=== PATIENT | male | born 1945 | race Caucasian/White ===

== ENCOUNTER 2019-02-08 12:30 | Emergency (ER) | payer MEDICARE, OTHER ==
--- NOTE | 2019-02-08 13:20 | XRAY Report ---
Reason: fall Procedure Date: 02/08/2019 Accession Number: [id number] / [id number] Procedure: XR - Hand 3 View LT CPT Code: FULL RESULT: EXAM: LEFT HAND RADIOGRAPHY EXAM DATE: 02/08/2019 01:03 PM. CLINICAL HISTORY: Fall. Left hand pain and swelling. COMPARISON: None available. TECHNIQUE: 3 views. FINDINGS: Bones: The bones are osteopenic. On the lateral view, there is a 11 x 8 mm ossicle projecting dorsal to the carpal bones, which appears fractured. This could represent a fractured and displaced pisiform. Otherwise the carpal bones appear intact and normally aligned. No additional fractures or dislocations. The fourth and fifth metacarpals are relatively short, which is likely congenital/developmental. Joints: Moderate degenerative changes of the distal radioulnar joint. Mild multifocal degenerative changes of the interphalangeal joints. Soft Tissues: Dorsal soft tissue swelling overlying the wrist and metacarpals. No radiopaque foreign body. IMPRESSION: Apparent fractured and displaced carpal bone, which may represent the pisiform, as described above. Dorsal soft tissue swelling. Osteopenia. RADIA
[2019-02-08] MEDS ORDERED: oxyCODONE 5 MG TABLET PO STA (14:00)
--- NOTE | 2019-02-08 14:09 | ED Physician Documentation ---
PD HPI UPPER EXT INJURY - Stated complaint Stated Complaint: LT HAND/WRIST INJURY - Chief complaint Chief Complaint: Ext Problem - History obtained from History obtained from: Patient - History of Present Illness Location: Left, Wrist, Hand Where injury occurred: Home Timing - onset: Today Timing - duration: Days (1) Timing - details: Abrupt onset Pain level max: 8 Pain level now: 7 Improved by: Rest Worsened by: Moving, Palpating Associated symptoms: No: Weakness, Numbness, Tingling, Swelling Similar symptoms before: Has not had sx before Recently seen: Not recently seen - Additonal information Additional information: fall, L wrist pain. pt is right handed Review of Systems Constitutional: denies: Fever, Chills Nose: denies: Rhinorrhea / runny nose Throat: denies: Sore throat Cardiac: denies: Chest pain / pressure GI: denies: Vomiting, Diarrhea Skin: denies: Rash Musculoskeletal: denies: Neck pain, Back pain Neurologic: denies: Headache PD PAST MEDICAL HISTORY - Past Medical History Past Medical History: No Cardiovascular: None Respiratory: None Neuro: None Endocrine/Autoimmune: None GI: None : None HEENT: None Psych: None Musculoskeletal: None Derm: None - Past Surgical History Past Surgical History: No - Present Medications Home Medications: Ambulatory Orders Medication Instructions Recorded Confirmed Aspirin Chewable [St Sixto 81 mg PO DAILY 02/08/19 02/08/19 Aspirin] Lactobacillus Acidophilus 1 each PO 02/08/19 02/08/19 [Probiotic Acidophilus] Oxycodone HCl/Acetaminophen 1 - 2 each PO Q6H PRN #14 tablet 02/08/19 [Percocet 5-325 mg Tablet] - Allergies Allergies/Adverse Reactions: Allergies Allergy/AdvReac Type Severity Reaction Status Date / Time No Known Drug Allergies Allergy Verified 02/08/19 12:40 - Social History Does the pt smoke?: Yes Smoking Status: Current every day smoker Does the pt drink ETOH?: Yes ETOH Use: Liquor Does the pt have substance abuse?: No - Immunizations Immunizations are current?: No Immunizations: TDAP >10years/unknown - POLST Patient has POLST: No PD ED PE NORMAL - Vitals Vital signs reviewed: Yes - General General: Alert and oriented X 3, No acute distress - HEENT HEENT: Moist mucous membranes - Neck Neck: Supple, no meningeal sign - Cardiac Cardiac: RRR - Respiratory Respiratory: No respiratory distress, Clear bilaterally - Derm Derm: Warm and dry - Extremities Extremities: Other (Tender to palpation over the left wrist, swelling and ec chymosis present. Neurovascular intact. Multiple small skin tears to the left elbow) - Neuro Neuro: Alert and oriented X 3 Results - Vitals Vitals: Vital Signs - 24 hr 02/08/19 02/08/19 12:37 16:32 Temperature 36.8 C 37.1 C Heart Rate 102 H 87 Respiratory 20 18 Rate Blood Pressure 184/92 H 171/93 H O2 Saturation 97 97 Oxygen O2 Source Room air - Rads (name of study) Left wrist x-ray Radiology: Prelim report reviewed, EMP read contemporaneously, See rad report (Apparent fractured and displaced carpal bone, which may represent the pisiform, as described above. Dorsal soft tissue swelling. Osteopenia. ) CT L wrist Radiology: Prelim report reviewed, EMP read contemporaneously, See rad report (Comminuted intra-articular fracture of the distal radius without significant displacement or step-off. 2. Comminuted fracture of the pisiform with maximum distraction of fragment 3 mm. 3. Triquetral avulsion fracture. 4. Additional fractured ossified fragment dorsal to the triquetrum measuring 1.0 x 0.7 x 0.8 cm. Exact site of origin is uncertain. This could represent a more extensive avulsion fragment arising from the dorsal margin of the triquetrum or lunate. Alternatively this could represent an old avulsion fragment or accessory ossification with a superimposed acute fracture. 5. Tiny avulsion fracture at the dorsal margin of the mid scaphoid. ) PD MEDICAL DECISION MAKING - ED course Complexity details: reviewed results, re-evaluated patient, considered differential, d/w patient, d/w performance test consultant ED course: 73-year-old male with a fractured and displaced carpal bone, possible pisiform. Discussed the case with Dr. Calixto, orthopedics who recommends a CT scan. This was ordered. Reviewed the CT scan with Dr. Calixto and recommends placement into a splint. Sugar tong splint was going to be applied but because of the skin tears farther up the arm, just to place him in a volar splint instead. Neurovascularly intact. Patient and family counseled regarding signs and symptoms for which I believe and urgent re-evaluation would be necessary. Patient with good understanding of and agreement to plan and is comfortable going home at this time This document was made in part using voice recognition software. While efforts are made to proofread this document, sound alike and grammatical errors may occur. Departure - Departure Disposition: 01 Home, Self Care Clinical Impression: Wrist fracture, left Qualifiers: Encounter type: initial encounter Fracture type: closed Qualified Code(s): S62.102A - Fracture of unspecified carpal bone, left wrist, initial encounter for closed fracture Condition: Good Instructions: ED Fx Wrist General Follow-Up: David Calixto MD [Provider Admit Priv/Credential] - Within 1 week Prescriptions: Oxycodone HCl/Acetaminophen [Percocet 5-325 mg Tablet] 1 - 2 each PO Q6H PRN #14 tablet PRN Reason: pain Comments: Follow-up with Dr. Calixto or his partner Dr. Crespo next week. Leave the splint in place. Return if you worsen. Do not drink alcohol or drive while on narcotic pain medicine. Note that many narcotic pain relievers also contain tylenol/acetaminophen. Please ensure that your total dose of acetaminophen from all sources does not exceed 3 grams (3000mg) per day. You may constipated on this medication, take a stool softener such as "Colace" twice a day while you are on it. Also recommend a epmg-[id number]-[id number] laxative such as senna or MiraLAX any day that you do not have a bowel movement. If you received narcotic pain medication in the emergency department, do not drive or operate machinery for the next 24 hours. Discharge Date/Time: 02/08/19 16:36
--- NOTE | 2019-02-08 15:07 | CT Report ---
Reason: L wrist - fx/dislocation of pisiform, pain Procedure Date: 02/08/2019 Accession Number: [id number] / [id number] Procedure: CT - UPPER EXTREMITY WO - LT CPT Code: FULL RESULT: EXAM: LEFT ELBOW CT WITHOUT CONTRAST EXAM DATE: 02/08/2019 02:30 PM. CLINICAL HISTORY: L wrist - fx/dislocation of pisiform, pain. COMPARISON: HAND 3 VIEW LT 02/08/2019 12:48 PM. TECHNIQUE: Thin-section axial images were acquired of the elbow without contrast. Post-processing: Coronal and sagittal reformats. Other: None. In accordance with CT protocol optimization, one or more of the following dose reduction techniques were utilized for this exam: automated exposure control, adjustment of mA and/or KV based on patient size, or use of iterative reconstructive technique. FINDINGS: Bones and articular surfaces: There is a comminuted intra-articular fracture of the distal radius with distraction and step-off both measuring less than 1 mm. Small avulsion fracture at the dorsal margin of the mid scaphoid. Small comminuted avulsion fracture at the dorsal margin of the lunate. Maximum distraction approximately 2 mm. Triquetral avulsion fracture. Adjacent to the small triquetral avulsion fracture there is a larger fractured focus of ossification measuring approximately 1.0 x 0.7 x 0.8 cm. Precise origin of this ossification is uncertain. Potentially this could represent a dorsal fragment of the lunate or triquetrum. This ossification is fractured, but age of the avulsion is uncertain. In addition there is a comminuted fracture of the [place] form with maximum subluxation at the radial margin of the fracture measuring 3 mm. Soft tissues: Wrist joint effusion. Subcutaneous soft tissue edema. Visualized flexor and extensor tendons appear grossly intact. Ligaments: There is no scapholunate or lunatotriquetral diastases. IMPRESSION: 1. Comminuted intra-articular fracture of the distal radius without significant displacement or step-off. 2. Comminuted fracture of the pisiform with maximum distraction of fragment 3 mm. 3. Triquetral avulsion fracture. 4. Additional fractured ossified fragment dorsal to the triquetrum measuring 1.0 x 0.7 x 0.8 cm. Exact site of origin is uncertain. This could represent a more extensive avulsion fragment arising from the dorsal margin of the triquetrum or lunate. Alternatively this could represent an old avulsion fragment or accessory ossification with a superimposed acute fracture. 5. Tiny avulsion fracture at the dorsal margin of the mid scaphoid. RADIA
[2019-02-08 16:34] VITALS: BP 171/93
== END 2019-02-08 16:36 | disposition home or self-care (01) ==
LOC: ED 12:30
DX: S52.572A Other intraarticular fracture of lower end of left radius, initial encounter for closed fracture (principal); S62.162A Displaced fracture of pisiform, left wrist, initial encounter for closed fracture; S62.112A Displaced fracture of triquetrum [cuneiform] bone, left wrist, initial encounter for closed fracture; S62.022A Displaced fracture of middle third of navicular [scaphoid] bone of left wrist, initial encounter for closed fracture; W19.XXXA Unspecified fall, initial encounter; Y92.009 Unspecified place in unspecified non-institutional (private) residence as the place of occurrence of the external cause; F17.200 Nicotine dependence, unspecified, uncomplicated
CPT/HCPCS: 73130; 73200; 99283; A9270

== ENCOUNTER 2020-01-20 16:08 | Outpatient (CLI) | payer MEDICARE, OTHER ==
--- NOTE | 2020-01-20 16:31 | XRAY Report ---
PROCEDURE: Chest 2 View X-Ray INDICATIONS: DYSPNEA TECHNIQUE: 2 view(s) of the chest. COMPARISON: None. FINDINGS: Surgical changes and devices: None. Lungs and pleura: No pleural effusions or pneumothorax. Moderate interstitial pulmonary opacity is p resent, of uncertain acuity. Mediastinum: Mediastinal contours are normal. Heart size is normal. Bones and chest wall: No suspicious bony abnormalities. Soft tissues appear unremarkable. IMPRESSION: Moderate edema versus pneumonia versus fibrosis. Comparison with prior chest x-rays woul d be helpful for further assessment. Reviewed by: Tika Delarosa MD on 01/20/2020 4:30 PM PDT Approved by: Tika Delarosa MD on 01/20/2020 4:30 PM PDT Station ID: [id number]
== END 2020-01-20 16:09 | disposition home or self-care (01) ==
LOC: DI 16:08
PROVIDERS: ATTEND Internal Medicine
DX: R91.8 Other nonspecific abnormal finding of lung field (principal)
CPT/HCPCS: 71046

== ENCOUNTER 2020-01-24 13:59 | Outpatient (CLI) | payer MEDICARE, OTHER | END 2020-01-24 14:00 | disposition critical access hospital (66) | LOC: EMS 13:59 | PROVIDERS: ATTEND Surgery | DX: R06.00 Dyspnea, unspecified (principal); R05 Cough | CPT/HCPCS: A0425; A0427 ==

== ENCOUNTER 2020-01-24 14:24 | Inpatient (IN) | payer MEDICARE, OTHER ==
[2020-01-24] MEDS ORDERED: IPRATROPIUM/ALBUTEROL 3 ML NEB INH STA (14:33)
--- NOTE | 2020-01-24 14:33 | ED Physician Documentation ---
PD HPI DYSPNEA - Stated complaint Stated Complaint: SOA - History obtained from History obtained from: Patient, EMS - History of Present Illness Timing - onset: Other (74-year-old gentleman without history of major medical problems but a longstanding smoker presents with shortness of breath with mild cough that is been going on for a week or so. He saw his physician who felt it was probably COPD and a chest x-ray was ordered with a read suggestive of fibrosis versus edema versus pneumonia. Got more short of breath and called EMS today. The shortness of breath is not positional, he denies orthopnea. No pedal edema or calf pain. No fevers. For paramedics they noted that if he ambulated he became borderline hypoxic to 90% or so, but not lower. In route he received 2 puffs of Combivent and 125 mg of IV Solu-Medrol.) Review of Systems Ten Systems: 10 systems reviewed and negative Constitutional: denies: Fever, Chills, Fatigue Cardiac: denies: Chest pain / pressure, Palpitations, Pedal edema, Calf pain Respiratory: reports: Dyspnea, Cough, Wheezing. denies: Hemoptysis GI: denies: Abdominal Pain PD PAST MEDICAL HISTORY - Past Medical History Cardiovascular: None Respiratory: None Neuro: None Endocrine/Autoimmune: None GI: None : None HEENT: None Psych: None Musculoskeletal: None Derm: None - Past Surgical History Past Surgical History: No - Present Medications Home Medications: Ambulatory Orders Medication Instructions Recorded Confirmed Aspirin Chewable [St Sixto 81 mg PO DAILY 02/08/19 01/24/20 Aspirin] - Allergies Allergies/Adverse Reactions: Allergies Allergy/AdvReac Type Severity Reaction Status Date / Time No Known Drug Allergies Allergy Verified 01/24/20 14:35 - Social History Does the pt smoke?: Yes Smoking Status: Current every day smoker Does the pt drink ETOH?: Yes Does the pt have substance abuse?: No - Immunizations Immunizations are current?: No Immunizations: TDAP >10years/unknown - POLST Patient has POLST: No PD ED PE NORMAL - Vitals Vital signs reviewed: Yes - General General: Alert and oriented X 3, No acute distress - HEENT HEENT: PERRL, EOMI - Neck Neck: Supple, no meningeal sign, No bony TTP - Cardiac Cardiac: Other (Mildly tachycardic) - Respiratory Respiratory: Other (Tight and wheezy throughout, nonlabored) - Abdomen Abdomen: Non tender - Back Back: No CVA TTP, No spinal TTP - Derm Derm: Normal color, Warm and dry - Extremities Extremities: No edema, No calf tenderness / cord - Neuro Neuro: Alert and oriented X 3, Normal speech Results - Vitals Vitals: Vital Signs - 24 hr 01/24/20 01/24/20 01/24/20 14:30 14:44 15:04 Temperature 36.7 C Heart Rate 114 H 104 H 105 H Respiratory 20 28 H 25 H Rate Blood Pressure 140/107 H O2 Saturation 94 01/24/20 16:00 Temperature Heart Rate 114 H Respiratory 25 H Rate Blood Pressure 163/103 H O2 Saturation 92 Oxygen O2 Source Room air - EKG (time done) 1442 Rate: Rate (enter#) (103) Rhythm: Sinus tachycardia (with PVCs), LAE Intervals: LBBB Ischemia: Non specific changes Compare to prior EKG: Old EKG unavailable Computer interpretation: Agree with computer - Labs Labs: Laboratory Tests 01/24/20 01/24/20 01/24/20 14:39 14:39 14:39 WBC 9.8 RBC 4.13 L Hgb 13.7 L Hct 40.1 L MCV 97.1 H MCH 33.2 H MCHC 34.2 RDW 20.0 H Plt Count 256 MPV 10.6 Neut # (Auto) 8.0 H Lymph # (Auto) 1.1 L [place] # (Auto) 0.6 Eos # (Auto) 0.1 Baso # (Auto) 0.1 Absolute Nucleated RBC 0.03 Nucleated RBC % 0.3 Sodium 142 Potassium 3.7 Chloride 106 Carbon Dioxide 23 Anion Gap 13.0 BUN 14 Creatinine 0.8 Estimated GFR (MDRD) 95 Glucose 122 H Calcium 9.2 Total Bilirubin 1.0 AST 22 ALT 16 Alkaline Phosphatase 66 Troponin I High Sens 33.8 H* B-Natriuretic Peptide Total Protein 6.9 Albumin 4.2 Globulin 2.7 Albumin/Globulin Ratio 1.6 Lipase 29 01/24/20 14:39 WBC RBC Hgb Hct MCV MCH MCHC RDW Plt Count MPV Neut # (Auto) Lymph # (Auto) [place] # (Auto) Eos # (Auto) Baso # (Auto) Absolute Nucleated RBC Nucleated RBC % Sodium Potassium Chloride Carbon Dioxide Anion Gap BUN Creatinine Estimated GFR (MDRD) Glucose Calcium Total Bilirubin AST ALT Alkaline Phosphatase Troponin I High Sens B-Natriuretic Peptide 1023 H Total Protein Albumin Globulin Albumin/Globulin Ratio Lipase - Rads (name of study) 1v chest Radiology: EMP read contemporaneously (Cardiomegaly and worsening pulmonary vascular congestion with a suggestion of pulmonary edema superimposed on chronic emphysematous changes and interstitial lung disease.) PD MEDICAL DECISION MAKING - ED course ED course: 74-year-old gentleman with really no past medical history but longstanding tobacco abuse presents with shortness of breath, the clinical pattern was most consistent with COPD with wheezy lungs and not really much evidence of peripheral fluid overload. That said his work-up here shows a somewhat ischemic EKG with pulmonary edema on chest x-ray and elevated BNP, his troponin is only modestly elevated. Spoke with Dr. Angel for admission at 4:12 PM. In the department he received 3 nebs and he had already gotten Solu-Medrol prior to arrival. This improved him somewhat but not much. He also received Nitropaste and Lasix after the diagnosis of CHF became also more apparent. Departure - Departure Disposition: 66 [facility] DC/Xfer Clinical Impression: Congestive heart failure, Dyspnea, Moderate COPD (chronic obstructive pulmonary disease) Condition: Serious
[2020-01-24 14:46] LABS: BASOPHILS # (AUTO) 0.1 10^3/uL (0.0-0.1); BASOPHILS % (AUTO) 0.8 %; EOSINOPHILS # (AUTO) 0.1 10^3/uL (0.0-0.7); EOSINOPHILS % (AUTO) 0.6 %; HGB - HEMOGLOBIN 13.7 g/dL (14.0-18.0); LYMPHOCYTES # (AUTO) 1.1 10^3/uL (1.5-3.5); LYMPHOCYTES % (AUTO) 10.7 %; MEAN CORPUSCULAR HEMOGLOBIN 33.2 pg (27.0-31.0); MEAN CORPUSCULAR HGB CONC 34.2 g/dL (32.0-36.0); MEAN CORPUSCULAR VOLUME 97.1 fL (80.0-94.0); MEAN PLATELET VOLUME 10.6 fL (7.4-11.4); MONOCYTES # (AUTO) 0.6 10^3/uL (0.0-1.0); MONOCYTES % (AUTO) 6.2 %; NEUTROPHILS % (AUTO) 81.1 %; PLT - PLATELET COUNT 256 10^3/uL (130-450); RED BLOOD COUNT 4.13 10^6/uL (4.70-6.10); WHITE BLOOD COUNT 9.8 x10^3/uL (4.8-10.8)
[2020-01-24 14:57] LABS: ALBUMIN 4.2 g/dL (3.2-5.5); ALBUMIN/GLOBULIN RATIO 1.6 (1.0-2.2); CALCIUM 9.2 mg/dL (8.5-10.3); CREATININE 0.8 mg/dL (0.6-1.2); TOTAL PROTEIN 6.9 g/dL (6.7-8.2)
--- NOTE | 2020-01-24 14:57 | XRAY Report ---
PROCEDURE: Chest 1 View X-Ray INDICATIONS: dyspnea TECHNIQUE: One view of the chest was acquired. COMPARISON: 01/20/2020 FINDINGS: Surgical changes and devices: None. Lungs and pleura: No pleural effusions or pneumothorax. Chronic emphysematous changes are again seen . Pulmonary vascular congestion is noted with increased interstitial lung reticular markings suggesti ve of pulmonary edema superimposed on chronic interstitial lung disease. No pneumothorax. No definite focal infiltrate. Mediastinum: Mediastinal contours appear normal. Heart size is enlarged. Bones and chest wall: No suspicious bony lesions. Overlying soft tissues appear unremarkable. IMPRESSION: Cardiomegaly and worsening pulmonary vascular congestion with suggestion of pulmonary edema superimpo sed on chronic emphysematous changes and interstitial lung disease. No pleural effusion or pneumothor ax. No definite focal infiltrate. Reviewed by: Isaiah Maloney MD on 01/24/2020 2:56 PM PDT Approved by: Isaiah Maloney MD on 01/24/2020 2:56 PM PDT Station ID: [id number]
[2020-01-24] MEDS ORDERED: LEVALBUTEROL 1.25 MG/3 ML NEB INH STA (14:59)
[2020-01-24] MEDS ORDERED: NITROGLYCERIN 2% PASTE TOP STA (15:35)
[2020-01-24] MEDS ORDERED: FUROSEMIDE 40 MG/4 ML VIAL IVP STA (15:35)
[2020-01-24] MEDS ORDERED: ASPIRIN CHEW 81 MG TABLET PO STA (16:11)
[2020-01-24] MEDS ORDERED: ONDANSETRON 4 MG/2 ML VIAL IVP PRN (17:23)
[2020-01-24] MEDS ORDERED: MORPHINE 2 MG/ML CARPUJECT IVP PRN (17:23)
[2020-01-24] MEDS ORDERED: ACETAMINOPHEN 325 MG TABLET PO PRN (17:23)
[2020-01-24] MEDS ORDERED: LEVALBUTEROL 1.25 MG/3 ML NEB INH PRN (17:26)
[2020-01-24] MEDS ORDERED: AZITHROMYCIN 250 MG TABLET PO STA (17:32)
[2020-01-24] MEDS: diltiaZEM 30 MG TABLET PO SCH ×2 (18:39→23:50)
[2020-01-24 18:46] LABS: INR 1.1 (0.8-1.2); PT - PROTHROMBIN TIME 12.3 secs (9.9-12.6)
--- NOTE | 2020-01-24 19:25 | HISTORY & PHYSICAL EXAMINATION ---
DATE OF SERVICE: 01/24/2020 Physician: Chela Angel MD HISTORY OF PRESENT ILLNESS: This is a 74-year-old white male who has no significant past medical history, but he also does not go to routine doctor visits. He only takes an aspirin a day. He is a smoker of a pack a day for many years. Patient went to see his doctor after complaints of worsening shortness of breath developing over about 2 weeks. There was no fever, sputum production, he has a chronic dry cough. He had outpatient chest x-ray, which was read as either having interstitial fibrosis or pneumonia, but cannot rule out CHF either. He continued to get worsening shortness of breath over the past 3 days and presented to the emergency room by ambulance with tachypnea with respiratory rate of 30, room air saturation of 90%, which dropped with ambulation to below 88%. CXR was read as CHF and underlying COPD. In the ER, he was given 3 nebulizer treatments because of being very tight and wheezy and also given Lasix x1 and nitro paste for management of CHF by chest x-ray and hypertension and has felt better. His labs show a very high BNP of 1023. He is being admitted for management of new onset of CHF and a COPD exacerbation and respiratory failure with hypoxia. PAST MEDICAL HISTORY: None except cigarette smoker of many years. ALLERGIES: NONE. MEDICATIONS: Baby aspirin daily. FAMILY HISTORY: No inherited diseases. SOCIAL HISTORY: There is no alcohol or drug abuse history. He is a smoker of cigarettes, 1 pack a day for many years, he has started to quit by "not inhaling at all". REVIEW OF SYSTEMS: He denies a fever, GI symptoms, palpitations, or chest pain. A comprehensive review of systems was performed and the pertinent positives are listed, the rest are negative. PHYSICAL EXAMINATION GENERAL: Thin, white male with a long avalos. He is in just mild respiratory distress now, wearing O2 via nasal cannula. VITAL SIGNS: Blood pressure 163/103, heart rate 114 in sinus tachycardia, afebrile, room air saturation was initially 90%, now 94% and there were desaturations below 88% with walking. HEENT: Reveals cachexia and dry oral mucosa. NECK: No JVD, but it is difficult to evaluate with his long avalos. CHEST: Diffusely tight with poor air movement and scattered wheezes. ABDOMEN: Soft, nontender. No organomegaly. EXTREMITIES: No clubbing, cyanosis or edema. NEUROLOGIC: Grossly intact. LABORATORY DATA: Normal electrolytes. Normal BUN and creatinine. Normal liver tests and lipase. BNP 1023. Troponin 33.8. White blood count 9.8, platelet count normal at 256. Hemoglobin is 13.7 with an MCV of 97. No INR was done. EKG: Sinus tachycardia, right bundle-branch block, frequent PVCs early 4/S transition. CHEST X-RAY: Cardiomegaly and pulmonary vascular congestion consistent with pulmonary edema on top of chronic COPD changes with interstitial lung disease. IMPRESSION/DIAGNOSES 1. New onset of congestive heart failure with very high BNP and findings of heart failure on chest x-ray. 2. Hypertension, untreated. 3. Chronic obstructive pulmonary disease with exacerbation. 4. Right bundle branch block. 5. Tachycardia. 6. Elevated troponin. 7. Tobacco abuse. PLAN: Place patient on Med/Surg as inpatient on telemetry. Continue management for his CHF with IV b.i.d. diuretics, follow his I's and O's, daily weights, electrolytes and magnesium. Cycle troponins. Follow his BNP daily, and continue with IV b.i.d. Lasix. Obtain an Echo to evaluate LV and RV contractility. Adjust meds based on the LVEF, which is likely to be depressed with such a high BNP. Continue with his daily aspirin. Depending on blood pressure after the Lasix treatment, possible nitro paste will continue. Start Cardizem for both rate control and vasodilation and blood pressure control. Begin nebulizers scheduled and p.r.n. Begin IV steroids for his COPD exacerbation. Nicotine patch will be offered. Smoking cessation will be discussed. CODE STATUS: FULL CODE, confirmed with discussion with the patient. DEEP VENOUS THROMBOSIS PROPHYLAXIS: Pharmacotherapy. ATTESTATION: Patient is expected to be discharged or transferred to another facility within 96 hours: Yes. cc: Jane Mac MD TD: 01/24/2020 18:20 KYRA
[2020-01-24] MEDS ORDERED: MONTELUKAST 10 MG TABLET PO SCH (21:00)
[2020-01-24] MEDS: methylPREDNISolone SUCCINATE 40 MG/ML VIAL IVP SCH (21:12)
[2020-01-24] MEDS: guaiFENesin 600 MG TABLET PO SCH (21:12)
[2020-01-24] MEDS: SODIUM CHLORIDE FLUSH 0.9% 10 ML SYRINGE IVP SCH (23:59)
[2020-01-25] MEDS: methylPREDNISolone SUCCINATE 40 MG/ML VIAL IVP SCH ×2 (05:30→14:13)
[2020-01-25] MEDS: FUROSEMIDE 20 MG/2 ML VIAL IVP SCH ×2 (05:31→14:14)
[2020-01-25] MEDS: SODIUM CHLORIDE FLUSH 0.9% 10 ML SYRINGE IVP PRN ×2 (05:33→07:22)
[2020-01-25] MEDS: SODIUM CHLORIDE FLUSH 0.9% 10 ML SYRINGE IVP SCH (05:33)
[2020-01-25] MEDS: diltiaZEM 30 MG TABLET PO SCH ×2 (05:34→14:12)
[2020-01-25 05:37] LABS: BASOPHILS % (AUTO) 0.2 %; HGB - HEMOGLOBIN 12.5 g/dL (14.0-18.0); LYMPHOCYTES # (AUTO) 0.4 10^3/uL (1.5-3.5); LYMPHOCYTES % (AUTO) 7.8 %; MEAN CORPUSCULAR HEMOGLOBIN 33.4 pg (27.0-31.0); MEAN CORPUSCULAR HGB CONC 34.3 g/dL (32.0-36.0); MEAN CORPUSCULAR VOLUME 97.3 fL (80.0-94.0); MEAN PLATELET VOLUME 10.2 fL (7.4-11.4); MONOCYTES # (AUTO) 0.1 10^3/uL (0.0-1.0); MONOCYTES % (AUTO) 2.5 %; NEUTROPHILS # (AUTO) 4.6 10^3/uL (1.5-6.6); NEUTROPHILS % (AUTO) 88.7 %; PLT - PLATELET COUNT 242 10^3/uL (130-450); RED BLOOD COUNT 3.74 10^6/uL (4.70-6.10); RED CELL DISTRIBUTION WIDTH 19.8 % (12.0-15.0); WHITE BLOOD COUNT 5.1 x10^3/uL (4.8-10.8)
[2020-01-25 05:47] LABS: CALCIUM 8.8 mg/dL (8.5-10.3); CREATININE 0.7 mg/dL (0.6-1.2); MAGNESIUM 1.7 mg/dL (1.7-2.8)
[2020-01-25] MEDS ORDERED: PANTOPRAZOLE 40 MG TABLET PO SCH (07:00)
[2020-01-25] MEDS ORDERED: NICOTINE 14 MG PATCH TOP SCH (09:00)
[2020-01-25] MEDS ORDERED: AZITHROMYCIN 250 MG TABLET PO SCH (09:00)
[2020-01-25] MEDS ORDERED: ENOXAPARIN 40 MG/0.4 ML SYRINGE SUBQ SCH (09:00)
[2020-01-25] MEDS ORDERED: ASPIRIN CHEW 81 MG TABLET PO SCH (09:00)
--- NOTE | 2020-01-25 09:21 | PHARMACY PROGRESS NOTE ---
- Best Possible Medication History Admit Date and Time: 01/24/20 6633 Processed by: Pharmacy Medication History completed: Yes Patient Interview: Completed Secondary Source(s): Physician records As the person ultimately responsible for medication therapy, providers are able to order a medication from an existing home medication list in [facility] via the "Reconcile Routine" prior to Confirmation of that medication by user support specialist. Such practice is discouraged except when the physician, in their clinical judgment, deems that a medical need exists for a medication without regard to previous use.
[2020-01-25] MEDS: guaiFENesin 600 MG TABLET PO SCH (09:30)
--- NOTE | 2020-01-25 12:39 | Discharge Plan ---
Discharge Plan Problem Reviewed?: Yes Disposition: Home, Self Care Condition: Stable Prescriptions: Budesonide/Formoterol Fumarate [Symbicort 80-4.5 Mcg Inhaler] 10.2 gm IH BID #1 hfa.aer.ad carvediloL [Coreg] 3.125 mg PO BID #60 tablet Enalapril [Vasotec] 2.5 mg PO BID #30 tablet Spironolactone 25 mg PO DAILY #30 tablet Diet: Low Sodium Activity Restrictions: Activity as Tolerated Shower Restrictions: No Driving Restrictions: No Instruction Topics: Heart Failure Diet Changes Health Concerns: You were admitted with shortness of breath from congestive heart failure (fluid buildup in the lungs). 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 The emphysema is from his prison smoking. The Echocardiogram of your heart found a stretched and weak heart muscle. You are being put on heart medicines that normally slowly strengthen the heart. You need further evaluation soon, as an outpatient, as to what made the heart so weak. You are being discharged home on new heart medicines, an inhaler and recommendations for smoking cessation. Please see your PCP in hospital follow-up in the next 1 to 2 weeks. You qualify for attending Pulmonary Rehab and Heart Failure classes at the [facility] here as an outpatient. A referral was sent, and their staff will call you to see if you would like to start attending. Plan of Treatment: New heart and an inhaler medicines were ordered. The prescriptions were electronically sent to the [facility] pharmacy in [place]. Keep taking the daily aspirin. Appointment needed with Dr Mac soon, for medication adjustments, and work- up of what caused the weak heart. Care Goals: Improvement in symptoms and stabilization are the goals. Assessment: The patient and daughter understand the plan. Additional Instructions or Follow Up instructions: If you have new or worsening symptoms, call us or come to the ER. [facility]-Up Care: [facility], [facility] No Smoking: If you smoke, Please STOP! Call for help. Follow-up with: Jane Mac MD [Primary Care Provider] -
--- NOTE | 2020-01-25 13:11 | DISCHARGE SUMMARY ---
Discharge Summary Admit Date: 01/24/20 Discharge Date: 01/25/20 Discharging Provider: Dr Chela Angel Primary Care Provider: Dr Jane Mac Code Status: Attempt Resuscitation Condition at Discharge: Stable Discharge Disposition: 01 Home, Self Care - HPI History of Present Illness: This is a 74 year old white male, smoker who does not see a doctor, developed 2 weeks of worsening shortness of breath and did see a new PCP, had a CXR which found interstitial pneumonia or pneumonia or CHF. He was severely SOB for 2 days and came to the ER where he was found to be in marked respiratory distress, wheezing, tachypneic with resp rate of 30, O2 sat of 90% on room air which dropped below 88% with walking. He was given nebs, iv steroid, iv Lasix and dee pplemental oxygen. Work-up showed CHF on CXR, BNP 1023, troponin 33, Hgb 13.7. His BP was 163/103 and heart rate 114 in sinus tachycardia. He was admitted for new onset of CHF and a COPD exacerbation, and management of untreated HTN. I discussed his care wishes and he wanted to be a Full Code. - HOSPITAL COURSE Hospital Course: 1) New onset CHF The troponins were "flat" at 33, 38, 25, ruling him out for an acute GA. An Echo was done that showed depressed LVEF of 20-25%. He had improved saturations, was able to walk without dyspnea or desaturations by the very next day. He was discharged on new meds for CHF (Coreg, Enalapril, and Spironolactone) and told to continue daily aspirin and that he needs further work-up as an outpatient. 2) Acute systolic heart failure, NYHA Class II The LVEF was 20-25%, with mild LVH and mildly elevated PA pressure of 41 mmHg. He and the daughter at bedside were given the results and he knows he needs more evaluation and follow-up. 3) HTN, uncontrolled He was put on new meds for CHF and HTN and discharged on these. 4) COPD without exacerbation His wheezing in the ER may have been cardiac asthma, since he did not wheeze the very next day, after diuresis. He was discharged with a prescription for a Sym bicort inhaler. 5) Pulmonary HTN Likely caused by smoking and michelle cardiomyopathy. 6) Tobacco abuse a nicotine patch was used here. He said he was motivated to stop smoking and had already been decreasing on his own. 7) RBBB This is likely to be associated with his COPD. - ALLERGIES Allergies/Adverse Reactions: Allergies Allergy/AdvReac Type Severity Reaction Status Date / Time No Known Drug Allergies Allergy Verified 01/24/20 14:35 - MEDICATIONS Home Medications: Ambulatory Orders Medication Instructions Recorded Confirmed Aspirin Chewable [St Sixto 81 mg PO DAILY 02/08/19 01/24/20 Aspirin] Acetaminophen [Mapap] 325 mg PO PRN PRN 01/25/20 01/25/20 Budesonide/Formoterol Fumarate 10.2 gm IH BID #1 hfa.aer.ad 01/25/20 [Symbicort 80-4.5 Mcg Inhaler] Enalapril [Vasotec] 2.5 mg PO BID #30 tablet 01/25/20 Spironolactone 25 mg PO DAILY #30 tablet 01/25/20 carvediloL [Coreg] 3.125 mg PO BID #60 tablet 01/25/20 - PHYSICAL EXAM AT DISCHARGE General Appearance: positive: No acute distress, Alert Eyes Bilateral: positive: Normal inspection, EOMI ENT: positive: ENT inspection nml, No signs of dehydration Neck: positive: Nml inspection Respiratory: positive: No respiratory distress, Breath sounds nml Cardiovascular: positive: Regular rate & rhythm, No murmur Abdomen: positive: Non-tender, No distention Skin: positive: Color nml Extremities: positive: Non-tender, No pedal edema Neurologic/Psychiatric: positive: Oriented x3, Other (Non-focal) - LABS Result Diagrams: 01/25/20 05:29 01/25/20 05:29 - DIAGNOSTIC IMAGING Diagnostic Imaging Results: Final report reviewed - FOLLOW UP Follow Up: See PCP in several days, for hospital follow-up. - TIME SPENT Time Spent in Discharge (Minutes): 45
[2020-01-25 14:19] VITALS: BP 148/79
== END 2020-01-25 14:36 | disposition home or self-care (01) | DRG 291 ==
LOC: EDUNIT# → ED 14:24 → MS2 16:54
PROVIDERS: ADMIT Internal Medicine; ATTEND Internal Medicine
DX: I50.9 Heart failure, unspecified (principal); I11.0 Hypertensive heart disease with heart failure; J43.9 Emphysema, unspecified; J84.9 Interstitial pulmonary disease, unspecified; I50.21 Acute systolic (congestive) heart failure; I44.7 Left bundle-branch block, unspecified; F17.200 Nicotine dependence, unspecified, uncomplicated; R00.0 Tachycardia, unspecified; I27.20 Pulmonary hypertension, unspecified; I45.10 Unspecified right bundle-branch block; Z79.82 Long term (current) use of aspirin; F17.210 Nicotine dependence, cigarettes, uncomplicated
CPT/HCPCS: 36415; 71045; 80048; 80053; 83690; 83735; 83880; 84484; 85025; 85610; 93005; 93306; 94640; 94761; 96374; 99285; A9270; J1650

== ENCOUNTER 2020-10-18 17:51 | Outpatient (CLI) | payer MEDICARE, OTHER | END 2020-10-18 17:52 | disposition critical access hospital (66) | LOC: EMS 17:51 | PROVIDERS: ATTEND Registered Nurse | DX: S51.812A Laceration without foreign body of left forearm, initial encounter (principal); W01.110A Fall on same level from slipping, tripping and stumbling with subsequent striking against sharp glass, initial encounter; Y93.01 Activity, walking, marching and hiking; Y92.008 Other place in unspecified non-institutional (private) residence as the place of occurrence of the external cause | CPT/HCPCS: A0425; A0429 ==

== ENCOUNTER 2020-10-18 18:16 | Emergency (ER) | payer MEDICARE, OTHER ==
[2020-10-18] MEDS ORDERED: TETANUS/DIPHTHERIA/PERTUSSIS 0.5 ML SYRINGE IM ONE (18:32)
--- NOTE | 2020-10-18 18:34 | ED Physician Documentation ---
History of Present Illness - Stated complaint Stated Complaint: GLF. LEFT FOREARM PAIN - Chief complaint Chief Complaint: Trauma Ext - Additonal information Additional information: 75-year-old male presents to the emergency department for evaluation of a large left forearm bruise and hematoma. He reports stepping outside to feed the cats and tripping while walking up his 's old wheelchair ramp. He fell forward and onto his left arm into a trough of water. He has a very large hematoma on most of the ulnar side of the left forearm as well as associated skin tears. He does take daily Plavix and aspirin. He did not hit his head. There was no loss of consciousness. Review of Systems Constitutional: denies: Fever, Chills Eyes: reports: Reviewed and negative Ears: reports: Reviewed and negative Nose: reports: Reviewed and negative Throat: reports: Reviewed and negative Cardiac: reports: Reviewed and negative Respiratory: reports: Reviewed and negative GI: reports: Reviewed and negative : reports: Reviewed and negative Skin: reports: Abrasion (s) (left forearms), Reviewed and negative Musculoskeletal: reports: Extremity pain (left forearm) Neurologic: reports: Reviewed and negative Psychiatric: reports: Reviewed and negative PD PAST MEDICAL HISTORY - Past Medical History Cardiovascular: None Respiratory: None Neuro: None Endocrine/Autoimmune: None GI: None : None HEENT: None Psych: None Musculoskeletal: None Derm: None - Past Surgical History Past Surgical History: No - Present Medications Home Medications: Ambulatory Orders Medication Instructions Recorded Confirmed Aspirin Chewable [St Sixto 81 mg PO DAILY 02/08/19 10/18/20 Aspirin] Acetaminophen [Mapap] 325 mg PO PRN PRN 01/25/20 10/18/20 Budesonide/Formoterol Fumarate 10.2 gm IH BID #1 hfa.aer.ad 01/25/20 10/18/20 [Symbicort 80-4.5 Mcg Inhaler] Enalapril [Vasotec] 2.5 mg PO BID #30 tablet 01/25/20 10/18/20 Spironolactone 25 mg PO DAILY #30 tablet 01/25/20 10/18/20 carvediloL [Coreg] 3.125 mg PO BID #60 tablet 01/25/20 10/18/20 Bacitracin Zinc Oint 1 applic TOP BID #1 gm 10/18/20 Clopidogrel [Plavix] 1 tab DAILY 10/18/20 10/18/20 - Allergies Allergies/Adverse Reactions: Allergies Allergy/AdvReac Type Severity Reaction Status Date / Time No Known Drug Allergies Allergy Verified 10/18/20 18:27 - Social History Does the pt smoke?: Yes Smoking Status: Current every day smoker Does the pt drink ETOH?: Yes Does the pt have substance abuse?: No - Immunizations Immunizations are current?: No Immunizations: TDAP >10years/unknown - POLST Patient has POLST: No PD ED PE NORMAL - General General: Alert and oriented X 3, No acute distress - HEENT HEENT: Ears normal, Moist mucous membranes - Cardiac Cardiac: RRR, No murmur - Respiratory Respiratory: No respiratory distress, Clear bilaterally - Extremities Extremities: No deformity, Normal ROM s pain, No edema. No: No tenderness to palpate (large hematoma with superficial skin tears ulnar side left forearm. no deformity) - Neuro Neuro: Alert and oriented X 3, reuse technician 2-12 intact Eye Opening: Spontaneous Motor: Obeys Commands Verbal: Oriented GCS Score: 15 Results - Vitals Vitals: Vital Signs - 24 hr 10/18/20 18:24 Temperature 36.8 C Heart Rate 69 Respiratory 14 Rate Blood Pressure 181/90 H O2 Saturation 99 Oxygen O2 Source Room air - Rads (name of study) left forearm Radiology: EMP read indepedently (No acute fracture dislocation) PD MEDICAL DECISION MAKING - ED course Complexity details: reviewed results, re-evaluated patient, d/w patient ED course: 75-year-old male presents the emergency department with a large hematoma and abrasion with associated skin tear on the left forearm after fall this afternoon. There is no deformity. X-ray does not show any acute fracture. However he does have a large abrasion and hematoma likely secondary to his Plavix and aspirin use. Unfortunately the skin tears are not amenable to primary closure. His tetanus was updated today and we discussed routine wound care including the use of bacitracin and nonstick pads. Emergent return precautions were discussed for concerns of infection. Departure - Departure Disposition: 01 Home, Self Care Clinical Impression: Skin tear of left upper extremity Fall Qualifiers: Encounter type: initial encounter Qualified Code(s): W19.XXXA - Unspecified fall, initial encounter Condition: Stable Record reviewed to determine appropriate education?: Yes Instructions: ED Avulsion Dermal Prescriptions: Bacitracin Zinc Oint 1 applic TOP BID #1 gm Comments: Sudhir the x-ray does not show any broken bones in your forearm but you do have a large avulsion and skin tear. This will likely take a month or more to heal. You can gently wash your arm with warm soap and water pat dry. Apply antibiotic ointment to the skin tears. I do suspect that it will have to heal from the inside out and the outer skin will eventually peel away. Return to the emergency department if you have fevers milky drainage increased pain or any concerns of infection.
[2020-10-18] MEDS ORDERED: BACITRACIN ZINC OINT 1 PACKET TOP STA (19:25)
--- NOTE | 2020-10-18 19:43 | XRAY Report ---
PROCEDURE: Forearm LT INDICATIONS: fall, hematoma. r/o fx TECHNIQUE: 2 views of the forearm were acquired. COMPARISON: None FINDINGS: Bones: No fractures or dislocations. No suspicious bony lesions. Soft tissues: No suspicious soft tissue calcifications or masses. IMPRESSION: No acute fracture. No osseous lesion. If symptoms and/or clinical suspicion for pathology continue, f urther assessment with repeat plain films, or advanced imaging (e.g., CT, MRI, or bone scan) is recom mended for further assessment. Reviewed by: Tika Delarosa MD on 10/18/2020 7:42 PM PST Approved by: Tika Delarosa MD on 10/18/2020 7:42 PM PST Station ID: [id number]
[2020-10-18 19:57] VITALS: BP 172/82
== END 2020-10-18 20:09 | disposition home or self-care (01) ==
LOC: EDUNIT# → SUPCPDRO 18:16 → ED 18:16
DX: S56.922A Laceration of unspecified muscles, fascia and tendons at forearm level, left arm, initial encounter (principal); W01.198A Fall on same level from slipping, tripping and stumbling with subsequent striking against other object, initial encounter; Y93.F9 Activity, other caregiving; Y92.009 Unspecified place in unspecified non-institutional (private) residence as the place of occurrence of the external cause; F17.200 Nicotine dependence, unspecified, uncomplicated; Z79.82 Long term (current) use of aspirin
CPT/HCPCS: 73090; 90471; 90715; 99283; 99284; A9270

== ENCOUNTER 2021-03-20 14:44 | Outpatient (CLI) | payer MEDICARE, OTHER ==
--- NOTE | 2021-03-20 16:17 | Ultrasound Report ---
PROCEDURE: Abdomen Limited INDICATIONS: ELEVATED LFTS TECHNIQUE: Real-time scanning was performed of the abdominal and retroperitoneal organs, with image documentatio n. COMPARISON: None. FINDINGS: Liver: Liver is normal in size with diffusely coarsened echotexture. No focal intrahepatic mass les ions. Gallbladder: Gallbladder is normal in sonographic appearance without gallstones, wall thickening or p ericholecystic fluid. Negative sonographic Cameron's. Biliary ducts: Intrahepatic bile ducts are non-dilated. Extrahepatic bile duct caliber measures 5 m m. Normal is 6-7 mm or less in diameter, or 10 mm or less post-cholecystectomy. Pancreas: Visualized portions of the pancreas are sonographically normal. Kidneys: Right kidney is normal in size and echotexture. Right kidney measures 11.1 cm long; no hydr onephrosis or nephrolithiasis. No solid masses. Miscellaneous: No free abdominal fluid. IMPRESSION: Abdominal ultrasound without acute sonographic abnormalities. Diffusely coarsened hepatic echotexture which may be related to hepatic steatosis or sequela of chronic hepatocellular disease. Findings may explain patient's elevated liver function tests. Reviewed by: Joaquim Trotter MD on 03/20/2021 4:16 PM PDT Approved by: Joaquim Trotter MD on 03/20/2021 4:16 PM PDT Station ID: [id number]
== END 2021-03-20 14:45 | disposition home or self-care (01) ==
LOC: DI 14:44
PROVIDERS: ATTEND Internal Medicine
DX: R74.8 Abnormal levels of other serum enzymes (principal)

== ENCOUNTER 2021-08-10 10:16 | Outpatient (CLI) | payer MEDICARE, OTHER | END 2021-08-10 10:17 | disposition short-term general hospital (02) | LOC: EMS 10:16 | DX: S79.912A Unspecified injury of left hip, initial encounter (principal); W19.XXXA Unspecified fall, initial encounter; Y92.009 Unspecified place in unspecified non-institutional (private) residence as the place of occurrence of the external cause | CPT/HCPCS: A0425; A0429 ==

== ENCOUNTER 2021-10-04 16:44 | Outpatient (CLI) | payer MEDICARE, OTHER ==
--- NOTE | 2021-10-04 17:57 | XRAY Report ---
PROCEDURE: Hip w/Pelvis 1V LT INDICATIONS: LEFT HIP PX TECHNIQUE: AP pelvis with lateral view(s) of the left hip(s). COMPARISON: None. FINDINGS: Bones: There is a mildly displaced intertrochanteric fixed intertrochanteric fracture of the left fe moral neck. There is callus formation consistent with healing. Surgical hardware appears intact. No d islocations. Pelvic ring appears intact. No suspicious bony lesions. Mild hip and secretory ductal degeneration is bilaterally. Soft tissues: The visualized bowel gas pattern is normal. No suspicious soft tissue calcifications. IMPRESSION: Left intertrochanteric fracture with internal fixation. Comparison to prior examinations , if available, would be helpful. Reviewed by: Oseas Washington MD on 10/04/2021 5:56 PM PST Approved by: Oseas Washington MD on 10/04/2021 5:56 PM PST Station ID: [id number]
== END 2021-10-04 16:45 | disposition home or self-care (01) ==
LOC: DI 16:44
PROVIDERS: ATTEND Internal Medicine
DX: S72.142D Displaced intertrochanteric fracture of left femur, subsequent encounter for closed fracture with routine healing (principal); L76.34 Postprocedural seroma of skin and subcutaneous tissue following other procedure

== ENCOUNTER 2021-10-15 13:16 | Outpatient (CLI) | payer MEDICARE, OTHER | END 2021-10-15 13:17 | disposition critical access hospital (66) | LOC: EMS 13:16 | DX: R07.81 Pleurodynia (principal); M54.50 Low back pain, unspecified; R63.0 Anorexia | CPT/HCPCS: A0425; A0429 ==

== ENCOUNTER 2021-10-15 13:44 | Emergency (ER) | payer MEDICARE, OTHER ==
--- NOTE | 2021-10-15 15:33 | XRAY Report ---
PROCEDURE: Lumbar Spine 2 View INDICATIONS: hip/rib/back pain p injury TECHNIQUE: 3 views of the lumbar spine were acquired. COMPARISON: None. FINDINGS: Bones: 5 [id number] vertebrae are present. There is normal bony alignment. No vertebral body compression fractures. No suspicious bony lesions. Generalized decreased osseous mineralization pre sent. Degenerative facet arthropathy noted lower lumbar spine Soft tissues: Overlying bowel gas pattern is normal. No suspicious soft tissue calcifications. Ath erosclerotic calcification of the abdominal aorta without evidence of aneurysm. IMPRESSION: Osteopenia without fracture or traumatic malalignment Reviewed by: George Renee MD on 10/15/2021 2:31 PM AKST Approved by: George Renee MD on 10/15/2021 2:31 PM AKST Station ID: [id number]
--- NOTE | 2021-10-15 15:35 | XRAY Report ---
PROCEDURE: Ribs w/PA Chest RT INDICATIONS: hip/rib/back pain p injury TECHNIQUE: 3 views of the right ribs were acquired, along with a single view chest. COMPARISON: None FINDINGS: Surgical changes and devices: None. Bones and chest wall: Nondisplaced right lateral eighth and ninth rib fractures noted without pneumot horax. Osteopenia . Lungs and pleura: No pleural effusions or pneumothorax. Lungs appear clear. Mediastinum: Mediastinal contours appear normal. Heart size is normal. IMPRESSION: Nondisplaced right lateral eighth and ninth rib fractures without pneumothorax Reviewed by: George Renee MD on 10/15/2021 2:34 PM AKST Approved by: George Renee MD on 10/15/2021 2:34 PM AKST Station ID: [id number]
--- NOTE | 2021-10-15 15:42 | XRAY Report ---
PROCEDURE: Hip w/Pelvis 2-3V LT INDICATIONS: hip inj TECHNIQUE: AP pelvis with lateral view(s) of the left hip(s). COMPARISON: None. FINDINGS: Bones: Old healed left intratrochanteric fracture with associated compression screw and side plate in good position. Bilateral hip acetabular joint space narrowing present. Pelvic ring is intact. Right proximal femur unremarkable. Soft tissues: The visualized bowel gas pattern is normal. No suspicious soft tissue calcifications. IMPRESSION: No acute fracture or dislocation. Bilateral hip joint spaces narrowing and small marginal osteophytes and Old healed instrumented left intertrochanteric fracture Reviewed by: George Renee MD on 10/15/2021 2:41 PM AKST Approved by: George Renee MD on 10/15/2021 2:41 PM AKST Station ID: [id number]
--- OUTSIDE RECORDS SUMMARY | 2021-10-15 15:47 | EXTERNAL MEDICAL SUMMARY RPT | Continuity of Care Document ---
:1945 Author Organization [facility] Address [address] [place] [address] Phone Care Team Providers Name Role Phone Dannhaur Unavailable Unavailable Dannhaur Unavailable Unavailable Allergies No information. Encounters No information. Medications date description facility 20210814 POLYETHYLENE GLYCOL 3350 142 MG/ML Oral Solution [facility] 20210814 Sucralfate 1000 MG Oral Tablet [facility] 20210814 Folic Acid 1 MG Oral Tablet [facility] pital 20210814 Famotidine 20 MG Oral Tablet [facility]ital 20210814 clopidogrel [address] [facility] 20210814 Cholecalciferol 400 UNT Oral Tablet [facility] 20210814 Ascorbic Acid 500 MG Oral Tablet [facility] 20210814 Docusate Sodium 100 MG Oral Capsule [facility] 20210814 Oxycodone Hydrochloride 5 MG Oral Table t [facility] 20210810 clopidogrel [address] [facility] Problems date description facility 20210810 Fracture of unspecified part of neck of left femur, [facility] initial Procedures date description facility 20210810 General Physician [facility] 20210810 Finding [facility] 20210810 Diagnosis [facility] Results No information. Vital Signs date measurement value source 20210810 weight_standard 148 lb 20210810 weight_metric 67.13 kg 20210810 temperature_standard 98.7 F 20210810 temperature_metric 37.06 C 20210810 respiration_rate 16 /min 20210810 height_standard 71 in 20210810 height_metric 180.34 cm 20210810 heart_rate 100 /min 20210810 BP_systolic 134 mm[Hg] 20210810 BP_diastolic 67 mm[Hg] 20210810 BMI 20.6 kg/m2 20210814 temperature_standard 98.7 F 20210814 temperature_metric 37.06 C 20210814 respiration_rate 18 /min 20210814 heart_rate 105 /min 20210814 BP_systolic 106 mm[Hg] 20210814 BP_diastolic 62 mm[Hg]
[2021-10-15] MEDS ORDERED: HYDROcod/ACETAM 5/325 MG TABLET PO STA (17:23)
--- NOTE | 2021-10-15 17:25 | ED Physician Documentation ---
PD HPI BACK PAIN - Stated complaint Stated Complaint: R RIB PX/L HIP PX - Chief complaint Chief Complaint: Back Pain - History obtained from History obtained from: Patient - Additional information Additional information: States he fell back in August and has had rib pain since. Does not think there is been a more recent fall. He had his hip fixed then 2 and has had persistent pain in his left hip ever since fixation, worse since restarting rehab therapy more recently. Also states for the last 2 years he just has had poor appetite. Does not feel like eating. This is not acute. Review of Systems Constitutional: reports: Reviewed and negative Eyes: reports: Reviewed and negative Cardiac: denies: Palpitations Respiratory: denies: Dyspnea, Cough PD PAST MEDICAL HISTORY - Past Medical History Cardiovascular: None Respiratory: None Neuro: None Endocrine/Autoimmune: None GI: None : None HEENT: None Psych: None Musculoskeletal: None Derm: None - Past Surgical History Past Surgical History: No Cardiovascular: Coronary stent, Fempop bypass - Present Medications Home Medications: Ambulatory Orders Medication Instructions Recorded Confirmed Aspirin Chewable [St Sixto 81 mg PO DAILY 02/08/19 10/18/20 Aspirin] Acetaminophen [Mapap] 325 mg PO PRN PRN 01/25/20 10/18/20 Budesonide/Formoterol Fumarate 10.2 gm IH BID #1 hfa.aer.ad 01/25/20 10/18/20 [Symbicort 80-4.5 Mcg Inhaler] Enalapril [Vasotec] 2.5 mg PO BID #30 tablet 01/25/20 10/18/20 Spironolactone 25 mg PO DAILY #30 tablet 01/25/20 10/18/20 carvediloL [Coreg] 3.125 mg PO BID #60 tablet 01/25/20 10/18/20 Bacitracin Zinc Oint 1 applic TOP BID #1 gm 10/18/20 Clopidogrel [Plavix] 1 tab DAILY 10/18/20 10/18/20 HYDROcod/ACETAM 5/325 [[place] 5/325] 1 - 2 tab PO Q6H PRN #15 tablet 10/15/21 Megestrol Acetate 3 tab PO BID #180 tablet 10/15/21 - Allergies Allergies/Adverse Reactions: Allergies Allergy/AdvReac Type Severity Reaction Status Date / Time No Known Drug Allergies Allergy Verified 10/15/21 13:58 - Social History Does the pt smoke?: Yes Smoking Status: Current every day smoker Does the pt drink ETOH?: Yes Does the pt have substance abuse?: No - Immunizations Immunizations are current?: No Immunizations: TDAP >10years/unknown - POLST Patient has POLST: No PD ED PE NORMAL - Vitals Vital signs reviewed: Yes - General General: Alert and oriented X 3, No acute distress - HEENT HEENT: PERRL, EOMI - Neck Neck: Supple, no meningeal sign, No bony TTP - Cardiac Cardiac: RRR, No murmur - Respiratory Respiratory: No respiratory distress, Clear bilaterally, Other (There is a decent sized bruise on the posterior axillary line on the right with underlying tenderness but no deformity.) - Abdomen Abdomen: Non tender - Back Back: No spinal TTP - Extremities Extremities: No edema, No calf tenderness / cord, Other (Left hip is nontender) - Neuro Neuro: Alert and oriented X 3, Normal speech Results - Vitals Vitals: Vital Signs - 24 hr 10/15/21 10/15/21 13:51 15:50 Temperature 36.1 C L 36.2 C L Heart Rate 91 85 Respiratory 16 18 Rate Blood Pressure 128/86 H 131/82 H O2 Saturation 99 100 Oxygen O2 Source Room air PD MEDICAL DECISION MAKING - ED course ED course: 76-year-old gentleman presents with mostly rib and hip pain. The hip pain seems worse after restarting rehab so that may be causative. States he fell back in August but not more recently, but the bruise on the right posterior thorax appears more recent than 2 months old. He does have 2 rib fractures on x-ray, the remainder of the x-rays are negative except for chronic findings. He was administered hydrocodone and he notes some weight loss and we will trial megestrol pending follow-up with his primary care physician. Departure - Departure Disposition: 01 Home, Self Care Clinical Impression: Hip pain Fracture, rib Qualifiers: Encounter type: initial encounter Rib fracture type: multiple ribs Fracture type: closed Laterality: right Qualified Code(s): S22.41XA - Multiple fractures of ribs, right side, initial encounter for closed fracture Lumbago Qualifiers: Chronicity: acute Back pain laterality: midline Sciatica presence: without sciatica Qualified Code(s): M54.50 - Low back pain, unspecified Condition: Good Record reviewed to determine appropriate education?: Yes Instructions: ED Low Back Pain Injury, ED Fx Rib Prescriptions: Megestrol Acetate 3 tab PO BID #180 tablet HYDROcod/ACETAM 5/325 [[place] 5/325] 1 - 2 tab PO Q6H PRN #15 tablet PRN Reason: Pain Comments: You do have 2 rib fractures on the right, the remainder of the x-rays were negative. For the weight loss I am prescribing something that may help, and you should definitely follow-up with your primary care physician, next available appointment. I also sent a prescription for pain medication to [facility] for the rib fractures. Return for new or worsening symptoms. Use incentive spirometry as shown by the respiratory therapist as often as you can. I am prescribing a short course of narcotic pain medication for you. These are potentially dangerous and addictive medications that should be used carefully. These medications may constipate you. Take an [id number] stool softener (docusate) twice daily with plenty of water while taking these medications. If you go 24 hours without a bowel movement, take [id number] miralax, per package instructions. Do not drink or drive while taking these medications. If you received narcotic or sedating medications while in the emergency department, do not drive for 24 hours. Store this medication in a safe, secure place and out of reach of children. It is a violation of federal law to give or sell this medication to another person or to use in a manner other than prescribed. The ED will not refill narcotic prescriptions, including prescriptions lost or stolen. To dispose of unwanted medications: 1. [facility] at [address] in [place] has a medication drop box. They accept prescription medications (in pill form) Friday through Friday 9:00 a.m. to 5:00 p.m. 2. The [facility] [employer] accepts prescription medications (in pill form only) for disposal year round. Call for more information. 3. Contact the [facility] for the next [facility] sponsored prescription drug collection event. , [phone], or [phone]; Note that many narcotic pain relievers also contain Tylenol/acetaminophen. Ple ase ensure that your total dose of acetaminophen from all sources does not exceed 3 g (3000 mg) per day.
[2021-10-15 17:47] VITALS: BP 148/87
== END 2021-10-15 17:51 | disposition home or self-care (01) ==
LOC: EDUNIT# → ED 13:44
DX: S22.41XA Multiple fractures of ribs, right side, initial encounter for closed fracture (principal); W19.XXXA Unspecified fall, initial encounter; M54.50 Low back pain, unspecified; Z95.5 Presence of coronary angioplasty implant and graft; F17.200 Nicotine dependence, unspecified, uncomplicated; Z79.82 Long term (current) use of aspirin
CPT/HCPCS: 99284

== ENCOUNTER 2021-10-24 06:15 | Outpatient (CLI) | payer MEDICARE, OTHER | END 2021-10-24 06:16 | disposition EMS.NT | LOC: EMS 06:15 | DX: R04.0 Epistaxis (principal); Z79.01 Long term (current) use of anticoagulants ==

== ENCOUNTER 2021-10-24 07:49 | Outpatient (CLI) | payer MEDICARE, OTHER | END 2021-10-24 07:50 | disposition critical access hospital (66) | LOC: EMS 07:49 | DX: R04.0 Epistaxis (principal); Z79.01 Long term (current) use of anticoagulants | CPT/HCPCS: A0425; A0429 ==

== ENCOUNTER 2021-10-24 08:14 | Emergency (ER) | payer MEDICARE, OTHER ==
[2021-10-24] MEDS ORDERED: OXYMETAZOLINE HCL 100 SPRAYS BOTTLE NAS STA (08:18)
[2021-10-24] MEDS ORDERED: TRANEXAMIC ACID 1,000 MG/10 ML VIAL NAS STA (08:18)
--- NOTE | 2021-10-24 08:22 | ED Physician Documentation ---
PD HPI HEENT - Stated complaint Stated Complaint: NOSE BLEED - History obtained from History obtained from: Patient, EMS - History of Present Illness Timing - onset: Enter time (729), Today Timing - duration: Hours Timing - details: Abrupt onset, Still present Location: Nose Improves: Other (clamp) Associated symptoms: No: Fever, Congestion, Rhinorrhea, Trismus, Unable to swallow, Swollen nodes, Facial swelling, Headache, Cough Similar symptoms before: Has not had sx before Recently seen: Not recently seen - Additional information Additional information: 76-year-old Sudhir Clayton is developed a nosebleed early this morning and he was unable to control it with direct pressure he eventually called the ambulance and that they have brought the patient in here with a clamp on his nose and his bleeding seems to be controlled now.The patient believes he is on a blood thinner although he is not able to tell us which one. Review of Systems Constitutional: denies: Fever Ears: denies: Ear pain Nose: reports: Congestion Throat: denies: Sore throat Respiratory: denies: Cough GI: denies: Vomiting PD PAST MEDICAL HISTORY - Past Medical History Cardiovascular: None, Coronary artery disease, Other Respiratory: None Neuro: None Endocrine/Autoimmune: None GI: None : None HEENT: None Psych: None Musculoskeletal: None Derm: None - Past Surgical History Past Surgical History: Yes Ortho: Hip replacement Cardiovascular: Coronary stent, Fempop bypass - Present Medications Home Medications: Ambulatory Orders Medication Instructions Recorded Confirmed Aspirin Chewable [St Sixto 81 mg PO DAILY 02/08/19 10/24/21 Aspirin] Acetaminophen [Mapap] 325 mg PO PRN PRN 01/25/20 10/24/21 Budesonide/Formoterol Fumarate 10.2 gm IH BID #1 hfa.aer.ad 01/25/20 10/24/21 [Symbicort 80-4.5 Mcg Inhaler] Enalapril [Vasotec] 2.5 mg PO BID #30 tablet 01/25/20 10/24/21 Spironolactone 25 mg PO DAILY #30 tablet 01/25/20 10/24/21 carvediloL [Coreg] 3.125 mg PO BID #60 tablet 01/25/20 10/24/21 Clopidogrel [Plavix] 75 mg ORAL DAILY 10/18/20 10/24/21 Atorvastatin Calcium [Lipitor] 80 mg PO HS 10/24/21 10/24/21 Sucralfate [Carafate] 1 tablet PO ACHS 10/24/21 10/24/21 - Allergies Allergies/Adverse Reactions: Allergies Allergy/AdvReac Type Severity Reaction Status Date / Time No Known Drug Allergies Allergy Verified 10/15/21 13:58 - Social History Does the pt smoke?: No Smoking Status: Never smoker Does the pt drink ETOH?: Yes Does the pt have substance abuse?: No - Immunizations Immunizations are current?: Yes Immunizations: TDAP >10years/unknown - POLST Patient has POLST: No PD ED PE NORMAL - Vitals Vital signs reviewed: Yes (Hypertensive) - General General: Alert and oriented X 3, No acute distress, Well developed/nourished - HEENT HEENT: Atraumatic, PERRL, EOMI - Neck Neck: Supple, no meningeal sign, No bony TTP, Other (And nasalThe patient is wearing a nasal clamp and there is no current bleeding when the clamp was removed passes were inspected there is a large clot this is grasped and mechanically removed part way the rest of it is blown out of the patient's nose.) - Respiratory Respiratory: No respiratory distress - Derm Derm: Normal color, Warm and dry, No rash - Extremities Extremities: No deformity, No edema - Neuro Neuro: Alert and oriented X 3, surgical manager 2-12 intact, No motor deficit, No sensory deficit, Normal speech Eye Opening: Spontaneous Motor: Obeys Commands Verbal: Oriented GCS Score: 15 - Psych Psych: Normal mood, Normal affect Results - Vitals Vitals: Vital Signs - 24 hr 10/24/21 10/24/21 10/24/21 08:23 08:43 09:32 Temperature 36.3 C L Heart Rate 52 L 71 57 L Respiratory 18 18 16 Rate Blood Pressure 140/64 H 139/62 H 113/78 O2 Saturation 93 97 100 Oxygen O2 Source Room air - Labs Labs: Laboratory Tests 10/24/21 10/24/21 10/24/21 08:27 08:27 08:27 WBC 5.9 RBC 3.65 L Hgb 11.5 L Hct 35.0 L MCV 95.9 H MCH 31.5 H MCHC 32.9 RDW 19.9 H Plt Count 382 MPV 9.8 Neut # (Auto) 4.0 Lymph # (Auto) 1.3 L [place] # (Auto) 0.5 Eos # (Auto) 0.1 Baso # (Auto) 0.1 Absolute Nucleated RBC 0.00 Nucleated RBC % 0.0 PT 11.4 INR 1.0 Sodium 137 Potassium 5.1 H Chloride 110 Carbon Dioxide 15 L Anion Gap 12.0 BUN 42 H Creatinine 1.4 H Estimated GFR (MDRD) 49 L Glucose 116 H Calcium 9.5 Total Bilirubin 0.3 AST 19 ALT 15 Alkaline Phosphatase 107 Total Protein 7.1 Albumin 4.0 Globulin 3.1 Albumin/Globulin Ratio 1.3 Lipase 187 H Procedures - Epistaxis Site: Left, Anterior Preparation: Clots removed, Afrin, Other (TXA is administered intranasally as well.) Treatment: Silver Nitrate Other: Observed - no bleeding, Pt tolerated well PD MEDICAL DECISION MAKING - ED course Complexity details: reviewed results, re-evaluated patient, considered differential, d/w patient ED course: 76-year-old male with acute epistaxis thinks that he may be on Coumadin and blood was drawn he does have some mild elevation in his INR but not in the therapeutic range. We did not find evidence that the patient is on any anticoagulation.We related to get the patient to blow the clot out of his nose and with the use of Afrin and tranexamic acid there was minimal bleeding from a tiny spot in the septum and this was cauterized with silver nitrate without further bleeding. A rare leave from the emergency department without a nasal packing in place. Departure - Departure Disposition: 01 Home, Self Care Clinical Impression: Epistaxis Condition: Stable Instructions: ED Nosebleed Follow-Up: Jane Mac MD [Primary Care Provider] - Comments: Sudhir, today it looks like we have been able to control the bleeding in your nose with simple procedures. We did do some silver nitrate cautery. If your nose begins to rebleed use the clamp provided and clamp it close to your cheeks. As described. Leave the clamp in place for extended period of time. If you are unable to control your nosebleed despite this we are here 24 hours a day. Discharge Date/Time: 10/24/21 09:39
[2021-10-24 08:32] LABS: BASOPHILS # (AUTO) 0.1 10^3/uL (0.0-0.1); BASOPHILS % (AUTO) 0.8 %; EOSINOPHILS # (AUTO) 0.1 10^3/uL (0.0-0.7); EOSINOPHILS % (AUTO) 0.8 %; HGB - HEMOGLOBIN 11.5 g/dL (14.0-18.0); LYMPHOCYTES # (AUTO) 1.3 10^3/uL (1.5-3.5); LYMPHOCYTES % (AUTO) 21.7 %; MEAN CORPUSCULAR HEMOGLOBIN 31.5 pg (27.0-31.0); MEAN CORPUSCULAR HGB CONC 32.9 g/dL (32.0-36.0); MEAN CORPUSCULAR VOLUME 95.9 fL (80.0-94.0); MEAN PLATELET VOLUME 9.8 fL (7.4-11.4); MONOCYTES # (AUTO) 0.5 10^3/uL (0.0-1.0); MONOCYTES % (AUTO) 8.4 %; NEUTROPHILS % (AUTO) 67.6 %; PLT - PLATELET COUNT 382 10^3/uL (130-450); RED BLOOD COUNT 3.65 10^6/uL (4.70-6.10); RED CELL DISTRIBUTION WIDTH 19.9 % (12.0-15.0); WHITE BLOOD COUNT 5.9 x10^3/uL (4.8-10.8)
[2021-10-24 08:41] LABS: PT - PROTHROMBIN TIME 11.4 secs (9.9-12.6)
[2021-10-24 08:50] LABS: ALBUMIN/GLOBULIN RATIO 1.3 (1.0-2.2); BILIRUBIN,TOTAL 0.3 mg/dL (0.2-1.0); CALCIUM 9.5 mg/dL (8.5-10.3); CREATININE 1.4 mg/dL (0.6-1.2); POTASSIUM 5.1 mmol/L (3.5-5.0); TOTAL PROTEIN 7.1 g/dL (6.7-8.2)
--- OUTSIDE RECORDS SUMMARY | 2021-10-24 09:01 | EXTERNAL MEDICAL SUMMARY RPT | Continuity of Care Document ---
:1945 Author Organization [facility] Address [address] [place] [address] Phone Care Team Providers Name Role Phone Jane العراقي Unavailable Unavailable Jane العراقي Unavailable Unavailable Allergies No information. Encounters No information. Medications date description facility [id number] POLYETHYLENE GLYCOL 3350 142 MG/ML Oral Solution [facility] [id number] Sucralfate 1000 MG Oral Tablet [facility] [id number] Folic Acid 1 MG Oral Tablet [facility] 20210814 Famotidine 20 MG Oral Tablet [facility] [id number] clopidogrel 75 MG Oral Tablet [facility] [id number] Cholecalciferol 400 UNT Oral Tablet [facility] [id number] Ascorbic Acid 500 MG Oral Tablet [facility] 20210814 Docusate Sodium 100 MG Oral Capsule [facility] [id number] Oxycodone Hydrochloride 5 MG Oral Table t [facility] [id number] clopidogrel 75 MG Oral Tablet [facility] Problems date description facility [id number] Fracture of unspecified part of neck of left femur, [facility] initial Procedures date description facility [id number] General Physician [facility] [id number] Finding [facility] [id number] Diagnosis [facility] Results No information. Vital Signs [...]
[2021-10-24] MEDS ORDERED: SILVER NITRATE APPLICATOR TOP STA (09:04)
[2021-10-24 09:32] VITALS: BP 113/78
== END 2021-10-24 09:39 | disposition home or self-care (01) ==
LOC: EDUNIT# → ED 08:14
DX: R04.0 Epistaxis (principal)
CPT/HCPCS: 30901; 36415; 80053; 83690; 85025; 85610; 99282; 99283; A9270

== ENCOUNTER 2022-04-08 08:00 | Outpatient (CLI) | payer MEDICARE, OTHER ==
[2022-04-08 19:20] LABS: CALCIUM 8.7 mg/dL (8.5-10.3); CREATININE 0.8 mg/dL (0.6-1.2); POTASSIUM 4.2 mmol/L (3.5-5.0)
== END 2022-04-08 23:59 | disposition home or self-care (01) ==
LOC: LAB.R 08:00
PROVIDERS: ATTEND Internal Medicine
DX: N17.9 Acute kidney failure, unspecified (principal); M48.50XS Collapsed vertebra, not elsewhere classified, site unspecified, sequela of fracture
CPT/HCPCS: 80048

== ENCOUNTER 2022-05-04 17:38 | Outpatient (CLI) | payer MEDICARE, OTHER | END 2022-05-04 17:39 | disposition critical access hospital (66) | LOC: EMS 17:38 | DX: R07.81 Pleurodynia (principal); R53.1 Weakness; R63.0 Anorexia; W01.190A Fall on same level from slipping, tripping and stumbling with subsequent striking against furniture, initial encounter; Y92.009 Unspecified place in unspecified non-institutional (private) residence as the place of occurrence of the external cause | CPT/HCPCS: A0425; A0429 ==

== ENCOUNTER 2022-05-04 18:03 | Emergency (ER) | payer MEDICARE, OTHER ==
[2022-05-04 18:42] LABS: BASOPHILS % (AUTO) 0.3 %; EOSINOPHILS % (AUTO) 0.2 %; HCT - HEMATOCRIT 24.6 % (42.0-52.0); HGB - HEMOGLOBIN 8.2 g/dL (14.0-18.0); LYMPHOCYTES # (AUTO) 0.8 10^3/uL (1.5-3.5); LYMPHOCYTES % (AUTO) 12.6 %; MEAN CORPUSCULAR HEMOGLOBIN 33.2 pg (27.0-31.0); MEAN CORPUSCULAR HGB CONC 33.3 g/dL (32.0-36.0); MEAN CORPUSCULAR VOLUME 99.6 fL (80.0-94.0); MEAN PLATELET VOLUME 9.8 fL (7.4-11.4); MONOCYTES # (AUTO) 0.7 10^3/uL (0.0-1.0); MONOCYTES % (AUTO) 10.3 %; NEUTROPHILS % (AUTO) 76.3 %; NRBC ABSOLUTE COUNT (AUTO) 0.03 x10^3/uL; NUCLEATED RED BLOOD CELLS AUTO 0.5 /100WBC; PLT - PLATELET COUNT 239 10^3/uL (130-450); RED BLOOD COUNT 2.47 10^6/uL (4.70-6.10); RED CELL DISTRIBUTION WIDTH 21.4 % (12.0-15.0); WHITE BLOOD COUNT 6.5 x10^3/uL (4.8-10.8)
[2022-05-04 18:45] LABS: SLIDE REVIEW? Indicated
[2022-05-04] MEDS ORDERED: HYDROcod/ACETAM 5/325 MG TABLET PO STA (18:51)
[2022-05-04] MEDS ORDERED: SODIUM CHLORIDE 0.9% 1,000 ML IV STA ×2 (18:51→21:54)
[2022-05-04 18:55] LABS: ALBUMIN/GLOBULIN RATIO 1.7 (1.0-2.2); ALKALINE PHOSPHATASE 79 IU/L (42-121); ALT ALANINE AMINOTRANSFERASE 43 IU/L (10-60); AST ASPARTATE AMINOTRANSFERASE 52 IU/L (10-42); BILIRUBIN,TOTAL 2.4 mg/dL (0.2-1.0); BUN - BLOOD UREA NITROGEN 55 mg/dL (6-20); CALCIUM 8.8 mg/dL (8.5-10.3); CARBON DIOXIDE - CO2 21 mmol/L (21-32); CHLORIDE 92 mmol/L (101-111); CREATININE 2.9 mg/dL (0.6-1.2); ETOH - ETHANOL < 5.0 mg/dL; GFR - MDRD 21 (>89); GLUCOSE 129 mg/dL (70-100); LIPASE 178 U/L (22-51); MAGNESIUM 1.4 mg/dL (1.7-2.8); PHOSPHORUS 5.2 mg/dL (2.5-4.6); POTASSIUM 4.3 mmol/L (3.5-5.0); SODIUM 133 mmol/L (135-145); TOTAL PROTEIN 6.4 g/dL (6.7-8.2)
--- NOTE | 2022-05-04 18:55 | ED Physician Documentation ---
History of Present Illness - Stated complaint Stated Complaint: GEN WEAKNESS - Chief complaint Chief Complaint: General - History obtained from History obtained from: Patient - Additonal information Additional information: This is a 76-year-old gentleman with history of HFrEF, CAD, COPD with recent T12 and L3 compression fractures. He has not been doing well lately and was admitted on April 01 for hypotension and ALFREDO with improvement after IV fluids. He had a CT of the abdomen pelvis on recent admission with no abnormalities except for the known compression fractures. States that over the last week he has not been able to eat due to a combination of poor appetite and frequent vomiting. Last good meal was a week ago. This is led to presumed dehydration and he had a fall last night injuring his left ribs and several skin tears on the left arm. Review of Systems Ten Systems: 10 systems reviewed and negative Constitutional: reports: Fatigue Cardiac: reports: Chest pain / pressure (From the rib injury). denies: Palpitations Respiratory: denies: Dyspnea, Cough GI: reports: Nausea, Vomiting. denies: Abdominal Pain PD PAST MEDICAL HISTORY - Past Medical History Past Medical History: Yes Cardiovascular: Congestive heart failure, Hypertension, High cholesterol, Coronary artery disease, Valve disorder Respiratory: COPD Neuro: None Endocrine/Autoimmune: None GI: GERD : None HEENT: None Psych: None Musculoskeletal: Chronic back pain, Other Derm: None - Past Surgical History Past Surgical History: Yes Ortho: Hip replacement Cardiovascular: Coronary stent, Fempop bypass - Present Medications Home Medications: Ambulatory Orders Medication Instructions Recorded Confirmed Aspirin Chewable [St Sixto 81 mg PO DAILY 02/08/19 10/24/21 Aspirin] Acetaminophen [Mapap] 325 mg PO PRN PRN 01/25/20 10/24/21 Budesonide/Formoterol Fumarate 10.2 gm IH BID #1 hfa.aer.ad 01/25/20 04/01/22 [Symbicort 80-4.5 Mcg Inhaler] Enalapril [Vasotec] 2.5 mg PO BID #30 tablet 01/25/20 04/01/22 Clopidogrel [Plavix] 75 mg ORAL DAILY 10/18/20 04/01/22 Sucralfate [Carafate] 1 tablet PO ACHS 10/24/21 04/01/22 Calcitonin [Fortical] 1 sprays DESTINEY DAILY #1 each 03/22/22 04/01/22 HYDROcod/ACETAM 5/325 [[place] 5/325] 1 - 2 tab PO Q6H PRN #30 tablet 03/22/22 04/01/22 Ondansetron Odt [Zofran Odt] 4 mg TL Q6H PRN #10 tablet 03/22/22 04/01/22 Albuterol Sulf [Ventolin Hfa 1 - 2 puffs INH Q4HR PRN 04/01/22 04/01/22 Inhaler] Atorvastatin Calcium [Lipitor] 80 mg PO DAILY 04/01/22 04/01/22 Carvedilol [Coreg] 12.5 mg PO BIDWM 04/01/22 04/01/22 Ezetimibe [Zetia] 10 mg PO QD 04/01/22 04/01/22 Magnesium Oxide [Mag Ox] 400 mg PO 0800 04/01/22 04/01/22 Meloxicam [Mobic] 7.5 mg PO DAILY 04/01/22 04/01/22 Omeprazole 40 mg PO DAILY 04/01/22 04/01/22 Spironolactone 50 mg PO DAILY 04/01/22 04/01/22 - Allergies Allergies/Adverse Reactions: Allergies Allergy/AdvReac Type Severity Reaction Status Date / Time lactose AdvReac Intermediate Cramps Verified 05/04/22 18:13 - Social History Does the pt smoke?: No Smoking Status: Former smoker Does the pt drink ETOH?: Yes ETOH Use: Beer Does the pt have substance abuse?: No - Immunizations Immunizations are current?: Yes Immunizations: TDAP >10years/unknown - POLST Patient has POLST: No PD ED PE NORMAL - Vitals Vital signs reviewed: Yes - General General: Alert and oriented X 3, Other (Underweight gentleman with a [place]an drawl in no distress) - HEENT HEENT: PERRL, EOMI, Other (He has some infraorbital ecchymosis on the left without facial bony tenderness. This is from a recent fall but not last night. No headaches.) - Neck Neck: Supple, no meningeal sign, No bony TTP - Cardiac Cardiac: RRR, No murmur - Respiratory Respiratory: No respiratory distress, Clear bilaterally, Other (Tender diffusely to the left ribs) - Abdomen Abdomen: Non tender - Back Back: No CVA TTP, No spinal TTP - Derm Derm: Normal color, Warm and dry - Extremities Extremities: Other (Multiple skin tears on the left arm, the only large one is lateral to the left elbow. No bony tenderness there.) - Neuro Neuro: Alert and oriented X 3, Normal speech Results - Vitals Vitals: Vital Signs - 24 hr 05/04/22 05/04/22 05/04/22 18:13 19:01 21:00 Temperature 37 C Heart Rate 88 79 82 Respiratory 20 22 14 Rate Blood Pressure 143/77 H 120/68 128/77 O2 Saturation 92 100 100 Oxygen O2 Source Room air - EKG (time done) 1810 Rate: Rate (enter#) (81) Rhythm: NSR [place]: Normal Intervals: RBBB Ischemia: Non specific changes. No: ST elevation c/w ischemia, ST depression Compare to prior EKG: Changed from prior EKG (Compared with recent EKG done April 01, previously inverted T waves in V2 and V3 are now upright.) - Labs Labs: Laboratory Tests 05/04/22 05/04/22 05/04/22 18:36 18:36 20:58 WBC 6.5 RBC 2.47 L Hgb 8.2 L Hct 24.6 L MCV 99.6 H MCH 33.2 H MCHC 33.3 RDW 21.4 H Plt Count 239 MPV 9.8 Neut # (Auto) 5.0 Lymph # (Auto) 0.8 L [place] # (Auto) 0.7 Eos # (Auto) 0.0 Baso # (Auto) 0.0 Absolute Nucleated RBC 0.03 Nucleated RBC % 0.5 Manual Slide Review Indicated Platelet Estimate NORMAL (130-450,000) Platelet Morphology NORMAL APPEARANCE RBC Morph Micro Appear 3+ POIKILOCYTOSIS Sodium 133 L Potassium 4.3 Chloride 92 L Carbon Dioxide 21 Anion Gap 20.0 H BUN 55 H Creatinine 2.9 H Estimated GFR (MDRD) 21 L Glucose 129 H Calcium 8.8 Phosphorus 5.2 H Magnesium 1.4 L Total Bilirubin 2.4 H AST 52 H ALT 43 Alkaline Phosphatase 79 Total Protein 6.4 L Albumin 4.0 Globulin 2.4 Albumin/Globulin Ratio 1.7 Lipase 178 H Nasal Adenovirus (PCR) NOT DETECTED Nasal B. parapertussis DNA (PCR) NOT DETECTED Nasal Coronavir 229E PCR NOT DETECTED Nasal Coronavir HKU1 PCR NOT DETECTED Nasal Coronavir NL63 PCR NOT DETECTED Nasal Coronavir OC43 PCR NOT DETECTED Nasal Enterovir/Rhinovir PCR NOT DETECTED Nasal Influenza B PCR NOT DETECTED Nasal Influenza A PCR NOT DETECTED Nasal Parainfluen 1 PCR NOT DETECTED Nasal Parainfluen 2 PCR NOT DETECTED Nasal Parainfluen 3 PCR NOT DETECTED Nasal Parainfluen 4 PCR NOT DETECTED Nasal RSV (PCR) NOT DETECTED Nasal B.pertussis DNA PCR NOT DETECTED Nasal C.pneumoniae (PCR) NOT DETECTED [place] Human Metapneumo PCR NOT DETECTED Nasal M.pneumoniae (PCR) NOT DETECTED Nasal SARS-CoV-2 (PCR) NOT DETECTED Ethyl Alcohol < 5.0 PD MEDICAL DECISION MAKING - ED course ED course: 76-year-old gentleman has had poor appetite and weight loss of unclear etiology, this is caused him to have a prerenal azotemia/ALFREDO which presumably cause some orthostasis causing him to have a fall last night. He has some skin tears in the left upper extremity but the main issue is potential for rib fractures and a CT of the chest was done showing acute appearing rib fractures of 5 left-sided ribs. Given this finding he probably merits transfer to a trauma center for further evaluation and treatment and [facility] was called at approximately 8:14 PM for transfer. He was excepted to [facility] ED by Dr. Cris Barrett at approximately 8:34 PM. Cobras are completed and he is stable for transport. Departure - Departure Disposition: 02 Transfer Acute Care Hosp Clinical Impression: Moderate COPD (chronic obstructive pulmonary disease), Chronic HFrEF (heart failure with reduced ejection fraction), History of coronary artery disease, Poor appetite, Severe protein-calorie malnutrition Multiple fractures of ribs Qualifiers: Encounter type: initial encounter Fracture type: closed Laterality: left Qualified Code(s): S22.42XA - Multiple fractures of ribs, left side, initial encounter for closed fracture Condition: Serious
[2022-05-04 19:03] LABS: PLATELET MORPHOLOGY NORMAL APPEARANCE (NORMAL)
[2022-05-04 19:04] LABS: PLATELET ESTIMATE, MANUAL NORMAL (130-450,000) (NORMAL)
--- NOTE | 2022-05-04 19:59 | CT Report ---
PROCEDURE: CHEST WO INDICATIONS: chest wall inj TECHNIQUE: Noncontrast 1mm axial images were acquired from the pulmonary apices to the posterior costophrenic an gles. Axial 5 mm soft tissue kernel reconstructions were performed as well as 8 mm axial MIP and cor onal and sagittal 5 mm reformations. For radiation dose reduction, the following was used: automate d exposure control, adjustment of mA and/or kV according to patient size. COMPARISON: None FINDINGS: Image quality: Excellent. Lungs and pleura: The lungs have centrilobular emphysematous changes. 6 mm nodule adjacent to the fi ssure series 4 image 133. 3 mm nodule in the right lower lobe posteromedially series 4 image 170 No a cute air space opacities. No pleural effusions or pneumothorax. Central and peripheral airways are patent and normal in caliber. Mediastinum: Heart size is normal. No pericardial effusion. No mediastinal adenopathy by size crit eria. Thoracic aorta and central pulmonary arteries are normal in size. Esophagus is normal in shu anna. No hiatal hernia. The coronary arteries have atherosclerotic calcifications.. Bones and chest wall: Rib fractures of the left second through seventh ribs which except for the seco nd rib fracture appear acute. Multiple remote right-sided rib fractures. Remote appearing L1 compress ion fracture with 50% height loss anteriorly. Remote appearing T9 compression fracture with 40% anter ior height loss. No axillary or supraclavicular adenopathy by size criteria. The thyroid is normal in size. Abdomen: Visualized upper abdominal solid organs and bowel loops appear normal in the absence of con trast. Partially visualized infrarenal abdominal aortic aneurysm which at the lowest slice measures at least 4.1 cm, unchanged compared to lumbar spine CT on 03/22/2022. IMPRESSION: 1. Multiple acute left-sided rib fractures. 2. No pneumothorax or hemothorax. 3. Centrilobular emphysema. 4. Pulmonary nodules as above. Recommend CT in 6 months to ensure stability. 5. Multiple remote right and left-sided rib fractures and multiple acute left-sided rib fractures. Reviewed by: Horacio Pena on 05/04/2022 7:57 PM PDT Approved by: Horacio Pena on 05/04/2022 7:57 PM PDT Station ID: [id number]
[2022-05-04] MEDS ORDERED: MORPHINE 2 MG/ML CARPUJECT IVP STA (20:14)
[2022-05-04] MEDS ORDERED: MAGNESIUM SULFATE 2 GRAM 2 GM/50 ML BAG IV ONE (21:54)
[2022-05-04 22:01] LABS: CORONAVIRUS 229E-RESP PCR NOT DETECTED
[2022-05-04 22:02] LABS: B. PARAPERTUSSIS- RESP PCR PAN NOT DETECTED; B. PERTUSSIS- RESP PCR PANEL NOT DETECTED; C. PNEUMONIAE- RESP PCR PANEL NOT DETECTED; CORONAVIRUS HKU1-RESP PCR NOT DETECTED; CORONAVIRUS NL63-RESP PCR NOT DETECTED; CORONAVIRUS OC43-RESP PCR NOT DETECTED; HUMAN METAPNEUMOVIRUS NOT DETECTED; INFLUENZA A- RESP PCR PANEL NOT DETECTED; INFLUENZA B - RESP PCR PANEL NOT DETECTED; M. PNEUMONIAE- RESP PCR PANEL NOT DETECTED; PARAINFLUENZA VIRUS 1 NOT DETECTED; PARAINFLUENZA VIRUS 2 NOT DETECTED; PARAINFLUENZA VIRUS 3 NOT DETECTED; PARAINFLUENZA VIRUS 4 NOT DETECTED; RHINOVIRUS/ENTEROVIRUS NOT DETECTED; RSV- RESP PCR PANEL NOT DETECTED; SARS-CoV-2 -RESP PCR PANEL NOT DETECTED
[2022-05-05] MEDS ORDERED: HYDROmorphone 1 MG/ML CARPUJECT IVP STA (00:41)
[2022-05-05 01:12] VITALS: BP 129/71
== END 2022-05-05 01:12 | disposition short-term general hospital (02) ==
LOC: EDUNIT# → ED 18:03
DX: J44.9 Chronic obstructive pulmonary disease, unspecified (principal); I50.20 Unspecified systolic (congestive) heart failure; I25.10 Atherosclerotic heart disease of native coronary artery without angina pectoris; E43 Unspecified severe protein-calorie malnutrition; S22.42XA Multiple fractures of ribs, left side, initial encounter for closed fracture; W19.XXXA Unspecified fall, initial encounter; W22.03XA Walked into furniture, initial encounter; Y92.009 Unspecified place in unspecified non-institutional (private) residence as the place of occurrence of the external cause; Z87.891 Personal history of nicotine dependence; Z20.822 Contact with and (suspected) exposure to COVID-19
CPT/HCPCS: 36415; 71250; 80053; 83690; 83735; 84100; 85025; 87633; 93005; 96361; 96365; 96375; 99284; 99285; A9270; G0480; J1170; 80320

== ENCOUNTER 2022-06-05 08:00 | Outpatient (CLI) | payer MEDICARE, OTHER ==
[2022-06-05 16:36] LABS: CALCIUM 9.4 mg/dL (8.5-10.3); POTASSIUM 3.5 mmol/L (3.5-5.0)
== END 2022-06-05 23:59 | disposition home or self-care (01) ==
LOC: LAB.R 08:00
PROVIDERS: ATTEND Internal Medicine
DX: N17.9 Acute kidney failure, unspecified (principal)
CPT/HCPCS: 80048

== ENCOUNTER 2022-06-17 13:27 | Outpatient (CLI) | payer MEDICARE, OTHER | END 2022-06-17 13:28 | disposition critical access hospital (66) | LOC: EMS 13:27 | DX: R53.1 Weakness (principal); E86.0 Dehydration; R63.0 Anorexia; R63.8 Other symptoms and signs concerning food and fluid intake | CPT/HCPCS: A0425; A0429 ==

== ENCOUNTER 2022-06-17 14:16 | Inpatient (IN) | payer MEDICARE, OTHER ==
--- OUTSIDE RECORDS SUMMARY | 2022-06-17 14:42 | EXTERNAL MEDICAL SUMMARY RPT | Continuity of Care Document ---
:1945 Author Organization [facility] Address [address] [place] [address] Phone Allergies No information. Encounters No information. Functional Status No information. Immunizations No information. Medications No information. Problems No information. Procedures No information. Results/Labs test date author facility value unit interpret ation Result panel 1 (unknown) (no (unknown) (unknown) (no value) (units (unk nown) date) unknown) (unknown) (no (unknown) (unknown) 1. Loss of (units (unk nown) date) height associated unknown) with the L1 compression fracture has increased (unknown) (no (unknown) (unknown) 06/11/22 (units (unkno wn) date) unknown) (unknown) (no (unknown) (unknown) [address] [place] [address] (units (unknown) date) unknown) (unknown) (no (unknown) (unknown) 13:03. (units (unkno wn) date) unknown) (unknown) (no (unknown) (unknown) 2. Moderate to (units (unknown) date) severe central unknown) canal narrowing related to retropulsed bone (unknown) (no (unknown) (unknown) 3. Multilevel (units ( unknown) date) degenerative disc unknown) disease. (unknown) (no (unknown) (unknown) [id number] (units (unkno wn) date) unknown) (unknown) (no (unknown) (unknown) 4. No severe (units (u nknown) date) neural foraminal unknown) narrowing. (unknown) (no (unknown) (unknown) 5. Right sacral (units (unknown) date) insufficiency unknown) fracture. (unknown) (no (unknown) (unknown) Accession (units (unkn own) date) Number: unknown) [id number] (unknown) (no (unknown) (unknown) Age/Sex: 77 / M (units (unknown) date) Date of Service: unknown) (unknown) (no (unknown) (unknown) Alignment and (units ( unknown) date) Curvature: There unknown) is normal bony alignment. (unknown) (no (unknown) (unknown) Jayesh, SHARA (units ( unknown) date) [id number] unknown) (unknown) (no (unknown) (unknown) Approved by: (units (u nknown) date) Domitila Dee unknown) MD Dickson, PhD on 06/11/2022 at 13:38 (unknown) (no (unknown) (unknown) March 22, 2022 (units (unknown) date) compatible with unknown) acute/subacute progression of the compression (unknown) (no (unknown) (unknown) Bones and (units (unkn own) date) Discs.: Loss of unknown) height noted in the L1 vertebral body compatible (unknown) (no (unknown) (unknown) COMPARISON: [facility] (units (unknown) date) Outside Film, CT, unknown) CT LUMBAR SPINE WITHOUT CONTRAST, 03/22/2022, (unknown) (no (unknown) (unknown) : 1945 (units (unknown) date) Acct:[id number] unknown) (unknown) (no (unknown) (unknown) Dictated by: (units (u nknown) date) Domitila Dee unknown) MD Dickson, PhD on 06/11/2022 at 13:28 (unknown) (no (unknown) (unknown) FINDINGS: (units (unkn own) date) unknown) (unknown) (no (unknown) (unknown) IMPRESSION: (units (un known) date) unknown) (unknown) (no (unknown) (unknown) INDICATIONS: (units (u nknown) date) Spinal stenosis, unknown) lumbar region with neurogenic claudication (unknown) (no (unknown) (unknown) Image quality: (units (unknown) date) Excellent. unknown) (unknown) (no (unknown) (unknown) [facility] (units (unknown) date) unknown) (unknown) (no (unknown) (unknown) L1 compression (units (unknown) date) fracture. Chronic unknown) appearing L3 compression fracture is stable (unknown) (no (unknown) (unknown) L1 (units (unkno wn) date) unknown) (unknown) (no (unknown) (unknown) Loc: MRI (units (unkno wn) date) unknown) (unknown) (no (unknown) (unknown) Magnetic (units (unkno wn) date) Resonance Report unknown) (unknown) (no (unknown) (unknown) Noncontrast (units (un known) date) sagittal T1 spin unknown) echo and T2 fast echo, sagittal STIR, and T2 fast (unknown) (no (unknown) (unknown) Ordering (units (unkno wn) date) Provider: unknown) Mir Rodgers MD (unknown) (no (unknown) (unknown) PROCEDURE: MR (units ( unknown) date) LUMBAR SPINE WO unknown) CON (unknown) (no (unknown) (unknown) Paraspinous Soft (units (unknown) date) Tissues: No unknown) paravertebral masses. (unknown) (no (unknown) (unknown) Patient: (units (unkno wn) date) Sudhir Clayton W unknown) MR#: [id number] (unknown) (no (unknown) (unknown) Procedure: MR (units ( unknown) date) lumbar spine wo unknown) con (unknown) (no (unknown) (unknown) Signed (units (unkno wn) date) unknown) (unknown) (no (unknown) (unknown) Spinal Cord: (units (u nknown) date) Conus medullaris unknown) terminates at the L2 level. Visualized cord (unknown) (no (unknown) (unknown) TECHNIQUE: (units (unk nown) date) unknown) (unknown) (no (unknown) (unknown) and 90% loss of (units (unknown) date) central vertebral unknown) body height. Retropulsed bone fragment (unknown) (no (unknown) (unknown) associated with (units (unknown) date) the L1 unknown) compression fracture with slight compression of the (unknown) (no (unknown) (unknown) associated with (units (unknown) date) unknown) (unknown) (no (unknown) (unknown) body height (units (un known) date) unknown) (unknown) (no (unknown) (unknown) canal with (units (unk nown) date) unknown) (unknown) (no (unknown) (unknown) compared to CT (units (unknown) date) scan obtained unknown) March 22, 2022. Increased T2 signal noted in the (unknown) (no (unknown) (unknown) compared to (units (un known) date) unknown) (unknown) (no (unknown) (unknown) compression (units (un known) date) fracture results unknown) in approximately 70% loss of anterior vertebral (unknown) (no (unknown) (unknown) compression (units (un known) date) fracture. Loss of unknown) height involving the L1 vertebral body is (unknown) (no (unknown) (unknown) cord. (units (unkno wn) date) unknown) (unknown) (no (unknown) (unknown) degenerative (units (u nknown) date) unknown) (unknown) (no (unknown) (unknown) demonstrates (units (u nknown) date) unknown) (unknown) (no (unknown) (unknown) disc changes (units (u nknown) date) noted throughout unknown) the lumbar spine. Mild L3-L4, L4-L5 and L5-S1 (unknown) (no (unknown) (unknown) distal spinal (units ( unknown) date) unknown) (unknown) (no (unknown) (unknown) facet (units (unkno wn) date) unknown) (unknown) (no (unknown) (unknown) fracture. (units (unkn own) date) unknown) (unknown) (no (unknown) (unknown) fragment (units (unkno wn) date) unknown) (unknown) (no (unknown) (unknown) hypertrophy. No (units (unknown) date) severe neural unknown) foraminal narrowing. Increased T2 signal noted (unknown) (no (unknown) (unknown) in the (units (unkno wn) date) unknown) (unknown) (no (unknown) (unknown) increased (units (unkn own) date) unknown) (unknown) (no (unknown) (unknown) marrow (units (unkno wn) date) unknown) (unknown) (no (unknown) (unknown) may be (units (unkno wn) date) performed. unknown) (unknown) (no (unknown) (unknown) normal signal (units ( unknown) date) and size. unknown) (unknown) (no (unknown) (unknown) right ala of the (units (unknown) date) sacrum concerning unknown) for insufficiency fracture. (unknown) (no (unknown) (unknown) slight (units (unkno wn) date) compression of unknown) the distal thoracic spinal cord. No kyphosis associated (unknown) (no (unknown) (unknown) space of the L1 (units (unknown) date) vertebral body unknown) indicating compression fractures acute/subacute. (unknown) (no (unknown) (unknown) spin echo (units (unkn own) date) unknown) (unknown) (no (unknown) (unknown) the L1 (units (unkno wn) date) compression unknown) fracture causes moderate to severe narrowing of the central (unknown) (no (unknown) (unknown) the prior (units (unkn own) date) examination. No unknown) acute vertebral body compression fractures. Mild (unknown) (no (unknown) (unknown) through the (units (un known) date) lumbar spine. In unknown) cases with scoliosis, additional coronal T2 fast (unknown) (no (unknown) (unknown) with the (units (unkno wn) date) unknown) (unknown) (no (unknown) (unknown) with (units (unkno wn) date) unknown) Social History No information. Vital Signs No information.
[2022-06-17] MEDS ORDERED: SODIUM CHLORIDE 0.9% 1,000 ML IV STA ×4 (14:52→18:41)
[2022-06-17 15:21] LABS: BASOPHILS % (AUTO) 0.5 %; EOSINOPHILS % (AUTO) 0.4 %; HCT - HEMATOCRIT 30.2 % (42.0-52.0); HGB - HEMOGLOBIN 9.6 g/dL (14.0-18.0); LYMPHOCYTES % (AUTO) 5.2 %; MEAN CORPUSCULAR HEMOGLOBIN 33.3 pg (27.0-31.0); MEAN CORPUSCULAR HGB CONC 31.8 g/dL (32.0-36.0); MEAN CORPUSCULAR VOLUME 104.9 fL (80.0-94.0); MEAN PLATELET VOLUME 10.1 fL (7.4-11.4); MONOCYTES % (AUTO) 1.5 %; NEUTROPHILS % (AUTO) 91.8 %; PLT - PLATELET COUNT 204 10^3/uL (130-450); RED BLOOD COUNT 2.88 10^6/uL (4.70-6.10); RED CELL DISTRIBUTION WIDTH 19.9 % (12.0-15.0); WHITE BLOOD COUNT 11.3 x10^3/uL (4.8-10.8)
[2022-06-17 15:23] LABS: ABNORMAL LYMPHS % (MANUAL) 0 %
[2022-06-17 15:30] LABS: INR 1.7 (0.8-1.2); PT - PROTHROMBIN TIME 18.3 secs (9.9-12.6)
[2022-06-17 15:39] LABS: ALBUMIN/GLOBULIN RATIO 1.5 (1.0-2.2); ALKALINE PHOSPHATASE 106 IU/L (42-121); ALT ALANINE AMINOTRANSFERASE 484 IU/L (10-60); AST ASPARTATE AMINOTRANSFERASE 1458 IU/L (10-42); BILIRUBIN,TOTAL 2.7 mg/dL (0.2-1.0); BUN - BLOOD UREA NITROGEN 33 mg/dL (6-20); CALCIUM 7.5 mg/dL (8.5-10.3); CARBON DIOXIDE - CO2 22 mmol/L (21-32); CHLORIDE 107 mmol/L (101-111); CK- CREATINE KINASE 53 IU/L (22-269); CREATININE 1.7 mg/dL (0.6-1.2); ETOH - ETHANOL < 5.0 mg/dL; GFR - MDRD 39 (>89); GLUCOSE 128 mg/dL (70-100); LIPASE 65 U/L (22-51); POTASSIUM 4.3 mmol/L (3.5-5.0); SODIUM 137 mmol/L (135-145)
[2022-06-17 15:43] LABS: BAND NEUTROPHILS % (MANUAL) 2 %; BASOPHILS # (MANUAL) 0.1 10^3/uL (0-0.1); BASOPHILS % (MANUAL) 1 %; DIFFERENTIAL COMMENT MANUAL DIFFERENTIAL; LYMPHOCYTES # (MANUAL) 0.6 10^3/uL (1.5-3.5); LYMPHOCYTES % (MANUAL) 5 %; MONOCYTES # (MANUAL) 0.3 10^3/uL (0.0-1.0); NEUTROPHILS # (MANUAL) 10.3 10^3/uL (1.5-6.6); NUCLEATED RBC (MANUAL) 1 %; PLATELET ESTIMATE, MANUAL NORMAL (130-450,000) (NORMAL); PLATELET MORPHOLOGY 1+ GIANT PLATELETS (NORMAL); RBC MORPHOLOGY (MULTIPLE) 2+ ANISOCYTOSIS (NORMAL); WBC MORPHOLOGY (MULTIPLE) NORMAL APPEARANCE (NORMAL)
[2022-06-17] MEDS ORDERED: MAGNESIUM SULFATE 2 GRAM 2 GM/50 ML BAG IV ONE (15:53)
--- NOTE | 2022-06-17 15:59 | ED Physician Documentation ---
History of Present Illness - Stated complaint Stated Complaint: GEN WEAKNESS - Chief complaint Chief Complaint: General - Additonal information Additional information: Pt 77 yo M with PMH significant for CHF (er 25% on echo 01/24/20), HTN, CAD, COPD as well as recent hospitalization at [facility] for multiple left sided rib fractures presenting with generalized weakness and lft rib pain. He reports symptoms ongoing for several days. Denies new falls. reports compliance with his medications. States drinks ample water at home. Reports decreased PO intake due to poor appetite. Reports alcohol use at home, specifically whiskey, to help with pain control. Reports compliance with his diuretic but is unable to tell me if he is continuing to take antihypertensives. Denies chest pain, SOB, Abd pain, N/v/d. Review of Systems Ten Systems: 10 systems reviewed and negative Constitutional: reports: Fatigue. denies: Fever Eyes: denies: Loss of vision Ears: denies: Loss of hearing Nose: denies: Rhinorrhea / runny nose Throat: denies: Dental pain / toothache Cardiac: denies: Chest pain / pressure Respiratory: denies: Dyspnea GI: denies: Abdominal Pain : denies: Dysuria Skin: denies: Rash Musculoskeletal: denies: Neck pain Neurologic: reports: Generalized weakness. denies: Focal weakness PD PAST MEDICAL HISTORY - Past Medical History Cardiovascular: Congestive heart failure, Hypertension, High cholesterol, Coron michael artery disease, Valve disorder Respiratory: COPD Neuro: None Endocrine/Autoimmune: None GI: GERD : None HEENT: None Psych: None Musculoskeletal: Chronic back pain, Other Derm: None - Past Surgical History Past Surgical History: Yes Ortho: Hip replacement Cardiovascular: Coronary stent, Fempop bypass - Present Medications Home Medications: Ambulatory Orders Medication Instructions Recorded Confirmed Aspirin Chewable [[facility] [place] 81 mg PO DAILY 02/08/19 10/24/21 Aspirin] Acetaminophen [Mapap] 325 mg PO PRN PRN 01/25/20 10/24/21 Budesonide/Formoterol Fumarate 10.2 gm IH BID #1 hfa.aer.ad 01/25/20 04/01/22 [Symbicort 80-4.5 Mcg Inhaler] Enalapril [Vasotec] 2.5 mg PO BID #30 tablet 01/25/20 04/01/22 Clopidogrel [Plavix] 75 mg ORAL DAILY 10/18/20 04/01/22 Sucralfate [Carafate] 1 tablet PO ACHS 10/24/21 04/01/22 Calcitonin [Fortical] 1 sprays DESTINEY DAILY #1 each 03/22/22 04/01/22 HYDROcod/ACETAM 5/325 [[place] 5/325] 1 - 2 tab PO Q6H PRN #30 tablet 03/22/22 04/01/22 Ondansetron Odt [Zofran Odt] 4 mg TL Q6H PRN #10 tablet 03/22/22 04/01/22 Albuterol Sulf [Ventolin Hfa 1 - 2 puffs INH Q4HR PRN 04/01/22 04/01/22 Inhaler] Atorvastatin Calcium [Lipitor] 80 mg PO DAILY 04/01/22 04/01/22 Carvedilol [Coreg] 12.5 mg PO BIDWM 04/01/22 04/01/22 Ezetimibe [Zetia] 10 mg PO QD 04/01/22 04/01/22 Magnesium Oxide [Mag Ox] 400 mg PO 0800 04/01/22 04/01/22 Meloxicam [Mobic] 7.5 mg PO DAILY 04/01/22 04/01/22 Omeprazole 40 mg PO DAILY 04/01/22 04/01/22 Spironolactone 50 mg PO DAILY 04/01/22 04/01/22 - Allergies Allergies/Adverse Reactions: Allergies Allergy/AdvReac Type Severity Reaction Status Date / Time lactose AdvReac Intermediate Cramps Verified 05/04/22 18:13 - Social History Does the pt smoke?: No Smoking Status: Never smoker Does the pt drink ETOH?: Yes Does the pt have substance abuse?: No - Immunizations Immunizations are current?: Yes Immunizations: TDAP >10years/unknown - POLST Patient has POLST: No PD ED PE NORMAL - Vitals Vital signs reviewed: Yes (Pt hypotensive) - General General: Alert and oriented X 3, No acute distress - HEENT HEENT: Atraumatic - Neck Neck: Supple, no meningeal sign, No bony TTP - Cardiac Cardiac: RRR, No gallop - Respiratory Respiratory: No respiratory distress, Clear bilaterally - Abdomen Abdomen: Normal bowel sounds, Non tender - Male Male : Deferred - Rectal Rectal: Deferred - Back Back: No CVA TTP - Derm Derm: Normal color - Extremities Extremities: No deformity - Neuro Neuro: Alert and oriented X 3, 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, No motor deficit, Normal speech Results - Vitals Vitals: Vital Signs - 24 hr 06/17/22 06/17/22 06/17/22 14:35 18:02 20:30 Temperature 97.8 C H 36.6 C Heart Rate 71 91 91 Respiratory 21 23 22 Rate Blood Pressure 77/57 L 89/53 L 70/52 L O2 Saturation 100 97 97 06/17/22 06/17/22 06/17/22 21:00 21:30 22:00 Temperature 36.5 C Heart Rate 90 89 89 Respiratory 19 19 49 H Rate Blood Pressure 77/58 L 78/55 L 71/49 L O2 Saturation 96 96 96 06/17/22 06/17/22 06/17/22 22:30 23:00 23:30 Temperature Heart Rate 89 89 80 Respiratory 26 H 28 H 17 Rate Blood Pressure 72/47 L 89/65 L 90/58 L O2 Saturation 95 98 95 06/18/22 06/18/22 06/18/22 00:00 00:30 01:00 Temperature Heart Rate 88 74 71 Respiratory 30 H 23 15 Rate Blood Pressure 86/54 L 75/49 L 72/40 L O2 Saturation 97 95 95 06/18/22 06/18/22 06/18/22 01:13 01:30 02:00 Temperature 36.7 C Heart Rate 75 72 Respiratory 20 24 Rate Blood Pressure 60/41 L 66/47 L 81/52 L O2 Saturation 95 97 06/18/22 06/18/22 06/18/22 02:30 03:00 03:30 Temperature Heart Rate 70 67 78 Respiratory 19 20 28 H Rate Blood Pressure 65/50 L 61/48 L 77/45 L O2 Saturation 98 96 95 06/18/22 06/18/22 04:00 05:00 Temperature 36.7 C 36.7 C Heart Rate 75 72 Respiratory 20 19 Rate Blood Pressure 73/45 L 81/54 L O2 Saturation 96 97 Oxygen O2 Source Room air - EKG (time done) 1519 Rate: Rate (enter#) (74) Rhythm: NSR [place]: Normal Intervals: Normal IA, Prolonged QT Ischemia: Normal ST segments, Non specific changes - Labs Labs: Laboratory Tests 06/17/22 06/17/22 06/17/22 15:10 15:10 15:10 WBC 11.3 H RBC 2.88 L Hgb 9.6 L Hct 30.2 L MCV 104.9 H MCH 33.3 H MCHC 31.8 L RDW 19.9 H Plt Count 204 MPV 10.1 Neut # (Auto) Not Reportable Lymph # (Auto) Not Reportable Love # (Auto) Not Reportable Eos # (Auto) Not Reportable Baso # (Auto) Not Reportable Absolute Nucleated RBC Not Reportable Total Counted 100 Band Neuts % (Manual) 2 Abnorm Lymph % (Manual) 0 Nucleated RBC % Not Reportable Neutrophils # (Manual) 10.3 H Lymphocytes # (Manual) 0.6 L Monocytes # (Manual) 0.3 Eosinophils # (Manual) 0.0 Basophils # (Manual) 0.1 Nucleated RBCs 1 Differential Comment MANUAL DIFFERENTIAL WBC Morphology NORMAL APPEARANCE Platelet Estimate NORMAL (130-450,000) Platelet Morphology 1+ GIANT PLATELETS RBC Morph Micro Appear 2+ ANISOCYTOSIS PT 18.3 H INR 1.7 H Sodium 137 Potassium 4.3 Chloride 107 Carbon Dioxide 22 Anion Gap 8.0 BUN 33 H Creatinine 1.7 H Estimated GFR (MDRD) 39 L Glucose 128 H Lactic Acid Calcium 7.5 L Magnesium 1.0 L* Total Bilirubin 2.7 H AST 1458 H ALT 484 H Alkaline Phosphatase 106 Total Creatine Kinase 53 Troponin I High Sens Total Protein 5.0 L Albumin 3.0 L Globulin 2.0 L Albumin/Globulin Ratio 1.5 Lipase 65 H Ethyl Alcohol < 5.0 SARS-CoV-2 (PCR) 06/17/22 06/17/22 06/17/22 15:10 15:10 15:10 WBC RBC Hgb Hct MCV MCH MCHC RDW Plt Count MPV Neut # (Auto) Lymph # (Auto) Love # (Auto) Eos # (Auto) Baso # (Auto) Absolute Nucleated RBC Total Counted Band Neuts % (Manual) Abnorm Lymph % (Manual) Nucleated RBC % Neutrophils # (Manual) Lymphocytes # (Manual) Monocytes # (Manual) Eosinophils # (Manual) Basophils # (Manual) Nucleated RBCs Differential Comment WBC Morphology Platelet Estimate Platelet Morphology RBC Morph Micro Appear PT INR Sodium Potassium Chloride Carbon Dioxide Anion Gap BUN Creatinine Estimated GFR (MDRD) Glucose Lactic Acid 2.6 H Calcium Magnesium Total Bilirubin AST ALT Alkaline Phosphatase Total Creatine Kinase Troponin I High Sens 9.0 Total Protein Albumin Globulin Albumin/Globulin Ratio Lipase Ethyl Alcohol SARS-CoV-2 (PCR) NOT DETECTED PD MEDICAL DECISION MAKING - ED course Complexity details: reviewed old records, reviewed results, re-evaluated patient, d/w patient ED course: Pt 77 yo M presenting with generalized weakness and hypotension. Otherwise afebrile, without tachypnea or tachycardia. IV access obtained and fluid recitation initiated. Patient endorsed for left sided chest wall pain 2/2 rib fractures that occured after a fall earlier this month. Reported alcohol use at home for pain control. Labs demonstrat an ALFREDO, with hypomagnasemia and elevated LFTS. CT head, chest, abdomen and pelvis non acute but do remonstrate his rib fractures and sub acute compression fractures to back. Persistent hypertension despite 3L NC. Chart review demonstrates a hopitalization 04/02/22 for a similar presentation of Hypotension due to dehydration and poor po intake that did resolve with IV hydration. Patient remains unable to provide urine sample. Will be signing out to oncoming physicain, please see their documentation for details. Departure - Departure Disposition: 66 [facility] DC/Xfer Clinical Impression: Multiple rib fractures, Weakness, Pain Hypotension Qualifiers: Hypotension type: unspecified hypotension type Qualified Code(s): I95.9 - Hypotension, unspecified Condition: Fair
[2022-06-17] MEDS ORDERED: iohexoL-300 100 ML VIAL ONE (16:17)
--- NOTE | 2022-06-17 17:54 | CT Report ---
PROCEDURE: HEAD WO INDICATIONS: Hypotension TECHNIQUE: Noncontrast 4.5 mm thick angled axial sections acquired from the foramen magnum to the vertex. For r adiation dose reduction, the following was used: automated exposure control, adjustment of mA and/or kV according to patient size. COMPARISON: None. FINDINGS: Image quality: Excellent. CSF spaces: Basal cisterns are patent. No extra-axial fluid collections. Ventricles are normal in size and shape. Brain: No midline shift. Subcortical and periventricular hypodensities are consistent with microvasc ular ischemic disease and age-related cerebral volume loss. No intracranial masses or hemorrhage. G ray-white matter interface is normal. Skull and face: Calvarium and visualized facial bones are intact, without suspicious lesions. Sinuses: Visualized sinuses and mastoids are clear. IMPRESSION: 1. No acute intracranial abnormality. 2. Microvascular ischemic disease and age-related cerebral volume loss. Reviewed by: Horacio Pena on 06/17/2022 5:52 PM [facility] Approved by: Horacio Pena on 06/17/2022 5:52 PM [facility] Station ID: [id number]
--- NOTE | 2022-06-17 18:02 | CT Report ---
PROCEDURE: CHEST W INDICATIONS: Hypotension CONTRAST:100ml Omnipaque 300 TECHNIQUE: After the administration of intravenous contrast, 1 mm axial images were acquired from the pulmonary apices through the posterior costophrenic angles. Axial 5 mm soft tissue kernel reconstructions were performed as well as 8 mm axial MIP and coronal and sagittal 5 mm reformations. For radiation dose reduction, the following was used: automated exposure control, adjustment of mA and/or kV according to patient size. COMPARISON: None. FINDINGS: Image quality: Excellent. Lungs and pleura: The lungs have centrilobular emphysematous changes. A previously described 3 mm nod ule in the left lung adjacent to the fissure is no longer seen. A right lower lobe 3 mm nodule series 3 image 178 is unchanged. No acute airspace opacity. Mediastinum: Heart size is normal. No pericardial effusion. No mediastinal or hilar adenopathy by size criteria. Thoracic aorta and central pulmonary arteries are normal in size. Esophagus is jose l in caliber. No hiatal hernia. Bones and chest wall: Multiple rib fractures unchanged compared to prior CT. Remote appearing L1 comp ression fracture, unchanged compared to the prior CT. Remote appearing T9 compression fracture with a nterior height loss, unchanged compared to prior CT. No suspicious bony lesions. No vertebral body c ompression fractures. No axillary or supraclavicular adenopathy by size criteria. The thyroid is no rmal in size and there are no incidental findings.. Abdomen: Visualized upper abdominal solid organs appear normal. Upper abdominal bowel loops are nor mal in caliber. IMPRESSION: 1. No acute abnormality of the chest. 2. Multiple subacute left-sided rib fractures. 3. Centrilobular emphysema. 4. Unchanged right lower lobe pulmonary nodule. Left fissural nodule no longer seen. Reviewed by: Horacio Pena on 06/17/2022 6:00 PM PST Approved by: Horacio Pena on 06/17/2022 6:00 PM PST Station ID: [id number]
--- NOTE | 2022-06-17 18:06 | CT Report ---
PROCEDURE: ABDOMEN/PELVIS W INDICATIONS: Hypotension CONTRAST: 100ml Omnipaque 300 TECHNIQUE: After the administration of contrast, 5 mm thick sections acquired from the diaphragms to the sym physis. 5 mm thick coronal and sagittal reformats were acquired. For radiation dose reduction, the following was used: automated exposure control, adjustment of mA and/or kV according to patient size . COMPARISON: None. FINDINGS: Image quality: Excellent. ABDOMEN: Lung bases: Lung bases are clear. Heart size is normal. Solid organs: Liver and spleen are normal in size and enhancement. Gallbladder is normal Biliary s ystem is non dilated. Pancreas enhances normally. No adrenal nodules. Kidneys demonstrate normal s ize and enhancement, without hydronephrosis. Peritoneum and bowel: Bowel loops demonstrate normal wall thickness and caliber. No free fluid or a ir. Nodes and vessels: No retroperitoneal or mesenteric adenopathy by size criteria. 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 There is no ev idence of acute rupture. Severe atherosclerotic calcifications in the iliac vessels are seen causing high-grade stenosis. Miscellaneous: No ventral hernias. PELVIS: Genitourinary: Bladder wall thickness is normal. Miscellaneous: No inguinal hernias or adenopathy. Bones: No suspicious bony lesions. No vertebral body compression fractures. IMPRESSION: 1. No acute abdominal or pelvic abnormality. 2. Compression fracture of T12 and L3, unchanged compared to prior CT. 3. Diverticulosis without evidence of diverticulitis. Reviewed by: Horacio Pena on 06/17/2022 6:[address] [facility] Approved by: Horacio Pena on 06/17/2022 6:[address] [facility] Station ID: [id number]
[2022-06-17] MEDS ORDERED: SODIUM CHLORIDE 0.9% 250 ML IV STA (18:20)
--- NOTE | 2022-06-17 23:35 | Ultrasound Report ---
PROCEDURE: Abdomen Limited INDICATIONS: hypotension, elevated LFTs TECHNIQUE: Real-time focused scanning was performed of the abdomen, with image documentation. COMPARISON: CT abdomen pelvis 06/17/2022, ultrasound abdomen limited 03/20/2021 FINDINGS: The liver demonstrates increased echogenicity with coarse sonographic echotexture suggestive of fatty infiltration. Patent hepatopedal flow demonstrated within the main portal vein. Gallbladder demonstrates no stones, definite wall thickening, or pericholecystic fluid. No intra or extra hepatic biliary ductal dilatation. Right kidney measures 10.1 cm. No hydronephrosis. Pancreas was not well seen. IMPRESSION: 1. No cholelithiasis or definite evidence of cholecystitis. 2. Increased hepatic echogenicity suggestive of steatosis. Reviewed by: Marcus Castillo MD on 06/17/2022 11:34 PM PST Approved by: Marcus Castillo MD on 06/17/2022 11:34 PM PST Station ID: [id number]
--- NOTE | 2022-06-18 00:06 | ED Physician Documentation ---
ED Addendum - Addendum Addendum: 06/18/22 00:03 Patient endorsed to me by Dr. Nevarez s/p 3 L IVF, with ongoing hypotension. He reports his PCP Dr. Fuentes has been dealing with ongoing low blood pressure for the past 6 months. patient tells me he came in tonight specifically due to L rib pain, and has been drinking whiskey and beer to help ease the pain alongside tylenol. This likely explains elevated AST>ALT. No RUQ tenderness at all. 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 Recently had multiple L sided rib fractures on Jun 11, 2022 (last week). 06/18/22 01:11 d/w Dr. Whitmore, telehealth hospitalist for admission for multiple rib fractures in setting of hemodynamic compromise (persistent hypotension despite 3L IVF and maintenance fluids). Plan to admit for management of hypotension and pain control in setting of multiple rib fractures. Disposition: admit [facility] Impression: 1. multiple rib fractures 2. pain 3. hypotension 06/18/22 01:13 Condition guarded
[2022-06-18] MEDS ORDERED: KETOROLAC 15 MG/ML VIAL IVP STA (00:24)
[2022-06-18] MEDS ORDERED: SODIUM CHLORIDE 0.9% 500 ML IV STA (01:15)
[2022-06-18] MEDS ORDERED: SODIUM CHLORIDE FLUSH 0.9% 10 ML SYRINGE IVP PRN (02:05)
[2022-06-18] MEDS ORDERED: ACETAMINOPHEN 325 MG TABLET PO PRN (02:05)
[2022-06-18] MEDS ORDERED: ONDANSETRON 4 MG/2 ML VIAL IVP PRN (02:05)
[2022-06-18] MEDS ORDERED: cefTRIAXone 2 GM in SODIUM CHLORIDE 0.9% MINIBAG 100 ML IV STA (02:15)
[2022-06-18] MEDS ORDERED: MIDODRINE 10 MG TABLET PO PRN (02:16)
--- NOTE | 2022-06-18 02:32 | HISTORY & PHYSICAL EXAMINATION ---
Chief Complaint - Chief Complaint Chief Complaint: left rib pain History of Present Illness - Admitted From Admitted From:: Home - History Obtained From Records Reviewed: EMR History obtained from: Patient Exam Limitations: Telemedicine - History of Present Illness HPI Comment/Other: 77YOM c davian historian with noted cardiovascular diseases including hypertension, hyperlipidemia, and coronary artery disease on ASA who presents to the ED reporting left ribs pain 2/2 falling at home. Patient recently has been having low blood pressure such that his cardiology stopped all his blood pressure medications. He reports a week ago standing on the couch and losing strength in his legs and falling. He injured his left chest wall from the fall. Patient denies specific head trauma and not loss of consciousness. He states n o chest pain or palpitation or shortness of breath prior to the fall. Patient has gait instability and does use a cane to ambulate at times. He did not have his cane when he fell. The pain on his left side has not gotten better despite home remedies. He decided to come into the ED for further evaluation. Patient denies fever. He has a cough that exacerbates the left chest wall pain. No runny nose or sore throat. Mild shortness of breath. No palpitation. No abdominal pain. No n/v/d. No dysuria. No rash. He has a chronic swelling in LLE from hx of left hip replacement. No bleed. Review of EMR noted prior hospitalization 03/2022 for pain control, poor po intake c ARF, and persistent hypotension that resolved during admission. Here in the ED, patient is afebrile. nontachycardic. stable on room air. hypotensive SBP 60-80 and DBP 40-50. mild leukocytosis 11.3. hgb 9.6 and hct 20.4. MCV 104. INR1.7. PT 18.3. Lactic acid 2.6. Magnesium 1.0. AST 1458. ALT 484. Alk phsop 106. Trop HS 9. Albumin 3.0. Lipase 65 History - Past Medical History Cardiovascular: reports: Congestive heart failure, Hypertension, High chol esterol, Coronary artery disease, Valve disorder Respiratory: reports: COPD Neuro: reports: None Endocrine/Autoimmune: reports: None GI: reports: GERD : reports: None HEENT: reports: None Psych: reports: None Musculoskeletal: reports: Chronic back pain, Other Derm: reports: None MRSA Hx?: No - Past Surgical History Ortho: reports: Hip replacement Cardiovascular: reports: Coronary stent, Fempop bypass - Family & Social History Family History Comment/Other: He reports his mother had a history of pancreatic cancer. Living Situation: Alone Social History Notes: He lives at home alone but his daughter is visiting from [place]. He smoked 1 to 2 packs a day for 57 years but quit 3 years ago. He will occasionally have an alcoholic beverage. He retired from the [employer] in the . - POLST Patient has POLST: No Meds/Allgy - Home Medications Home Medications: Ambulatory Orders Medication Instructions Recorded Confirmed Aspirin Chewable [St Sixto 81 mg PO DAILY 02/08/19 10/24/21 Aspirin] Acetaminophen [Mapap] 325 mg PO PRN PRN 01/25/20 10/24/21 Budesonide/Formoterol Fumarate 10.2 gm IH BID #1 hfa.aer.ad 01/25/20 04/01/22 [Symbicort 80-4.5 Mcg Inhaler] Enalapril [Vasotec] 2.5 mg PO BID #30 tablet 01/25/20 04/01/22 Clopidogrel [Plavix] 75 mg ORAL DAILY 10/18/20 04/01/22 Sucralfate [Carafate] 1 tablet PO ACHS 10/24/21 04/01/22 Calcitonin [Fortical] 1 sprays DESTINEY DAILY #1 each 03/22/22 04/01/22 HYDROcod/ACETAM 5/325 [[place] 5/325] 1 - 2 tab PO Q6H PRN #30 tablet 03/22/22 04/01/22 Ondansetron Odt [Zofran Odt] 4 mg TL Q6H PRN #10 tablet 03/22/22 04/01/22 Albuterol Sulf [Ventolin Hfa 1 - 2 puffs INH Q4HR PRN 04/01/22 04/01/22 Inhaler] Atorvastatin Calcium [Lipitor] 80 mg PO DAILY 04/01/22 04/01/22 Carvedilol [Coreg] 12.5 mg PO BIDWM 04/01/22 04/01/22 Ezetimibe [Zetia] 10 mg PO QD 04/01/22 04/01/22 Magnesium Oxide [Mag Ox] 400 mg PO 0800 04/01/22 04/01/22 Meloxicam [Mobic] 7.5 mg PO DAILY 04/01/22 04/01/22 Omeprazole 40 mg PO DAILY 04/01/22 04/01/22 Spironolactone 50 mg PO DAILY 04/01/22 04/01/22 - Allergies Allergies/Adverse Reactions: Allergies Allergy/AdvReac Type Severity Reaction Status Date / Time lactose AdvReac Intermediate Cramps Verified 05/04/22 18:13 Review of Systems - Constitutional Constitutional: reports: Weakness. denies: Fever - Eyes Eyes: denies: Pain, Vision loss - Cardiovascular Cariovascular: reports: Chest pain (left chest wall after falling). denies: Palpitations - Respiratory Respiratory: reports: Cough - Gastrointestinal Gastrointestinal: reports: Diarrhea (small amount). denies: Abdominal pain, [place], Vomiting - Genitourinary Genitourinary: denies: Dysuria - Musculoskeletal Musculoskeletal: reports: Other (weakness in legs. left chest wall pain from fall) - Integumentary Integumentary: denies: Rash - Neurological Neurological: reports: General weakness, Abnormal gait (uses a cane). denies: Headache Exam - Vital Signs Reviewed Vital Signs: Yes Vital Signs: Vital Signs x48h Temp Pulse Resp BP Pulse Ox 06/18/22 02:00 36.7 C 72 24 81/52 L 97 06/18/22 01:30 75 20 66/47 L 95 06/18/22 01:13 60/41 L 06/18/22 01:00 71 15 72/40 L 95 06/18/22 00:30 74 23 75/49 L 95 06/18/22 00:00 88 30 H 86/54 L 97 06/17/22 23:30 80 17 90/58 L 95 06/17/22 23:00 89 28 H 89/65 L 98 06/17/22 22:30 89 26 H 72/47 L 95 06/17/22 22:00 89 49 H 71/49 L 96 06/17/22 21:30 36.5 C 89 19 78/55 L 96 06/17/22 21:00 90 19 77/58 L 96 06/17/22 20:30 36.6 C 91 22 70/52 L 97 - Physical Exam General Appearance: positive: No acute distress, Alert Eyes Bilateral: positive: Other (conjugated gaze) ENT: positive: Other (anthony drainage or injury) Neck: positive: Other (trachea midline) Respiratory: positive: Chest non-tender (left side), Breath sounds nml (anteriorly. pain c deep inspiration) Cardiovascular: positive: Regular rate & rhythm Abdomen: positive: Non-tender, Nml bowel sounds. negative: Tenderness, Guarding Skin: positive: No rash (per RN) Extremities: positive: Nml appearance Neurologic/Psychiatric: positive: Oriented x3, Motor nml, Sensation nml Conclusion/Plan - Problem List (1) Multiple fractures of ribs Conclusion/Plan: rib fractures from fall at home likely 2/2 hypotension. pain control c lidocaine patch and ultram. breathing treatment. Incentive spirometry to encourage deep inspiration and avoid PNA. fall precaution. PT eval and case management consult for dispo. (2) Hypotension Conclusion/Plan: noted low blood pressure again this admission. similar to last. r/o infection. r/o home medication antihypertensive overuse. should probable stop all BP meds and monitor if patient even need antihypertensives anymore. check cortisol level and TSH. support blood pressure c iv fluid judicious and pressors for sbp>90 Qualifiers: Hypotension type: unspecified hypotension type Qualified Code(s): I95.9 - Hypotension, unspecified (3) Pain Conclusion/Plan: left chest wall pain 2/2 rib fractures from fall at home. lidocaine patch plus norco. followup PT eval and case management consult for dispo planning (4) CAD (coronary artery disease) Conclusion/Plan: stable. no chest pain. not acute bleed reported. continue asa and Plavix and address comorobidities hypertension and hyperlipidemia Qualifiers: Coronary Disease-Associated Artery/Lesion type: [place] artery [place] vs. transplanted heart: ak chin heart Associated angina: without angina Qualified Code(s): I25.10 - Atherosclerotic heart disease of [place] coronary artery without angina pectoris (5) Hypertension Conclusion/Plan: blood pressure low. hold all antihypertensives. monitor blood pressure c repeat vital checks Qualifiers: Hypertension type: primary hypertension Qualified Code(s): I10 - Essential (primary) hypertension (6) Hyperlipidemia Conclusion/Plan: managed on Zetia and atorvastatin. holding both until transaminitis resolves Qualifiers: Hyperlipidemia type: unspecified Qualified Code(s): E78.5 - Hyperlipidemia, unspecified (7) Transaminitis Conclusion/Plan: noted elevated ALT and AST without abdominal pain. possible 2/2 hypotension. r/o toxicity such as acetaminophen. r/o infection c acute hepatitis panel. address hypotension c iv fluid support and pressor support (8) Anemia Conclusion/Plan: chronic and macrocytosis. will check anemia stds including iron, b12, folate, haptoglobin. check tsh. monitor hgb/hct c CBC. Qualifiers: Anemia type: unspecified type Qualified Code(s): D64.9 - Anemia, unspecified (9) Macrocytosis Conclusion/Plan: noted MCV 104 in setting of chronic anemia and suspicion of poor po intake. check B12 and folate level. if not nutrient deficiency then possible 2/2 underlying liver disease give hepatic steatosis on CT imaging. (10) Coagulopathy Conclusion/Plan: noted INR 1.7 and PTT 18.3. not seeing anticoagulation. possible related to underlying liver disease/ transaminitis. no acute bleed noted. monitor. (11) Hepatic steatosis Conclusion/Plan: finding noted on CT imaging. consider healthy diet, no alcohol, and statin therapy when transaminitis improves. (12) Hypomagnesemia Conclusion/Plan: noted Mag level 1.0. replete c 4 gram and recheck. possible stems from poor po intake. (13) Congestive heart failure Conclusion/Plan: stable. compensated given no resp symptoms and no edema in BLE and no pleural effusion on imaging. hold off antihyperensive at this time and diuretics at this time 2/2 hypotension. monitor. restart home meds when BP allows Qualifiers: Heart failure type: unspecified Heart failure chronicity: chronic Qualified Code(s): I50.9 - Heart failure, unspecified (14) Moderate COPD (chronic obstructive pulmonary disease) Conclusion/Plan: stable. on room air. restart home breathing treatment Symbicort and add prn albuterol nebs. (15) Weakness Conclusion/Plan: unclear etiology however highly suspicious of poor po intake. regular diet and RN monitor. if poor po intake, consider rebar worker consult - Lab Results Fish Bones: 06/17/22 15:10 06/17/22 15:10 - Diagnostic Imaging Results Diagnostic Imaging Results: positive: Final report reviewed - EKG Results EKG Interpreted Independently: Yes EKG Findings: NSR. EKG noted atrial fibrillation reading however noted P wave and regular rate and rhythm - albeit there is noise - Other Other Results/Comments: DNR/DNI per patient daughter is POA SCDs. Heparin Inpatient [facility] Whit[facility]
[2022-06-18] MEDS: SODIUM CHLORIDE 0.9% 1,000 ML IV SCH ×2 (02:42→18:47)
[2022-06-18] MEDS ORDERED: MAGNESIUM SULFATE 2 GM in SODIUM CHLORIDE 0.9% 50 ML IV ONE (02:46)
[2022-06-18] MEDS ORDERED: NOREPINEPHRINE/D5W 8 MG/250 ML BAG IV SCH (03:00)
[2022-06-18] MEDS ORDERED: ASPIRIN 325 MG TABLET PO STA (03:43)
[2022-06-18] MEDS ORDERED: cefTRIAXone 2 GM VIAL ONE (04:39)
[2022-06-18] MEDS ORDERED: MAGNESIUM SULFATE 1 GM/2 ML VIAL ONE (05:08)
[2022-06-18] MEDS: traMADol 50 MG TABLET PO SCH ×4 (05:43→21:07)
[2022-06-18 05:51] LABS: BASOPHILS % (AUTO) 0.8 %; HCT - HEMATOCRIT 28.6 % (42.0-52.0); LYMPHOCYTES % (AUTO) 6.3 %; MEAN CORPUSCULAR HEMOGLOBIN 32.8 pg (27.0-31.0); MEAN CORPUSCULAR HGB CONC 31.5 g/dL (32.0-36.0); MEAN CORPUSCULAR VOLUME 104.4 fL (80.0-94.0); MEAN PLATELET VOLUME 10.1 fL (7.4-11.4); MONOCYTES % (AUTO) 1.1 %; NEUTROPHILS % (AUTO) 90.5 %; PLT - PLATELET COUNT 196 10^3/uL (130-450); RED BLOOD COUNT 2.74 10^6/uL (4.70-6.10); RED CELL DISTRIBUTION WIDTH 20.4 % (12.0-15.0)
[2022-06-18 05:57] LABS: ABNORMAL LYMPHS % (MANUAL) 0 %
[2022-06-18 06:10] LABS: BAND NEUTROPHILS % (MANUAL) 2 %; LYMPHOCYTES # (MANUAL) 1.1 10^3/uL (1.5-3.5); LYMPHOCYTES % (MANUAL) 11 %; METAMYELOCYTES % (MANUAL) 1 %; NEUTROPHILS # (MANUAL) 8.8 10^3/uL (1.5-6.6)
[2022-06-18 06:11] LABS: DIFFERENTIAL COMMENT MANUAL DIFFERENTIAL; PLATELET ESTIMATE, MANUAL NORMAL (130-450,000) (NORMAL); PLATELET MORPHOLOGY NORMAL APPEARANCE (NORMAL); WBC MORPHOLOGY (MULTIPLE) NORMAL APPEARANCE (NORMAL)
[2022-06-18 06:12] LABS: % IRON SATURATION 78 % (20-50); ACETAMINOPHEN 20 ug/mL (10-30); ALBUMIN 2.5 g/dL (3.2-5.5); BILIRUBIN,DIRECT 0.6 mg/dL (0.1-0.5); BILIRUBIN,TOTAL 1.5 mg/dL (0.2-1.0); CALCIUM 6.8 mg/dL (8.5-10.3); CREATININE 1.4 mg/dL (0.6-1.2); IRON 95 ug/dL (45-182); MAGNESIUM 1.8 mg/dL (1.7-2.8); PHOSPHORUS 3.8 mg/dL (2.5-4.6); TOTAL IRON BINDING CAPACITY 122 ug/dL (250-450); TOTAL PROTEIN 4.8 g/dL (6.7-8.2); TRANSFERRIN 87 mg/dL (180-329)
[2022-06-18 06:20] LABS: THYROID STIMULATING HORMONE 1.46 uIU/mL (0.34-5.60)
[2022-06-18] MEDS ORDERED: SODIUM CHLORIDE 0.9% 1,000 ML IV STA (07:56)
[2022-06-18] MEDS ORDERED: DEXAMETHASONE 10 MG/ML VIAL IVP STA (07:57)
[2022-06-18] MEDS ORDERED: MIDODRINE 10 MG TABLET PO SCH (08:30)
[2022-06-18] MEDS ORDERED: MIDODRINE 2.5 MG TABLET PO SCH (08:30)
[2022-06-18] MEDS: BUDESONIDE 0.5 MG/2 ML NEB INH SCH ×2 (08:55→22:25)
[2022-06-18] MEDS: FORMOTEROL FUMARATE NEB 20 MCG/2 ML INH SCH ×2 (08:55→22:25)
[2022-06-18] MEDS: ALBUTEROL NEB 2.5 MG/3 ML INH SCH ×3 (08:55→22:25)
[2022-06-18] MEDS: MIDODRINE 10 MG TABLET PO SCH ×3 (08:57→18:47)
[2022-06-18 09:21] LABS: GLUCOSE, URINE (UA) NEGATIVE (NEGATIVE); KETONES,URINE (UA) NEGATIVE (NEGATIVE); LEUKOCYTE ESTERASE, URINE NEGATIVE (NEGATIVE); NITRITE,URINE NEGATIVE (NEGATIVE); OCCULT BLOOD,URINE NEGATIVE (NEGATIVE); PH,URINE 5.5 PH (5.0-7.5); PROTEIN,URINE TRACE mg/dL (NEGATIVE); UROBILINOGEN,URINE 0.2 (NORMAL) E.U./dL (NORMAL)
[2022-06-18 09:25] LABS: BILIRUBIN,URINE NEGATIVE (NEGATIVE); CLARITY,URINE CLEAR (CLEAR); ICTOTEST,URINE NEGATIVE
--- NOTE | 2022-06-18 13:49 | ED Physician Documentation ---
ED Addendum - Addendum Addendum: 06/18/22 13:47 The patient was comfortable this morning up and eating breakfast. Admission orders have been written overnight and the onc hospitalist was to review and we would be getting the patient to the unit for ongoing care. ER nurse noted his blood pressure had been low overnight. The patient was given a extra fluid bolus this morning and I also noted midodrine had been ordered for him by the hospitalist. It was as needed and so a had the nurse give a dose this morning and also changed to 2 regular rather than as needed. The persistence and the hypotension with out really much symptoms also was suggestive perhaps of adrenal insufficiency. He does not take any oral steroids normally but is on inhaled steroids. On consideration of that, I did give a single dose of Decadron. In combination his blood pressure did improve and is now 125 systolic. Unclear which of the mix was primarily effective. Defer to the hospitalist for ongoing care. He should be going to the floor soon.
[2022-06-18] MEDS: LIDOCAINE PATCH 5% TOP SCH ×2 (18:32→18:34)
[2022-06-18] MEDS: SUCRALFATE 1 GM/10 ML UDC PO SCH ×3 (18:33→18:43)
[2022-06-18] MEDS: SODIUM CHLORIDE FLUSH 0.9% 10 ML SYRINGE IVP SCH ×2 (18:33→18:44)
[2022-06-18] MEDS: CLOPIDOGREL 75 MG TABLET PO SCH (18:33)
[2022-06-18] MEDS: CALCITONIN NASAL SPRAY NAS SCH (18:33)
[2022-06-18] MEDS: PANTOPRAZOLE 40 MG TABLET PO SCH (18:33)
[2022-06-18] MEDS: HEPARIN 5,000 UNIT/ML VIAL SUBQ SCH ×2 (18:33→21:08)
[2022-06-18] MEDS: HYDROcod/ACETAM 5/325 MG TABLET PO PRN (18:38)
[2022-06-19 03:08] LABS: HBsAG SCREEN Negative (Negative); HCV AB <0.1 s/co ratio (0.0-0.9); HEPATITIS B CORE IGM AB Negative (Negative)
[2022-06-19] MEDS: traMADol 50 MG TABLET PO SCH ×2 (03:49→10:22)
[2022-06-19] MEDS: SODIUM CHLORIDE FLUSH 0.9% 10 ML SYRINGE IVP SCH ×2 (03:50→10:17)
[2022-06-19] MEDS: SUCRALFATE 1 GM/10 ML UDC PO SCH (06:15)
[2022-06-19] MEDS: ALBUTEROL NEB 2.5 MG/3 ML INH SCH (07:54)
[2022-06-19] MEDS: BUDESONIDE 0.5 MG/2 ML NEB INH SCH (07:55)
[2022-06-19] MEDS: FORMOTEROL FUMARATE NEB 20 MCG/2 ML INH SCH (08:31)
[2022-06-19] MEDS: CLOPIDOGREL 75 MG TABLET PO SCH (08:35)
[2022-06-19] MEDS: HYDROcod/ACETAM 5/325 MG TABLET PO PRN (08:35)
[2022-06-19] MEDS: PANTOPRAZOLE 40 MG TABLET PO SCH (08:35)
[2022-06-19] MEDS: LIDOCAINE PATCH 5% TOP SCH (08:35)
[2022-06-19] MEDS: HEPARIN 5,000 UNIT/ML VIAL SUBQ SCH (08:40)
[2022-06-19] MEDS: MIDODRINE 10 MG TABLET PO SCH (08:46)
[2022-06-19] MEDS: SODIUM CHLORIDE 0.9% 1,000 ML IV SCH (08:46)
[2022-06-19 09:20] VITALS: BP 161/95
[2022-06-19] MEDS: CALCITONIN NASAL SPRAY NAS SCH (10:17)
--- NOTE | 2022-06-19 10:22 | Discharge Plan ---
Discharge Plan Problem Reviewed?: Yes Disposition: Home, Self Care Condition: Fair Prescriptions: Spironolactone [Aldactone] 25 mg PO DAILY #30 tablet Diet: Low Sodium Activity Restrictions: Activity as Tolerated Shower Restrictions: No Driving Restrictions: Yes (no driving) Assistance Devices: [facility] Concerns: You have been having problems with low blood pressure and dehydration that we think is due to your heart failure medications. You were initially diagnosed as a severe but new congestive heart failure in January 2020 and were started on all of the usual medications that you take for congestive heart failure which include Coreg, enalapril, and spironolactone. You were then hospitalized March 30, 2022 because of dehydration, low blood pressure. You may been on too much medication and we changed your blood pressure pills to enalapril 2.5 mg twice a day, Coreg 12.5 mg pill twice a day, and spironolactone 50 mg once a day. In April of this year you had a week of poor appetite, frequent vomiting, and once again your blood pressure was low, and you fell in your house and injured your ribs. Blood pressure with that was 143/77. However you had fractured multiple ribs and you were sent to [facility] because of the number of bones you broke. That was on May 04. After being at [facility] for treatment of this and rehab, you were discharged to home. Once again you started falling because you were getting lightheaded and weak. A week before you came to the emergency room, you were standing on the couch and you fell. Once again you hurt your rib cage where you already had rib fractures. So you came back to the emergency room, and your blood pressure was low at 70/52. You received a slow amount of IV fluids because we are afraid of putting you in congestive heart failure. Your blood pressure gradually rebounded. Your kidney function improved. And your blood pressure got as high as 171/93. Plan of Treatment: 1. Please see your primary care provider In follow-up. You see Dr. Jane Mac. We have reduced the amount of medication you take. Enalapril has been reduced from 2.5 mg twice a day to 2.5 mg once a day Coreg will remain the same at 12.5 mg twice a day Spironolactone has been reduced from 50 mg a day to 25 mg every other day. Weigh yourself every day. If you have gained more than 5 pounds, take the spironolactone every day until you lose the weight you gained. And then go back to spironolactone every other day. 2. Make sure you are eating a low-fat diet 3. Make sure you weigh yourself daily 4. Please have a blood pressure machine at home and take your blood pressure every day and take that diary into Dr. Mac Care Goals: To remain at home for as long as possible. At this point, if you keep on following, 1 of these times, unfortunately, you will end up in a half-way facility in a permanent basis Assessment: Patient states that he is compliant with his medications. Following the treatment regimen. We will see his corporation officer and Dr. Mac in follow-up No Smoking: If you smoke, Please STOP! Call for help. Follow-up with: Jane Mac MD [Provider Admit Priv/Credential] -
[2022-06-19] MEDS ORDERED: ALBUTEROL NEB 2.5 MG/3 ML INH SCH (11:18)
--- NOTE | 2022-06-19 11:57 | PHARMACY PROGRESS NOTE ---
- Best Possible Medication History Admit Date and Time: 06/18/22 0205 Processed by: Pharmacy Medication History completed: Yes Patient Interview: Completed Secondary Source(s): Physician records, Pharmacy records (Pt doesn't know his meds. Told to call Dr. Mac at [phone]) As the person ultimately responsible for medication therapy, providers are able to order a medication from an existing home medication list in [facility] via the "Reconcile Routine" prior to Confirmation of that medication by aircraft life support fitter. Such practice is discouraged except when the physician, in their clinical judgment, deems that a medical need exists for a medication without regard to previous use.
--- NOTE | 2022-06-19 17:43 | DISCHARGE SUMMARY ---
"Discharge Summary Admit Date: 06/18/22 Discharge Date: 06/19/22 Discharging Provider: Isamar Patton MD Primary Care Provider: Jane Mac MD Code Status: Do Not Attempt Resuscitation Condition at Discharge: Fair Discharge Disposition: 01 Home, Self Care - DIAGNOSES Discharge Diagnoses with Status of Each Condition: 1. Multiple fractures of ribs 2. Hypotension, recurrent 3. Coronary artery disease history 4. Hypertension history 5. Hyperlipidemia 6. Transaminitis 7. Anemia 8. Macrocytosis 9. Coagulopathy 10. Hepatic steatosis 11. Hypomagnesemia 12. Chronic systolic congestive heart failure 13. Moderate COPD without exacerbation 14. Generalized weakness Late entry diagnosis after the patient was discharged is Enterobacter bacteremia - HPI History of Present Illness: 77YOM c poor historian with noted cardiovascular diseases including hypertension, hyperlipidemia, and coronary artery disease on ASA who presents to the ED reporting left ribs pain 2/2 falling at home. Patient recently has been having low blood pressure such that his cardiology stopped all his blood pressure medications. He reports a week ago standing on the couch and losing strength in his legs and falling. He injured his left chest wall from the fall. Patient denies specific head trauma and not loss of consciousness. He states no chest pain or palpitation or shortness of breath prior to the fall. Patient has gait instability and does use a cane to ambulate at times. He did not have his cane when he fell. The pain on his left side has not gotten better despite home remedies. He decided to come into the ED for further evaluation. Patient denies fever. He has a cough that exacerbates the left chest wall pain. No runny nose or sore throat. Mild shortness of breath. No palpitation. No abdominal pain. No n/v/d. No dysuria. No rash. He has a chronic swelling in LLE from hx of left hip replacement. No bleed. Review of EMR noted prior hospitalization 03/2022 for pain control, poor po intake c ARF, and persistent hypotension that resolved during admission. Here in the ED, patient is afebrile. nontachycardic. stable on room air. hypotensive SBP 60-80 and DBP 40-50. mild leukocytosis 11.3. hgb 9.6 and hct 20.4. MCV 104. INR1.7. PT 18.3. Lactic acid 2.6. Magnesium 1.0. AST 1458. ALT 484. Alk phsop 106. Trop HS 9. Albumin 3.0. Lipase 65 - Past Medical History Cardiovascular: reports: Congestive heart failure, Hypertension, High choleste rol, Coronary artery disease, Valve disorder Respiratory: reports: COPD Neuro: reports: None Endocrine/Autoimmune: reports: None GI: reports: GERD : reports: None HEENT: reports: None Psych: reports: None Musculoskeletal: reports: Chronic back pain, Other Derm: reports: None MRSA Hx?: No - Past Surgical History Ortho: reports: Hip replacement Cardiovascular: reports: Coronary stent, Fempop bypass - CONSULTS | PROCEDURES Procedures: Head CT is without acute intracranial abnormality. Microvascular ischemic changes that are age-related are seen. Chest CT is without acute abnormality. Multiple subacute left-sided rib fractures unchanged from May 04. Centrilobular emphysema. Unchanged right lower lobe pulmonary nodule. Abdomen pelvis CT without acute abdominal or pelvic abnormality. Compression fracture T12 and L3. Unchanged from prior CT. Diverticulosis without diverticulitis. Abdominal ultrasound done for hypotension and elevated LFTs do not show cholelithiasis. There is no evidence of cholecystitis. Increased hepatic echogenicity suggestive of steatosis. Resulted after patient's discharge with a blood PCR positive for Enterobacter and blood cultures are pending. - HOSPITAL COURSE Hospital Course: It was not clear with the ER notes or the hospitalist notes that this patient was presenting as a urinary tract infection. His main problem was weakness, hypotension. Hypotension was recurrent for him and he been hospitalized before for this. He also had rib fractures that it happened May 04 with a transfer to [facility] and then discharged from [facility].On the morning of this discharge, his blood pressure had rebounded and he was feeling back to baseline. Because he was feeling so good he asked to go home. He at discharge temperature was 36.2, blood pressure 161/95, respirations 20 and 93% on room air. He was alert, oriented, slightly deaf. Clear lungs, no tachypnea, regular rate and rhythm with a benign abdomen. Later in the afternoon, blood cultures became positive for Enterobacter. I have attempted to call the patient twice to let them know that the blood cultures are positive. That he needs to be on antibiotics. I have called in antibiotics to [facility] if he does not want to come back to the hospital. But I have also called the emergency room and warned him that if this patient bounces back, to treat him for Enterobacter UTI and he must get a urine sample. I have also spoken to his daughter Agueda. Unfortunately Agueda is on vacation in [place] on a camping trip. She also will try and call her dad or her dad's friends to see if they can help steel pickler the medicine. I also told her that if her dad feels poorly he should come back to the emergency room. - ALLERGIES Allergies/Adverse Reactions: Allergies Allergy/AdvReac Type Severity Reaction Status Date / Time lactose AdvReac Intermediate Cramps Verified 05/04/22 18:13 - MEDICATIONS Home Medications: Ambulatory Orders Medication Instructions Recorded Confirmed Aspirin Chewable [St Sixto 81 mg PO DAILY 02/08/19 06/19/22 Aspirin] Calcitonin [Fortical] 1 sprays DESTINEY DAILY #1 each 03/22/22 06/19/22 Albuterol Sulf [Ventolin Hfa 2 puffs INH Q4HR PRN 04/01/22 06/19/22 Inhaler] Atorvastatin Calcium [Lipitor] 80 mg PO DAILY 04/01/22 06/19/22 Carvedilol [Coreg] 12.5 mg PO BIDWM 04/01/22 06/19/22 Ezetimibe [Zetia] 10 mg PO QD 04/01/22 06/19/22 Omeprazole 40 mg PO DAILY 04/01/22 06/19/22 Acetaminophen [Non-Aspirin Pain 1,000 mg PO Q8H 06/19/22 06/19/22 Relief] Enalapril [Vasotec] 2.5 mg PO DAILY #30 tablet 06/19/22 04/01/22 Spironolactone [Aldactone] 25 mg PO DAILY #30 tablet 06/19/22 levoFLOXacin [Levaquin] 750 mg PO QD #21 tablet 06/19/22 - LABS Result Diagrams: 06/18/22 05:29 06/18/22 05:29"
[2022-06-21 14:08] LABS: A/G RATIO 1.4 (0.7-1.7); ALBUMIN 2.7 g/dL (2.9-4.4); ALPHA-1-GLOBULIN 0.4 g/dL (0.0-0.4); ALPHA-2-GLOBULIN 0.5 g/dL (0.4-1.0); BETA GLOBULIN 0.6 g/dL (0.7-1.3); GAMMA GLOBULIN 0.5 g/dL (0.4-1.8); PROTEIN TOTAL 4.7 g/dL (6.0-8.5)
== END 2022-06-19 12:00 | disposition home or self-care (01) | DRG 312 ==
LOC: EDUNIT# → ED 14:16 → MS2 06-18 02:05
PROVIDERS: ADMIT Internal Medicine; ATTEND Specialist
DX: I95.2 Hypotension due to drugs (principal); N39.0 Urinary tract infection, site not specified; D68.9 Coagulation defect, unspecified; I95.9 Hypotension, unspecified; N17.9 Acute kidney failure, unspecified; I50.22 Chronic systolic (congestive) heart failure; G89.11 Acute pain due to trauma; I50.9 Heart failure, unspecified; R91.1 Solitary pulmonary nodule; S22.42XD Multiple fractures of ribs, left side, subsequent encounter for fracture with routine healing; W18.30XD Fall on same level, unspecified, subsequent encounter; Z91.81 History of falling; Z20.822 Contact with and (suspected) exposure to COVID-19; R79.89 Other specified abnormal findings of blood chemistry; T44.7X5A Adverse effect of beta-adrenoreceptor antagonists, initial encounter; T46.4X5A Adverse effect of angiotensin-converting-enzyme inhibitors, initial encounter; T50.0X5A Adverse effect of mineralocorticoids and their antagonists, initial encounter; I11.0 Hypertensive heart disease with heart failure; E86.0 Dehydration; I25.10 Atherosclerotic heart disease of native coronary artery without angina pectoris; E78.5 Hyperlipidemia, unspecified; R74.01 Elevation of levels of liver transaminase levels; B96.89 Other specified bacterial agents as the cause of diseases classified elsewhere; K21.9 Gastro-esophageal reflux disease without esophagitis; Z95.5 Presence of coronary angioplasty implant and graft; J43.2 Centrilobular emphysema; R53.1 Weakness; Z79.82 Long term (current) use of aspirin; G89.29 Other chronic pain; M54.9 Dorsalgia, unspecified; D75.89 Other specified diseases of blood and blood-forming organs; E83.42 Hypomagnesemia; I48.91 Unspecified atrial fibrillation; Z66 Do not resuscitate; K76.0 Fatty (change of) liver, not elsewhere classified; Z96.642 Presence of left artificial hip joint; R22.42 Localized swelling, mass and lump, left lower limb; R26.89 Other abnormalities of gait and mobility; Z87.891 Personal history of nicotine dependence; R19.7 Diarrhea, unspecified; R63.0 Anorexia; Z68.21 Body mass index [BMI] 21.0-21.9, adult; R63.4 Abnormal weight loss
CPT/HCPCS: 36415; 70450; 71260; 74177; 76705; 80048; 80053; 80076; 80307; 81003; 82533; 82550; 82607; 82746; 82784; 83010; 83540; 83605; 83690; 83735; 84100; 84145; 84155; 84165; 84443; 84466; 84484; 85025; 85610; 86334; 86705; 86709; 86803; 87040; 87077; 87150; 87181; 87340; 87635; 93005; 94640; 94664; 96361; 96365; 96367; 96368; 96375; 99284; 99285; A9270; G0480; J7040; J7626; Q9967; 80320; 81001; 87086; 87507

== ENCOUNTER 2022-07-22 05:51 | Emergency (ER) | payer MEDICARE, OTHER ==
[2022-07-22] MEDS ORDERED: ACETAMINOPHEN 325 MG TABLET PO STA (05:56)
--- NOTE | 2022-07-22 05:58 | ED Physician Documentation ---
PD HPI UPPER EXT INJURY - Stated complaint Stated Complaint: GLF, FINGER INJ - Chief complaint Chief Complaint: Trauma Ext - History obtained from History obtained from: Patient, EMS - History of Present Illness Location: Left, Hand, Finger (ring finger base) Type of injury: Fall (he does not know reason for fall, but does remember it and was awake, without preceding symtpoms. He believes he tripped. Complains of injury only to the finger/hand. Did not strike head.) Where injury occurred: Home Timing - onset: How many hours ago (1), Today Timing - details: Abrupt onset, Still present Improved by: Rest Worsened by: Moving, Palpating Associated symptoms: Swelling. No: Weakness, Numbness Similar symptoms before: Has not had sx before (has had some stumbling falls with prior rib fractures due to fall (see recent hospitalization discharge summary0.) Review of Systems Constitutional: denies: Fever Nose: denies: Rhinorrhea / runny nose, Congestion Throat: denies: Sore throat Respiratory: denies: Cough Neurologic: reports: Generalized weakness. denies: Focal weakness, Numbness, Syncope, Headache Endocrine: reports: Weight loss PD PAST MEDICAL HISTORY - Past Medical History Cardiovascular: None Respiratory: None - Present Medications Home Medications: Ambulatory Orders Medication Instructions Recorded Confirmed Aspirin Chewable [[place] 81 mg PO DAILY 02/08/19 07/22/22 Aspirin] Calcitonin [Fortical] 1 sprays DESTINEY DAILY #1 each 03/22/22 07/22/22 Albuterol Sulf [Ventolin Hfa 2 puffs INH Q4HR PRN 04/01/22 07/22/22 Inhaler] Atorvastatin Calcium [Lipitor] 80 mg PO DAILY 04/01/22 07/22/22 Carvedilol [Coreg] 12.5 mg PO BIDWM 04/01/22 07/22/22 Ezetimibe [Zetia] 10 mg PO QD 04/01/22 07/22/22 Omeprazole 40 mg PO DAILY 04/01/22 07/22/22 Acetaminophen [Non-Aspirin Pain 1,000 mg PO Q8H 06/19/22 07/22/22 Relief] Enalapril [Vasotec] 2.5 mg PO DAILY #30 tablet 06/19/22 07/22/22 Spironolactone [Aldactone] 25 mg PO DAILY #30 tablet 06/19/22 07/22/22 - Allergies Allergies/Adverse Reactions: Allergies Allergy/AdvReac Type Severity Reaction Status Date / Time lactose AdvReac Intermediate Cramps Verified 07/22/22 06:01 PD ED PE NORMAL - Vitals Vital signs reviewed: Yes - General General: Alert and oriented X 3, Well developed/nourished - HEENT HEENT: Atraumatic - Neck Neck: Supple, no meningeal sign, No bony TTP, No adenopathy - Cardiac Cardiac: RRR, No murmur - Respiratory Respiratory: No respiratory distress, Clear bilaterally - Abdomen Abdomen: Soft, Non tender - Derm Derm: Normal color, Warm and dry - Extremities Extremities: Other (left hand with tenderness and angulation at base of ring finger. abrasion on palm but not overlying the injury site. Normal color and cap refill in distal finger. He is not tender at distal finger.) - Neuro Neuro: Alert and oriented X 3, digital forensic analyst 2-12 intact, No motor deficit, No sensory deficit, Normal speech Eye Opening: Spontaneous Motor: Obeys Commands Verbal: Oriented GCS Score: 15 Results - Vitals Vitals: Vital Signs - 24 hr 07/22/22 05:51 Temperature 35.7 C L Heart Rate 86 Respiratory 18 Rate Blood Pressure 115/68 O2 Saturation 97 Oxygen O2 Source [With Activity] Room air O2 Source Room air - Rads (name of study) left hand Radiology: Prelim report reviewed (fracture with angulation at proximal portion of proximal phalanx left index finger. Distal phalanx fracture nonarticular also seen. ), See rad report head CT Radiology: Prelim report reviewed (no acute process; no ICH. ), See rad report Procedures - Splint (location) - Minor left ring finger Splint applied by: Tech Type of splint: Metal foam finger splint (with rashawn taping.) Other: Patient tolerated well (I did local (ring/hematoma block area) injection with lido 1% which did help the patient pain well.), No complications PD MEDICAL DECISION MAKING - ED course Complexity details: reviewed results, considered differential (mechanical fall per patient. No LOC. had hand injury of ring finger with apparent fracture. This aligns straight easily with just gentle pull into straight, but then goes to side again. can be easily splinted/rashawn taped. Prior records has Dx of coagulopathy, so higher risk of ICH. CT gotten. ), d/w patient Departure - Departure Disposition: 01 Home, Self Care Clinical Impression: Fall from slip, trip, or stumble Qualifiers: Encounter type: initial encounter Qualified Code(s): W01.0XXA - Fall on same level from slipping, tripping and stumbling without subsequent striking against object, initial encounter Finger fracture Qualifiers: Encounter type: initial encounter Finger: ring finger Fracture type: closed Phalanx: proximal Fracture alignment: displaced Laterality: left Qualified Code(s): S62.615A - Displaced fracture of proximal phalanx of left ring finger, initial encounter for closed fracture Condition: Stable Record reviewed to determine appropriate education?: Yes Instructions: ED Fx Finger Closed Follow-Up: Orthopedic Care [Provider Group] Comments: You have a fractured finger on the left hand. You will need to keep in the splint and rashawn tape a 3 to 4 weeks for it to be healing. I would suggest following up with orthopedics in about a week to ensure its healing adequately and in the right position. They will likely want to mamie-ray it. Call later today for an appointment. [place] every 4-6 hours if needed for pains. Cleanse the abrasion with soap and water and apply some ointment. Discharge Date/Time: 07/22/22 07:45
[2022-07-22 06:01] VITALS: BP 115/68
--- NOTE | 2022-07-22 07:56 | CT Report ---
PROCEDURE: HEAD WO INDICATIONS: fall; h/o coagulopathy TECHNIQUE: Noncontrast 4.5 mm thick angled axial sections acquired from the foramen magnum to the vertex. For r adiation dose reduction, the following was used: automated exposure control, adjustment of mA and/or kV according to patient size. COMPARISON: 06/17/2022. FINDINGS: Image quality: Excellent. CSF spaces: Basal cisterns are patent. No extra-axial fluid collections. Ventricles are normal in size and shape. Brain: No midline shift. No intracranial masses or hemorrhage. No mass effect. Overton-white matter i nterface is normal. There cerebral volume loss for age with resultant ventricular and sulcal prominen ce. There are periventricular and deep white matter chronic small vessel ischemic changes. Atheroscle rotic calcifications are noted in the intracranial segments of the bilateral internal carotid arterie s. Skull and face: Calvarium and visualized facial bones are intact, without suspicious lesions. Redem onstration of 3 mm metallic foreign body within the right parietal scalp. Sinuses: Visualized sinuses and mastoids are clear. IMPRESSION: CT head without acute intracranial abnormalities. Stable age-related senescent changes and sequela of chronic small vessel ischemic disease. No significant discrepancy with initial interpretation by overnight radiologist. Reviewed by: Joaquim Trotter MD on 07/22/2022 7:55 AM PST Approved by: Joaquim Trotter MD on 07/22/2022 7:55 AM PST Station ID: [id number]
--- NOTE | 2022-07-22 08:14 | XRAY Report ---
PROCEDURE: Hand 3 View LT INDICATIONS: fall with hand/ring finger injury TECHNIQUE: 3 views of the hand(s) acquired. COMPARISON: None FINDINGS: Bones: There is acute fracture involving fourth proximal phalangeal base with ulnar and dorsal displa cement and angulation of fracture site. There is also a nondisplaced fracture seen in fourth distal p halangeal base. No other fracture or dislocation is seen. 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 Diffuse osteopenia. No suspicious bony lesions. Soft tissues: No suspicious soft tissue calcifications. IMPRESSION: Acute displaced fracture of fourth proximal phalangeal base and nondisplaced fracture of fourth dista l phalangeal base as above. No discrepancies from preliminary reading. Reviewed by: Isaiah Maloney MD on 07/22/2022 8:12 AM PST Approved by: Isaiah Maloney MD on 07/22/2022 8:12 AM PST Station ID: [id number]
== END 2022-07-22 07:45 | disposition home or self-care (01) ==
LOC: MERGE 05:51 → ED 05:51
DX: S62.615A Displaced fracture of proximal phalanx of left ring finger, initial encounter for closed fracture (principal); W01.0XXA Fall on same level from slipping, tripping and stumbling without subsequent striking against object, initial encounter
CPT/HCPCS: 70450; 73130; 99282; 99284; A9270

== ENCOUNTER → 2022-07-22 | Outpatient (CLI) | payer MEDICARE, OTHER | END | disposition critical access hospital (66) | LOC: EMS 05:26 | DX: S69.92XA Unspecified injury of left wrist, hand and finger(s), initial encounter (principal); W01.0XXA Fall on same level from slipping, tripping and stumbling without subsequent striking against object, initial encounter; Y92.009 Unspecified place in unspecified non-institutional (private) residence as the place of occurrence of the external cause | CPT/HCPCS: A0425; A0429 ==

== ENCOUNTER 2022-08-18 13:27 | Outpatient (CLI) | payer MEDICARE, OTHER | END 2022-08-18 13:28 | disposition critical access hospital (66) | LOC: EMS 13:27 | DX: S40.011A Contusion of right shoulder, initial encounter (principal); S51.011A Laceration without foreign body of right elbow, initial encounter; S40.812A Abrasion of left upper arm, initial encounter; R29.6 Repeated falls; R53.1 Weakness; W18.39XA Other fall on same level, initial encounter; Y92.009 Unspecified place in unspecified non-institutional (private) residence as the place of occurrence of the external cause; I95.9 Hypotension, unspecified | CPT/HCPCS: A0425; A0429 ==

== ENCOUNTER 2022-08-18 13:51 | Inpatient (IN) | payer MEDICARE, OTHER ==
--- OUTSIDE RECORDS SUMMARY | 2022-08-18 14:01 | EXTERNAL MEDICAL SUMMARY RPT | Continuity of Care Document ---
:1945 Author Organization [facility] Address [address] [place] [address] Phone Allergies No information. Encounters No information. Functional Status No information. Immunizations No information. Medications No information. Problems date description facility 2022-06-11 10:15 Spinal stenosis, lumbar region with [facility] claudication Procedures No information. Results/Labs test date author facility value unit interpret ation Result panel 1 (unknown) (no (unknown) (unknown) (no value) (units (unk nown) date) unknown) (unknown) (no (unknown) (unknown) 1. Loss of (units (unk nown) date) height associated unknown) with the L1 compression fracture has increased (unknown) (no (unknown) (unknown) 06/11/22 (units (unkno wn) date) unknown) (unknown) (no (unknown) (unknown) [address] [place] [address] (units (unknown) date) unknown) (unknown) (no (unknown) (unknown) 13:03. (units (unkno wn) date) unknown) (unknown) (no (unknown) (unknown) 2. Moderate to (units (unknown) date) severe central unknown) canal narrowing related to retropulsed bone (unknown) (no (unknown) (unknown) 3. Multilevel (units ( unknown) date) degenerative disc unknown) disease. (unknown) (no (unknown) (unknown) [id number] (units (unkno wn) date) unknown) (unknown) (no (unknown) (unknown) 4. No severe (units (u nknown) date) neural foraminal unknown) narrowing. (unknown) (no (unknown) (unknown) 5. Right sacral (units (unknown) date) insufficiency unknown) fracture. (unknown) (no (unknown) (unknown) Accession (units (unkn own) date) Number: unknown) [id number] (unknown) (no (unknown) (unknown) Age/Sex: 77 / M (units (unknown) date) Date of Service: unknown) (unknown) (no (unknown) (unknown) Alignment and (units ( unknown) date) Curvature: There unknown) is normal bony alignment. (unknown) (no (unknown) (unknown) [place] (units ( unknown) date) [id number] unknown) (unknown) (no (unknown) (unknown) Approved by: [...] (unknown) (unknown) : 1945 (units (unknown) date) Acct:[id number] unknown) (unknown) (no (unknown) (unknown) Dictated by: [...] date) Excellent. unknown) (unknown) (no (unknown) (unknown) [facility] (units (unknown) date) unknown) (unknown) (no (unknown) [...] (unknown) (unknown) Patient: (units (unkno wn) date) Robert Clayton W unknown) MR#: [id number] (unknown) (no [...]
--- NOTE | 2022-08-18 14:32 | ED Physician Documentation ---
History of Present Illness - Stated complaint Stated Complaint: GLF - History obtained from History obtained from: Patient, EMS - Additonal information Additional information: The patient is brought to the emergency department by EMS for chief complaint of generalized weakness, right shoulder pain, and ground-level fall. He lives at home by himself and normally gets along fairly well, though he has been having more frequent falls lately. The patient states that he was in his kitchen the day before yesterday when he took a step forward and suddenly, his legs collapsed under him. He fell to the floor and hit his right shoulder but states he did not hit his head, lose consciousness, or injure his neck. He denies any hip pain or rib pain. He did sustain a skin tear to his right elbow. He states that he was able to call his neighbor after several hours, and the neighbor came and helped him to the couch. The patient states that he had both water and some alcohol by the couch and was able to drink both, though he thinks he probably has not had enough water. However, he states because of his shoulder pain, it was hard for him to get up off the couch, and so he did not get food over the last couple of days. The patient called his neighbor this morning to help him and the neighbor told him he needed to come to the emergency department. The patient denies any feeling of illness. He denies shortness of breath or chest p ain. No cough. No fevers. He does feel a little chilled and shaky, but does not feel like he is withdrawing from alcohol. Review of Systems Constitutional: reports: Reviewed and negative Eyes: reports: Reviewed and negative Ears: reports: Reviewed and negative Nose: reports: Reviewed and negative Throat: reports: Reviewed and negative Cardiac: reports: Chest pain / pressure Respiratory: reports: Reviewed and negative GI: reports: Reviewed and negative : reports: Reviewed and negative Skin: reports: Reviewed and negative Musculoskeletal: reports: Joint pain (Right shoulder) Neurologic: reports: Reviewed and negative Psychiatric: reports: Reviewed and negative Endocrine: reports: Reviewed and negative Immunocompromised: reports: Reviewed and negative PD PAST MEDICAL HISTORY - Past Medical History Cardiovascular: None Respiratory: None Neuro: None Endocrine/Autoimmune: Type 1 diabetes GI: GERD : None HEENT: None Psych: None Musculoskeletal: Chronic back pain, Other Derm: None - Past Surgical History Past Surgical History: Yes Ortho: Hip replacement Cardiovascular: Coronary stent - Present Medications Home Medications: Ambulatory Orders Medication Instructions Recorded Confirmed Atorvastatin Calcium [Lipitor] 80 mg PO DAILY 04/01/22 07/22/22 Carvedilol [Coreg] 12.5 mg PO BIDWM 04/01/22 07/22/22 Omeprazole 40 mg PO DAILY 04/01/22 07/22/22 Enalapril [Vasotec] 2.5 mg PO DAILY #30 tablet 06/19/22 07/22/22 Spironolactone [Aldactone] 25 mg PO DAILY #30 tablet 06/19/22 07/22/22 Fluticasone Propion/Salmeterol 1 inh PO DAILY 08/18/22 08/18/22 [Fluticasone-Salmeterol 250-50] Mirtazapine 7.5 mg PO HS 08/18/22 08/18/22 Tiotropium Miles [Spiriva 4 gm IH DAILY 08/18/22 08/18/22 Respimat] - Allergies Allergies/Adverse Reactions: Allergies Allergy/AdvReac Type Severity Reaction Status Date / Time lactose AdvReac Intermediate Cramps Verified 08/18/22 14:12 - Social History Does the pt smoke?: No Smoking Status: Never smoker Does the pt drink ETOH?: No Does the pt have substance abuse?: No - Immunizations Immunizations are current?: Yes Immunizations: TDAP >10years/unknown - POLST Patient has POLST: No PD ED PE NORMAL - Vitals Vital signs reviewed: Yes - General General: Alert and oriented X 3, No acute distress, Other (Thin, mildly disheveled, but alert and appropriate.) - HEENT HEENT: Atraumatic, PERRL, EOMI, Moist mucous membranes - Neck Neck: Supple, no meningeal sign, No bony TTP, C-Spine cleared by NEXUS criteria - Cardiac Cardiac: RRR, No murmur, Strong equal pulses - Respiratory Respiratory: No respiratory distress, Clear bilaterally - Abdomen Abdomen: Soft, Non tender, Non distended - Rectal Rectal: Other (Good tone, no gross blood, light brown stool. No mass.) - Back Back: No CVA TTP, No spinal TTP - Derm Derm: Warm and dry, Other (Large contusion over anterior right shoulder and clavicle. Second large contusion over right lateral chest wall. Skin tears on both elbows.) - Extremities Extremities: No deformity, No edema, Other (Severely limited range of motion of right shoulder secondary to pain.) - Neuro Neuro: Alert and oriented X 3, carcass trimmer 2-12 intact, No motor deficit, No sensory deficit, Normal speech, Other (Coarse tremors.) - Psych Psych: Normal mood, Normal affect Results - Vitals Vitals: Vital Signs - 24 hr 08/18/22 08/18/22 08/18/22 14:00 14:55 16:11 Temperature 37.3 C Heart Rate 91 90 87 Heart Rate [ Monitoring electrodes] Respiratory 17 19 21 Rate Blood Pressure 112/68 250/187 H 94/56 L Blood Pressure [Left Radial artery] O2 Saturation 96 100 100 If not protocol 2 : Oxygen Flow, liters/minute 08/18/22 08/18/22 08/18/22 17:43 18:00 18:04 Temperature 37.5 C 37.7 C Heart Rate 86 Heart Rate [ 90 89 Monitoring electrodes] Respiratory 19 16 21 Rate Blood Pressure 89/50 L Blood Pressure 88/76 L 82/64 L [Left Radial artery] O2 Saturation 90 L 96 97 If not protocol 2 2 : Oxygen Flow, liters/minute 08/18/22 18:34 Temperature 36.2 C L Heart Rate 85 Heart Rate [ Monitoring electrodes] Respiratory 15 Rate Blood Pressure 106/55 L Blood Pressure [Left Radial artery] O2 Saturation 97 If not protocol 2 : Oxygen Flow, liters/minute Oxygen O2 Source [With Activity] Room air O2 Source Nasal cannula - Labs Labs: Laboratory Tests 08/18/22 08/18/22 08/18/22 14:51 14:51 14:51 WBC 6.5 RBC 1.70 L Hgb 5.6 L* Hct 17.1 L* MCV 100.6 H MCH 32.9 H MCHC 32.7 RDW 20.6 H Plt Count 201 MPV 9.1 Neut # (Auto) 5.2 Lymph # (Auto) 0.3 L Rich # (Auto) 1.0 Eos # (Auto) 0.0 Baso # (Auto) 0.0 Absolute Nucleated RBC 0.11 Nucleated RBC % 1.7 Manual Slide Review Indicated WBC Morphology NORMAL APPEARANCE Platelet Estimate NORMAL (130-450,000) Platelet Morphology NORMAL APPEARANCE RBC Morph Micro Appear 1+ MACROCYTOSIS Sodium 135 Potassium 4.2 Chloride 95 L Carbon Dioxide 25 Anion Gap 15.0 H BUN 27 H Creatinine 0.9 Estimated GFR (MDRD) 82 L Glucose 130 H Calcium 7.6 L Total Bilirubin 3.5 H AST 28 ALT 20 Alkaline Phosphatase 101 Total Protein 5.5 L Albumin 3.4 Globulin 2.1 Albumin/Globulin Ratio 1.6 Lipase 34 Nasal Adenovirus (PCR) Nasal B. parapertussis DNA (PCR) Nasal Coronavir 229E PCR Nasal Coronavir HKU1 PCR Nasal Coronavir NL63 PCR Nasal Coronavir OC43 PCR Nasal Enterovir/Rhinovir PCR Nasal Influenza B PCR Nasal Influenza A PCR Nasal Parainfluen 1 PCR Nasal Parainfluen 2 PCR Nasal Parainfluen 3 PCR Nasal Parainfluen 4 PCR Nasal RSV (PCR) Nasal B.pertussis DNA PCR Nasal C.pneumoniae (PCR) John Human Metapneumo PCR Nasal M.pneumoniae (PCR) Nasal SARS-CoV-2 (PCR) Ethyl Alcohol < 5.0 Blood Type Blood Type Recheck Antibody Screen Crossmatch IS Only 08/18/22 08/18/22 08/18/22 14:51 15:30 16:14 WBC RBC Hgb Hct MCV MCH MCHC RDW Plt Count MPV Neut # (Auto) Lymph # (Auto) Rich # (Auto) Eos # (Auto) Baso # (Auto) Absolute Nucleated RBC Nucleated RBC % Manual Slide Review WBC Morphology Platelet Estimate Platelet Morphology RBC Morph Micro Appear Sodium Potassium Chloride Carbon Dioxide Anion Gap BUN Creatinine Estimated GFR (MDRD) Glucose Calcium Total Bilirubin AST ALT Alkaline Phosphatase Total Protein Albumin Globulin Albumin/Globulin Ratio Lipase Nasal Adenovirus (PCR) NOT DETECTED Nasal B. parapertussis DNA (PCR) NOT DETECTED Nasal Coronavir 229E PCR NOT DETECTED Nasal Coronavir HKU1 PCR NOT DETECTED Nasal Coronavir NL63 PCR NOT DETECTED Nasal Coronavir OC43 PCR NOT DETECTED Nasal Enterovir/Rhinovir PCR NOT DETECTED Nasal Influenza B PCR NOT DETECTED Nasal Influenza A PCR NOT DETECTED Nasal Parainfluen 1 PCR NOT DETECTED Nasal Parainfluen 2 PCR NOT DETECTED Nasal Parainfluen 3 PCR NOT DETECTED Nasal Parainfluen 4 PCR NOT DETECTED Nasal RSV (PCR) NOT DETECTED Nasal B.pertussis DNA PCR NOT DETECTED Nasal C.pneumoniae (PCR) NOT DETECTED John Human Metapneumo PCR NOT DETECTED Nasal M.pneumoniae (PCR) NOT DETECTED Nasal SARS-CoV-2 (PCR) NOT DETECTED Ethyl Alcohol Blood Type O POSITIVE Blood Type Recheck O POSITIVE Antibody Screen NEGATIVE Crossmatch IS Only See Detail PD Medical Decision Making - ED course Complexity details: reviewed results, re-evaluated patient, considered differential, d/w patient, d/w interior design consultant ED course: The patient was very much alert and oriented upon arrival and was very clear about the events surrounding the fall and the nature of the fall. He had no evidence of head trauma and stated very clearly that he had not hit his head, but his shoulder, during the fall. The patient was in a lot of pain and he was also quite tremulous. Although the patient did not necessarily feel that he was specifically in alcohol withdrawal, the patient had reported drinking alcohol regularly, and so he was given a milligram of Ativan. His alcohol level was negative here. The patient had x-rays done of his right shoulder which showed some enlargement of the clavicular head, But no clear fracture. 1/ rib fracture was noted. Patient's laboratory studies showed a hemoglobin of 5.6. The patient has typed and screened and 2 units of packed red cells were crossed and initiated transfusion. Protonix was also given. I spoke with Dr. Rae who stated that she would be very willing to consult on this patient that would like to first have CTs of the chest abdomen and pelvis done to make sure there is no other trauma on this patient. She also recommended a Lidoderm patch over the fractured ribs since the patient became very somnolent and somewhat hypotensive during the initial hour after the Ativan and Dilaudid. These things were ordered and are pending at this time. The patient will be signed out to Dr. Broussard at change of shift, pending CT results, check in with Dr. Rae, and ultimately, conversation with hospitalist service and planned admission. The p atesha is currently hemodynamically stable and is no longer hypotensive. He is mildly drowsy but easily arousable. A rectal exam has demonstrated light brown stool and official guaiac testing is pending be a laboratory at this time.
[2022-08-18] MEDS ORDERED: LORazepam 2 MG/ML VIAL IVP STA (14:38)
[2022-08-18] MEDS ORDERED: SODIUM CHLORIDE 0.9% 1,000 ML IV STA ×2 (14:38→18:19)
--- NOTE | 2022-08-18 14:43 | XRAY Report ---
PROCEDURE: Elbow 2 View RT INDICATIONS: fall/pain/limited ROM TECHNIQUE: 2 views of the elbow were acquired. COMPARISON: None FINDINGS: Bones: No fractures or dislocations. No suspicious bony lesions. Soft tissues: Small elbow joint effusion. No suspicious soft tissue calcifications. IMPRESSION: Small joint effusion. Consider follow-up in 10-15 days to assess for occult fracture Reviewed by: George Renee MD on 08/18/2022 1:42 PM AKST Approved by: George Renee MD on 08/18/2022 1:42 PM AKST Station ID: [id number]
--- NOTE | 2022-08-18 14:53 | XRAY Report ---
PROCEDURE: Shoulder 3 View RT INDICATIONS: Fall/pain/swelling/contusion TECHNIQUE: 3 views of the shoulder were acquired. COMPARISON: None. FINDINGS: Bones: There is a expanded appearance of the clavicular head with possible underlying fracture. No s uspicious bony lesions. Right seventh rib fracture. Soft tissues: No suspicious soft tissue calcifications. IMPRESSION: Possible expansile lesion of the clavicular head. Consider follow-up CT chest to include shoulders Right seventh rib fracture, uncertain age Reviewed by: George Renee MD on 08/18/2022 1:52 PM AKST Approved by: George Renee MD on 08/18/2022 1:52 PM AKST Station ID: [id number]
[2022-08-18 15:01] LABS: BASOPHILS % (AUTO) 0.3 %; LYMPHOCYTES # (AUTO) 0.3 10^3/uL (1.5-3.5); MEAN CORPUSCULAR HEMOGLOBIN 32.9 pg (27.0-31.0); MEAN CORPUSCULAR HGB CONC 32.7 g/dL (32.0-36.0); MEAN CORPUSCULAR VOLUME 100.6 fL (80.0-94.0); MEAN PLATELET VOLUME 9.1 fL (7.4-11.4); NEUTROPHILS # (AUTO) 5.2 10^3/uL (1.5-6.6); NEUTROPHILS % (AUTO) 79.9 %; NRBC ABSOLUTE COUNT (AUTO) 0.11 x10^3/uL; NUCLEATED RED BLOOD CELLS AUTO 1.7 /100WBC; PLT - PLATELET COUNT 201 10^3/uL (130-450); RED CELL DISTRIBUTION WIDTH 20.6 % (12.0-15.0); WHITE BLOOD COUNT 6.5 x10^3/uL (4.8-10.8)
[2022-08-18 15:04] LABS: HGB - HEMOGLOBIN 5.6 g/dL (14.0-18.0)
[2022-08-18] MEDS ORDERED: HYDROmorphone 1 MG/ML CARPUJECT IVP STA (15:04)
[2022-08-18 15:05] LABS: HCT - HEMATOCRIT 17.1 % (42.0-52.0)
[2022-08-18 15:11] LABS: ALBUMIN 3.4 g/dL (3.2-5.5); ALBUMIN/GLOBULIN RATIO 1.6 (1.0-2.2); BILIRUBIN,TOTAL 3.5 mg/dL (0.2-1.0); CALCIUM 7.6 mg/dL (8.5-10.3); CREATININE 0.9 mg/dL (0.6-1.2); POTASSIUM 4.2 mmol/L (3.5-5.0); TOTAL PROTEIN 5.5 g/dL (6.7-8.2)
[2022-08-18 15:23] LABS: PLATELET ESTIMATE, MANUAL NORMAL (130-450,000) (NORMAL); PLATELET MORPHOLOGY NORMAL APPEARANCE (NORMAL); SLIDE REVIEW? Indicated; WBC MORPHOLOGY (MULTIPLE) NORMAL APPEARANCE (NORMAL)
[2022-08-18 17:08] LABS: B. PARAPERTUSSIS- RESP PCR PAN NOT DETECTED; B. PERTUSSIS- RESP PCR PANEL NOT DETECTED; C. PNEUMONIAE- RESP PCR PANEL NOT DETECTED; CORONAVIRUS 229E-RESP PCR NOT DETECTED; CORONAVIRUS HKU1-RESP PCR NOT DETECTED; CORONAVIRUS NL63-RESP PCR NOT DETECTED; CORONAVIRUS OC43-RESP PCR NOT DETECTED; HUMAN METAPNEUMOVIRUS NOT DETECTED; INFLUENZA A- RESP PCR PANEL NOT DETECTED; INFLUENZA B - RESP PCR PANEL NOT DETECTED; M. PNEUMONIAE- RESP PCR PANEL NOT DETECTED; PARAINFLUENZA VIRUS 1 NOT DETECTED; PARAINFLUENZA VIRUS 2 NOT DETECTED; PARAINFLUENZA VIRUS 3 NOT DETECTED; PARAINFLUENZA VIRUS 4 NOT DETECTED; RHINOVIRUS/ENTEROVIRUS NOT DETECTED; RSV- RESP PCR PANEL NOT DETECTED; SARS-CoV-2 -RESP PCR PANEL NOT DETECTED
[2022-08-18] MEDS ORDERED: PANTOPRAZOLE 40 MG VIAL IV STA (18:18)
[2022-08-18] MEDS ORDERED: LIDOCAINE PATCH 5% TOP STA (18:43)
[2022-08-18] MEDS ORDERED: iohexoL-300 100 ML VIAL ONE (19:03)
[2022-08-18] MEDS ORDERED: iohexoL-300 100 ML VIAL IVP ONE (20:36)
[2022-08-18] MEDS ORDERED: ACETAMINOPHEN 325 MG TABLET PO STA (20:55)
--- NOTE | 2022-08-18 21:26 | CT Report ---
PROCEDURE: CHEST W INDICATIONS: R chest trauma CONTRAST:100 ML OMNI 300 TECHNIQUE: After the administration of intravenous contrast, 1 mm axial images were acquired from the pulmonary apices through the posterior costophrenic angles. Axial 5 mm soft tissue kernel reconstructions were performed as well as 8 mm axial MIP and coronal and sagittal 5 mm reformations. For radiation dose reduction, the following was used: automated exposure control, adjustment of mA and/or kV according to patient size. COMPARISON: CT chest 06/17/2022, 05/04/2022. CT abdomen pelvis 08/18/2022, 06/17/2022.. FINDINGS: Image quality: Excellent. Lower Neck: No lymphadenopathy by size criteria. Thyroid: Visualized thyroid demonstrates no discrete nodules. Axillae: No lymphadenopathy by size criteria. Chest Wall: Unremarkable. Bones: There are healing fractures of the right third through seventh ribs laterally redemonstrated. There are healing fractures of the right posterolateral eighth through 10th ribs are also redemonstra iraida. Multiple nonacute fractures also redemonstrated throughout the left ribs. There are compression deformities redemonstrated within the thoracic spine including moderate to severe compression fractur es of the T8 and T12 vertebral bodies which appears similar to the prior study. There is associated m oderate spinal canal narrowing at T12 again noted. There is a healed sternal fracture redemonstrated. No definite acute fractures. Visualized osseous structures demonstrate no suspicious lesions. Lungs and Airways: The dependent atelectasis is demonstrated bilaterally as well as subpleural consol idation in the left lower lobe posterior inferiorly. There are 2 subsolid nodules within the right lo wer lobe measuring up to 0.4 cm on series 3 image 176 which appear increased in density compared to p rior studies. A right lower lobe 0.3 cm nodule on series 3 image 202 is unchanged compared to the quan or studies. A pleural-based right lower lobe 0.4 cm nodule on series 3 image 213 is also unchanged co mpared to the prior studies. There are mild centrilobular and paraseptal edematous changes. There is increased interlobular septal thickening laterally with a few scattered areas of indistinct groundgla ss opacities consistent with pulmonary edema. The trachea and central airways are patent. Pleura: No pneumothorax or pleural effusions. Heart: Heart size is normal. No pericardial effusion. Thoracic Vessels: The aorta and pulmonary arteries are normal in size. Mediastinum and Florina: No lymphadenopathy by size criteria. Esophagus: No wall thickening. There is a small hiatal hernia. Abdomen: Visualized upper abdominal solid organs appear normal. Upper abdominal bowel loops are nor mal in caliber. IMPRESSION: 1. No definite acute traumatic abnormality in the thorax. 2. Multiple nonacute bilateral rib fractures as well as compression deformities in the thoracic spine and old healed sternal fracture are redemonstrated. 3. Interlobular septal thickening and indistinct ground glass opacities consistent with pulmonary cherie ma. 4. Subpleural consolidation within the left lower lobe is nonspecific and may represent pneumonia, se quela of aspiration, or atelectasis. 5. Right lower lobe subsolid nodules appear slightly increased in density compared to the prior studi es. Recommend continued follow-up in 12 months to demonstrate stability if clinically indicated. Reviewed by: Marcus Meza MD on 08/18/2022 9:24 PM PST Approved by: Marcus Meza MD on 08/18/2022 9:24 PM PST Station ID: [id number]
--- NOTE | 2022-08-18 21:35 | CT Report ---
PROCEDURE: ABDOMEN/PELVIS W INDICATIONS: R side trauma, GI bleed CONTRAST: 100 ML OMNI 300 TECHNIQUE: After the administration of intravenous contrast, 5 mm thick sections acquired from the diaphragms to the symphysis. 5 mm thick coronal and sagittal reformats were acquired. For radiation dose reducti on, the following was used: automated exposure control, adjustment of mA and/or kV according to lucina ent size. COMPARISON: Concurrent CT chest. CT abdomen pelvis 06/17/2022, 03/22/2022. FINDINGS: Image quality: There is metallic streak artifact from patient's surgical hardware in the proximal lef t femur as well as external devices lateral to the right pelvis.. Lung bases:Subpleural consolidation demonstrated within the left lower lobe and left lingular. There is dependent atelectasis also demonstrated bilaterally. There is increased septal thickening with in distinct groundglass opacities consistent with pulmonary edema. Heart: Heart is normal in size. There is a small hiatal hernia. ABDOMEN: Liver:The liver demonstrates no lacerations or perihepatic fluid collections. Gallbladder: Within normal limits without calcified gallstones. Biliary ducts: No biliary ductal dilatation. Pancreas: Unremarkable. Spleen: Normal in size. Adrenal Glands: No adrenal nodules. Kidneys and Ureters: No hydronephrosis. There is a 0.3 cm nonobstructing stone within the left kidne y. Stomach and Bowel: Stomach, small bowel loops, and colon are normal in caliber and wall thickness. T he appendix is normal in appearance. There is colonic diverticulosis without acute diverticulitis. Sc attered air-fluid levels are demonstrated throughout the small and large bowel which are nonspecific and may reflect a gastroenteritis. Peritoneum: No abnormal intraperitoneal fluid. No free air. Ventral Wall: No hernia. Abdominal Nodes: No retroperitoneal or mesenteric adenopathy by size criteria. 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 There is eccentric thrombus redemonstrated within the aneurysm. PELVIS: Pelvic Organs: Unremarkable. Bladder: Unremarkable. Pelvic Nodes: No enlarged lymph nodes. Miscellaneous: No inguinal hernias. Bones: Multiple nonacute bilateral rib fractures are redemonstrated. There are postsurgical changes c onsistent with prior ORIF of a left intertrochanteric fracture. There are prior compression fractures of the T12 and L3 vertebral bodies which appear unchanged. There is associated moderate spinal canal narrowing at T12 which appears similar to the prior study. Visualized osseous structures demonstrate no suspicious lesions. IMPRESSION: 1. No definite acute traumatic abnormality within the abdomen or pelvis. 2. Colonic diverticulosis without acute diverticulitis. 3. Air-fluid levels in the small large bowel are nonspecific but suggestive of a gastroenteritis. No evidence of bowel obstruction. 4. Prior compression fractures of T12 and L3 appear unchanged. 5. Secondary aneurysm of the infrarenal abdominal aorta appears stable in size compared to the prior study. Reviewed by: Marcus Castillo MD on 08/18/2022 9:33 PM PST Approved by: Marcus Castillo MD on 08/18/2022 9:33 PM PST Station ID: [id number]
[2022-08-18] MEDS ORDERED: metroNIDAZOLE 500 MG/100 ML 500 MG/100 ML BAG IV ONE (22:14)
[2022-08-18] MEDS ORDERED: CIPROFLOXACIN 400 MG/200 ML 400 MG/200 ML BAG IV STA (22:14)
--- NOTE | 2022-08-18 22:23 | ED Physician Documentation ---
ED Addendum - Addendum Addendum: 08/18/22 22:16 Patient Endorsed to me by Dr. Kat awaiting results of CT chest abdomen pelvis. Additionally, I had a RUQ ultrasound performed due to elevated tbilirubin, that was markedly limited but uncovered no findings concerning for cbd pathology. Gallbladder was surgically absent. CT chest AP external radiologist report stated there were pulmonary groundglass opacities and septal thickening consistent with pulmonary edema, left lower lobe consolidation concerning for pneumonia versus aspiration pneumonitis versus atelectasis, and abdominal findings concerning for gastroenteritis. Also with stable chronic findings including previous rib fractures and vertebral fractures. Note that patient had an oral temp 100.2 reported by staff climate scientist about an hour ago. In light of this, I will order blood cultures, lactic acid, and provide antibiotics to cover for potential pulmonary/enteric bacteria. d/w Dr. Rae, surgeon legal contracts specialist regarding these findings. Plan to admit overnight telehealth medical service Dr. Artis. He should be on clear liquid diet, and possible NPO tomorrow morning. Anticipate possible scope versus outpatient follow up with Dr. Rae, general surgeon tomorrow. Impression 1. anemia 2. pneumonia 3. gastroenteritis 4. alcohol abuse 08/18/22 22:23 Disposition: admit medical service [facility] Impression stable 08/18/22 22:24 CRITICAL CARE BILLING I have personally performed a history, physical exam, and my own medical decision making. I have reviewed the prior EM physician's note. Upon my evaluation, this patient had a high probability of imminent or life- threatening deterioration due to severe anemia, which required my direct attention, intervention, and personal management. I have personally provided 45 minutes of critical care time exclusive of time spent on separately billable procedures. Time includes review of laboratory data, radiology results, discussion with consultants, and monitoring for potential decompensation. Interventions were performed as documented above. EDW 08/18/22 23:34
[2022-08-18] MEDS ORDERED: SODIUM CHLORIDE FLUSH 0.9% 10 ML SYRINGE IVP PRN (23:29)
[2022-08-18] MEDS ORDERED: ONDANSETRON 4 MG/2 ML VIAL IVP PRN (23:29)
--- NOTE | 2022-08-18 23:41 | HISTORY & PHYSICAL EXAMINATION ---
Chief Complaint - Chief Complaint Chief Complaint: Generalized weakness History of Present Illness - Admitted From Admitted From:: ER MD and Chart review - History Obtained From Records Reviewed: Yes History obtained from: as above Exam Limitations: Patient is sedated at this time - History of Present Illness HPI Comment/Other: 77 yr male who lives alone present to ER with complaints of generalized weakness, had few falls, hx of ETOH use although etoh level less than 5, was tremolous requiring ativan and dilaudid, when I was requested to admit patient was somnolent and not able to give any meaningful history . History obtained by chart review and discussion with ER MD, patient found to have Hb of 5,6 no michelle bleeding appreciated, also found to abnormal CT abd pelvis and chest with concerns for possible bronhitis vs infection vs atelactasis no leukocytosis no fever, had T max of 100.2 when getting blood transfusion initiated in ER. solar sales associate surgeon contact and may consider EGD and colonoscopy. Patient being admitted for blood transfusion and further work up History - Past Medical History Cardiovascular: reports: None Respiratory: reports: None Neuro: reports: None Endocrine/Autoimmune: reports: Type 1 diabetes GI: reports: GERD : reports: None HEENT: reports: None Psych: reports: None Musculoskeletal: reports: Chronic back pain, Other Derm: reports: None MRSA Hx?: No - Past Surgical History Ortho: reports: Hip replacement Cardiovascular: reports: Coronary stent - Family & Social History Family History Comment/Other: He reports his mother had a history of pancreatic cancer. Living Situation: Alone Social History Notes: He lives at home alone but his daughter is visiting from [place]. He smoked 1 to 2 packs a day for 57 years but quit 3 years ago. He will occasionally have an alcoholic beverage. He retired from the [employer] in the . - POLST Patient has POLST: No Meds/Allgy - Home Medications Home Medications: Ambulatory Orders Medication Instructions Recorded Confirmed Atorvastatin Calcium [Lipitor] 80 mg PO DAILY 04/01/22 07/22/22 Carvedilol [Coreg] 12.5 mg PO BIDWM 04/01/22 07/22/22 Omeprazole 40 mg PO DAILY 04/01/22 07/22/22 Enalapril [Vasotec] 2.5 mg PO DAILY #30 tablet 06/19/22 07/22/22 Spironolactone [Aldactone] 25 mg PO DAILY #30 tablet 06/19/22 07/22/22 Fluticasone Propion/Salmeterol 1 inh PO DAILY 08/18/22 08/18/22 [Fluticasone-Salmeterol 250-50] Mirtazapine 7.5 mg PO HS 08/18/22 08/18/22 Tiotropium Hercules [Spiriva 4 gm IH DAILY 08/18/22 08/18/22 Respimat] - Allergies Allergies/Adverse Reactions: Allergies Allergy/AdvReac Type Severity Reaction Status Date / Time lactose AdvReac Intermediate Cramps Verified 08/18/22 14:12 Review of Systems - Other Findings Other Findings: Un able toobtain as patiet is somnolent Prior Level of Functionality: Lives alone at home Exam - Vital Signs Vital Signs: Vital Signs x48h Temp Pulse Pulse Resp BP BP Pulse Ox 08/18/22 22:45 99 19 99 08/18/22 22:40 99.1 C H 84 19 115/62 99 08/18/22 22:20 35.6 C L 85 18 115/53 L 99 08/18/22 21:51 37.3 C 95 24 108/55 L 92 08/18/22 21:22 36.1 C L 26 H 98/53 L 98 08/18/22 20:52 36.1 C L 95 24 96/51 L 100 08/18/22 20:42 86 14 106/82 H 98 08/18/22 20:36 37.2 C 91 16 113/55 L 98 08/18/22 20:06 37.6 C 88 18 82/51 L 97 08/18/22 19:37 86 17 92/48 L 97 08/18/22 19:00 36.5 C 86 17 95/53 L 99 08/18/22 18:34 36.2 C L 85 15 106/55 L 97 08/18/22 18:04 37.7 C 89 21 82/64 L 97 08/18/22 18:00 86 16 89/50 L 96 08/18/22 17:43 37.5 C 90 19 88/76 L 90 L 08/18/22 16:11 87 21 94/56 L 100 O2 Flow Rate 08/18/22 22:45 2 08/18/22 22:40 1 08/18/22 22:20 2 08/18/22 21:51 08/18/22 21:22 2 08/18/22 20:52 2 08/18/22 20:42 08/18/22 20:36 0 08/18/22 20:06 1 08/18/22 19:37 2 08/18/22 19:00 2 08/18/22 18:34 2 08/18/22 18:04 2 08/18/22 18:00 2 08/18/22 17:43 08/18/22 16:11 2 - Physical Exam General Appearance: positive: Lethargic, Other (Sleepy thin) Neck: positive: Nml inspection Cardiovascular: positive: Regular rate & rhythm Abdomen: positive: Non-tender, No organomegaly Neurologic/Psychiatric: positive: Other (Sleepy) Sepsis Event Note (H) - Evaluation Current Stage of Sepsis: Ruled out Conclusion/Plan - Problem List (1) Paroxysmal A-fib Conclusion/Plan: Currently in SR with no acute concerns (2) Alcohol abuse Conclusion/Plan: ETOH level less than 5 monitor for any signs of withdrawl did get Aticvan in ER multivitamin (3) Anemia Conclusion/Plan: Stool gauaic pending, no blood seen in eR on rectal exam, will be getting 2 units of prbc repeat hb with goal to keep Hb > 7 Surgery has been consulted for possible egd in am, npo except meds for now Qualifiers: - Lab Results Fish Bones: 08/18/22 14:51 08/18/22 14:51 - Diagnostic Imaging Results Diagnostic Imaging Results: positive: Prelim report reviewed, Final report reviewed - EKG Results EKG Interpreted Independently: No
[2022-08-19] MEDS: SODIUM CHLORIDE 0.9% 1,000 ML IV SCH ×4 (01:20→23:53)
[2022-08-19] MEDS: SODIUM CHLORIDE FLUSH 0.9% 10 ML SYRINGE IVP SCH ×3 (01:21→17:34)
[2022-08-19 06:14] LABS: BASOPHILS % (AUTO) 0.2 %; HCT - HEMATOCRIT 23.9 % (42.0-52.0); HGB - HEMOGLOBIN 7.9 g/dL (14.0-18.0); LYMPHOCYTES # (AUTO) 0.4 10^3/uL (1.5-3.5); LYMPHOCYTES % (AUTO) 7.5 %; MEAN CORPUSCULAR HEMOGLOBIN 32.1 pg (27.0-31.0); MEAN CORPUSCULAR HGB CONC 33.1 g/dL (32.0-36.0); MEAN CORPUSCULAR VOLUME 97.2 fL (80.0-94.0); MEAN PLATELET VOLUME 9.5 fL (7.4-11.4); MONOCYTES # (AUTO) 0.6 10^3/uL (0.0-1.0); MONOCYTES % (AUTO) 11.4 %; NEUTROPHILS # (AUTO) 4.3 10^3/uL (1.5-6.6); NEUTROPHILS % (AUTO) 80.2 %; NRBC ABSOLUTE COUNT (AUTO) 0.04 x10^3/uL; NUCLEATED RED BLOOD CELLS AUTO 0.7 /100WBC; PLT - PLATELET COUNT 158 10^3/uL (130-450); RED BLOOD COUNT 2.46 10^6/uL (4.70-6.10); RED CELL DISTRIBUTION WIDTH 18.2 % (12.0-15.0); WHITE BLOOD COUNT 5.4 x10^3/uL (4.8-10.8)
[2022-08-19 06:22] LABS: CALCIUM 7.3 mg/dL (8.5-10.3); CREATININE 0.6 mg/dL (0.6-1.2); POTASSIUM 3.4 mmol/L (3.5-5.0)
[2022-08-19 08:25] LABS: PT - PROTHROMBIN TIME 11.3 secs (9.9-12.6)
[2022-08-19] MEDS ORDERED: MORPHINE 2 MG/ML CARPUJECT IVP PRN (08:42)
[2022-08-19] MEDS: oxyCODONE 5 MG TABLET PO PRN ×4 (10:41→23:57)
[2022-08-19] MEDS: ACETAMINOPHEN 325 MG TABLET PO PRN ×3 (10:41→20:10)
[2022-08-19] MEDS: IPRATROPIUM 0.2 MG/ML NEB INH SCH ×4 (11:13→19:30)
[2022-08-19] MEDS: BUDESONIDE 0.5 MG/2 ML NEB INH SCH ×2 (11:14→19:30)
--- NOTE | 2022-08-19 12:46 | PROVIDER PROGRESS NOTE ---
Progress Note This interesting gentleman was brought to the ER by ambulance because he been falling for the last few days. Several times neighbors had to help him get off the ground because he was so weak. When he was brought to the emergency room he had a temperature 37.3, 96% saturated on room air, blood pressure 112/68. He was seen by 2 ER providers over the course of the day. He had been drinking water and alcohol as they sat next to him on the couch. Probably more alcohol than water, he stated. On examination he was alert and oriented, was dis heveled, but no acute respiratory or cardiac distress. Benign abdomen. Contusions over the shoulder and clavicle. Contusion over the right lateral chest wall. His main complaint was right shoulder and chest wall pain. His x- rays show multiple old rib fractures and vertebral compression fractures that are old. He has a new right seventh rib fracture. His chemistries were relatively benign with a BUN of 27, creatinine 0.9. Liver enzymes are normal. However his hemoglobin was 5.6. In looking in the EMR he has been anemic for a few years. Anemia gradually getting worse. In 2019 was 13.7. By March 2022 he was 10.5. By June 2022 he was 9.0. In the ER he was 5.6 g of hemoglobin. He is received 2 units of blood and his hemoglobin is now 7.9. He had an elevated bilirubin and right upper quadrant ultrasound was done and not much was found. Chest x-ray had groundglass opacities and septal thickening consistent with pulmonary edema, left lower lobe consolidation concerning for pneumonia versus aspiration versus atelectasis. As he progressed in the ER he developed a temperature to 100.2 so blood cultures were done. Antibiotics were given. After intervention in the ED, a second ER provider that saw him and called telemedicine to admit this patient overnight. They had already discussed the case with general surgery on-call regarding the hemoglobin. Dr. Rae has dis cussed the case with me this morning. The patient does not give a history of GI bleed. He vaguely remembers that he may have had dark stools but it is inconclusive. Dr. Bartholomew was hoping to just see the patient in the outpatient clinic in 2 weeks. And she will have him prepped for an upper and lower GI at that time. The ostensible diagnoses for which we are admitting this patient is symptomatic anemia, pneumonia, gastroenteritis, and alcohol abuse. This morning the patient is sitting up in bed, alert. Cranky. Wants to eat food. He has been n.p.o. for the possible EGD and now wants regular food. He is afebrile. The last blood pressure was done at midnight and he was 114/68. He is 98% on room air. His main complaint is the right rib cage pain, and the right shoulder pain. Shoulder x-ray in the ER had an expansile lesion of the clavicular head and radiology recommends a chest CT. He has a right seventh rib fracture. The chest CT showed: + healing fractures of the right third through seventh ribs laterally. +Healing fractures of the right posterolateral eighth through 10th. +Multiple nonacute fractures redemonstrated throughout the left ribs. +Compression deformities of the T-spine that are moderate to severe of T8 and T12. +Spinal cord narrowing at T12. +Healed sternal fractures. +He has subpleural consolidation in the left lower lobe post posteriorly and inferiorly. +2 subsolid nodules within the right lower lobe which appear increased in density compared to prior CTs. +A right lower lobe nodule is unchanged from prior CTs. +A pleural-based right lower lobe nodule is also unchanged. +He has centrilobular and paraseptal edematous changes. +There is no mention of the expansile mass seen on plain film. As such I spoke to radiology. Radiology took a second look at that CT of the chest. What he has is a distal clavicular fracture, minimally displaced. No mass. I have met this patient once before, we admitted him in June for falls as well. He had been having low blood pressure that was bad enough that his director of psychology stopped all his blood pressure medications. He had fallen after he had acute rib fractures at that point in time. He has chronic gait instability and uses a cane to ambulate at times. He was not using his cane when he fell. He was diagnosed as having Enterobacter bacteremia. We found this out after he was already discharged. He was on a quinolone and completed that therapy he tells me. With this visit he has not had a urinalysis. He denies fever, chills. Denies diarrhea, hematemesis, hematochezia.He lives alone. Last time he was here daughter was in [place]. This time daughter, I believe, is in [place]. He tells me that he continues to lose weight. He has been losing weight since the summer. He eats and he is full very quickly. No abdominal pain, no sweats, no cough. He just does not have an appetite to eat. He recognizes he is getting skinnier and skinnier. He says that sometimes in the morning when he gets up he is so weak he cannot even lift up a couple coffee because his hand is shaking so badly. Again he tells me that is not because of his drinking. He says that he is so weak sometimes that he will get off of 1 piece of furniture, slide to the floor, crawl on his hands and knees to get to the other side of where he needs to be. And then climb up that furniture. Exam: Temperature is 36.9. Pulse is 76. Blood pressure 85/53 sitting. Laying down he is 112/49. Respirations are 16. He is 98% on room air. He is an alert, oriented, talkative elderly gentleman, disheveled, bearded, in no acute respiratory distress. His main grimacing and complaints of pain centered around the right shoulder. It is hard to move it around to even just reach across the table to get a cup of coffee. Pain is in the posterior right shoulder region. And he winces because of pain in the right mid rib cage region. Coarse upper airway sounds, no crackles, rhonchi, wheezing Regular rate and rhythm with a systolic ejection murmur, PMI laterally displaced Abdomen is soft, nontender, no hepatosplenomegaly, no ascites Extremities have edema of his feet, diffuse osteoarthritic deformities, no clubbing or cyanosis Alert, oriented to person place and time. No tremulousness. No anxiety. No agitation. Can move all extremities. There is no focal deficits. Sodium 138, potassium 3.4, BUN 22, creatinine 0.6. Glucose 110. White cell count 5.4. Hemoglobin 7.9. Hematocrit 23.9. Platelets 158. INR is 1.0 Assessment/plan 1. Orthostatic hypotension with syncope I think most of this gentleman's recent episodes of syncope have to do with orthostatic hypotension. Orthostatic hypotension is being caused by his congestive heart failure drugs, the weight loss, and now most recently his anemia. Plan: I am not resuming any of his medications right now Transfuse to above 8 g of hemoglobin considering his congestive heart failure 2. Anemia In June 2022 his vitamin B12 was very high. Folate was normal. TSH 1.46. Cortisol 5.4. CEA was 1.8. Iron 95. TIBC 122. Transferrin 87. So there is no medical indication of iron deficiency or B12 anemia. While I think an upper and lower endoscopy in the outpatient setting is appropriate, if those are negative, he needs a bone marrow biopsy. 3. Severe protein calorie malnutrition with unexpected weight loss Differential on this could be depression, alcohol abuse, End-stage congestive heart failure resulting in cardiac cachexia, or neoplasm that we have not found. . While he does appear lonely and depressed (see advance care planning conversation) he describes more early satiety and fullness with no appetite. I explained to him that his alcohol abuse could be taking away his appetite. He is willing to stop drinking to see if he can get better. Plan: Already had CT of chest and CT of abdomen with CEA. I do not know if appetite stimulants would be helpful in this man. Nutrition services should sit down with him and discuss with her protein boost, or things like Ensure may help. 4. Alcohol abuse lifelong duration. But no evidence of cirrhosis on labs or exam. No ascites Multivitamin, no B12. I don't feel he needs CIWA 5. Scapular fracture lifelong duration. But no evidence of cirrhosis on labs or exam. No ascites 6. Seventh right rib fracture Encourage deep breathing, Tylenol for mild pain, oxycodone for moderate, morphine for severe pain 7. Chronic systolic heart failure with ejection fraction 25% He is on an MASON inhibitor, diuretic, beta-monae. All very low-dose. Plan he is. He stoutly maintains that he is very compliant. I am skeptical and I told him that. Nevertheless, I am holding these medications. We will resume at least a diuretic depending on how he tolerates his blood transfusion fluid load 8. Enterobacter bacteremia June 2022 No signs and symptoms of sepsis at this time. At this time I do not think he has any symptoms of pneumonia, gastroenteritis. I am not treating those problems with today's visit. Of course we will continue to monitor for signs and symptoms and treat appropriately
--- NOTE | 2022-08-19 12:47 | PHARMACY PROGRESS NOTE ---
- Best Possible Medication History Admit Date and Time: 08/18/22 5523 Processed by: Pharmacy Medication History completed: Yes Patient Interview: Completed Secondary Source(s): Prescription bottles, Previous admit records As the person ultimately responsible for medication therapy, providers are able to order a medication from an existing home medication list in [facility] via the "Reconcile Routine" prior to Confirmation of that medication by applications support analyst. Such practice is discouraged except when the physician, in their clinical judgment, deems that a medical need exists for a medication without regard to previous use.
[2022-08-19] MEDS: MULTIVITAMIN W/MINERALS TABLET PO SCH (13:56)
--- NOTE | 2022-08-19 15:29 | ADVANCE CARE PLANNING NOTE ---
Advance Care Planning - Planning Encounter Date: 08/19/22 Time: 15:24 Purpose: establish care goals Parties in Attendance: patient and hospitalist Decisional Capacity of the Patient: alert, oriented, knows why he's here and where he is - Encounter Subjective/Patient's Story: Born and raised in [place]. Served in the [place] with the [employer], and then transition to [employer]. Overall was in the for 23 years. 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 To his knowledge he is not service-connected. He has 2 purple hearts. , had 1 daughter. He felt he had a good life and a good marriage. in 2018. Daughter lives near [facility] while he lives here on the [place]. Ever since his his main problem life is loneliness. He cannot believe how much time he is by himself. He does have good friends on the [place] and sees them during the week. Fairly regularly. But not nearly enough to stave off the loneliness and the depression. He has become very fatalistic and is hoping that he dies soon. He contemplates suicide. Not in any active way is and he has a plan, but he thinks that that might be the most practical solution to the boredom and the loneliness as you get older. He acknowledges that he is drank too much all of his life. But he protest and says that he does not drink nearly as much now as he used to. He can do 2 or 3 shots in 1 day. And that is it. Or he can go without drinking for days at a time. Since summertime he has been getting gradually gradually weaker. He does not have an appetite. He is losing weight. Again he tells me that he really does not think it is alcohol intake. No abdominal pain. No chest pain or cough or hemoptysis. He used to have tremendous amount of sweats years ago but has not in a long time. The weight loss has resulted in gradually progressive weakness. He says there is sometimes when he gets up in the morning and he cannot believe how shaky his hands are just trying to drink a cup of coffee. He gets to the point where he does not have enough energy to walk across the room so he will slide to the floor, crawl on his hands and knees to where he needs to get to, and then use the furniture to crawl back upright again. One of the interventions was to see his doctors and they stopped his blood pressure medicines because his blood pressure was so low. Nevertheless he still fell in June and was admitted then overnight. His CAT scan showed multiple, multiple fractures and sequela of his falls. He now returns with basically the same story. He does not know why he is losing weight. He does not know why he has no appetite. He knows that if he could just get stronger, he could live assisted decent life. But then he backtracked and said he does know if that would cure the loneliness. He already has a power of workers compensation attorney with his daughter. But he is exasperated. Thinks his daughter does not have much commonsense. She is in [place] right now. He tells me that she is willing to take him in. Or have him live in an apartment nearby her. He has been hesitant to take her up on it because he knows that, while he will be safe, he will still be lonely. She will not visit him nearly enough to assuage that part of his heart. So he stays here on [facility]. To be closer to his friends that he knows and loves. They mainly come around on the weekends but Friday through he is pretty much by himself. He already has a POLST form. He is a DO NOT RESUSCITATE. Objective/Medical Story: 77 yr male who lives alone present to ER with complaints of generalized weakness, had few falls, hx of ETOH use although etoh level less than 5, was tremolous requiring ativan and dilaudid, when I was requested to admit patient was somnolent and not able to give any meaningful history . History obtained by chart review and discussion with ER MD, patient found to have Hb of 5,6 no michelle bleeding appreciated, also found to abnormal CT abd pelvis and chest with concerns for possible bronhitis vs infection vs atelactasis no leukocytosis no fever, had T max of 100.2 when getting blood transfusion initiated in ER. order desk caller surgeon contact and may consider EGD and colonoscopy. Patient being admitted for blood transfusion and further work up History - Past Medical History Cardiovascular: reports: None Respiratory: reports: None Neuro: reports: None Endocrine/Autoimmune: reports: Type 1 diabetes GI: reports: GERD : reports: None HEENT: reports: None Psych: reports: None Musculoskeletal: reports: Chronic back pain, Other Derm: reports: None MRSA Hx?: No - Past Surgical History Ortho: reports: Hip replacement Cardiovascular: reports: Coronary stent So far we have happened to be orthostatic hypotension. Hemoglobin to 5.6. A broken scapula. A broken seventh rib. He has been transfused 2 units of blood. Hydrated. Now we will try to figure out from a rehab perspective how he is can to be able to use his right arm with a broken scapula.Because of the weight loss, and anemia, we have suspected neoplasm. CT of the chest this admission does not show any neoplasm. CT of the abdomen and pelvis in June 2022 has compression fractures, diverticulosis without diverticulitis but no intra- abdominal neoplasm. Goals of Care: 1. He wants to live in his home for as long as possible. He would like to stay there, with in-home support and care, but then acknowledges the cost might be beyond his means. He then says that maybe you to stay in his own home and have his friends take care of them on Friday and Friday. 2. He then acknowledges that the #1 may not be feasible so he then he states that maybe he is willing to go live with his daughter temporarily and then go to his own apartment. 3. 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 He can take that money and go live in a [place] and be around a lot of guys just like him. This might help him with the loneliness. Plan: Confirmed DO NOT RESUSCITATE status. When his daughter returns from [facility], seriously consider moving into her home, or an apartment in [place] I did advise him that if he keeps on falling and coming in because of inability to take care of himself, that does result in Adult Protective Services referrals. He also states that he just cannot stop drinking. It is not worth it to get everybody all upset. But he reminds me that stopping drinking is a lot easier than stopping smoking. What I would love for him to stop smoking, I told him I can hold onto that right now Code Status: Do Not Attempt Resuscitation Time spent on advance care plannin minutes
[2022-08-19] MEDS ORDERED: POTASSIUM CHLORIDE 20 MEQ TABLET PO ONE (17:54)
[2022-08-19] MEDS: MIRTAZAPINE 15 MG TABLET PO SCH (20:10)
[2022-08-20] MEDS: SODIUM CHLORIDE FLUSH 0.9% 10 ML SYRINGE IVP SCH ×3 (00:01→16:53)
[2022-08-20 04:58] LABS: BASOPHILS % (AUTO) 0.6 %; EOSINOPHILS # (AUTO) 0.1 10^3/uL (0.0-0.7); EOSINOPHILS % (AUTO) 1.4 %; HCT - HEMATOCRIT 27.7 % (42.0-52.0); LYMPHOCYTES # (AUTO) 0.7 10^3/uL (1.5-3.5); LYMPHOCYTES % (AUTO) 20.6 %; MEAN CORPUSCULAR HEMOGLOBIN 31.6 pg (27.0-31.0); MEAN CORPUSCULAR HGB CONC 32.5 g/dL (32.0-36.0); MEAN CORPUSCULAR VOLUME 97.2 fL (80.0-94.0); MONOCYTES # (AUTO) 0.3 10^3/uL (0.0-1.0); MONOCYTES % (AUTO) 9.9 %; NEUTROPHILS # (AUTO) 2.3 10^3/uL (1.5-6.6); NEUTROPHILS % (AUTO) 67.2 %; NRBC ABSOLUTE COUNT (AUTO) 0.03 x10^3/uL; NUCLEATED RED BLOOD CELLS AUTO 0.9 /100WBC; PLT - PLATELET COUNT 120 10^3/uL (130-450); RED BLOOD COUNT 2.85 10^6/uL (4.70-6.10); RED CELL DISTRIBUTION WIDTH 18.3 % (12.0-15.0); WHITE BLOOD COUNT 3.5 x10^3/uL (4.8-10.8)
[2022-08-20] MEDS: oxyCODONE 5 MG TABLET PO PRN ×4 (06:28→20:56)
[2022-08-20] MEDS: BUDESONIDE 0.5 MG/2 ML NEB INH SCH ×2 (06:56→19:03)
[2022-08-20] MEDS: IPRATROPIUM 0.2 MG/ML NEB INH SCH ×4 (06:57→19:03)
[2022-08-20] MEDS: SODIUM CHLORIDE 0.9% 1,000 ML IV SCH ×2 (08:59→19:00)
[2022-08-20] MEDS: MULTIVITAMIN W/MINERALS TABLET PO SCH (08:59)
[2022-08-20] MEDS: POTASSIUM CHLORIDE 20 MEQ TABLET PO SCH (08:59)
[2022-08-20] MEDS: SPIRONOLACTONE 25 MG TABLET PO SCH (11:19)
[2022-08-20] MEDS: carvediloL 3.125 MG TABLET PO SCH ×2 (11:20→20:56)
[2022-08-20 11:29] LABS: CALCIUM 7.5 mg/dL (8.5-10.3); CREATININE 0.5 mg/dL (0.6-1.2); POTASSIUM 3.8 mmol/L (3.5-5.0)
[2022-08-20] MEDS: POTASSIUM CHLORIDE 10 MEQ CAPSULE PO SCH (16:31)
[2022-08-20] MEDS: ACETAMINOPHEN 325 MG TABLET PO PRN ×2 (16:53→20:56)
--- NOTE | 2022-08-20 16:58 | PROVIDER PROGRESS NOTE ---
Assessment/Plan - Problem List (1) Symptomatic anemia Assessment/Plan: In June 2022 his vitamin B12 was very high. Folate was normal. TSH 1.46. Cortisol 5.4. CEA was 1.8. Iron 95. TIBC 122. Transferrin 87. So there was no medical evidence of iron deficiency or B12 anemia. Blood transfused to achieve Hgb 8 was the goal. He was transfused. Hgb is 9 today Plan: Follow H/H daily An upper and lower endoscopy in the outpatient setting is appropriate, and if those are negative, he needs a bone marrow biopsy. 2. Severe protein calorie malnutrition His weight loss is unexplained. Differential on this could be depression, alcohol abuse, End-stage congestive heart failure resulting in cardiac cachexia, or neoplasm that we have not found. While he does appear lonely and depressed (see advance care planning conversation) he describes more early satiety and fullness with no appetite. I explained to him that his alcohol abuse could be taking away his appetite. He is willing to stop drinking to see if he can get better. Plan: Already had CT of chest and CT of abdomen with CEA. I do not know if appetite stimulants would be helpful in this man. Nutrition services should sit down with him and discuss with her protein boost, or things like Ensure may help. PT and OT ordered 3. Alcohol abuse lifelong duration. But no evidence of cirrhosis on labs or exam. No ascites Multivitamin, no B12. Plan: Will order CIWA protocol since his last alcohol intake was about 3 days ago 4. Clavicular fracture This was seen/suspected on imaging Plan: Pain meds prn 5. Seventh right rib fracture Plan: Encourage deep breathing, will order IS Tylenol for mild pain, oxycodone for moderate, morphine for severe pain 6. Chronic systolic heart failure He has [place] known V ejection fraction of 25% He is on an MASON inhibitor, diuretic, beta-monae. All are at very low-doses. We have restarted the diuretic since he needed blood transfusions Plan: We will resume his other cardiac meds, slowly increase their doses and stagger them if needed. Will monitor orthostatic VS - Current Meds Current Meds: Current Medications Generic Name Dose Route Start Last Admin Trade Name Freq PRN Reason Stop Dose Admin Acetaminophen 650 mg 08/19/22 08:43 08/20/22 16:53 Acetaminophen 325 Mg Tablet PO 650 mg Q4HR PRN Administration Pain 1-4 or Fever > 38C Budesonide 0.5 mg 08/19/22 07:00 08/20/22 06:56 Budesonide 0.5 Mg/2 Ml Neb INH 0.5 mg RTBID RONDA Administration Carvedilol 3.125 mg 08/20/22 10:00 08/20/22 11:20 Carvedilol 3.125 Mg Tablet PO 3.125 mg BID RONDA Administration Sodium Chloride 1,000 mls @ 100 mls/hr 08/18/22 23:45 08/20/22 08:59 Normal Saline 0.9% IV 100 mls/hr .Q10H RONDA Administration Ipratropium Stephenson 0.2 mg 08/19/22 07:00 08/20/22 15:28 Ipratropium 0.2 Mg/Ml Neb INH 0.2 mg RTQID RONDA Administration Mirtazapine 7.5 mg 08/19/22 21:00 08/19/22 20:10 Mirtazapine 15 Mg Tablet PO 7.5 mg HS RONDA Administration Morphine Sulfate 2 mg 08/19/22 08:42 08/19/22 09:13 Morphine 2 Mg/Ml Carpuject IVP 2 mg Q2HR PRN Administration PAIN 8-10 Multivitamins/Minerals 1 tab 08/19/22 13:00 08/20/22 08:59 Multivitamin W/Minerals Tablet PO 1 tab DAILYWM RONDA Administration Oxycodone HCl 5 mg 08/19/22 08:42 08/20/22 16:53 Oxycodone 5 Mg Tablet PO 5 mg Q4HR PRN Administration PAIN 5-7 Potassium Chloride 20 meq 08/20/22 08:00 08/20/22 08:59 Potassium Chloride 20 Meq Tablet PO 20 meq DAILYWM RONDA Administration Potassium Chloride 20 meq 08/20/22 12:00 08/20/22 16:31 Potassium Chloride 10 Meq Capsule PO Not Given DAILYWM RONDA Sodium Chloride 10 ml 08/19/22 01:00 08/20/22 16:53 Sodium Chloride Flush 0.9% 10 Ml Syringe IVP 10 ml 0100,0900,1700 RONDA Administration Spironolactone 25 mg 08/20/22 10:00 08/20/22 11:19 Spironolactone 25 Mg Tablet PO 25 mg DAILY RONDA Administration - Lab Result Fish Bone Diagrams: 08/20/22 04:38 08/20/22 11:10 - Additional Planning My Orders: My Active Orders 08/20/22 09:29 Orthostatic [Vital Signs - Orthostatic] [RC] QSHIFT 08/20/22 10:00 Spironolactone [Aldactone] 25 mg PO DAILY carvediloL [Coreg] 3.125 mg PO BID 08/20/22 12:00 Potassium Chloride [Micro-K] 20 meq PO DAILYWM Subjective - Subjective Patient Reports: Other (wants to go home) Objective Vital Signs: Vital Signs - 24 hr 08/19/22 08/19/22 08/19/22 17:00 17:25 17:32 Temperature 36.9 C 36.9 C 36.9 C Heart Rate Heart Rate [ 74 73 73 Monitoring electrodes] Respiratory 20 20 20 Rate Blood Pressure [Left Brachial artery] Blood Pressure 138/68 H 138/68 H 138/68 H [Left Radial artery] O2 Saturation 95 92 92 If not protocol : Oxygen Flow, liters/minute 08/19/22 08/19/22 08/19/22 17:46 19:30 20:47 Temperature 36.4 C L 36.4 C L Heart Rate 72 Heart Rate [ 70 70 Monitoring electrodes] Respiratory 18 18 20 Rate Blood Pressure 146/94 H [Left Brachial artery] Blood Pressure 107/42 L [Left Radial artery] O2 Saturation 98 98 If not protocol 2 99 2 : Oxygen Flow, liters/minute 08/20/22 08/20/22 08/20/22 00:00 06:57 08:08 Temperature 36.5 C 36.4 C L Heart Rate 80 Heart Rate [ 73 91 Monitoring electrodes] Respiratory 16 17 18 Rate Blood Pressure 134/71 H 147/84 H [Left Brachial artery] Blood Pressure [Left Radial artery] O2 Saturation 100 97 If not protocol 2 2 2 : Oxygen Flow, liters/minute 08/20/22 08/20/22 08/20/22 09:00 11:07 13:40 Temperature Heart Rate 78 Heart Rate [ Monitoring electrodes] Respiratory 18 Rate Blood Pressure [Left Brachial artery] Blood Pressure [Left Radial artery] O2 Saturation 97 96 If not protocol 1 1 : Oxygen Flow, liters/minute 08/20/22 08/20/22 15:29 15:51 Temperature 36.9 C Heart Rate 78 Heart Rate [ 77 Monitoring electrodes] Respiratory 19 18 Rate Blood Pressure 115/67 [Left Brachial artery] Blood Pressure [Left Radial artery] O2 Saturation 93 If not protocol : Oxygen Flow, liters/minute Oxygen O2 Source [With Activity] Room air O2 Source Room air I&O (Last 24 Hrs): Intake and Output Totals x24h 08/18/22 08/19/22 08/20/22 23:59 23:59 23:59 Intake Total 2800 3388.334 1870 Output Total 550 656 Balance 2800 2838.334 1214 General: Alert, Oriented x3, Other (thin) HEENT: Mucous membr. moist/pink Neck: Supple Neuro: Alert, Non Focal Cardiovascular: No murmurs Respiratory: No respiratory distress Abdomen: Soft Extremities: No edema - Results Results: Laboratory Results WBC 3.5 x10^3/uL (4.8-10.8) L 08/20/22 04:38 RBC 2.85 10^6/uL (4.70-6.10) L 08/20/22 04:38 Hgb 9.0 g/dL (14.0-18.0) L 08/20/22 04:38 Hct 27.7 % (42.0-52.0) L 08/20/22 04:38 MCV 97.2 fL (80.0-94.0) H 08/20/22 04:38 MCH 31.6 pg (27.0-31.0) H 08/20/22 04:38 MCHC 32.5 g/dL (32.0-36.0) 08/20/22 04:38 RDW 18.3 % (12.0-15.0) H 08/20/22 04:38 Plt Count 120 10^3/uL (130-450) L 08/20/22 04:38 MPV 10.0 fL (7.4-11.4) 08/20/22 04:38 Neut # (Auto) 2.3 10^3/uL (1.5-6.6) 08/20/22 04:38 Lymph # (Auto) 0.7 10^3/uL (1.5-3.5) L 08/20/22 04:38 [place] # (Auto) 0.3 10^3/uL (0.0-1.0) 08/20/22 04:38 Eos # (Auto) 0.1 10^3/uL (0.0-0.7) 08/20/22 04:38 Baso # (Auto) 0.0 10^3/uL (0.0-0.1) 08/20/22 04:38 Absolute Nucleated RBC 0.03 x10^3/uL 08/20/22 04:38 Nucleated RBC % 0.9 /100WBC 08/20/22 04:38 Manual Slide Review Indicated 08/18/22 14:51 WBC Morphology NORMAL APPEARANCE (NORMAL) 08/18/22 14:51 Platelet Estimate NORMAL (130-450,000) (NORMAL) 08/18/22 14:51 Platelet Morphology NORMAL APPEARANCE (NORMAL) 08/18/22 14:51 RBC Morph Micro Appear 3+ ANISOCYTOSIS (NORMAL) 1+ MACROCYTOSIS (NORMAL) 08/18/22 14:51 RBC Morph Micro Appear 3+ ANISOCYTOSIS (NORMAL) 1+ MACROCYTOSIS (NORMAL) 08/18/22 14:51 PT 11.3 secs (9.9-12.6) 08/19/22 08:15 INR 1.0 (0.8-1.2) 08/19/22 08:15 Sodium 136 mmol/L (135-145) 08/20/22 11:10 Potassium 3.8 mmol/L (3.5-5.0) 08/20/22 11:10 Chloride 98 mmol/L (101-111) L 08/20/22 11:10 Carbon Dioxide 29 mmol/L (21-32) 08/20/22 11:10 Anion Gap 9.0 (6-13) 08/20/22 11:10 BUN 11 mg/dL (6-20) 08/20/22 11:10 Creatinine 0.5 mg/dL (0.6-1.2) L 08/20/22 11:10 Estimated GFR (MDRD) 162 (>89) 08/20/22 11:10 Glucose 183 mg/dL (70-100) H 08/20/22 11:10 Lactic Acid 0.9 mmol/L (0.5-2.2) 08/18/22 22:26 Calcium 7.5 mg/dL (8.5-10.3) L 08/20/22 11:10 Total Bilirubin 3.5 mg/dL (0.2-1.0) H 08/18/22 14:51 AST 28 IU/L (10-42) 08/18/22 14:51 ALT 20 IU/L (10-60) 08/18/22 14:51 Alkaline Phosphatase 101 IU/L (42-121) 08/18/22 14:51 Total Protein 5.5 g/dL (6.7-8.2) L 08/18/22 14:51 Albumin 3.4 g/dL (3.2-5.5) 08/18/22 14:51 Globulin 2.1 g/dL (2.1-4.2) 08/18/22 14:51 Albumin/Globulin Ratio 1.6 (1.0-2.2) 08/18/22 14:51 Lipase 34 U/L (22-51) 08/18/22 14:51 Nasal Adenovirus (PCR) NOT DETECTED 08/18/22 16:14 Nasal B. parapertussis DNA (PCR) NOT DETECTED 08/18/22 16:14 Nasal Coronavir 229E PCR NOT DETECTED 08/18/22 16:14 Nasal Coronavir HKU1 PCR NOT DETECTED 08/18/22 16:14 Nasal Coronavir NL63 PCR NOT DETECTED 08/18/22 16:14 Nasal Coronavir OC43 PCR NOT DETECTED 08/18/22 16:14 Nasal Enterovir/Rhinovir PCR NOT DETECTED 08/18/22 16:14 Nasal Influenza B PCR NOT DETECTED 08/18/22 16:14 Nasal Influenza A PCR NOT DETECTED 08/18/22 16:14 Nasal Parainfluen 1 PCR NOT DETECTED 08/18/22 16:14 Nasal Parainfluen 2 PCR NOT DETECTED 08/18/22 16:14 Nasal Parainfluen 3 PCR NOT DETECTED 08/18/22 16:14 Nasal Parainfluen 4 PCR NOT DETECTED 08/18/22 16:14 Nasal RSV (PCR) NOT DETECTED 08/18/22 16:14 Nasal B.pertussis DNA PCR NOT DETECTED 08/18/22 16:14 Nasal C.pneumoniae (PCR) NOT DETECTED 08/18/22 16:14 John Human Metapneumo PCR NOT DETECTED 08/18/22 16:14 Nasal M.pneumoniae (PCR) NOT DETECTED 08/18/22 16:14 Nasal SARS-CoV-2 (PCR) NOT DETECTED 08/18/22 16:14 Ethyl Alcohol < 5.0 mg/dL 08/18/22 14:51 Blood Type O POSITIVE 08/18/22 15:30 Blood Type Recheck O POSITIVE 08/18/22 14:51 Antibody Screen NEGATIVE 08/18/22 15:30 Crossmatch IS Only See Detail 08/18/22 15:30 Sepsis Event Note (H) - Evaluation Current Stage of Sepsis: Ruled out
[2022-08-20] MEDS ORDERED: LORazepam 2 MG/ML VIAL IVP PRN (17:09)
[2022-08-20] MEDS: MIRTAZAPINE 15 MG TABLET PO SCH (20:56)
[2022-08-21] MEDS: ACETAMINOPHEN 325 MG TABLET PO PRN ×4 (00:55→19:02)
[2022-08-21] MEDS: oxyCODONE 5 MG TABLET PO PRN ×4 (00:55→19:02)
[2022-08-21] MEDS: SODIUM CHLORIDE FLUSH 0.9% 10 ML SYRINGE IVP SCH ×3 (00:55→17:32)
[2022-08-21] MEDS: BUDESONIDE 0.5 MG/2 ML NEB INH SCH ×2 (07:00→18:12)
[2022-08-21] MEDS: IPRATROPIUM 0.2 MG/ML NEB INH SCH ×4 (07:14→18:12)
[2022-08-21] MEDS: SPIRONOLACTONE 25 MG TABLET PO SCH (08:52)
[2022-08-21] MEDS: POTASSIUM CHLORIDE 10 MEQ CAPSULE PO SCH (08:52)
[2022-08-21] MEDS: POTASSIUM CHLORIDE 20 MEQ TABLET PO SCH (08:52)
[2022-08-21] MEDS: MULTIVITAMIN W/MINERALS TABLET PO SCH (08:52)
[2022-08-21] MEDS: carvediloL 3.125 MG TABLET PO SCH ×2 (08:52→20:41)
[2022-08-21] MEDS: SODIUM CHLORIDE 0.9% 1,000 ML IV SCH (12:49)
--- NOTE | 2022-08-21 16:24 | PROVIDER PROGRESS NOTE ---
Assessment/Plan - Problem List (1) Symptomatic anemia Assessment/Plan: In June 2022 his vitamin B12 was very high. Folate was normal. TSH 1.46. Cortisol 5.4. CEA was 1.8. Iron 95. TIBC 122. Transferrin 87. So there was no medical evidence of iron deficiency or B12 anemia. Blood transfused to achieve Hgb 8 was the goal. He was transfused. Hgb remains stable Plan: Follow H/H daily An upper and lower endoscopy in the outpatient setting is appropriate, and if those are negative, then he would need a bone marrow biopsy. 2. Severe protein calorie malnutrition His weight loss is unexplained. Differential on this could be depression, alcohol abuse, End-stage congestive heart failure resulting in cardiac cachexia, or neoplasm that we have not found. While he does appear lonely and depressed (see advance care planning conversation) he describes more early satie ty and fullness with no appetite. I explained to him that his alcohol abuse could be taking away his appetite. He is willing to stop drinking to see if he can get better. He is eating 75% of his diet here in the last few days Plan: PT and OT joaquina have suggested SNF for rehab, and he may be a candidate for Swing Bed status here, starting tomorrow for PT and OT 3. Alcohol abuse lifelong duration. But no evidence of cirrhosis on labs or exam. No ascites Multivitamin, no B12. We ordered CIWA protocol yesterday, since his last alcohol intake was about 3 days prior. He is scoring 2 on CIWA, not needing Benzos Plan: MOV sand Thiamine daily 4. Clavicular fracture This was seen/suspected on imaging. That is his most painful spot Plan: Pain meds prn 5. Seventh right rib fracture Plan: Encourage deep breathing, will order IS Tylenol for mild pain, oxycodone for moderate, morphine for severe pain 6. Frquent falls He himself admitted he has had many falls some causing trauma, due to being drunk He said this time with the fall that caused a right clavicular fracture, he had syncope and blacked out and then fell. There was no warning. The prior hospitalist felt that he was orthostatic from his cardiac meds, to cause this. Telemetry has showed no dangerous dysrhythmias. Plan: Continue with orthostatic vital sign checks Continue to adjust his medications resuming them as BP will tolerate 7. Chronic systolic heart failure He has a known LV ejection fraction of 25%. He is euvolemic on exam He is on an MASON inhibitor, diuretic, beta-monae. All are at very low-doses. We have restarted the diuretic since he needed blood transfusions We are resumimg his other cardiac meds, slowly increasing their doses and stagger them if needed. Plan: Will monitor orthostatic VS, thus far orthostatics are stable - Current Meds Current Meds: Current Medications Generic Name Dose Route Start Last Admin Trade Name Duy PRN Reason Stop Dose Admin Acetaminophen 650 mg 08/19/22 08:43 08/21/22 12:57 Acetaminophen 325 Mg Tablet PO 650 mg Q4HR PRN Administration Pain 1-4 or Fever > 38C Budesonide 0.5 mg 08/19/22 07:00 08/21/22 07:00 Budesonide 0.5 Mg/2 Ml Neb INH 0.5 mg RTBID RONDA Administration Carvedilol 3.125 mg 08/20/22 10:00 08/21/22 08:52 Carvedilol 3.125 Mg Tablet PO 3.125 mg BID RONDA Administration Sodium Chloride 1,000 mls @ 100 mls/hr 08/18/22 23:45 08/21/22 12:49 Normal Saline 0.9% IV 100 mls/hr .Q10H RONDA Administration Ipratropium [place] 0.2 mg 08/19/22 07:00 08/21/22 15:03 Ipratropium 0.2 Mg/Ml Neb INH 0.5 mg RTQID RONDA Administration Mirtazapine 7.5 mg 08/19/22 21:00 08/20/22 20:56 Mirtazapine 15 Mg Tablet PO 7.5 mg HS RONDA Administration Morphine Sulfate 2 mg 08/19/22 08:42 08/19/22 09:13 Morphine 2 Mg/Ml Carpuject IVP 2 mg Q2HR PRN Administration PAIN 8-10 Multivitamins/Minerals 1 tab 08/19/22 13:00 08/21/22 08:52 Multivitamin W/Minerals Tablet PO 1 tab DAILYWM RONDA Administration Oxycodone HCl 5 mg 08/19/22 08:42 08/21/22 12:57 Oxycodone 5 Mg Tablet PO 5 mg Q4HR PRN Administration PAIN 5-7 Potassium Chloride 20 meq 08/20/22 12:00 08/21/22 08:52 Potassium Chloride 10 Meq Capsule PO 20 meq DAILYWM RONDA Administration Sodium Chloride 10 ml 08/19/22 01:00 08/21/22 08:53 Sodium Chloride Flush 0.9% 10 Ml Syringe IVP 10 ml 0100,0900,1700 RONDA Administration Spironolactone 25 mg 08/20/22 10:00 08/21/22 08:52 Spironolactone 25 Mg Tablet PO 25 mg DAILY RONDA Administration - Lab Result Fish Bone Diagrams: 08/20/22 04:38 08/20/22 11:10 - Additional Planning My Orders: My Active Orders 08/20/22 17:09 CIWA - AR Score Card [RC] Q4HR LORazepam INJ [Ativan Inj (Vial)] 1 mg IVP Q30M PRN Subjective - Subjective Patient Reports: Pain (in R shoulder/clavicle area) Objective Vital Signs: Vital Signs - 24 hr 08/20/22 08/20/22 08/21/22 19:05 20:57 00:22 Temperature 36.6 C Heart Rate 74 Heart Rate [ Brachial] Heart Rate [ 72 63 Monitoring electrodes] Respiratory 16 18 Rate Blood Pressure 149/72 H [Left Brachial artery] Blood Pressure 132/75 H [Left Radial artery] O2 Saturation 95 08/21/22 08/21/22 08/21/22 07:15 08:21 10:59 Temperature 36.5 C Heart Rate 85 82 Heart Rate [ 79 Brachial] Heart Rate [ Monitoring electrodes] Respiratory 22 20 16 Rate Blood Pressure 152/75 H [Left Brachial artery] Blood Pressure [Left Radial artery] O2 Saturation 97 08/21/22 16:00 Temperature 36.6 C Heart Rate Heart Rate [ 66 Brachial] Heart Rate [ Monitoring electrodes] Respiratory 24 Rate Blood Pressure 118/71 [Left Brachial artery] Blood Pressure [Left Radial artery] O2 Saturation 95 Oxygen O2 Source [With Activity] Room air O2 Source Room air I&O (Last 24 Hrs): Intake and Output Totals x24h 08/19/22 08/20/22 08/21/22 23:59 23:59 23:59 Intake Total 3388.334 3460 2350 Output Total 550 806 550 Balance 2838.334 2654 1800 General: Alert, Oriented x3, No acute distress HEENT: Atraumatic, Mucous membr. moist/pink, Other (edentulous) Neuro: Alert, Non Focal Cardiovascular: Regular rate, No murmurs Respiratory: No respiratory distress Abdomen: Normal bowel sounds, Soft Extremities: No clubbing, No edema - Results Results: Laboratory Results WBC 3.5 x10^3/uL (4.8-10.8) L 08/20/22 04:38 RBC 2.85 10^6/uL (4.70-6.10) L 08/20/22 04:38 Hgb 9.0 g/dL (14.0-18.0) L 08/20/22 04:38 Hct 27.7 % (42.0-52.0) L 08/20/22 04:38 MCV 97.2 fL (80.0-94.0) H 08/20/22 04:38 MCH 31.6 pg (27.0-31.0) H 08/20/22 04:38 MCHC 32.5 g/dL (32.0-36.0) 08/20/22 04:38 RDW 18.3 % (12.0-15.0) H 08/20/22 04:38 Plt Count 120 10^3/uL (130-450) L 08/20/22 04:38 MPV 10.0 fL (7.4-11.4) 08/20/22 04:38 Neut # (Auto) 2.3 10^3/uL (1.5-6.6) 08/20/22 04:38 Lymph # (Auto) 0.7 10^3/uL (1.5-3.5) L 08/20/22 04:38 [place] # (Auto) 0.3 10^3/uL (0.0-1.0) 08/20/22 04:38 Eos # (Auto) 0.1 10^3/uL (0.0-0.7) 08/20/22 04:38 Baso # (Auto) 0.0 10^3/uL (0.0-0.1) 08/20/22 04:38 Absolute Nucleated RBC 0.03 x10^3/uL 08/20/22 04:38 Nucleated RBC % 0.9 /100WBC 08/20/22 04:38 Manual Slide Review Indicated 08/18/22 14:51 WBC Morphology NORMAL APPEARANCE (NORMAL) 08/18/22 14:51 Platelet Estimate NORMAL (130-450,000) (NORMAL) 08/18/22 14:51 Platelet Morphology NORMAL APPEARANCE (NORMAL) 08/18/22 14:51 RBC Morph Micro Appear 3+ ANISOCYTOSIS (NORMAL) 1+ MACROCYTOSIS (NORMAL) 08/18/22 14:51 RBC Morph Micro Appear 3+ ANISOCYTOSIS (NORMAL) 1+ MACROCYTOSIS (NORMAL) 08/18/22 14:51 PT 11.3 secs (9.9-12.6) 08/19/22 08:15 INR 1.0 (0.8-1.2) 08/19/22 08:15 Sodium 136 mmol/L (135-145) 08/20/22 11:10 Potassium 3.8 mmol/L (3.5-5.0) 08/20/22 11:10 Chloride 98 mmol/L (101-111) L 08/20/22 11:10 Carbon Dioxide 29 mmol/L (21-32) 08/20/22 11:10 Anion Gap 9.0 (6-13) 08/20/22 11:10 BUN 11 mg/dL (6-20) 08/20/22 11:10 Creatinine 0.5 mg/dL (0.6-1.2) L 08/20/22 11:10 Estimated GFR (MDRD) 162 (>89) 08/20/22 11:10 Glucose 183 mg/dL (70-100) H 08/20/22 11:10 Lactic Acid 0.9 mmol/L (0.5-2.2) 08/18/22 22:26 Calcium 7.5 mg/dL (8.5-10.3) L 08/20/22 11:10 Total Bilirubin 3.5 mg/dL (0.2-1.0) H 08/18/22 14:51 AST 28 IU/L (10-42) 08/18/22 14:51 ALT 20 IU/L (10-60) 08/18/22 14:51 Alkaline Phosphatase 101 IU/L (42-121) 08/18/22 14:51 Total Protein 5.5 g/dL (6.7-8.2) L 08/18/22 14:51 Albumin 3.4 g/dL (3.2-5.5) 08/18/22 14:51 Globulin 2.1 g/dL (2.1-4.2) 08/18/22 14:51 Albumin/Globulin Ratio 1.6 (1.0-2.2) 08/18/22 14:51 Lipase 34 U/L (22-51) 08/18/22 14:51 Nasal Adenovirus (PCR) NOT DETECTED 08/18/22 16:14 Nasal B. parapertussis DNA (PCR) NOT DETECTED 08/18/22 16:14 Nasal Coronavir 229E PCR NOT DETECTED 08/18/22 16:14 Nasal Coronavir HKU1 PCR NOT DETECTED 08/18/22 16:14 Nasal Coronavir NL63 PCR NOT DETECTED 08/18/22 16:14 Nasal Coronavir OC43 PCR NOT DETECTED 08/18/22 16:14 Nasal Enterovir/Rhinovir PCR NOT DETECTED 08/18/22 16:14 Nasal Influenza B PCR NOT DETECTED 08/18/22 16:14 Nasal Influenza A PCR NOT DETECTED 08/18/22 16:14 Nasal Parainfluen 1 PCR NOT DETECTED 08/18/22 16:14 Nasal Parainfluen 2 PCR NOT DETECTED 08/18/22 16:14 Nasal Parainfluen 3 PCR NOT DETECTED 08/18/22 16:14 Nasal Parainfluen 4 PCR NOT DETECTED 08/18/22 16:14 Nasal RSV (PCR) NOT DETECTED 08/18/22 16:14 Nasal B.pertussis DNA PCR NOT DETECTED 08/18/22 16:14 Nasal C.pneumoniae (PCR) NOT DETECTED 08/18/22 16:14 John Human Metapneumo PCR NOT DETECTED 08/18/22 16:14 Nasal M.pneumoniae (PCR) NOT DETECTED 08/18/22 16:14 Nasal SARS-CoV-2 (PCR) NOT DETECTED 08/18/22 16:14 Ethyl Alcohol < 5.0 mg/dL 08/18/22 14:51 Blood Type O POSITIVE 08/18/22 15:30 Blood Type Recheck O POSITIVE 08/18/22 14:51 Antibody Screen NEGATIVE 08/18/22 15:30 Crossmatch IS Only See Detail 08/18/22 15:30 Sepsis Event Note (H) - Evaluation Current Stage of Sepsis: Ruled out
[2022-08-21] MEDS ORDERED: MORPHINE 2 MG/ML CARPUJECT IVP PRN (16:26)
[2022-08-21] MEDS: MIRTAZAPINE 15 MG TABLET PO SCH (20:42)
[2022-08-21] MEDS ORDERED: lisinopriL 5 MG TABLET PO SCH (21:00)
[2022-08-22] MEDS ORDERED: HYDROmorphone 1 MG/ML CARPUJECT IVP ONE (00:16)
--- NOTE | 2022-08-22 00:22 | PROVIDER PROGRESS NOTE ---
Hospitalist Cross-cover Note - Cross-Cover Note Cross-Cover Note: Called by RN stating "Pt is c/o 04/20 rib pain (s/p fracture). Pt cannot have anything for pain aside from Tylenol right now which was offered to pt but pt stated "that won't put a dent in it, it won't work". PRN IV Morphine was given at 2047 and cannot be given until 447 and PRN Oxycodone was given at 1901 and cannot be given until 101. Pt would like something for pain now." Dilaudid 1 mg ivp x one dose now
[2022-08-22] MEDS: SODIUM CHLORIDE FLUSH 0.9% 10 ML SYRINGE IVP SCH ×2 (01:44→09:13)
[2022-08-22 05:01] LABS: HCT - HEMATOCRIT 28.2 % (42.0-52.0); HGB - HEMOGLOBIN 9.2 g/dL (14.0-18.0); MEAN CORPUSCULAR HEMOGLOBIN 32.3 pg (27.0-31.0); MEAN CORPUSCULAR HGB CONC 32.6 g/dL (32.0-36.0); MEAN CORPUSCULAR VOLUME 98.9 fL (80.0-94.0); MEAN PLATELET VOLUME 10.6 fL (7.4-11.4); RED BLOOD COUNT 2.85 10^6/uL (4.70-6.10); RED CELL DISTRIBUTION WIDTH 17.3 % (12.0-15.0)
[2022-08-22 05:18] LABS: CALCIUM 8.7 mg/dL (8.5-10.3); CREATININE 0.5 mg/dL (0.6-1.2); POTASSIUM 3.8 mmol/L (3.5-5.0)
[2022-08-22 05:21] LABS: MAGNESIUM 0.8 mg/dL (1.7-2.8)
[2022-08-22] MEDS ORDERED: MAGNESIUM SULFATE 1 GM in SODIUM CHLORIDE 0.9% 50 ML IV ONE (05:27)
--- NOTE | 2022-08-22 05:30 | PROVIDER PROGRESS NOTE ---
Subjective - Prog Note Date Prog Note Date: 08/22/22 - Subjective Subjective: glory low replaced pt placed on tele recheck after replacemet Objective - Vital Signs/Intake & Output Vital Signs: Vital Signs x48h Temp Pulse Resp BP Pulse Ox 08/22/22 00:19 80 142/83 H 08/21/22 23:58 36.6 C 81 27 H 94 Intake & Output: Intake & Output 08/19/22 08/20/22 08/21/22 08/22/22 23:59 23:59 23:59 23:59 Intake Total 3388.334 3460 3141 Output Total 528 912 6844 775 Balance 2838.334 8689 6321 -692 - Lab Results Fish Bones: 08/22/22 04:54 08/22/22 04:54 Other Labs: Lab Results x24hrs 08/22/22 08/22/22 Range/Units 04:54 04:54 WBC 4.0 L (4.8-10.8) x10^3/uL RBC 2.85 L (4.70-6.10) 10^6/uL Hgb 9.2 L (14.0-18.0) g/dL Hct 28.2 L (42.0-52.0) % MCV 98.9 H (80.0-94.0) fL MCH 32.3 H (27.0-31.0) pg MCHC 32.6 (32.0-36.0) g/dL RDW 17.3 H (12.0-15.0) % Plt Count 115 L (130-450) 10^3/uL MPV 10.6 (7.4-11.4) fL Sodium 137 (135-145) mmol/L Potassium 3.8 (3.5-5.0) mmol/L Chloride 100 L (101-111) mmol/L Carbon Dioxide 29 (21-32) mmol/L Anion Gap 8.0 (6-13) BUN 7 (6-20) mg/dL Creatinine 0.5 L (0.6-1.2) mg/dL Estimated GFR (MDRD) 162 (>89) Glucose 108 H (70-100) mg/dL Calcium 8.7 (8.5-10.3) mg/dL Magnesium 0.8 L* (1.7-2.8) mg/dL Sepsis Event Note (H) - Evaluation Current Stage of Sepsis: Ruled out
[2022-08-22] MEDS: BUDESONIDE 0.5 MG/2 ML NEB INH SCH (06:59)
[2022-08-22] MEDS: IPRATROPIUM 0.2 MG/ML NEB INH SCH ×2 (06:59→10:56)
[2022-08-22] MEDS: ACETAMINOPHEN 325 MG TABLET PO PRN (06:59)
[2022-08-22] MEDS: oxyCODONE 5 MG TABLET PO PRN (07:00)
[2022-08-22] MEDS ORDERED: MAGNESIUM SULFATE 2 GRAM 2 GM/50 ML BAG IV ONE (08:55)
[2022-08-22] MEDS ORDERED: MAGNESIUM OXIDE 400 MG TABLET PO SCH (09:00)
[2022-08-22] MEDS ORDERED: polyethylene glycoL 3350 17 GM PACKET PO SCH (09:00)
[2022-08-22] MEDS: carvediloL 3.125 MG TABLET PO SCH (09:13)
[2022-08-22] MEDS: POTASSIUM CHLORIDE 10 MEQ CAPSULE PO SCH (09:15)
[2022-08-22] MEDS: MULTIVITAMIN W/MINERALS TABLET PO SCH (09:15)
--- NOTE | 2022-08-22 10:32 | Discharge Plan ---
"Discharge Plan for SNF / [facility] - Discharge Plan And Transition Orders Problem Reviewed?: Yes Disposition: 03 SNF DC/Xfer Condition: Stable Allergies and Adverse Reactions: Allergies Allergy/AdvReac Type Severity Reaction Status Date / Time lactose AdvReac Intermediate Cramps Verified 08/18/22 14:12 Health Concerns: Patient has a Hx of HFrEF, and was admitted with marked weakness, which we found to be from marked anemia and malnutrition. He also has a history of alcohol abuse and frequent falls. He needed blood transfusions and adjustment of medications to prevent orthostasis. He had a recent R clavicular fracture, that is painful. The patient's appetite has improved and he started working with PT and OT. He is being discharged to SNF ([facility] Swing Bed status) for further PT and OT rehab. Plan of Treatment: As above. Care Goals: Improvement in symptoms and stabilization are the goals. Assessment: The patient understands and is agreeable with the plan. - SNF / [facility] Transition Orders Admit to (Facility): [facility] (Swing Bed status) Under the care of (Name): Dr Angel Discharge Diagnosis: 1. Symptomatic anemia 2. Chronic systolic heart failure 3. Hypomagnesemia 4. Orthostatic hypotension 5. Alcohol abuse 6. Frquent falls 7. Clavicular fracture 8. Seventh right rib fracture 9. Severe protein calorie malnutrition 10. Constipation from narcotics 11. Tobacco use Medicare Certification Statement: I certify that [facility] care is medically necessary on a continuing basis for any of the conditions for which she/he is receiving care during hospitalization. Notify PCP of admission and forward orders to primary provider for signature. Weight on admission and: Daily Call PCP immediately if weight increases by: 4 kg Other Notification Orders: Call PCP immediately if patient develops dyspnea, chest pain/tightness or edema. House Bowel Program: Yes Additional Bowel Program Orders: If no BM after 2 days, nurse may give M.O.M. 30ml PO PRN and/or ducolax Supp 1 MS and/or LEXUS 250mg P.O., and/or senna 1-2 tabs PO. On day 3 nurse may give repeat above order until residents constipation is resolved. Annual Influenza Vaccine (between Apr 11 and November 08): Yes Two-step PPD per [facility] [phone] or approved exception documents: Yes Lab Tests or X-ray Orders: BMP and Mg twice a week Medication Orders: PLEASE REFER TO THE DISCHARGE MEDICATION LIST. Insulin Orders?: No - Medications New Prescriptions: Thiamine [Vitamin B-1] 100 mg PO DAILY #30 tablet - Diet Type: No added salt Texture: Regular Liquids: Thin May have monthly special meal: Yes - Therapies | Activity Therapy: Evaluation | Treat if indicated: PT, OT Rehabilitation Potential: Maximize functional status Activity: Activity as Tolerated Weight Bearing: Full Weight Assistance Devices: Walker"
--- NOTE | 2022-08-22 10:46 | DISCHARGE SUMMARY ---
Discharge Summary Admit Date: 08/18/22 Discharge Date: 08/22/22 Discharging Provider: Dr Chela Angel Primary Care Provider: Dr Jane Mac Code Status: Do Not Attempt Resuscitation Condition at Discharge: Stable Discharge Disposition: 03 SNF DC/Xfer - DIAGNOSES Admission Diagnoses: (1) Symptomatic anemia (2) Alcohol abuse (3) Chronic systolic heart failure (4) Frequent falls - HPI History of Present Illness: 77 yr male who lives alone presents to ER with complaints of generalized weakness, R shoulder pain, had several falls, hx of ETOH use although etoh level less than 5, but he was tremolous requiring ativan and dilaudid. When I was re quested to admit patient was somnolent and not able to give any meaningful history. History obtained by chart review and discussion with ER MD. His fall was several days ago and due to R shoulder pain, it was hard for him to get up off the couch, and so he did not get food or liquids over the last couple of days. In the ER, patient was found to have BP of 85-92 systolic and Hb of 5.6, but no michelle bleeding appreciated. He was also found to abnormal CT abd pelvis and chest with concerns for possible bronchitis vs infection vs atelactasis, but he had no leukocytosis, no fever spike but had T max of 100.2 when getting blood transfusion that was initiated in ER. call center manager surgeon was contacted and he may consider EGD and colonoscopy. Patient being admitted for blood transfusion and further work up of symptomatic anemia, weakness and falls. - HOSPITAL COURSE Hospital Course: 1. Symptomatic anemia His blood pressure was 85-92 systolic on presentation and hemoglobin 5.6. Patient required a total of 3 units of PRBCs transfused, and Hgb plateaued at 9. His B12, folate levels and iron stores were checked and he had B12 3.82, folate 7.3 (both normal), low iron of 41, low TIBC of 179, low transferrin of 128, and percent sat 23%. Oral Iron will be started. 2. Chronic systolic heart failure Patient's last Echo was 2 years ago when he had an ejection fraction of 25 to 30% with global LV hypokinesis. He was never in volume overload or heart failure, while here. He required a decrease in nearly all of his medication doses, to prevent hypotension and orthostasis. 3. Hypomagnesemia This was likely related to diuretic use and his poor nutrition. He required IV magnesium riders and daily oral magnesium was restarted (had been stopped by his provider). 4. Orthostatic hypotension We needed to adjust his cardiac medications to decrease his orthostasis, he was discharged on lower doses and staggered doses of all his cardiac meds. 5. Alcohol abuse As per history. He required a CIWA protocol minimally. He was put on daily multivitamin and thiamine 6. Frequent falls Patient admitted to falls when intoxicated but claimed that this presentation was from syncope (he said he blacked out which caused the fall). We found him to be orthostatic, needed to adjust his medications and treated the anemia as above. 7. Clavicular fracture This was the cause of the right shoulder pain. He required pain management using narcotics. He was able to start working with PT and OT. 8. Seventh right rib fracture He required pain management 9. Severe protein calorie malnutrition He was seen by our Boot Maker. His appetite improved while he was here, taking in 75% of his meals 10. Constipation from narcotics He was put on a bowel protocol 11. Tobacco use He was not in COPD exacerbation while here. He was continued on his home inhalers of Fluticasone/salmeterol inhaler and Spiriva Respimat. - ALLERGIES Allergies/Adverse Reactions: Allergies Allergy/AdvReac Type Severity Reaction Status Date / Time lactose AdvReac Intermediate Cramps Verified 08/18/22 14:12 - MEDICATIONS Home Medications: Ambulatory Orders Medication Instructions Recorded Confirmed Fluticasone Propion/Salmeterol 1 puffs INH BID 08/18/22 08/22/22 [Fluticasone-Salmeterol 250-50] Mirtazapine 7.5 mg PO QPM 08/18/22 08/22/22 Tiotropium [place] [Spiriva 2 puffs INH DAILY 08/18/22 08/22/22 Respimat] Acetaminophen [Tylenol] 650 mg PO Q4HR PRN tab 08/22/22 08/22/22 Magnesium Oxide [Mag Ox] 400 mg PO DAILYWM tab 08/22/22 08/22/22 Multivitamin W/Minerals [Theragran 1 tab PO DAILYWM tab 08/22/22 08/22/22 M] Potassium Chloride [Micro-K] 20 meq PO DAILYWM cap 08/22/22 08/22/22 Spironolactone [Aldactone] 12.5 mg PO MoWeFr tab 08/22/22 08/22/22 Thiamine [Vitamin B-1] 100 mg PO DAILY #30 tablet 08/22/22 08/22/22 carvediloL [Coreg] 3.125 mg PO BID tab 08/22/22 08/22/22 lisinopriL [Zestril] 2.5 mg PO QPM tab 08/22/22 08/22/22 oxyCODONE [Roxicodone] 5 mg PO Q6HR PRN tab 08/22/22 08/22/22 polyethylene glycoL 3350 [Miralax] 17 gm PO DAILY packet 08/22/22 08/22/22 - PHYSICAL EXAM AT DISCHARGE General Appearance: positive: No acute distress, Alert, Other (Elderly frail white male, disheveled, long hair and avalos) Eyes Bilateral: positive: EOMI ENT: positive: No signs of dehydration, Other (edentulous) Neck: positive: Nml inspection, No JVD Respiratory: positive: No respiratory distress Cardiovascular: positive: Regular rate & rhythm, Systolic murmur Abdomen: positive: Non-tender, No distention Skin: positive: Warm, Dry, Pallor Extremities: positive: Non-tender, No pedal edema Neurologic/Psychiatric: positive: Oriented x3, Motor nml - LABS Result Diagrams: 08/22/22 04:54 08/22/22 04:54 - DIAGNOSTIC IMAGING Diagnostic Imaging Results: Final report reviewed - FOLLOW UP Follow Up: See PCP after discharge from SNF. - TIME SPENT Time Spent in Discharge (Minutes): 45
[2022-08-22 11:27] VITALS: BP 130/84
[2022-08-22 11:34] LABS: % IRON SATURATION 23 % (20-50); IRON 41 ug/dL (45-182); TOTAL IRON BINDING CAPACITY 179 ug/dL (250-450); TRANSFERRIN 128 mg/dL (180-329)
[2022-08-22 11:50] LABS: FOLATE 7.32 ng/mL (5.90 - >24.8)
[2022-08-22] MEDS ORDERED: SPIRONOLACTONE 25 MG TABLET PO SCH (12:00)
[2022-08-23] MEDS ORDERED: SPIRONOLACTONE 25 MG TABLET PO SCH (12:00)
== END 2022-08-22 11:55 | DRG 811 ==
LOC: EDUNIT# → ED 13:51 → MS2 23:29
PROVIDERS: ADMIT Internal Medicine; ATTEND Internal Medicine
PROC: 30233N1 Transfusion of Nonautologous Red Blood Cells into Peripheral Vein, Percutaneous Approach (ICD-10-PCS; principal; 2022-08-19)
DX: D64.9 Anemia, unspecified (principal); J18.9 Pneumonia, unspecified organism; K52.9 Noninfective gastroenteritis and colitis, unspecified; E43 Unspecified severe protein-calorie malnutrition; S22.31XA Fracture of one rib, right side, initial encounter for closed fracture; I50.22 Chronic systolic (congestive) heart failure; Z68.1 Body mass index [BMI] 19.9 or less, adult; Z20.822 Contact with and (suspected) exposure to COVID-19; S40.011A Contusion of right shoulder, initial encounter; S51.012A Laceration without foreign body of left elbow, initial encounter; S51.011A Laceration without foreign body of right elbow, initial encounter; S20.211A Contusion of right front wall of thorax, initial encounter; W18.30XA Fall on same level, unspecified, initial encounter; Z91.81 History of falling; Y92.000 Kitchen of unspecified non-institutional (private) residence as the place of occurrence of the external cause; E83.42 Hypomagnesemia; I95.2 Hypotension due to drugs; F10.10 Alcohol abuse, uncomplicated; K59.03 Drug induced constipation; T40.605A Adverse effect of unspecified narcotics, initial encounter; Y92.230 Patient room in hospital as the place of occurrence of the external cause; J44.9 Chronic obstructive pulmonary disease, unspecified; E10.9 Type 1 diabetes mellitus without complications; Z95.5 Presence of coronary angioplasty implant and graft; I48.0 Paroxysmal atrial fibrillation; M43.8X4 Other specified deforming dorsopathies, thoracic region; R26.89 Other abnormalities of gait and mobility; S42.031A Displaced fracture of lateral end of right clavicle, initial encounter for closed fracture; W19.XXXA Unspecified fall, initial encounter; R53.1 Weakness; R63.0 Anorexia; F32.A Depression, unspecified; Z72.0 Tobacco use
CPT/HCPCS: 36415; 36430; 71260; 73030; 73070; 74177; 80048; 80053; 82270; 82607; 82746; 83540; 83605; 83690; 83735; 84466; 85025; 85027; 85610; 86850; 86900; 86901; 86920; 87040; 87633; 94640; 96361; 96365; 96368; 96375; 97116; 97162; 97166; 97530; 97535; 99291; A9270; G0480; J1170; J2060; J7040; J7626; P9016; Q9967; 80320; 82274

== ENCOUNTER 2022-08-22 11:18 | Inpatient (IN) | payer MEDICARE, OTHER ==
--- OUTSIDE RECORDS SUMMARY | 2022-08-22 12:20 | EXTERNAL MEDICAL SUMMARY RPT | Continuity of Care Document ---
:1945 Author Organization [facility] Address [address] [place] [address] Phone Allergies No information. Encounters No information. Functional Status No information. Immunizations No information. Medications No information. Problems date description facility 2022-06-11 10:15 Spinal stenosis, lumbar region with [facility] claudication Procedures No information. Results/Labs test date author facility value unit interpret ation Result panel 1 (unknown) (no (unknown) (unknown) (no value) (units (unk nown) date) unknown) (unknown) (no (unknown) (unknown) 1. Loss of (units (unk nown) date) height associated unknown) with the L1 compression fracture has increased (unknown) (no (unknown) (unknown) 06/11/22 (units (unkno wn) date) unknown) (unknown) (no (unknown) (unknown) [address] [place] [address] (units (unknown) date) unknown) (unknown) (no (unknown) (unknown) 13:03. (units (unkno wn) date) unknown) (unknown) (no (unknown) (unknown) 2. Moderate to (units (unknown) date) severe central unknown) canal narrowing related to retropulsed bone (unknown) (no (unknown) (unknown) 3. Multilevel (units ( unknown) date) degenerative disc unknown) disease. (unknown) (no (unknown) (unknown) [id number] (units (unkno wn) date) unknown) (unknown) (no (unknown) (unknown) 4. No severe (units (u nknown) date) neural foraminal unknown) narrowing. (unknown) (no (unknown) (unknown) 5. Right sacral (units (unknown) date) insufficiency unknown) fracture. (unknown) (no (unknown) (unknown) Accession (units (unkn own) date) Number: unknown) [id number] (unknown) (no (unknown) (unknown) Age/Sex: 77 / M (units (unknown) date) Date of Service: unknown) (unknown) (no (unknown) (unknown) Alignment and (units ( unknown) date) Curvature: There unknown) is normal bony alignment. (unknown) (no (unknown) (unknown) SHARA Mcconnell (units ( unknown) date) [id number] unknown) (unknown) (no (unknown) (unknown) Approved by: [...] (unknown) (unknown) : 1945 (units (unknown) date) Acct:[id number] unknown) (unknown) (no (unknown) (unknown) Dictated by: [...] date) Excellent. unknown) (unknown) (no (unknown) (unknown) [facility] (units (unknown) date) unknown) (unknown) (no (unknown) [...]
[2022-08-22] MEDS: oxyCODONE 5 MG TABLET PO PRN ×2 (13:58→18:12)
--- NOTE | 2022-08-22 14:26 | HISTORY & PHYSICAL EXAMINATION ---
Chief Complaint - Chief Complaint Chief Complaint: weakness, pain after falling History of Present Illness - Admitted From Admitted From:: [facility] from Inpt status - History Obtained From History obtained from: [facility] summary and the pt - History of Present Illness HPI Comment/Other: This is a 77 y/o WM wo lives alone with Hx of HFrEF, COPD not on home O2, still smokes, has Hx of alcohol abuse, Hx of frequent falls, Was an inpatient after he had a syncopal event that made him fall, neighbor helped him to the couch but he could not get up for 2 days because of right shoulder pain then the neighbor finally advised to be admitted. He was hospitalized for symptomatic anemia with hemoglobin 5.6, needed 3 units of blood transfused, now has a documented iron deficiency anemia, and first had low blood pressures documented then had orthostasis documented, and he needed all of his cardiac medications adjusted to lower doses and spread out. The patient did not go through alcohol withdrawal. He did not have a COPD exacerbation. We did find him to have rib fracture and right clavicle fracture, but he was able to start participating with PT and OT. He is being admitted to SNF (swing bed status here) for further PT and OT rehab. His CODE STATUS is DNR/DNI. History - Past Medical History Cardiovascular: reports: Congestive heart failure Respiratory: reports: COPD Neuro: reports: None GI: reports: GERD : reports: None HEENT: reports: None Psych: reports: None Musculoskeletal: reports: Chronic back pain, Other (Hx of many fractures from freq falls) Derm: reports: None MRSA Hx?: No - Past Surgical History Ortho: reports: Hip replacement Cardiovascular: reports: Coronary stent - Family & Social History Family History Comment/Other: He reports his mother had a history of pancreatic cancer. Living arrangement: At home Living Situation: Alone Social History Notes: He lives at home alone, his daughter lives in [place], but is currently on vacation in [facility]. He smoked 1 to 2 packs a day for 57 years but quit 3 years ago and restarted but smokes less. He does have an alcoholic beverage most days. He retired from the [employer] in the . - Substance History Use: Uses substance without health or social issues: Tobacco, Alcohol - POLST Patient has POLST: No Meds/Allgy - Home Medications Home Medications: Ambulatory Orders Medication Instructions Recorded Confirmed Fluticasone Propion/Salmeterol 1 puffs INH BID 08/18/22 08/22/22 [Fluticasone-Salmeterol 250-50] Mirtazapine 7.5 mg PO QPM 08/18/22 08/22/22 Tiotropium [place] [Spiriva 2 puffs INH DAILY 08/18/22 08/22/22 Respimat] Acetaminophen [Tylenol] 650 mg PO Q4HR PRN tab 08/22/22 08/22/22 Magnesium Oxide [Mag Ox] 400 mg PO DAILYWM tab 08/22/22 08/22/22 Multivitamin W/Minerals [Theragran 1 tab PO DAILYWM tab 08/22/22 08/22/22 M] Potassium Chloride [Micro-K] 20 meq PO DAILYWM cap 08/22/22 08/22/22 Spironolactone [Aldactone] 12.5 mg PO MoWeFr tab 08/22/22 08/22/22 Thiamine [Vitamin B-1] 100 mg PO DAILY #30 tablet 08/22/22 08/22/22 carvediloL [Coreg] 3.125 mg PO BID tab 08/22/22 08/22/22 lisinopriL [Zestril] 2.5 mg PO QPM tab 08/22/22 08/22/22 oxyCODONE [Roxicodone] 5 mg PO Q6HR PRN tab 08/22/22 08/22/22 polyethylene glycoL 3350 [Miralax] 17 gm PO DAILY packet 08/22/22 08/22/22 - Allergies Allergies/Adverse Reactions: Allergies Allergy/AdvReac Type Severity Reaction Status Date / Time lactose AdvReac Intermediate Cramps Verified 08/18/22 14:12 Review of Systems - Constitutional Constitutional: reports: Weakness - Musculoskeletal Musculoskeletal: reports: Stiffness, Joint pain, Other (Has bruises and skin tears from his multiple falls. Has 2 fingers wrapped "body style" on his left hand. Has pain in the right clavicle from a recent fracture.) - Integumentary Integumentary: reports: Other (Multiple ecchymoses from frequent fall) - All Other Systems All Other Systems: reports: Reviewed and negative Conclusion/Plan - Problem List (1) Weakness Conclusion/Plan: He is deconditioned from hospital stay, before that was weak at home, probably orthostatic, had multiple falls Plan: Participate with daily PT and OT (except weekends when he will walk with nursing and LAP CUTTER TRUER OPERATOR's) The goal is to return to his home (2) Severe protein-calorie malnutrition Conclusion/Plan: Patient had a poor appetite and was also in bed for at least 2 days before this last inpatient hospitalization. During that stay he has been eating 75% of his meal Plan: Continue with nutritional support (3) Chronic HFrEF (heart failure with reduced ejection fraction) Conclusion/Plan: Plan: We will continue with his Coreg, MASON inhibitor and spironolactone which have all been spread out and doses significantly decreased to prevent hypotension and orthostasis (4) Iron deficiency anemia Conclusion/Plan: Plasn: We will start daily or iron replacements As an inpatient, already outpatient work-up for a possible GI source of bleed was recommended. Will order stool guaiac test (5) Alcohol abuse Conclusion/Plan: As per history. He admittedly said that his falls at home more often caused by intoxication Plan: Will continue with daily thiamine and multivitamins (6) Fracture, clavicle Conclusion/Plan: Plan: Continue pain meds Continue working with PT and OT (7) COPD (chronic obstructive pulmonary disease) Conclusion/Plan: This was caused by his longstanding and continued tobacco use Plan: Will order his home inhalers to use here as needed. If required, will continue to use the nicotine patch. Will promote smoking cessation
[2022-08-22] MEDS: ACETAMINOPHEN 325 MG TABLET PO PRN (18:12)
[2022-08-22] MEDS: lisinopriL 5 MG TABLET PO SCH (19:10)
[2022-08-22] MEDS: ATORVASTATIN 40 MG TABLET PO SCH (20:53)
[2022-08-22] MEDS: carvediloL 3.125 MG TABLET PO SCH (20:53)
[2022-08-23] MEDS: ACETAMINOPHEN 325 MG TABLET PO PRN ×3 (00:01→12:51)
[2022-08-23] MEDS: oxyCODONE 5 MG TABLET PO PRN ×4 (00:01→18:50)
[2022-08-23] MEDS: THIAMINE 100 MG TABLET PO SCH (08:45)
[2022-08-23] MEDS: MAGNESIUM OXIDE 400 MG TABLET PO SCH (08:45)
[2022-08-23] MEDS: POTASSIUM CHLORIDE 10 MEQ CAPSULE PO SCH (08:45)
[2022-08-23] MEDS: PRENATAL VITAMIN TABLET PO SCH (08:46)
[2022-08-23] MEDS: carvediloL 3.125 MG TABLET PO SCH ×2 (08:50→20:48)
[2022-08-23] MEDS: polyethylene glycoL 3350 17 GM PACKET PO SCH (09:00)
[2022-08-23] MEDS ORDERED: CYANOCOBALAMIN 500 MCG TABLET PO SCH (09:00)
[2022-08-23] MEDS ORDERED: SPIRONOLACTONE 25 MG TABLET PO SCH (12:00)
[2022-08-23] MEDS: FLUTICASONE PROPION INH SCH ×2 (12:41→20:48)
[2022-08-23] MEDS: TIOTROPIUM BROMIDE 4 GM INH SCH (12:41)
[2022-08-23] MEDS: MIST INHAL INH SCH (12:41)
[2022-08-23] MEDS: SALMETEROL INH SCH ×2 (12:41→20:48)
[2022-08-23] MEDS: DOCUSATE SODIUM 250 MG CAPSULE PO SCH (12:41)
[2022-08-23] MEDS: lisinopriL 5 MG TABLET PO SCH (18:50)
[2022-08-23] MEDS: ATORVASTATIN 40 MG TABLET PO SCH (20:48)
[2022-08-24] MEDS: oxyCODONE 5 MG TABLET PO PRN ×5 (00:34→17:57)
[2022-08-24] MEDS ORDERED: LIDOCAINE 1% 2 ML VIAL SUBQ ONE (01:51)
--- NOTE | 2022-08-24 01:51 | PROVIDER PROGRESS NOTE ---
Bill Cutter Note - Bill Cutter Note Bill Cutter Note: nurse paged Pt got out of bed unassisted and fell on the ground. This was an unwitnessed fall. Pt found on his back and bleeding from posterior head, no LOC. Pt has approximately a 1 inch laceration. This bled for approximately 1 minute, pressure held and bleeding stopped discussed with nurse ED doc informed and curretnly assessing pt including for possibe sutures vss check head CT neurocheks fall precautions discussed with nurse
[2022-08-24] MEDS: ACETAMINOPHEN 325 MG TABLET PO PRN ×3 (03:25→17:57)
[2022-08-24] MEDS: MAGNESIUM OXIDE 400 MG TABLET PO SCH (08:37)
[2022-08-24] MEDS: POTASSIUM CHLORIDE 10 MEQ CAPSULE PO SCH (08:37)
[2022-08-24] MEDS: PRENATAL VITAMIN TABLET PO SCH (08:37)
[2022-08-24] MEDS: carvediloL 3.125 MG TABLET PO SCH ×2 (09:10→21:40)
[2022-08-24] MEDS: DOCUSATE SODIUM 250 MG CAPSULE PO SCH (09:10)
[2022-08-24] MEDS: SENNA 8.6 MG TABLET PO SCH (09:10)
[2022-08-24] MEDS: THIAMINE 100 MG TABLET PO SCH (09:12)
[2022-08-24] MEDS: SALMETEROL INH SCH ×2 (09:25→21:40)
[2022-08-24] MEDS: polyethylene glycoL 3350 17 GM PACKET PO SCH (09:25)
[2022-08-24] MEDS: TIOTROPIUM BROMIDE 4 GM INH SCH (09:25)
[2022-08-24] MEDS: FLUTICASONE PROPION INH SCH ×2 (09:25→21:40)
[2022-08-24] MEDS: MIST INHAL INH SCH (09:25)
--- NOTE | 2022-08-24 09:39 | CT Report ---
PROCEDURE: HEAD WO INDICATIONS: head trauma, 06/17/2022 TECHNIQUE: Noncontrast 4.5 mm thick angled axial sections acquired from the foramen magnum to the vertex. For r adiation dose reduction, the following was used: automated exposure control, adjustment of mA and/or kV according to patient size. COMPARISON: 07/22/2022, 06/17/2022 FINDINGS: Image quality: Excellent. CSF spaces: Basal cisterns are patent. No extra-axial fluid collections. Ventricles are normal in size and shape. Brain: No midline shift. No intracranial masses or hemorrhage. Overton-white matter interface is norm al. Skull and face: There is a repaired scalp laceration seen posteriorly, just to the left of the midli ne. There is a stable metallic foreign body seen just above the ear on the right, as on series 4 imag e 16, 3 mm. Calvarium and visualized facial bones are intact, without suspicious lesions. Sinuses: Visualized sinuses and mastoids are clear. IMPRESSION: No intracranial hemorrhage is seen. No significant intracranial abnormality is seen. Age-appropriate brain parenchymal volume loss and chronic small vessel ischemic change can be seen. There is a repaired scalp laceration posteriorly. Additional findings: Stable right scalp metallic foreign body Note: No significant discrepancy from the preliminary report. Reviewed by: Leon Naranjo MD on 08/24/2022 8:38 AM [facility] Approved by: Leon Naranjo MD on 08/24/2022 8:38 AM [facility] Station ID: [id number]
[2022-08-24] MEDS: NICOTINE 7 MG PATCH TOP SCH (11:50)
--- NOTE | 2022-08-24 12:44 | CT Report ---
PROCEDURE: HEAD WO INDICATIONS: More confused after fall OOB here last nite TECHNIQUE: Noncontrast 4.5 mm thick angled axial sections acquired from the foramen magnum to the vertex. For r adiation dose reduction, the following was used: automated exposure control, adjustment of mA and/or kV according to patient size. COMPARISON: Head CT performed earlier in the day. Also head CT examinations 07/22/2022, 06/17/2022. C orrelation is also made with the accompanying CT examinations. FINDINGS: Image quality: Excellent. CSF spaces: Basal cisterns are patent. No extra-axial fluid collections. Ventricles are normal in size and shape. Brain: No midline shift. No intracranial masses or hemorrhage. [place]-white matter interface is norm al. Skull and face: A stable right scalp metallic foreign body can be seen. A similar-appearing foreign body can be seen involving the right cheek, as on series 7 image 1. A repaired posterior scalp lacera tion can be seen, with skin sony. No associated fracture is seen. Calvarium and visualized facial bones are intact, without suspicious lesions. Sinuses: Visualized sinuses and mastoids are clear. IMPRESSION: No interval hemorrhage can be seen. No significant intracranial abnormality is seen. Repaired right posterior scalp laceration. Reviewed by: Leon Naranjo MD on 08/24/2022 11:42 AM [facility] Approved by: Leon Naranjo MD on 08/24/2022 11:42 AM [facility] Station ID: [id number]
--- NOTE | 2022-08-24 12:51 | CT Report ---
PROCEDURE: LUMBAR SPINE WO INDICATIONS: Fell OOB yesterday, has back pain today TECHNIQUE: Noncontrast 3 mm thick sections acquired from the T12 level to the sacrum. Sagittal and coronal refo rmats were constructed. For radiation dose reduction, the following was used: automated exposure co ntrol, adjustment of mA and/or kV according to patient size. COMPARISON: 03/22/2022. Correlation is made with the accompanying CT examinations. FINDINGS: Image quality: Excellent. Bones: This patient has a significant T12 fracture. There is 87% loss of height centrally. This has progressed compared to the prior examination, yet without acute features. Posterior disc placement of fracture fragments can be seen, 4 mm, similar to prior. An additional L3 compression deformity is seen, measuring 40% loss of height. This is stable compared to the prior. No suspicious lytic or blastic bony lesions. Central spinal caliber is of normal overall caliber. N o pars defects. There is transitional lumbar anatomy, with the L5 level highly sacralized. Multiple levels of significant lumbar spine degenerative change are seen, which are similar to the pr ior examination. Soft tissues: There is a moderate right-sided pleural effusion partially seen. A small left-sided pl eural effusion is seen. No retroperitoneal masses or hematomas. There is partial visualization of an abdominal aortic aneurysm measuring 4.2 cm. Atheromatous chronic calcification can be seen throughou t. There is a 3 mm nonobstructing left-sided kidney stone, as on series 2 image 33. IMPRESSION: No acute fractures are seen. The known T12 fracture has slightly progressed compared to the prior, yet without acute features. Stable L3 fracture. Multiple levels of underlying degenerative change are seen, which are similar to the prior CT. Additional findings: Transitional lumbar anatomy, with a sacralized L5 level Moderate right-sided pleural effusion Nonobstructing left-sided kidney stone Mild left-sided pleural effusion Abdominal aortic aneurysm, 4.2 cm Reviewed by: Leon Naranjo MD on 08/24/2022 11:49 AM [facility] Approved by: Leon Naranjo MD on 08/24/2022 11:49 AM [facility] Station ID: [id number]
--- NOTE | 2022-08-24 12:55 | CT Report ---
PROCEDURE: THORACIC SPINE WO INDICATIONS: Fall OOB yesterday, has back pain today TECHNIQUE: Noncontrast 3 mm thick sections acquired through the region of interest in the thoracic spine. Sagit gianfranco and coronal reformats were then constructed. For radiation dose reduction, the following was used : automated exposure control, adjustment of mA and/or kV according to patient size. COMPARISON: Correlation is made with the accompanying CT examinations and to chest CT examinations , 06/17/2022, 05/04/2022. FINDINGS: Image quality: Excellent. Bones: Stable T8 and T12 fractures are again seen. No acute fractures are seen. At the T12 level, there is posterior displacement of fracture fragments, 3 to 4 mm. No suspicious sclerotic or lytic bony lesions. Generalized degenerative changes are seen, including involving the lower cervical spine. There is accentuated thoracic kyphosis. Soft tissues: No paravertebral masses or hematomas. Bilateral pleural effusions are seen, right larg er than left. Mild to moderate coronary artery calcification can be seen. IMPRESSION: Negative for acute fracture. Stable T8 and T12 vertebral body fractures. Bilateral pleural effusions are seen, right larger than left. Additional findings: Mild to moderate coronary artery calcification Reviewed by: Leon Naranjo MD on 08/24/2022 11:54 AM [facility] Approved by: Leon Naranjo MD on 08/24/2022 11:54 AM [facility] Station ID: [id number]
--- NOTE | 2022-08-24 12:57 | CT Report ---
PROCEDURE: CERVICAL SPINE WO INDICATIONS: Fall OOB yesterday, back pain today TECHNIQUE: Noncontrast 3 mm thick sections acquired from the skull base to the T4 level. Sagittal and coronal r eformats were then constructed. For radiation dose reduction, the following was used: automated exp osure control, adjustment of mA and/or kV according to patient size. COMPARISON: Correlation is made with the accompanying CT examinations. FINDINGS: Image quality: Excellent. Bones: No fractures or dislocations. Visualized superior ribs are intact. Focal degenerative change can be seen involving the C1-C2 interface anteriorly. Mild disc space narro wing is seen at C2-C3 and C3-C4. There is at least moderate disc space narrowing seen at C4-C5, C5-C6 , and C6-C7. Endplate irregularity and sclerosis are seen, which are worst inferiorly. Posterior dire cted endplate osteophytes are seen, which are worst at C4-C5 and C6-C7. Soft tissues: Prevertebral soft tissues are normal in thickness. No paravertebral hematomas. No ap ical pneumothoraces. A right scalp metallic foreign body is again seen. A right-sided pleural effusi on is partially seen. Capsulitis changes are seen at the lung apices, including mild apical subpleura l bleb formation. IMPRESSION: Negative for acute fracture. Cervical spine degenerative changes are seen, which are worst inferiorly. Right-sided pleural effusion partially seen. Reviewed by: Leon Naranjo MD on 08/24/2022 11:56 AM [facility] Approved by: Leon Naranjo MD on 08/24/2022 11:56 AM [facility] Station ID: [id number]
--- NOTE | 2022-08-24 18:20 | PROVIDER PROGRESS NOTE ---
Assessment/Plan - Problem List (1) Confusion Assessment/Plan: After the patient fell on the back of his head yesterday, he c/o back pain today, and is more confused today: He was oriented only to self, not to place or time. He was planning for his friend to pick him up so they could go somewhere for a visit together. And he did not remember falling last night. Head CT was repeated again and CT also done of C-spine, thoracic and lumbar spine. There were no new areas of trauma, no hemorrhage, no fractures found Plan: Perhaps this patient had a concussion. Neurochecks will continue to be done every 2 hours Will also work-up for metabolic encephalopathy possibly from elevated ammonia or an infection: We will obtain CMP, CBC, ammonia level, blood culture, urine analysis and ur culture Will decrease his narcotics (2) Fall during current hospitalization Qualifiers: Encounter type: subsequent encounter Qualified Code(s): W19.XXXD - Unspecified fall, subsequent encounter; Y92.239 - Unspecified place in hospital as the place of occurrence of the external cause Assessment/Plan: Patient's bed alarm went off last night and his RN and SPREADER OPERATOR were just at the doorway when they saw him standing at side of bed and fall. There was blood on the floor coming from a laceration on the back of his head. He was awake and never lost consciousness. Telemedicine night provider was contacted He had stat head CT done that showed no trauma. A laceration occurred that was stapled by the ER doctor. Plan: Continue with no out of bed independently Continue with neurochecks Will order orthostatic vital sign checks>> very abnormal with HR 70 lying, HR debbie to 111 standing. Will decrease his narcotics We will stop his spironolactone (which is only dosed Mon, Wed, Fri) Will encourage p.o. fluid (3) Weakness Conclusion/Plan: He is deconditioned from hospital stay, before that was weak at home, probably orthostatic, has a Hx of multiple falls Plan: Participate with daily PT and OT (except weekends when he will walk with nursing and SPREADER OPERATOR's) The goal is to return to his home (4) Severe protein-calorie malnutrition Conclusion/Plan: Patient had a poor appetite and was also in bed for at least 2 days before this last inpatient hospitalization. During that stay he has been eating 75% of his meal Plan: Continue with nutritional support (5) Chronic HFrEF (heart failure with reduced ejection fraction) Conclusion/Plan: Plan: We will continue with his Coreg, MASON inhibitor which have all been spread out and doses significantly decreased to prevent hypotension and orthostasis We will check orthostatic vital signs at least twice daily We will stop his spironolactone (6) Iron deficiency anemia Conclusion/Plan: Plasn: We started daily or iron replacements An outpatient work-up for a possible GI source of bleed was recommended. Will order stool guaiac test (7) Alcohol abuse Conclusion/Plan: As per history. He admittedly said that his falls at home were often caused by intoxication Plan: Will continue with daily thiamine and multivitamins (8) Fracture, clavicle Conclusion/Plan: Plan: Continue pain meds Continue working with PT and OT (9) COPD (chronic obstructive pulmonary disease) Conclusion/Plan: This was caused by his longstanding and continued tobacco use Plan: We ordered his home inhalers to use here as needed. (10) Tobacco use Today he complained to his nurse that he cannot smoke while he is here and was much more fidgety than as Inpt, when he had the nicotine patch on. Plan: Will continue to use the nicotine patch. Will promote smoking cessation - Current Meds Current Meds: Current Medications Generic Name Dose Route Start Last Admin Trade Name Duy PRN Reason Stop Dose Admin Acetaminophen 650 mg 08/22/22 12:09 08/24/22 17:57 Acetaminophen 325 Mg Tablet PO 650 mg Q4HR PRN Administration Pain 1 to 4, or Fever Atorvastatin Calcium 40 mg 08/22/22 21:00 08/23/22 20:48 Atorvastatin 40 Mg Tablet PO 40 mg QPM RONDA Administration Carvedilol 3.125 mg 08/22/22 21:00 08/24/22 09:10 Carvedilol 3.125 Mg Tablet PO 3.125 mg BID RONDA Administration Docusate Sodium 250 - 500 mg 08/23/22 13:00 08/24/22 09:10 Docusate Sodium 250 Mg Capsule PO 250 mg DAILY RONDA Administration Lisinopril 2.5 mg 08/22/22 19:00 08/23/22 18:50 Lisinopril 5 Mg Tablet PO 2.5 mg 1900 RONDA Administration Magnesium Oxide 400 mg 08/23/22 08:00 08/24/22 08:37 Magnesium Oxide 400 Mg Tablet PO 400 mg DAILYWM RONDA Administration Nicotine 1 patch 08/24/22 10:00 08/24/22 11:50 Nicotine 7 Mg Patch TOP Not Given DAILY RONDA Oxycodone HCl 5 mg 08/22/22 12:09 08/24/22 17:57 Oxycodone 5 Mg Tablet PO 5 mg Q4HR PRN Administration Pain 5 to 7 Fluticasone 1 each 08/23/22 09:00 08/24/22 09:25 Propion/Salmeterol [ INH 1 each Fluticasone- BID RONDA Administration Salmeterol 250-50] Tiotropium [place] 2 each 08/23/22 09:00 08/24/22 09:25 [Spiriva Respimat] INH 2 each 4 Gm Mist.Inhal DAILY RONDA Administration Polyethylene Glycol 17 gm 08/23/22 09:00 08/24/22 09:25 Polyethylene Glycol 3350 17 Gm Packet PO 17 gm DAILY RONDA Administration Potassium Chloride 20 meq 08/23/22 08:00 08/24/22 08:37 Potassium Chloride 10 Meq Capsule PO 20 meq DAILYWM RONDA Administration Multivit/Folic Acid/Iron 1 tab 08/23/22 08:00 08/24/22 08:37 Vitamin Tablet PO 1 tab DAILYWM RONDA Administration Senna 8.6 - 17.2 mg 08/24/22 09:00 08/24/22 09:10 Senna 8.6 Mg Tablet PO 8.6 mg DAILY RONDA Administration Spironolactone 12.5 mg 08/23/22 12:00 08/23/22 12:40 Spironolactone 25 Mg Tablet PO 12.5 mg MOWEFR RONDA Administration Thiamine HCl 100 mg 08/23/22 09:00 08/24/22 09:12 Thiamine 100 Mg Tablet PO 100 mg DAILY RONDA Administration - Additional Planning My Orders: My Active Orders 08/24/22 08:51 Orthostatic [Vital Signs - Orthostatic] [RC] BID 08/24/22 09:00 Senna [Senokot] 8.6 - 17.2 mg PO DAILY 08/24/22 10:00 Nicotine 7 mg Patch [Nicoderm] 1 patch TOP DAILY Subjective - Subjective Patient Reports: Resting Comfortably Nursing Reports: Other (Confused, not as cooperative, is more demanding) Objective Vital Signs: Vital Signs - 24 hr 08/23/22 08/24/22 08/24/22 20:48 01:35 09:19 Temperature 36.7 C 36.2 C L Heart Rate [ 99 70 Brachial] Heart Rate [ 62 Radial] Respiratory 18 16 Rate Blood Pressure 144/59 H [Left Brachial artery] Blood Pressure 173/99 H 151/71 H [Right Brachial artery] O2 Saturation 93 92 Oxygen O2 Source [With Activity] Room air O2 Source Room air I&O (Last 24 Hrs): Intake and Output Totals x24h 08/22/22 08/23/22 08/24/22 23:59 23:59 23:59 Intake Total 671 062 5880 Output Total 500 1950 1615 Balance 230 -1510 -495 General: Alert, No acute distress, Other (Elderly, disheveled with long hair and long avalos) HEENT: Other (Laceration w/ sony to back of head) Neuro: Alert, Disoriented, Non Focal Cardiovascular: No murmurs Respiratory: No respiratory distress Abdomen: Soft Extremities: No edema, Other (Multiple contusions, tender right clavicle (was broken))
[2022-08-24 18:45] LABS: BILIRUBIN,URINE NEGATIVE (NEGATIVE); GLUCOSE, URINE (UA) NEGATIVE (NEGATIVE); KETONES,URINE (UA) NEGATIVE (NEGATIVE); LEUKOCYTE ESTERASE, URINE NEGATIVE (NEGATIVE); NITRITE,URINE NEGATIVE (NEGATIVE); OCCULT BLOOD,URINE NEGATIVE (NEGATIVE); PROTEIN,URINE NEGATIVE (NEGATIVE); UROBILINOGEN,URINE 0.2 (NORMAL) E.U./dL (NORMAL)
[2022-08-24 18:48] LABS: BASOPHILS % (AUTO) 0.6 %; EOSINOPHILS # (AUTO) 0.1 10^3/uL (0.0-0.7); EOSINOPHILS % (AUTO) 1.7 %; HCT - HEMATOCRIT 29.4 % (42.0-52.0); HGB - HEMOGLOBIN 9.5 g/dL (14.0-18.0); LYMPHOCYTES # (AUTO) 0.6 10^3/uL (1.5-3.5); LYMPHOCYTES % (AUTO) 11.3 %; MEAN CORPUSCULAR HEMOGLOBIN 32.1 pg (27.0-31.0); MEAN CORPUSCULAR HGB CONC 32.3 g/dL (32.0-36.0); MEAN CORPUSCULAR VOLUME 99.3 fL (80.0-94.0); MEAN PLATELET VOLUME 10.4 fL (7.4-11.4); MONOCYTES # (AUTO) 0.8 10^3/uL (0.0-1.0); MONOCYTES % (AUTO) 15.3 %; NEUTROPHILS # (AUTO) 3.7 10^3/uL (1.5-6.6); NEUTROPHILS % (AUTO) 70.3 %; NRBC ABSOLUTE COUNT (AUTO) 0.04 x10^3/uL; NUCLEATED RED BLOOD CELLS AUTO 0.8 /100WBC; PLT - PLATELET COUNT 239 10^3/uL (130-450); RED BLOOD COUNT 2.96 10^6/uL (4.70-6.10); RED CELL DISTRIBUTION WIDTH 17.5 % (12.0-15.0); WHITE BLOOD COUNT 5.2 x10^3/uL (4.8-10.8)
[2022-08-24 18:51] LABS: CLARITY,URINE CLEAR (CLEAR)
[2022-08-24 19:01] LABS: ALBUMIN 2.9 g/dL (3.2-5.5); ALBUMIN/GLOBULIN RATIO 1.2 (1.0-2.2); BILIRUBIN,TOTAL 0.7 mg/dL (0.2-1.0); CALCIUM 9.3 mg/dL (8.5-10.3); CREATININE 0.6 mg/dL (0.6-1.2); POTASSIUM 4.1 mmol/L (3.5-5.0); TOTAL PROTEIN 5.4 g/dL (6.7-8.2)
[2022-08-24] MEDS: lisinopriL 5 MG TABLET PO SCH (20:18)
[2022-08-24] MEDS: ATORVASTATIN 40 MG TABLET PO SCH (21:40)
[2022-08-24] MEDS: oxyCODONE 5 MG TABLET PO SCH (21:40)
[2022-08-25] MEDS: THIAMINE 100 MG TABLET PO SCH (08:03)
[2022-08-25] MEDS: polyethylene glycoL 3350 17 GM PACKET PO SCH (08:03)
[2022-08-25] MEDS: POTASSIUM CHLORIDE 10 MEQ CAPSULE PO SCH (08:03)
[2022-08-25] MEDS: carvediloL 3.125 MG TABLET PO SCH ×2 (08:03→21:00)
[2022-08-25] MEDS: DOCUSATE SODIUM 250 MG CAPSULE PO SCH (08:04)
[2022-08-25] MEDS: MAGNESIUM OXIDE 400 MG TABLET PO SCH (08:04)
[2022-08-25] MEDS: PRENATAL VITAMIN TABLET PO SCH (08:05)
[2022-08-25] MEDS: oxyCODONE 5 MG TABLET PO SCH ×2 (08:05→21:00)
[2022-08-25] MEDS: SENNA 8.6 MG TABLET PO SCH (08:05)
[2022-08-25] MEDS: FLUTICASONE PROPION INH SCH ×2 (08:15→21:00)
[2022-08-25] MEDS: SALMETEROL INH SCH ×2 (08:15→21:00)
[2022-08-25] MEDS: MIST INHAL INH SCH (08:15)
[2022-08-25] MEDS: TIOTROPIUM BROMIDE 4 GM INH SCH (08:15)
[2022-08-25] MEDS: NICOTINE 7 MG PATCH TOP SCH (08:15)
[2022-08-25] MEDS: ACETAMINOPHEN 325 MG TABLET PO PRN ×3 (10:05→18:11)
[2022-08-25] MEDS: lisinopriL 5 MG TABLET PO SCH (18:11)
[2022-08-25] MEDS: ATORVASTATIN 40 MG TABLET PO SCH (21:00)
[2022-08-26] MEDS: ACETAMINOPHEN 325 MG TABLET PO PRN ×2 (03:07→16:52)
--- NOTE | 2022-08-26 08:08 | PROVIDER PROGRESS NOTE ---
Assessment/Plan - Problem List (1) Orthostatic hypotension Assessment/Plan: He continues to have intermittent abnormal orthostatic vital signs, either 20 mm drop in systolic blood pressure or an excessive heart rate increase. Plan: Remain off the Spironolactone, since he has not had any volume overload from CHF His Lisinopril was moved to 1700 in order to prevent daytime orthostasis, will continue this Will stop his daytime Coreg and only give this once daily, also later, before he is supine for sleep We will start him on Midodrine 2.5 TID with meals Continue to check orthostatic vital signs with his twice daily vital sign checks At discharge, he must go home on these new medication adjustments. He will need to be chcked at home, to assure he does not go back to his previous higher med doses I will order Home Health PT, OT, RN, Bath Aide, and Migratory Farm Hand, for after DCh home from Swing bed (2) Fall during current hospitalization Qualifiers: Encounter type: subsequent encounter Qualified Code(s): W19.XXXD - Unspecified fall, subsequent encounter; Y92.239 - Unspecified place in hospital as the place of occurrence of the external cause Assessment/Plan: At 0100, on 08/24, the patient's bed alarm went off and his RN and OTR TRUCK DRIVER were just entering his doorway when they saw him. He was standing at side of his bed and fell. There was blood on the floor coming from a laceration on the back of his head. He was awake and never lost consciousness. Telemedicine night provider was contacted and ER doctor was contacted. He had stat head CT done that showed no trauma. A laceration on his posterior scalp occurred that was stapled by the ER doctor. Neurochecks were stable We ordered no out of bed independently We ordered orthostatic vital sign checks>> this was very abnormal with HR 70 lying, and HR debbie to 111 standing. I decreased his narcotics I stopped his spironolactone (which was only being dosed Mon, Wed, Fri). Plan: Will continue OOB only with assistance, until he has no orthostasis Continue to work with PT and OT (3) Frequent falls He has a history of many falls at home. He himself admitted to me that some of these were from intoxication but others were unexpected Plan: As above in #1&2 (4) Fracture, clavicle Conclusion/Plan: This was present at admission to the most recent Inpt stay, caused by a fall at home. Plan: Continue pain meds Continue working with PT and OT (5) Generalized weakness Conclusion/Plan: He is deconditioned from the Inpt hospital stay, and before that, he was weak at home, layed on his couch without getting up for several days after the fall (was probably orthostatic) Plan: Participate with daily PT and OT (except weekends when we hope he can walk with nursing and OTR TRUCK DRIVER's) The goal is to return to his home Today I will order Home Health PT, OT, RN, Bath Aide, and Migratory Farm Hand, for after DCh to home from Swing bed (6) Severe protein-calorie malnutrition Conclusion/Plan: Patient had a poor appetite and was not eating for at least 2 days before the [facility] inpatient hospitalization. Since that recent Inpt stay, he has been eating 75%+ of his meals Plan: Continue with nutritional support Meals on Wheels would be very beneficial for him (7) Chronic HFrEF (heart failure with reduced ejection fraction) Conclusion/Plan: He has not been volume overloaded now or during the last Inpatient hospitalization. His last Echo EF was 20%. Plan: We will continue with his Coreg, MASON inhibitor, but at very low doses, to prevent hypotension and orthostasis Remain off spironolactone At discharge, he must go home on these new medication adjustments (8) Iron deficiency anemia Conclusion/Plan: Plan: We started daily or iron replacements An outpatient work-up for a possible GI source of bleed was recommended. (9) Hx of Alcohol abuse Conclusion/Plan: As per history. He admittedly said that his falls at home were often caused by intoxication Plan: Will continue with daily thiamine and multivitamins (10) COPD (chronic obstructive pulmonary disease) Likely from his longstanding and continued tobacco use Plan: We ordered his home inhalers to use here prn (11) Tobacco use He complained to his nurse that he cannot smoke while he is here and was much more fidgety than as Inpt, when he had the nicotine patch on. Plan: We restarted a Nicotine patch at 7 mg. Will promote smoking cessation (12) Confusion Assessment/Plan: His confusion resolved on the evening of 08/25 After the patient fell on the back of his head on 08/24, he c/o back pain the following day and was more confused: He was oriented only to self, not to place or time. He was planning for his friend to pick him up so they could go somewhere for a visit together. And he did not remember falling last night. Head CT was repeated again and CT also done of C-spine, thoracic and LS spine. There were no new areas of trauma, no hemorrhage, no fractures found. Neurochecks were done every 2 hours and nothing new developed I also looked for metabolic encephalopathy possibly from elevated ammonia or a new infection, and the labs and U/A were unremarkable. I decreased his narcotics Impression is that his confusion was from a concussion. - Current Meds Current Meds: Current Medications Generic Name Dose Route Start Last Admin Trade Name Freq PRN Reason Stop Dose Admin Acetaminophen 650 mg 08/22/22 12:09 08/26/22 03:07 Acetaminophen 325 Mg Tablet PO 650 mg Q4HR PRN Administration Pain 1 to 4, or Fever Atorvastatin Calcium 40 mg 08/22/22 21:00 08/25/22 21:00 Atorvastatin 40 Mg Tablet PO 40 mg QPM RONDA Administration Docusate Sodium 250 - 500 mg 08/23/22 13:00 08/25/22 08:04 Docusate Sodium 250 Mg Capsule PO 250 mg DAILY RONDA Administration Lisinopril 2.5 mg 08/22/22 19:00 08/25/22 18:11 Lisinopril 5 Mg Tablet PO 2.5 mg 1900 RONDA Administration Magnesium Oxide 400 mg 08/23/22 08:00 08/25/22 08:04 Magnesium Oxide 400 Mg Tablet PO 400 mg DAILYWM RONDA Administration Nicotine 1 patch 08/24/22 10:00 08/25/22 08:15 Nicotine 7 Mg Patch TOP Not Given DAILY RONDA Oxycodone HCl 5 mg 08/24/22 21:00 08/25/22 21:00 Oxycodone 5 Mg Tablet PO 5 mg BID RONDA Administration Fluticasone 1 each 08/23/22 09:00 08/25/22 21:00 Propion/Salmeterol [ INH 1 each Fluticasone- BID RONDA Administration Salmeterol 250-50] Tiotropium [place] 2 each 08/23/22 09:00 08/25/22 08:15 [Spiriva Respimat] INH 2 each 4 Gm Mist.Inhal DAILY RONDA Administration Polyethylene Glycol 17 gm 08/23/22 09:00 08/25/22 08:03 Polyethylene Glycol 3350 17 Gm Packet PO 17 gm DAILY RONDA Administration Potassium Chloride 20 meq 08/23/22 08:00 08/25/22 08:03 Potassium Chloride 10 Meq Capsule PO 20 meq DAILYWM RONDA Administration Multivit/Folic Acid/Iron 1 tab 08/23/22 08:00 08/25/22 08:05 Vitamin Tablet PO 1 tab DAILYWM RONDA Administration Senna 8.6 - 17.2 mg 08/24/22 09:00 08/25/22 08:05 Senna 8.6 Mg Tablet PO 8.6 mg DAILY RONDA Administration Thiamine HCl 100 mg 08/23/22 09:00 08/25/22 08:03 Thiamine 100 Mg Tablet PO 100 mg DAILY RONDA Administration - Lab Result Fish Bone Diagrams: 08/24/22 18:42 08/24/22 18:42 - Additional Planning My Orders: My Active Orders 08/26/22 08:00 Midodrine [ProAmatine] 2.5 mg PO TIDWM Subjective - Subjective Patient Reports: No Complaints (except that he wants to get up on his own, is eager to walk) Objective Vital Signs: Vital Signs - 24 hr 08/25/22 08/25/22 10:24 16:20 Temperature 36.6 C 36.3 C L Heart Rate [ 75 54 L Brachial] Respiratory 20 20 Rate Blood Pressure 134/79 H 156/87 H [Right Brachial artery] O2 Saturation 94 96 Oxygen O2 Source [With Activity] Room air O2 Source Room air I&O (Last 24 Hrs): Intake and Output Totals x24h 08/24/22 08/25/22 08/26/22 23:59 23:59 23:59 Intake Total 1420 1170 Output Total 9955 9530 152 Balance -500 -6803 -338 General: Alert, Oriented x3, Other (Thin elderly male, has a large avalos and long hair but is well kempt today.) HEENT: EOMI, Other (sony on posterior scalp) Neck: Supple Neuro: Alert, Non Focal Cardiovascular: No murmurs Respiratory: No respiratory distress Abdomen: Soft Extremities: No clubbing, No edema, Other (multiple ecchymoses, R clavicle is tender where it was frac tured) - Results Results: Laboratory Results WBC 5.2 x10^3/uL (4.8-10.8) 08/24/22 18: RBC 2.96 10^6/uL (4.70-6.10) L 08/24/22 18:42 Hgb 9.5 g/dL (14.0-18.0) L 08/24/22 18:42 Hct 29.4 % (42.0-52.0) L 08/24/22 18:42 MCV 99.3 fL (80.0-94.0) H 08/24/22 18:42 MCH 32.1 pg (27.0-31.0) H 08/24/22 18: MCHC 32.3 g/dL (32.0-36.0) 08/24/22 18:42 RDW 17.5 % (12.0-15.0) H 08/24/22 18:42 Plt Count 239 10^3/uL (130-450) 08/24/22 18: MPV 10.4 fL (7.4-11.4) 08/24/22 18:42 Neut # (Auto) 3.7 10^3/uL (1.5-6.6) 08/24/22 18:42 Lymph # (Auto) 0.6 10^3/uL (1.5-3.5) L 08/24/22 18:42 [place] # (Auto) 0.8 10^3/uL (0.0-1.0) 08/24/22 18: Eos # (Auto) 0.1 10^3/uL (0.0-0.7) 08/24/22 18:42 Baso # (Auto) 0.0 10^3/uL (0.0-0.1) 08/24/22 18: Absolute Nucleated RBC 0.04 x10^3/uL 08/24/22 18: Nucleated RBC % 0.8 /100WBC 08/24/22 18:42 Sodium 138 mmol/L (135-145) 08/24/22 18:42 Potassium 4.1 mmol/L (3.5-5.0) 08/24/22 18: Chloride 98 mmol/L (101-111) L 08/24/22 18:42 Carbon Dioxide 32 mmol/L (21-32) 08/24/22 18:42 Anion Gap 8.0 (6-13) 08/24/22 18:42 BUN 7 mg/dL (6-20) 08/24/22 18:42 Creatinine 0.6 mg/dL (0.6-1.2) 08/24/22 18:42 Estimated GFR (MDRD) 131 (>89) 08/24/22 18:42 Glucose 134 mg/dL (70-100) H 08/24/22 18:42 Lactic Acid 1.7 mmol/L (0.5-2.2) 08/24/22 18:42 Calcium 9.3 mg/dL (8.5-10.3) 08/24/22 18:42 Total Bilirubin 0.7 mg/dL (0.2-1.0) 08/24/22 18:42 AST 23 IU/L (10-42) 08/24/22 18:42 ALT 19 IU/L (10-60) 08/24/22 18:42 Alkaline Phosphatase 100 IU/L (42-121) 08/24/22 18:42 Ammonia 10.2 umol/L (7-35) 08/24/22 18:42 Total Protein 5.4 g/dL (6.7-8.2) L 08/24/22 18:42 Albumin 2.9 g/dL (3.2-5.5) L 08/24/22 18:42 Globulin 2.5 g/dL (2.1-4.2) 08/24/22 18:42 Albumin/Globulin Ratio 1.2 (1.0-2.2) 08/24/22 18:42 Urine Color YELLOW 08/24/22 16:30 Urine Clarity CLEAR (CLEAR) 08/24/22 16:30 Urine pH 7.0 PH (5.0-7.5) 08/24/22 16:30 Ur Specific [place] 1.010 (1.002-1.030) 08/24/22 16:30 Urine Protein NEGATIVE mg/dL (NEGATIVE) 08/24/22 16:30 Urine Glucose (UA) NEGATIVE mg/dL (NEGATIVE) 08/24/22 16:30 Urine Ketones NEGATIVE mg/dL (NEGATIVE) 08/24/22 16:30 Urine Occult Blood NEGATIVE (NEGATIVE) 08/24/22 16:30 Urine Nitrite NEGATIVE (NEGATIVE) 08/24/22 16:30 Urine Bilirubin NEGATIVE (NEGATIVE) 08/24/22 16:30 Urine Urobilinogen 0.2 (NORMAL) E.U./dL (NORMAL) 08/24/22 16:30 Ur Leukocyte Esterase NEGATIVE (NEGATIVE) 08/24/22 16:30 Ur Microscopic Review NOT INDICATED 08/24/22 16:30 Urine Culture Comments NOT INDICATED 08/24/22 16:30
[2022-08-26] MEDS: polyethylene glycoL 3350 17 GM PACKET PO SCH (08:40)
[2022-08-26] MEDS: MIDODRINE 2.5 MG TABLET PO SCH ×3 (08:41→16:52)
[2022-08-26] MEDS: PRENATAL VITAMIN TABLET PO SCH (08:42)
[2022-08-26] MEDS: MAGNESIUM OXIDE 400 MG TABLET PO SCH (08:42)
[2022-08-26] MEDS: DOCUSATE SODIUM 250 MG CAPSULE PO SCH (08:42)
[2022-08-26] MEDS: POTASSIUM CHLORIDE 10 MEQ CAPSULE PO SCH (08:43)
[2022-08-26] MEDS: THIAMINE 100 MG TABLET PO SCH (08:43)
[2022-08-26] MEDS: SENNA 8.6 MG TABLET PO SCH ×3 (08:43→18:16)
[2022-08-26] MEDS: NICOTINE 7 MG PATCH TOP SCH (08:45)
[2022-08-26] MEDS: SALMETEROL INH SCH ×2 (08:46→20:41)
[2022-08-26] MEDS: FLUTICASONE PROPION INH SCH ×2 (08:46→20:41)
[2022-08-26] MEDS: MIST INHAL INH SCH (08:46)
[2022-08-26] MEDS: TIOTROPIUM BROMIDE 4 GM INH SCH (08:46)
[2022-08-26] MEDS: oxyCODONE 5 MG TABLET PO SCH ×2 (08:57→20:38)
[2022-08-26] MEDS ORDERED: MAGNESIUM HYDROXIDE 2,400 MG/30 ML UDC PO ONE (11:05)
[2022-08-26] MEDS: lisinopriL 5 MG TABLET PO SCH (19:34)
[2022-08-26] MEDS: ATORVASTATIN 40 MG TABLET PO SCH (20:38)
[2022-08-26] MEDS: carvediloL 3.125 MG TABLET PO SCH (20:41)
[2022-08-27] MEDS: ACETAMINOPHEN 325 MG TABLET PO PRN ×3 (00:52→19:53)
[2022-08-27] MEDS: SENNA 8.6 MG TABLET PO SCH ×3 (00:52→11:12)
[2022-08-27] MEDS: PRENATAL VITAMIN TABLET PO SCH (08:49)
[2022-08-27] MEDS: DOCUSATE SODIUM 250 MG CAPSULE PO SCH (08:49)
[2022-08-27] MEDS: POTASSIUM CHLORIDE 10 MEQ CAPSULE PO SCH (08:50)
[2022-08-27] MEDS: oxyCODONE 5 MG TABLET PO SCH ×2 (08:50→20:31)
[2022-08-27] MEDS: MAGNESIUM OXIDE 400 MG TABLET PO SCH (08:51)
[2022-08-27] MEDS: MIDODRINE 2.5 MG TABLET PO SCH ×3 (08:51→15:59)
[2022-08-27] MEDS: FLUTICASONE PROPION INH SCH ×2 (11:11→20:33)
[2022-08-27] MEDS: TIOTROPIUM BROMIDE 4 GM INH SCH (11:11)
[2022-08-27] MEDS: NICOTINE 7 MG PATCH TOP SCH (11:11)
[2022-08-27] MEDS: SALMETEROL INH SCH ×2 (11:11→20:33)
[2022-08-27] MEDS: polyethylene glycoL 3350 17 GM PACKET PO SCH (11:11)
[2022-08-27] MEDS: MIST INHAL INH SCH (11:11)
[2022-08-27] MEDS: THIAMINE 100 MG TABLET PO SCH (11:16)
[2022-08-27] MEDS: lisinopriL 5 MG TABLET PO SCH (19:53)
[2022-08-27] MEDS: ATORVASTATIN 40 MG TABLET PO SCH (20:31)
[2022-08-27] MEDS: carvediloL 3.125 MG TABLET PO SCH (20:31)
[2022-08-28] MEDS: ACETAMINOPHEN 325 MG TABLET PO PRN ×2 (05:42→17:32)
[2022-08-28] MEDS: MAGNESIUM OXIDE 400 MG TABLET PO SCH (08:34)
[2022-08-28] MEDS: POTASSIUM CHLORIDE 10 MEQ CAPSULE PO SCH (08:35)
[2022-08-28] MEDS: DOCUSATE SODIUM 250 MG CAPSULE PO SCH (08:35)
[2022-08-28] MEDS: THIAMINE 100 MG TABLET PO SCH (08:35)
[2022-08-28] MEDS: PRENATAL VITAMIN TABLET PO SCH (08:36)
[2022-08-28] MEDS: oxyCODONE 5 MG TABLET PO SCH ×2 (08:36→21:15)
[2022-08-28] MEDS: MIDODRINE 2.5 MG TABLET PO SCH ×3 (08:37→17:32)
[2022-08-28] MEDS: NICOTINE 7 MG PATCH TOP SCH (08:39)
[2022-08-28] MEDS: MIST INHAL INH SCH (08:40)
[2022-08-28] MEDS: TIOTROPIUM BROMIDE 4 GM INH SCH (08:40)
[2022-08-28] MEDS: SALMETEROL INH SCH ×2 (08:41→21:23)
[2022-08-28] MEDS: SENNA 8.6 MG TABLET PO SCH (08:41)
[2022-08-28] MEDS: polyethylene glycoL 3350 17 GM PACKET PO SCH (08:41)
[2022-08-28] MEDS: FLUTICASONE PROPION INH SCH ×2 (08:41→21:23)
[2022-08-28] MEDS: PANTOPRAZOLE 40 MG TABLET PO SCH (12:10)
[2022-08-28] MEDS ORDERED: LIDOCAINE PATCH 5% TOP PRN (16:31)
[2022-08-28] MEDS: lisinopriL 5 MG TABLET PO SCH (19:22)
[2022-08-28] MEDS: carvediloL 3.125 MG TABLET PO SCH (21:16)
[2022-08-28] MEDS: ATORVASTATIN 40 MG TABLET PO SCH (21:16)
[2022-08-29] MEDS: PANTOPRAZOLE 40 MG TABLET PO SCH (06:29)
[2022-08-29] MEDS: oxyCODONE 5 MG TABLET PO SCH ×2 (08:47→20:39)
[2022-08-29] MEDS: POTASSIUM CHLORIDE 10 MEQ CAPSULE PO SCH (08:47)
[2022-08-29] MEDS: PRENATAL VITAMIN TABLET PO SCH (08:47)
[2022-08-29] MEDS: MIDODRINE 2.5 MG TABLET PO SCH ×3 (08:47→16:28)
[2022-08-29] MEDS: THIAMINE 100 MG TABLET PO SCH (08:47)
[2022-08-29] MEDS: DOCUSATE SODIUM 250 MG CAPSULE PO SCH (08:47)
[2022-08-29] MEDS: MAGNESIUM OXIDE 400 MG TABLET PO SCH (08:48)
[2022-08-29] MEDS: NICOTINE 7 MG PATCH TOP SCH (08:48)
[2022-08-29] MEDS: TIOTROPIUM BROMIDE 4 GM INH SCH (08:49)
[2022-08-29] MEDS: FLUTICASONE PROPION INH SCH ×2 (08:49→20:42)
[2022-08-29] MEDS: SALMETEROL INH SCH ×2 (08:49→20:42)
[2022-08-29] MEDS: polyethylene glycoL 3350 17 GM PACKET PO SCH (08:49)
[2022-08-29] MEDS: MIST INHAL INH SCH (08:49)
[2022-08-29] MEDS: SENNA 8.6 MG TABLET PO SCH (08:50)
[2022-08-29] MEDS: ACETAMINOPHEN 325 MG TABLET PO PRN ×2 (16:28→20:40)
[2022-08-29] MEDS: ATORVASTATIN 40 MG TABLET PO SCH (20:40)
[2022-08-29] MEDS: lisinopriL 5 MG TABLET PO SCH (20:40)
[2022-08-29] MEDS: carvediloL 3.125 MG TABLET PO SCH (20:40)
[2022-08-30] MEDS: PANTOPRAZOLE 40 MG TABLET PO SCH (06:06)
[2022-08-30] MEDS: SENNA 8.6 MG TABLET PO SCH (08:41)
[2022-08-30] MEDS: MIDODRINE 2.5 MG TABLET PO SCH ×2 (08:41→12:16)
[2022-08-30] MEDS: polyethylene glycoL 3350 17 GM PACKET PO SCH (08:41)
[2022-08-30] MEDS: NICOTINE 7 MG PATCH TOP SCH (08:42)
[2022-08-30] MEDS: THIAMINE 100 MG TABLET PO SCH (08:42)
[2022-08-30] MEDS: PRENATAL VITAMIN TABLET PO SCH (08:42)
[2022-08-30] MEDS: DOCUSATE SODIUM 250 MG CAPSULE PO SCH (08:42)
[2022-08-30] MEDS: POTASSIUM CHLORIDE 10 MEQ CAPSULE PO SCH (08:42)
[2022-08-30] MEDS: MAGNESIUM OXIDE 400 MG TABLET PO SCH (08:42)
[2022-08-30] MEDS: oxyCODONE 5 MG TABLET PO SCH (08:44)
[2022-08-30] MEDS: MIST INHAL INH SCH (08:47)
[2022-08-30] MEDS: TIOTROPIUM BROMIDE 4 GM INH SCH (08:47)
[2022-08-30] MEDS: SALMETEROL INH SCH (08:48)
[2022-08-30] MEDS: FLUTICASONE PROPION INH SCH (08:48)
--- NOTE | 2022-08-30 12:35 | Discharge Plan ---
Discharge Plan Problem Reviewed?: Yes Disposition: Home Health Service Condition: Good Prescriptions: Lidocaine Patch 5% [Lidoderm Patch] 1 patch TOP DAILY PRN #30 patch PRN Reason: Pain Atorvastatin [Lipitor] 40 mg PO QPM #30 tab Midodrine [ProAmatine] 2.5 mg PO TIDWM #90 tab Pantoprazole [Protonix] 40 mg PO QDAC #30 tab oxyCODONE [Roxicodone] 5 mg PO BID #30 tab Diet: Soft Activity Restrictions: Activity as Tolerated Shower Restrictions: No Driving Restrictions: Yes (no driving) Assistance Devices: Wheelchair Health Concerns: You were brought to the hospital after one of your friends insisted on you coming in on August 18. You had fallen, hurt your shoulder, and had been 2 days when you were able to get up. You were weak, shaky. In that visit we found you to have severe anemia, and possible severe bronchitis or early pneumonia. We transfuse you 3 units of blood and her hemoglobin is better. We also started you on a vitamin or multivitamin with minerals to make sure that your B12 and folate and iron were being given to you. You have a known history of congestive heart failure and you are on carvedilol and spironolactone for that. Because your blood pressure was too low, you have not been on spironolactone this entire time. If your blood pressure gets too low, you tend to pass out with that. The reason your shoulder hurts is that your clavicle is broken. You also broke your right seventh rib. You were also very malnourished. After trying to get all these problems taking care of, you were still too weak to go home. And as such we admitted you to swing bed [facility] which is a residential rehab program on August 23. Physical therapy has been working very carefully with you. We have to work on the fact that you are kind of impulsive and you move too fast. That would put you at risk for more falls. You she fell getting out of bed here. You hit your head and you have sony in your head. Your dizziness when you stand up is gotten better. You are walking with a front wheel walker and you are able to walk 300 feet. You were able to maneuver from sitting to standing. You are able to get your pants on, get your slippers on. You are able to go to the bathroom and take care of your needs by her self. The main problem we see with you is impulsivity. You get up too fast and move too fast before you think what you need to do. Please be careful about that. Plan of Treatment: Please see your primary care provider, Dr. Jane Mac, in the next [address] Mac needs to make sure that your blood work stays stable and to make sure you are not getting anemic. So she should probably do something called a CBC and a BMP. Dr. Mac also needs to weigh you to make sure you are not gaining water weight from congestive heart failure. When you leave here, you are 53 Kg or 116.6 pounds. You have not been on water pills (spironolactone) since you were in the hospital. As such, we are not giving you your spironolactone at home. But we are aware that people change their diet once to get home, and you will most likely increase your salt intake. If you start to get swollen ankles, swollen testicles, resume your water pills and make sure Dr. Mac knows you are doing it. Do not drink anymore alcohol. It only seems to get you into trouble. Not even 1 beer or 1 shot of any alcohol. Care Goals: At this time your goals are to get strong enough to live alone independently. T hat means you need to be able to dress yourself, feed yourself, and walk within your home safely. To take a shower, to take out the garbage, to do your laundry, etc. safely. We would also ask you to start making plans for the time you may not be able to take care of yourself. Please start looking at nursing homes in the area over the next few months. [place] or move somewhere else with family, or stay in your own home but hire people to start taking care of you. Assessment: Patient is alert, oriented, still able to make his own decisions. Promises to follow through. No Smoking: If you smoke, Please STOP! Call for help. Follow-up with: Jane Mac MD [Provider Admit Priv/Credential] -
[2022-08-30 13:31] VITALS: BP 135/83
--- NOTE | 2022-08-30 18:43 | DISCHARGE SUMMARY ---
"Discharge Summary Admit Date: 08/23/22 Discharge Date: 08/30/22 Discharging Provider: Isamar Patton MD Primary Care Provider: Jane Mac MD Code Status: Attempt Resuscitation Condition at Discharge: Good Discharge Disposition: Home Health Service - DIAGNOSES Discharge Diagnoses with Status of Each Condition: 1. Generalized weakness 2. Severe protein calorie malnutrition 3. Chronic heart failure with preserved ejection fraction 4. Iron deficiency anemia 5. Alcohol abuse 6. Clavicular fracture 7. COPD without exacerbation 8. Orthostatic hypotension 9. Fall during recent hospitalization 10. Laceration of scalp - HPI History of Present Illness: This is a 77 y/o WM wo lives alone with Hx of HFrEF, COPD not on home O2, still smokes, has Hx of alcohol abuse, Hx of frequent falls, Was an inpatient after he had a syncopal event that made him fall, neighbor helped him to the couch but he could not get up for 2 days because of right shoulder pain then the neighbor finally advised to be admitted. He was hospitalized for symptomatic anemia with hemoglobin 5.6, needed 3 units of blood transfused, now has a documented iron deficiency anemia, and first had low blood pressures documented then had orthostasis documented, and he needed all of his cardiac medications adjusted to lower doses and spread out. The patient did not go through alcohol withdrawal. He did not have a COPD exacerbation. We did find him to have rib fracture and right clavicle fracture, but he was able to start participating with PT and OT. He is being admitted to SNF (swing bed status here) for further PT and OT rehab. His CODE STATUS is DNR/DNI. History - Past Medical History Cardiovascular: reports: Congestive heart failure Respiratory: reports: COPD Neuro: reports: None GI: reports: GERD : reports: None HEENT: reports: None Psych: reports: None Musculoskeletal: reports: Chronic back pain, Other (Hx of many fractures from freq falls) Derm: reports: None MRSA Hx?: No - Past Surgical History Ortho: reports: Hip replacement Cardiovascular: reports: Coronary stent - CONSULTS | PROCEDURES Procedures: Stapling of scalp laceration - HOSPITAL COURSE Hospital Course: The patient was started on physical therapy and Occupational Therapy. He demonstrated excellent progress with physical therapy services and met all of his functional mobility goals. He steadily improved his gait tolerance and independence with no supplemental oxygen. Was able to walk 300 feet using a front wheel walker and standby assist. He improved his independence with standing from short chair height. He had greatly reduced fall risk with this therapy. On the evening of August 24, the patient was witnessed to get up out of bed without an assist even though a bed alarm was placed. As the nurse and aide were walking in the room to help him, with the bed alarm going off, he fell on the floor. CT of the head was negative. ER provider placed sony for scalp laceration. I spoke to Dr. Bryant today who states that the sony should be removed at 8 to 10 days. 10 days will be September 03. He is due to see his primary care provider and is recommended that his sony get removed then. At discharge temperature was 36.4. Heart rate 68. Blood pressure 135/83. We did do orthostatics on him and supine he was 116/47. Sitting he was 127/67. Standing he was 114/78. Pulse did go from 65, then 108, and was 122 with this. Respirations were 18 and unlabored. He was 96% saturated on room air. He is a 5 foot 10 inches elderly male who weighs 53 kg. Still has a ways to go to regain weight and he has been told that he really needs to eat better. He will be sent home with home health to continue PT and OT. Lungs were clear. Regular rate and rhythm. A benign abdomen. No edema. Greater than 30 minutes was spent coordinating discharge. After reconciling his medication list from when he was admitted to the acute care stay to now, he has not been continued on his home spironolactone. That is discontinued to avoid orthostatic hypotension and dizziness. I have explained to him that he needs to stay on his Coreg. But if he gains too much water weight in the next week, to resume the Coreg and speak to his primary care provider. I would recommend a BMP and a CBC when he sees his PCP. I have asked him to make sure he does not drink. - ALLERGIES Allergies/Adverse Reactions: Allergies Allergy/AdvReac Type Severity Reaction Status Date / Time lactose AdvReac Intermediate Cramps Verified 08/18/22 14:12 - MEDICATIONS Home Medications: Ambulatory Orders Medication Instructions Recorded Confirmed Fluticasone Propion/Salmeterol 1 puffs INH BID 08/18/22 08/22/22 [Fluticasone-Salmeterol 250-50] Mirtazapine 7.5 mg PO QPM 08/18/22 08/22/22 Tiotropium [place] [Spiriva 2 puffs INH DAILY 08/18/22 08/22/22 Respimat] Acetaminophen [Tylenol] 650 mg PO Q4HR PRN tab 08/22/22 08/22/22 Magnesium Oxide [Mag Ox] 400 mg PO DAILYWM tab 08/22/22 08/22/22 Multivitamin W/Minerals [Theragran 1 tab PO DAILYWM tab 08/22/22 08/22/22 M] Potassium Chloride [Micro-K] 20 meq PO DAILYWM cap 08/22/22 08/22/22 Thiamine [Vitamin B-1] 100 mg PO DAILY #30 tablet 08/22/22 08/22/22 carvediloL [Coreg] 3.125 mg PO BID tab 08/22/22 08/22/22 lisinopriL [Zestril] 2.5 mg PO QPM tab 08/22/22 08/22/22 polyethylene glycoL 3350 [Miralax] 17 gm PO DAILY packet 08/22/22 08/22/22 Atorvastatin [Lipitor] 40 mg PO QPM #30 tab 08/30/22 Lidocaine Patch 5% [Lidoderm Patch] 1 patch TOP DAILY PRN #30 patch 08/30/22 Midodrine [ProAmatine] 2.5 mg PO TIDWM #90 tab 08/30/22 Pantoprazole [Protonix] 40 mg PO QDAC #30 tab 08/30/22 oxyCODONE [Roxicodone] 5 mg PO BID #30 tab 08/30/22 - LABS Result Diagrams: 08/24/22 18:42 08/24/22 18:42"
== END 2022-08-30 14:52 | disposition home health service (06) | DRG 947 ==
LOC: MS2 12:09
PROVIDERS: ADMIT Internal Medicine; ATTEND Specialist
DX: R53.1 Weakness (principal); E43 Unspecified severe protein-calorie malnutrition; Z68.1 Body mass index [BMI] 19.9 or less, adult; I50.22 Chronic systolic (congestive) heart failure; D50.9 Iron deficiency anemia, unspecified; F10.10 Alcohol abuse, uncomplicated; S42.001D Fracture of unspecified part of right clavicle, subsequent encounter for fracture with routine healing; W18.30XD Fall on same level, unspecified, subsequent encounter; J44.9 Chronic obstructive pulmonary disease, unspecified; I95.1 Orthostatic hypotension; S01.01XA Laceration without foreign body of scalp, initial encounter; W18.30XA Fall on same level, unspecified, initial encounter; Z91.81 History of falling; Y93.9 Activity, unspecified; Y92.230 Patient room in hospital as the place of occurrence of the external cause; G89.29 Other chronic pain; S22.31XD Fracture of one rib, right side, subsequent encounter for fracture with routine healing; F17.210 Nicotine dependence, cigarettes, uncomplicated; Z66 Do not resuscitate; T14.8XXD Other injury of unspecified body region, subsequent encounter
CPT/HCPCS: 36415; 80053; 81001; 81003; 82140; 83605; 85025; 87086

== ENCOUNTER 2022-09-05 08:45 | Outpatient (CLI) | payer MEDICARE, OTHER ==
--- NOTE | 2022-09-05 13:17 | XRAY Report ---
PROCEDURE: Clavicle RT INDICATIONS: RIGHT CLAVICLE FX TECHNIQUE: 2 views of the clavicle were acquired. COMPARISON: 08/18/2022 FINDINGS: Subacute fracture of the right distal clavicle at the junction of the diaphysis and metaphysis, incre ased in degree of displacement when compared with previous exam. IMPRESSION: Right distal clavicle fracture which is displaced and the degree of displacement is slightly increase d from comparison CT chest. Reviewed by: Rodríguez Childs MD on 09/05/2022 1:16 PM PST Approved by: Rodríguez Childs MD on 09/05/2022 1:16 PM PST Station ID: [id number]
== END 2022-09-05 23:59 | disposition home or self-care (01) ==
LOC: DI.WOS 08:45
PROVIDERS: ATTEND Orthopaedic Surgery
DX: S42.031A Displaced fracture of lateral end of right clavicle, initial encounter for closed fracture (principal)

== ENCOUNTER 2022-09-26 14:27 | Outpatient (CLI) | payer MEDICARE, OTHER | END 2022-09-26 23:59 | disposition short-term general hospital (02) | LOC: EMS 14:27 | DX: M25.551 Pain in right hip (principal); M25.511 Pain in right shoulder; R55 Syncope and collapse; W18.39XA Other fall on same level, initial encounter; Y92.003 Bedroom of unspecified non-institutional (private) residence as the place of occurrence of the external cause | CPT/HCPCS: A0425; A0427 ==

== ENCOUNTER 2023-09-26 07:52 | Outpatient (CLI) | payer MEDICARE, OTHER ==
--- NOTE | 2023-09-26 09:42 | CT Report ---
PROCEDURE: Chest WO INDICATIONS: PULMONARY NODULES TECHNIQUE: A CT scan of the chest was performed. Intravenous contrast media was not administered. Images were re corded and evaluated at appropriate window settings. Reformats: axial MIP of the chest, coronal and s agittal. For radiation dose reduction, the following was used: automated exposure control, adjustment of mA and/or kV according to patient size. COMPARISON: CT chest 05/04/2022. FINDINGS: Image quality: Diagnostic. Chest wall and lower neck: No thyroid nodule which requires sonographic follow up. No axillary or sup raclavicular adenopathy by size. Lungs and pleura: No consolidation. No pleural effusions. No pneumothorax. Emphysematous lung change s. No suspicious pulmonary nodules which require follow up. 3mm left lower lobe solid nodule 41/4 likely benign 3 mm calcified nodule left lower lobe 45/4, benign 4 mm perifissural lymph node left base 4 6/4, benign 4 mm right base nodule 57/4, benign, 3 mm calcified nodule right base 65/4, unchanged benign 3 mm right bacse perifacial lymph node 69/4, benign Mediastinum: Heart size is normal. Severe coronary calcifications. No pericardial effusion. No large vessel abnormality. A large 1.2 cm precarinal lymph node 43/2, increased in size from prior study on 05/04/2022 and was measuring 9 mm. Bones: Compression deformity of mid thoracic vertebral body, appears unchanged from 05/04/2022 Osteopenia. Old left rib fractures. Upper Abdomen: Nonobstructive 2 mm upper pole left renal stone. IMPRESSION: 1. Emphysematous lung changes with pulmonary nodules, stable in size since 05/04/2022. Recommend follo w up noncontrast chest CT in 12 months. 2. Single slightly enlarged mediastinal lymph node of unknown etiology or clinical significance. It c ould be reactive. 3. Severe coronary calcifications Reviewed by: Sixto Andrews MD on 09/26/2023 9:41 AM PST Approved by: Sixto Andrews MD on 09/26/2023 9:41 AM PST Station ID: [id number]
== END 2023-09-26 07:53 | disposition home or self-care (01) ==
LOC: DI 07:52
PROVIDERS: ATTEND Internal Medicine
DX: R91.8 Other nonspecific abnormal finding of lung field (principal); J43.9 Emphysema, unspecified; R59.0 Localized enlarged lymph nodes; I71.43 Infrarenal abdominal aortic aneurysm, without rupture; I35.0 Nonrheumatic aortic (valve) stenosis

== ENCOUNTER 2023-09-26 08:13 | Outpatient (CLI) | payer MEDICARE, OTHER ==
--- NOTE | 2023-09-26 15:37 | Ultrasound Report ---
PROCEDURE: Renal Ltd (Retroperitoneal Ltd INDICATIONS: AAA TECHNIQUE: Real-time scanning was performed of the retroperitoneal organs, with image documentation. COMPARISON: None. FINDINGS: Proximal mid and distal aorta measure 2.1 x 2.4 cm, 1.2 x 2.1 cm and 4.5 x 4.0 cm respectively. Previ ous aneurysmal dilation on CT measured approximately 4.3 cm. Right and left common iliac arteries elizabeth sure 1.0 x 1.2 cm and 0.8 x 1.0 cm respectively. There is incidental note of approximate 70% stenosis with calcification within the distal aorta extending to the proximal iliac arteries bilaterally. IMPRESSION: Similar versus slightly increased appearance of distal aortic aneurysmal dilation taking into account difference between ultrasound and CT modalities. Marked stenosis of the distal aorta at the aortoiliac bifurcation secondary to atherosclerotic calcif ications. This appears relatively unchanged compared to prior exams. Reviewed by: Diane Garcia MD on 09/26/2023 3:35 PM PST Approved by: Diane Garcia MD on 09/26/2023 3:35 PM PST Station ID: [id number]
== END 2023-09-26 08:14 | disposition home or self-care (01) ==
LOC: DI 08:13
PROVIDERS: ATTEND Internal Medicine
DX: I71.43 Infrarenal abdominal aortic aneurysm, without rupture (principal); I35.0 Nonrheumatic aortic (valve) stenosis

== ENCOUNTER 2024-04-22 07:15 | Day surgery (SDC) | payer MEDICARE, OTHER ==
[2024-04-22] MEDS: PROPARACAINE 0.5% OPHTH DROPS 15 ML ONE (07:40)
[2024-04-22] MEDS: KETOROLAC TROMETHAMINE 0.5% OPHTH DROPS 5 ML ONE (07:41)
[2024-04-22] MEDS: CYCLOPENTOLATE 1% OPHTH DROPS 2 ML ONE (07:42)
[2024-04-22] MEDS: PHENYLEPHRINE 2.5% OPHTH 2 ML DROPS ONE (07:43)
[2024-04-22] MEDS ORDERED: MIDAZOLAM 2 MG/2 ML VIAL ONE (08:08)
[2024-04-22] MEDS ORDERED: EPINEPHrine 1 MG/ML AMP ONE (08:18)
[2024-04-22] MEDS ORDERED: TIMOLOL 0.5% OPHTH DROPS ONE (08:18)
[2024-04-22] MEDS ORDERED: BRIMONIDINE 0.2% OPHTH DROPS 5 ML ONE (08:18)
[2024-04-22] MEDS ORDERED: TRIAMCIN/MOXIFLOX OPHTHALMIC 0.6 ML VIAL IO ONE (08:18)
[2024-04-22] MEDS ORDERED: BSS/LIDOCAINE/EPINEPHRINE 1 ML VIAL ONE (08:19)
--- NOTE | 2024-04-22 08:29 | ANESTHESIA ---
Pre-Anesthesia VS, & Labs - Diagnosis right cataract - Procedure right cataract extraction with IOL Vital Signs: Temp Pulse Resp BP Pulse Ox O2 Flow Rate 36.6 C 85 16 152/97 H 04/22/24 07:31 04/22/24 07:31 04/22/24 07:31 04/22/24 07:31 Height: 5 ft 8 in Weight (kg): 55.2 kg Body Mass Index: 18.5 BMI Classification: Normal - NPO >8 hours Home Medications and Allergies Fluticasone Propion/Salmeterol [Fluticasone-Salmeterol 250-50] 1 puffs INH BID 08/18/22 Mirtazapine 7.5 mg PO QPM 08/18/22 Tiotropium [place] [Spiriva Respimat] 2 puffs INH DAILY 08/18/22 Allergies/Adverse Reactions: Allergies Allergy/AdvReac Type Severity Reaction Status Date / Time lactose AdvReac Intermediate Cramps Verified 04/21/24 13:43 Anes History & Medical History - Anesthetic History Anesthesia Complications: reports: No previous complications - Medical History Cardiovascular: reports: Congestive heart failure, Hypertension, High cholesterol Pulmonary: reports: COPD, Pneumonia Gastrointestinal: reports: GERD Urinary: reports: None Neuro: reports: None Musculoskeletal: reports: Chronic back pain, Other Endocrine/Autoimmune: Blood Disorders: reports: None Skin: reports: None Smoking Status: Current every day smoker Psychosocial: reports: Alcohol (one beer a day) - Surgical History Cardiothoracic: reports: Coronary stent Orthopedic: reports: Hip replacement Exam General: Alert, Oriented x3 Dental: WNL, Dentures full Upper, Dentures full Lower Mouth Opening: Greater than 4 Fingerbreadths Neck Mobility: Normal Mallampati classification: III Thyromental Distance: greater than 6 cm Respiratory: Rhonchi Cardiovascular: Regular rate Plan Anesthesia Type: MAC Consent for Procedure(s) Verified and Reviewed: Yes Code Status: Attempt Resuscitation ASA classification: 3-Severe systemic disease Is this case an emergency?: No
[2024-04-22] MEDS ORDERED: fentaNYL 100 MCG/2 ML VIAL ONE (08:33)
[2024-04-22] MEDS: TIMOLOL 0.5% OPHTH DROPS OPTH ONE (08:44)
[2024-04-22] MEDS: EPINEPHrine 1 MG/ML AMP IR ONE (08:44)
[2024-04-22] MEDS: BRIMONIDINE 0.2% OPHTH DROPS 5 ML OPTH ONE (08:44)
[2024-04-22] MEDS: VANCOMYCIN OPHTH (TOPICAL) 10 MG/ML SYRINGE TOP ONE (08:45)
[2024-04-22] MEDS: TRIAMCIN/MOXIFLOX OPHTHALMIC 0.6 ML VIAL IO ONE (08:45)
[2024-04-22] MEDS: BSS/LIDOCAINE/EPINEPHRINE 1 ML SYRINGE IO ONE (08:45)
[2024-04-22] MEDS: PROPARACAINE 0.5% OPHTH DROPS 15 ML RIGHTEYE ONE (08:45)
[2024-04-22] MEDS: LACTATED RINGERS 1,000 ML IV ONE (08:52)
--- NOTE | 2024-04-22 09:02 | OPERATIVE REPORT ---
Operative Report - Other Other Information/Narrative: Date of Surgery: 04/22/24 Preop Dx: Visually significant cataract right eye. This was the first cataract surgery. Postop Dx: Same Procedure: Phacoemulsification with posterior chamber intraocular lens implant right eye Surgeon: Dr. Dayne Torres Anesthesia: Monitored anesthesia care Complications: None Operative Indications: This is a 78-year-old M with progressive vision loss in the right eye due to 4+ nuclear sclerotic and 1+ cortical cataract. Best corrected visual acuity was 20/60 with glare to 20/500 vision in the right eye. Indications for surgery were: - Overall decrease in vision - Difficulty seeing words on a computer screen - Difficulty reading - Difficulty seeing words, closed captions, or game scores on TV - Difficulty seeing street signs - Difficulty driving in low light or at night - Difficulty driving at night because of headlights from other vehicles - Difficulty with glare or bright lights in any situation - Decreased acuity with firearms The patient was consented at length concerning the risks and benefits of cataract surgery after which the patient expressed a desire to proceed with surgery. Operative Procedure: The patient was taken into OR#3 and placed under monitored anesthesia care. A surgical time-out was conducted confirming correct patient, correct procedure, and correct surgical site. The patient was given topical anesthesia and then prepped and draped in the usual sterile fashion. The eye was entered at the 6 and 3 oclock positions. Intracameral Shugarcaine was injected into the anterior chamber followed by a dispersive viscoelastic. A continuous-tear curvilinear capsulorhexis was performed. The nucleus was hydrodissected and phacoemulsified. Of note, the pupil came down to about the edge of the capsulorhexis and seemed to flop about easily. The cortex was evacuated using automated infusion and aspiration. A cohesive viscoelastic was injected into the capsular bag and a 19.0 diopter intraocular lens was inserted into the bag. Infusion and aspiration were used to evacuate the viscoelastic materials from the eye. at the end of cortical cleanup I thought I saw a small plate of nucleus whiz by but I could not find it even after extensive I&A and copious flushing of the sulcus with BSS. The wounds were hydrated and the eye inflated to physiologic pressure using balanced salt solution. Approximately 0.25ml of a mixture of triamcinolone and moxifloxacin was injected trans- sclerally into the vitreous in the inferotemporal quadrant using a 30 gauge cannula. An additional 0.25ml of a mixture of triamcinolone and moxifloxacin was injected subconjunctivally in the superior quadrant for infection and inflammation prophylaxis. Wound integrity was checked with Weck-Cortney sponges. The patient was taken from the operating room in good condition and given post- op instructions.
[2024-04-22 09:37] VITALS: BP 129/67; O2SAT 96
--- NOTE | 2024-04-22 11:30 | ANESTHESIA POST OP EVALUATION ---
Anesthesia Post Eval - Post Anesthesia Eval Vitals: Last Vital Signs Temp 36.2 C L 04/22/24 08:52 Pulse 84 04/22/24 09:30 Resp 16 04/22/24 09:30 BP 129/67 04/22/24 09:30 Pulse Ox 96 04/22/24 09:30 O2 Flow Rate CV Function Including HR & BP: Stable Pain Control: Satisfactory Nausea & Vomiting: Negative Mental Status: Baseline Respiratory Status: Airway Patent Hydration Status: Satisfactory Anesthesia Complications: None
== END 2024-04-22 07:16 | disposition home or self-care (01) ==
LOC: SDS 07:15
PROVIDERS: ATTEND Ophthalmology
DX: H25.11 Age-related nuclear cataract, right eye (principal); J44.9 Chronic obstructive pulmonary disease, unspecified; I11.0 Hypertensive heart disease with heart failure; I50.9 Heart failure, unspecified; F17.200 Nicotine dependence, unspecified, uncomplicated
CPT/HCPCS: 66984; A9270; J3490; J7120

== ENCOUNTER 2024-05-28 03:24 | Inpatient (IN) ==
--- NOTE | 2024-05-28 03:43 | ED Physician Documentation ---
History of Present Illness Stated complaint Stated Complaint: SOA Chief complaint Chief Complaint: Resp History obtained from History obtained from: Patient Additonal information Additional information: 79-year-old male with history of A-fib, heart failure with reduced EF, COPD, presents with shortness of breath and CHF exacerbation. Patient was seen here earlier yesterday for CHF exacerbation and discharged home with spironolactone. Patient states that he still feels volume overloaded and is requesting Lasix. Denies chest pain, nausea, diaphoresis, dizziness. Denies fever Meds/Allgy Home Medications Ambulatory Orders Medication Instructions Recorded Confirmed fluticasone 250 mcg-salmeterol 50 1 puff inhalation BID 08/18/22 05/27/24 mcg/dose blistr powdr for inhalation mirtazapine 15 mg tablet 7.5 mg PO QPM 08/18/22 05/27/24 tiotropium bromide 2.5 2 puff inhalation DAILY 08/18/22 05/27/24 mcg/actuation mist for inhalation (Spiriva Respimat) acetaminophen 325 mg tablet 650 mg (2 x 325 mg) PO Q4HR PRN 08/22/22 05/27/24 Pain 1-4 or Fever > 38C carvedilol 3.125 mg tablet 3.125 mg PO BID 08/22/22 05/27/24 [id number]-[id number] 1 tab PO DAILYWM 08/22/22 05/27/24 fumarate 19 mg-folic acid 400 mcg tablet (Therapeutic-M) atorvastatin 40 mg tablet 40 mg PO QPM #30 tabs 08/30/22 05/27/24 lidocaine 5 % topical patch 1 patch topical DAILY PRN Pain #30 08/30/22 05/27/24 patches midodrine 2.5 mg tablet 2.5 mg PO TIDWM #90 tabs 08/30/22 05/27/24 pantoprazole 40 mg tablet,delayed 40 mg PO QDAC #30 tabs 08/30/22 05/27/24 release lisinopril 20 mg tablet 20 mg PO DAILY 05/27/24 05/27/24 spironolactone 25 mg tablet 25 mg PO DAILY 4 days #4 tabs 05/27/24 Allergies Allergies Allergy/AdvReac Type Severity Reaction Status Date / Time lactose AdvReac Intermediate Cramps Verified 05/28/24 03:32 [facility] Social History Social History (Updated 05/27/24 @ 10:34 by Ernie Jean-Baptiste, RN, BSN) Smoking Status: Current some day smoker If you are a former smoker, when did you quit? (Date/Year): 2017 Number of Years Smoked: 57 How many cigarettes a day do you smoke? (20 cigarettes=1 Pk): 57 Do you vape?: No Living arrangement: At home Marital Status: Living Condition: Alone Support Person: Yes Relationship: Physical Activity: Walking Home Mobility Equipment: Cane, Walker and Wheelchair Do you feel safe in your home environment?: Yes Suffered physical, verbal, emotional, or financial abuse?: No History of Abuse: No ETOH Use: Beer Frequency: Daily Number of Amount/day: 1 POLST Patient has POLST: No Exam Exam Vital Signs Temperature 36.3 C L 05/28/24 03:32 Pulse Rate 115 H 05/28/24 03:32 Respiratory Rate 22 05/28/24 03:32 Blood Pressure 175/89 H 05/28/24 03:32 O2 Saturation 95 05/28/24 03:32 Constitutional normal general appearance, no apparent distress and average body habitus HENMT head/scalp atraumatic Eyes PERRL Respiratory breath sounds equal bilaterally Bilateral inspiratory crackles Cardiovascular Tachycardic rate, irregular rhythm Gastrointestinal abdomen normal to inspection, abdomen soft to palpation and nontender to palpation Results Vitals Vitals: Vital Signs - 24 hr 05/27/24 10:24 05/27/24 13:29 05/28/24 03:32 Temperature 36.3 C L Temperature Source Temporal Artery Scan Pulse Rate 115 H Respiratory Rate 22 Blood Pressure 175/89 H O2 Saturation 95 O2 Source Room air Room air Pain Intensity 0 0 05/28/24 03:39 Temperature Temperature Source Pulse Rate Respiratory Rate Blood Pressure O2 Saturation O2 Source Pain Intensity 0 Oxygen O2 Source [With Activity] Room air O2 Source Room air EKG (time done) 0343: EKG releavant findings:: EKG personally interpreted by author of this note. Relevant findings are: Rate: Rate (enter#) (108) Rhythm: Sinus tachycardia and LAE Intervals: RBBB Labs Labs: Laboratory Tests 05/28/24 05/28/24 03:31 03:46 WBC 8.6 RBC 3.60 L Hgb 11.6 L Hct 36.7 L MCV 101.9 H MCH 32.2 H MCHC 31.6 L RDW 20.5 H Plt Count 280 MPV 9.9 Manual Slide Review Indicated VBG pH 7.424 H VBG pCO2 42.3 VBG pO2 37.1 VBG HCO3 27.1 VBG Total CO2 28.4 VBG O2 Saturation 82.8 H VBG Base Excess 2.3 H PD Medical Decision Making ED course Complexity details: reviewed old records, reviewed results and d/w patient ED course: 79-year-old man presents with CHF exacerbation, bounce back after being seen yesterday and discharged home with persistent shortness of breath. He was provided with IV Lasix here in the emergency department as well as oral potassium. Plan is to admit him to observation for serial lab work and possible further diuresis. Discharge Plan Discharge Patient Disposition: ED Place in Observation Condition: Fair Clinical Impression: Acute exacerbation of CHF (congestive heart failure) Prescriptions: No Action fluticasone propion-salmeterol 1 EACH blister with device 1 puff inhalation BID mirtazapine 15 MG tablet 7.5 mg PO QPM Spiriva Respimat 4 GM mist 2 puff inhalation DAILY acetaminophen 325 MG tablet 650 mg PO Q4HR PRN (Reason: Pain 1-4 or Fever > 38C) 0RF carvedilol 3.125 MG tablet 3.125 mg PO BID 0RF Therapeutic-M 1 TAB tablet 1 tab PO DAILYWM 0RF atorvastatin 40 MG tablet 40 mg PO QPM Qty: 30 0RF pantoprazole 40 MG tablet,delayed release (DR/EC) 40 mg PO QDAC Qty: 30 0RF lidocaine 1 PATCH adhesive patch,medicated 1 patch topical DAILY PRN (Reason: Pain) Qty: 30 0RF midodrine 2.5 MG tablet 2.5 mg PO TIDWM Qty: 90 0RF lisinopril 20 mg tablet 20 mg PO DAILY spironolactone 25 mg tablet 25 mg PO DAILY 4 Days Qty: 4 0RF Rx Instructions: Take one pill daily for the next four days starting 05/28/2024 Print Language: Bengali Stand Alone Forms: PCP List
[2024-05-28 03:44] LABS: BASOPHILS # (AUTO) 0.1 10^3/uL (0.0-0.1); BASOPHILS % (AUTO) 0.9 %; EOSINOPHILS # (AUTO) 0.2 10^3/uL (0.0-0.7); EOSINOPHILS % (AUTO) 2.7 %; HCT - HEMATOCRIT 36.7 % (42.0-52.0); HGB - HEMOGLOBIN 11.6 g/dL (14.0-18.0); LYMPHOCYTES % (AUTO) 11.6 %; MEAN CORPUSCULAR HEMOGLOBIN 32.2 pg (27.0-31.0); MEAN CORPUSCULAR HGB CONC 31.6 g/dL (32.0-36.0); MEAN CORPUSCULAR VOLUME 101.9 fL (80.0-94.0); MEAN PLATELET VOLUME 9.9 fL (7.4-11.4); MONOCYTES # (AUTO) 0.7 10^3/uL (0.0-1.0); MONOCYTES % (AUTO) 8.1 %; NEUTROPHILS # (AUTO) 6.5 10^3/uL (1.5-6.6); NRBC ABSOLUTE COUNT (AUTO) 0.05 x10^3/uL; NUCLEATED RED BLOOD CELLS AUTO 0.6 /100WBC; PLT - PLATELET COUNT 280 10^3/uL (130-450); RED CELL DISTRIBUTION WIDTH 20.5 % (12.0-15.0); WHITE BLOOD COUNT 8.6 x10^3/uL (4.8-10.8)
[2024-05-28 03:46] LABS: SLIDE REVIEW? Indicated
[2024-05-28 03:50] LABS: VBG PH 7.424 (7.31-7.41)
[2024-05-28 03:51] LABS: VBG BASE EXCESS 2.3 mmol/L (-2 - +2); VBG HCO3 27.1 mmol/L (23-28); VBG PCO2 42.3 mmHg (41-51); VBG PO2 37.1 mmHg (25-47); VBG TOTAL CO2 28.4 mmol/L (24-29)
[2024-05-28] MEDS: POTASSIUM CHLORIDE 20 MEQ/15 ML UDC PO STA (03:52)
[2024-05-28 03:53] LABS: VBG OXYGEN SATURATION 82.8 % (60-80)
[2024-05-28] MEDS: FUROSEMIDE 40 MG/4 ML VIAL IVP STA (03:53)
[2024-05-28 04:02] LABS: ALBUMIN 3.8 g/dL (3.2-5.5); ALBUMIN/GLOBULIN RATIO 1.6 (1.0-2.2); BILIRUBIN,TOTAL 0.6 mg/dL (0.2-1.0); CALCIUM 9.1 mg/dL (8.5-10.3); CREATININE 0.9 mg/dL (0.6-1.3); POTASSIUM 3.5 mmol/L (3.5-4.5); TOTAL PROTEIN 6.2 g/dL (6.4-8.9)
[2024-05-28 04:10] LABS: PLATELET ESTIMATE, MANUAL NORMAL (130-450,000) (NORMAL)
[2024-05-28] MEDS ORDERED: SODIUM CHLORIDE FLUSH 0.9% 10 ML SYRINGE IVP PRN (04:10)
[2024-05-28] MEDS ORDERED: ONDANSETRON 4 MG/2 ML VIAL IVP PRN (04:10)
--- NOTE | 2024-05-28 04:44 | HISTORY & PHYSICAL EXAMINATION ---
Chief Complaint Chief Complaint Chief Complaint: shortness of breath History of Present Illness Admitted From Admitted From:: ED History Obtained From Records Reviewed: Y History obtained from: Ed physician and patient Exam Limitations: none History of Present Illness HPI Comment/Other: Mr. Clayton is a 76 yo M with a history of COPD , Afib and ischemic cardiomyopathy, heart failure. Patient presented to the Ed for evaluation of worsening shortness of breath. Symptoms started a week prior to presentation. He had nonproductive cough, increase lower extremity edema, exertional dypnea and orthopnea.He denies any fevers or sick contact. he denies any chest pain. Chest xray demonstrated findings of pulmonary edema. He stated he has been compliant with his medicaitons. He has not seen a electrical fitter in about a year. During my evaluation, telemedicine tools were utilized including phone and live video. Patient was resting in no acute distress. Plan of care to admit for diuresis and further cardiac evaluation including ECHO was discussed. Patient agreed to plan of management and provided consent to proceed with this telemedicine visit. Review of Systems Status of ROS: 10 or more systems reviewed and unremarkable except as noted in history and below [facility] Social History Social History (Updated 05/27/24 @ 10:34 by Ernie Jean-Baptiste, RN, BSN) Smoking Status: Current some day smoker If you are a former smoker, when did you quit? (Date/Year): 2017 Number of Years Smoked: 57 How many cigarettes a day do you smoke? (20 cigarettes=1 Pk): 57 Do you vape?: No Living arrangement: At home Marital Status: Living Condition: Alone Support Person: Yes Relationship: Physical Activity: Walking Home Mobility Equipment: Cane, Walker and Wheelchair Do you feel safe in your home environment?: Yes Suffered physical, verbal, emotional, or financial abuse?: No History of Abuse: No ETOH Use: Beer Frequency: Daily Number of Amount/day: 1 POLST Patient has POLST: No Meds/Allgy Home Medications Ambulatory Orders Medication Instructions Recorded Confirmed fluticasone 250 mcg-salmeterol 50 1 puff inhalation BID 08/18/22 05/27/24 mcg/dose blistr powdr for inhalation mirtazapine 15 mg tablet 7.5 mg PO QPM 08/18/22 05/27/24 tiotropium bromide 2.5 2 puff inhalation DAILY 08/18/22 05/27/24 mcg/actuation mist for inhalation (Spiriva Respimat) acetaminophen 325 mg tablet 650 mg (2 x 325 mg) PO Q4HR PRN 08/22/22 05/27/24 Pain 1-4 or Fever > 38C carvedilol 3.125 mg tablet 3.125 mg PO BID 08/22/22 05/27/24 lszcoofbhstf-ureigqen-drbi 1 tab PO DAILYWM 08/22/22 05/27/24 fumarate 19 mg-folic acid 400 mcg tablet (Therapeutic-M) atorvastatin 40 mg tablet 40 mg PO QPM #30 tabs 08/30/22 05/27/24 lidocaine 5 % topical patch 1 patch topical DAILY PRN Pain #30 08/30/22 05/27/24 patches midodrine 2.5 mg tablet 2.5 mg PO TIDWM #90 tabs 08/30/22 05/27/24 pantoprazole 40 mg tablet,delayed 40 mg PO QDAC #30 tabs 08/30/22 05/27/24 release lisinopril 20 mg tablet 20 mg PO DAILY 05/27/24 05/27/24 spironolactone 25 mg tablet 25 mg PO DAILY 4 days #4 tabs 05/27/24 Allergies Allergies Allergy/AdvReac Type Severity Reaction Status Date / Time lactose AdvReac Intermediate Cramps Verified 05/28/24 03:32 Exam Exam Vital Signs Temperature 36.6 C 05/28/24 04:12 Pulse Rate 105 H 05/28/24 04:12 Respiratory Rate 20 05/28/24 04:12 Blood Pressure 150/96 H 05/28/24 04:12 O2 Saturation 91 L 05/28/24 04:12 Constitutional normal general appearance and no apparent distress Physical exam, as recorded, is based on patient reported information or obtained through peripheral Eyes PERRL and EOMs intact bilaterally Chest inspection of chest normal Respiratory breath sounds equal bilaterally, normal respiratory effort, clear to auscultation bilaterally, rales noted (throughout) and no use of accessory muscles Cardiovascular heart rate abnormal (tachycardic) and regular rhythm noted Extremities normal to inspection and full ROM pitting edema BLE Neurology no focal motor deficit noted Skin skin color normal Sepsis Event Note (H) Evaluation Current Stage of Sepsis: Ruled out Conclusion/Plan Problem List (1) Acute exacerbation of CHF (congestive heart failure): Plan: chest xray reviewed consistent with pulmonary edema. No clinical findings supporting infection -continue with diuresis. lasix 40mg IV bid, monitor potassium and replace as appropriate -strict monitoring of volume status, I and O recorded per shift -monitor vitals with continuous telemetry, serial BP check, continuous pulse oximetry -evaluate with echo to determine type of cardiomyopathy and class -continue with beta monae and ACEi for optimize medical mangement Qualifiers: Heart failure type: unspecified Qualified Code(s): I50.9 - Heart failure, unspecified (2) Hypokalemia: Plan: continue with schedule replaced 40mg PO (3) COPD (chronic obstructive pulmonary disease): Plan: not in exacerbation, not on home oxygen -duonebs -home regimen reviewed and resume inhaler regimen as tolerated. (4) CAD (coronary artery disease): Plan: continue with optimize medical mangement -aspirin, statin, BP control -telemetry, ECHO, and troponin trend in the setting of acute decompensated CHF Qualifiers: Coronary Disease-Associated Artery/Lesion type: [place] artery [place] vs. transplanted heart: [place] heart Associated angina: without angina Q ualified Code(s): I25.10 - Atherosclerotic heart disease of [place] coronary artery without angina pectoris (5) Paroxysmal A-fib: Plan: continue with rate management, home medication reviewed did not see anticoagulation. -continue with aspirin Lab Results Lab results reviewed: Yes 05/28/24 03:31 05/28/24 03:31 Diagnostic Imaging Results Diagnostic Imaging Results: positive Final report reviewed EKG Results EKG Interpreted Independently: Yes Core Measures Anticipated LOS I expect patient to be DC'd or transferred within 96 hours.: Yes DVT/VTE - Prophylaxis VTE/DVT Device ordered at admit?: Yes Telemedicine Consult Details Provider Location & Consult Time Telemedicine consultation conducted via videoconferencing?: Yes
[2024-05-28 05:38] LABS: CREATININE 0.7 mg/dL (0.6-1.3)
[2024-05-28] MEDS: PANTOPRAZOLE 40 MG TABLET PO SCH (06:41)
[2024-05-28] MEDS: FUROSEMIDE 40 MG/4 ML VIAL IVP SCH (06:42)
--- NOTE | 2024-05-28 07:32 | XRAY Report ---
PROCEDURE: XR Chest 1V INDICATIONS: soa TECHNIQUE: One view of the chest was acquired. COMPARISON: 05/27/2024. FINDINGS: Surgical changes and devices: None. Lungs and pleura: Minimal interval improvement in interstitial pulmonary edema. There are bibasilar atelectasis and probable small pleural effusions present. Mediastinum: Mediastinal contours appear normal. Heart size is normal. Bones and chest wall: No suspicious bony lesions. Overlying soft tissues appear unremarkable. IMPRESSION: Slight interval improvement in interstitial pulmonary edema. Bibasilar atelectasis and pleural fluid. Reviewed by: Lex Henson MD on 05/28/2024 7:30 AM PDT Approved by: Lex Henson MD on 05/28/2024 7:30 AM PDT Station ID: [id number]
[2024-05-28] MEDS: POTASSIUM CHLORIDE 20 MEQ TABLET PO SCH (08:33)
[2024-05-28] MEDS: carvediloL 3.125 MG TABLET PO SCH (08:33)
[2024-05-28] MEDS: MIDODRINE 2.5 MG TABLET PO SCH (08:33)
[2024-05-28] MEDS: lisinopriL 20 MG TABLET PO SCH (08:33)
[2024-05-28] MEDS: SODIUM CHLORIDE FLUSH 0.9% 10 ML SYRINGE IVP SCH (08:34)
[2024-05-28] MEDS ORDERED: FLUTICASONE PROPION SALMETEROL INH SCH (09:00)
[2024-05-28] MEDS ORDERED: TIOTROPIUM BROMIDE 4 GM INH SCH (09:00)
[2024-05-28] MEDS ORDERED: MIST INH SCH (09:00)
--- NOTE | 2024-05-28 09:24 | PROVIDER PROGRESS NOTE ---
Subjective Prog Note Date Prog Note Date: 05/28/24 Prog Note Time: 07:30 Subjective Pt reports feeling: Improved Subjective: He feels much better after receiving lasix overnight. his breathing is improved, and his chest feels more comfortable. He gives me a history of active tobacco use, but states that he does not inhale. He says that he drinks one beer every day but has otherwise given up alcohol. His PCP is Dr Mac, who recently retired. Current Medications Current Medications Current Medications: Current Medications Generic Name Dose Route Start Last Admin Trade Name Freq PRN Reason Stop Dose Admin Acetaminophen 650 mg 05/28/24 04:10 Acetaminophen 325 Mg Tablet PO Q4HR PRN Pain 1 to 4, or Fever Hydrocodone Bitart/Acetaminophen 1 tab 05/28/24 04:10 Hydrocod/Acetam 5/325 Mg Tablet PO Q4HR PRN Pain 5 to 7 Atorvastatin Calcium 40 mg 05/28/24 21:00 Atorvastatin 40 Mg Tablet PO QPM RONDA Budesonide 0.5 mg 05/28/24 07:00 Budesonide 0.5 Mg/2 Ml Neb INH RTBID RONDA Carvedilol 3.125 mg 05/28/24 09:00 05/28/24 08:33 Carvedilol 3.125 Mg Tablet PO 3.125 mg BID RONDA Administration Formoterol Fumarate 20 mcg 05/28/24 07:00 Formoterol Fumarate Neb 20 Mcg/2 Ml INH RTBID RONDA Furosemide 40 mg 05/28/24 06:00 05/28/24 06:42 Furosemide 40 Mg/4 Ml Vial IVP 40 mg BIDDIURETIC RONDA Administration Ipratropium [place] 0.5 mg 05/28/24 07:00 Ipratropium 0.2 Mg/Ml Neb INH RTQ6H RONDA Lisinopril 20 mg 05/28/24 09:00 05/28/24 08:33 Lisinopril 20 Mg Tablet PO 20 mg DAILY RONDA Administration Midodrine 2.5 mg 05/28/24 08:00 05/28/24 08:33 Midodrine 2.5 Mg Tablet PO 2.5 mg TIDWM RONDA Administration Mirtazapine 7.5 mg 05/28/24 21:00 Mirtazapine 15 Mg Tablet PO QPM RONDA Ondansetron HCl 4 mg 05/28/24 04:10 Ondansetron 4 Mg/2 Ml Vial IVP Q6HR PRN Nausea / Vomiting Pantoprazole Sodium 40 mg 05/28/24 07:00 05/28/24 06:41 Pantoprazole 40 Mg Tablet PO 40 mg QDAC RONDA Administration Potassium Chloride 40 meq 05/28/24 09:00 05/28/24 08:33 Potassium Chloride 20 Meq Tablet PO 40 meq DAILY RONDA Administration Sodium Chloride 10 ml 05/28/24 04:10 Sodium Chloride Flush 0.9% 10 Ml Syringe IVP PRN PRN NEEDED PER PROVIDER ORDERS Sodium Chloride 10 ml 05/28/24 09:00 05/28/24 08:34 Sodium Chloride Flush 0.9% 10 Ml Syringe IVP 10 ml 0100,0900,1700 RONDA Administration Objective Vital Signs/Intake & Output Vital Signs: Vital Signs x48h Temp Pulse Pulse Pulse Resp BP BP 05/28/24 08:21 36.6 C 89 20 128/81 05/28/24 05:29 36.5 C 107 H 26 H 140/86 H 05/28/24 05:03 36.6 C 97 H 21 146/90 H 05/28/24 04:12 36.6 C 105 H 20 150/96 H 05/28/24 03:32 36.3 C L 115 H 22 175/89 H Pulse Ox 05/28/24 08:21 92 05/28/24 05:29 100 05/28/24 05:03 88 L 05/28/24 04:12 91 L 05/28/24 03:32 95 Intake & Output: Intake & Output 05/26/24 05/27/24 05/28/24 05/29/24 05:59 05:59 05:59 05:59 Intake Total 365 / 365 Output Total 100 / 100 1625 / 1625 Balance -100 / -100 -1260 / -1260 Weight (kg) 55.5 kg Objective General Appearance: positive No acute distress and Alert Eyes Bilateral: positive Normal inspection ENT: positive ENT inspection nml Neck: positive Nml inspection Respiratory: positive Chest non-tender, No respiratory distress and Wheezes (occasional wheeze on the right. ) Cardiovascular: positive Regular rate & rhythm Abdomen: positive No distention and Other (pale urine in fontanez bag. ) Skin: positive Color nml and No rash Extremities: positive No pedal edema and Other (previously reported pedal edema is gone. ) Neurologic/Psychiatric: positive Oriented x3 Lab Results 05/28/24 03:31 05/28/24 05:20 Other Labs: Lab Results x24hrs 05/28/24 05/28/24 05/28/24 Range/Units 05:20 03:46 03:31 WBC (4.8-10.8) x10^3/uL RBC (4.70-6.10) 10^6/uL Hgb (14.0-18.0) g/dL Hct (42.0-52.0) % MCV (80.0-94.0) fL MCH (27.0-31.0) pg MCHC (32.0-36.0) g/dL RDW (12.0-15.0) % Plt Count (130-450) 10^3/uL MPV (7.4-11.4) fL Neut # (Auto) (1.5-6.6) 10^3/uL Lymph # (Auto) (1.5-3.5) 10^3/uL [place] # (Auto) (0.0-1.0) 10^3/uL Eos # (Auto) (0.0-0.7) 10^3/uL Baso # (Auto) (0.0-0.1) 10^3/uL Absolute Nucleated RBC x10^3/uL Nucleated RBC % /100WBC Manual Slide Review Platelet Estimate (NORMAL) RBC Morph Micro Appear 1+ OVALOCYTES (NORMAL) VBG pH 7.424 H (7.31-7.41) VBG pCO2 42.3 (41-51) mmHg VBG pO2 37.1 (25-47) mmHg VBG HCO3 27.1 (23-28) mmol/L VBG Total CO2 28.4 (24-29) mmol/L VBG O2 Saturation 82.8 H (60-80) % VBG Base Excess 2.3 H (-2 - +2) mmol/L Sodium 143 144 (135-145) mmol/L Potassium 4.0 3.5 (3.5-4.5) mmol/L Chloride 107 105 (101-111) mmol/L Carbon Dioxide 28 30 (21-32) mmol/L Anion Gap 8.0 9.0 (6-13) BUN 11 11 (6-20) mg/dL Creatinine 0.7 0.9 (0.6-1.3) mg/dL Estimated GFR (MDRD) 109 82 L (>89) Glucose 121 H 143 H (74-104) mg/dL Calcium 9.0 9.1 (8.5-10.3) mg/dL Total Bilirubin 0.6 (0.2-1.0) mg/dL AST 15 (10-42) IU/L ALT 9 L (10-60) IU/L Alkaline Phosphatase 108 (42-121) IU/L B-Natriuretic Peptide 1266 H (5-100) pg/mL Total Protein 6.2 L (6.4-8.9) g/dL Albumin 3.8 (3.2-5.5) g/dL Globulin 2.4 (2.1-4.2) g/dL Albumin/Globulin Ratio 1.6 (1.0-2.2) Lipase 15 (11-82) U/L 05/28/24 05/28/24 Range/Units 03:31 03:31 WBC 8.6 (4.8-10.8) x10^3/uL RBC 3.60 L (4.70-6.10) 10^6/uL Hgb 11.6 L (14.0-18.0) g/dL Hct 36.7 L (42.0-52.0) % MCV 101.9 H (80.0-94.0) fL MCH 32.2 H (27.0-31.0) pg MCHC 31.6 L (32.0-36.0) g/dL RDW 20.5 H (12.0-15.0) % Plt Count 280 (130-450) 10^3/uL MPV 9.9 (7.4-11.4) fL Neut # (Auto) 6.5 (1.5-6.6) 10^3/uL Lymph # (Auto) 1.0 L (1.5-3.5) 10^3/uL [place] # (Auto) 0.7 (0.0-1.0) 10^3/uL Eos # (Auto) 0.2 (0.0-0.7) 10^3/uL Baso # (Auto) 0.1 (0.0-0.1) 10^3/uL Absolute Nucleated RBC 0.05 x10^3/uL Nucleated RBC % 0.6 /100WBC Manual Slide Review Indicated Platelet Estimate NORMAL (130-450,000) (NORMAL) RBC Morph Micro Appear 1+ MACROCYTOSIS 1+ ANISOCYTOSIS (NORMAL) VBG pH (7.31-7.41) VBG pCO2 (41-51) mmHg VBG pO2 (25-47) mmHg VBG HCO3 (23-28) mmol/L VBG Total CO2 (24-29) mmol/L VBG O2 Saturation (60-80) % VBG Base Excess (-2 - +2) mmol/L Sodium (135-145) mmol/L Potassium (3.5-4.5) mmol/L Chloride (101-111) mmol/L Carbon Dioxide (21-32) mmol/L Anion Gap (6-13) BUN (6-20) mg/dL Creatinine (0.6-1.3) mg/dL Estimated GFR (MDRD) (>89) Glucose (74-104) mg/dL Calcium (8.5-10.3) mg/dL Total Bilirubin (0.2-1.0) mg/dL AST (10-42) IU/L ALT (10-60) IU/L Alkaline Phosphatase (42-121) IU/L B-Natriuretic Peptide (5-100) pg/mL Total Protein (6.4-8.9) g/dL Albumin (3.2-5.5) g/dL Globulin (2.1-4.2) g/dL Albumin/Globulin Ratio (1.0-2.2) Lipase (11-82) U/L Sepsis Event Note (H) Evaluation Current Stage of Sepsis: Ruled out Assessment/Plan Problem List (1) Acute exacerbation of CHF (congestive heart failure): Impression: last echocardiogram that I have access to is January 2020 showing severe hypokinesis with EF 20-25% Reviewing records from previous hospitalization in Aug 2022, his spironolactone had been discontinued due to hypotension. Admitting MD ordered repeat echocardiogram. He is on midodrine, presumably for hypotension. I anticipate discharging him to home on lasix, lisinopril at reduced dosing from current 20mg daily, and SGLT2 inhibitor and likely postassium replacement, as he came in with hypokalemia, before administration of lasix. repeat CXR this AM shows improvement of his pulmonary edema. Qualifiers: Heart failure type: unspecified Qualified Code(s): I50.9 - Heart failure, unspecified (2) Hypokalemia: Impression: Laboratory Tests 05/27/24 05/28/24 05/28/24 11:56 03:31 05:20 Potassium 3.1 L 3.5 4.0 BMP in the AM. continue with lasix for diuresis. (3) COPD (chronic obstructive pulmonary disease): Impression: his lungs have occasional wheeze on the right. He continues to smoke at home. We are continuing inhaled steriod, LABA, TIANNA; which are all home meds for him. his dyspnea is improving with diuresis. I think that his COPD is stable. Qualifiers: COPD type: unspecified COPD Qualified Code(s): J44.9 - Chronic obstructive pulmonary disease, unspecified (4) CAD (coronary artery disease): Impression: no chest pain. no ischemic changes on EKG. Qualifiers: Associated angina: without angina Coronary Disease-Associated Artery/Lesion type: [place] artery [place] vs. transplanted heart: [place] heart Qualified Code(s): I25.10 - Atherosclerotic heart disease of [place] coronary artery without angina pectoris (5) Paroxysmal A-fib: Impression: continue ASA. not on AC as an outpatient, presumably due to fall risk. his rate has been in the low 100s, and occasionally just under 100. his on his outpatient Coreg dosing.3.125mg BID.
[2024-05-28] MEDS: ACETAMINOPHEN 325 MG TABLET PO PRN (11:19)
[2024-05-28] MEDS ORDERED: HYDROcod/ACETAM 5/325 MG TABLET PO PRN (11:30)
--- NOTE | 2024-05-28 14:13 | PHARMACY PROGRESS NOTE ---
Best Possible Medication History Admit Date and Time: 05/28/24 0410 Processed by: Pharmacy Medications reviewed in ED?: No Medication History completed: Yes Patient Interview: Completed Secondary Source(s): Pharmacy records [facility] Statement: As the person ultimately responsible for medication therapy, providers are able to order a medication from an existing home medication list in [facility] via the "Reconcile Routine" prior to Confirmation of that medication by application support consultant. Such practice is discouraged except when the physician, in their clinical judgment, deems that a medical need exists for a medication without regard to previous use. Completed with [facility] records and pt interview via T.
[2024-05-28] MEDS: CYCLOBENZAPRINE 10 MG TABLET PO PRN (15:59)
[2024-05-28] MEDS: HYDROcod/ACETAM 5/325 MG TABLET PO PRN (17:47)
[2024-05-28] MEDS: IPRATROPIUM 0.2 MG/ML NEB INH SCH (17:48)
[2024-05-28] MEDS: FORMOTEROL FUMARATE NEB 20 MCG/2 ML INH SCH (17:49)
[2024-05-28] MEDS: BUDESONIDE 0.5 MG/2 ML NEB INH SCH (17:49)
[2024-05-28] MEDS: ATORVASTATIN 40 MG TABLET PO SCH (20:57)
[2024-05-28] MEDS: MIRTAZAPINE 15 MG TABLET PO SCH (20:57)
[2024-05-29 06:24] LABS: BASOPHILS # (AUTO) 0.1 10^3/uL (0.0-0.1); BASOPHILS % (AUTO) 0.9 %; EOSINOPHILS # (AUTO) 0.2 10^3/uL (0.0-0.7); EOSINOPHILS % (AUTO) 3.7 %; HCT - HEMATOCRIT 37.8 % (42.0-52.0); HGB - HEMOGLOBIN 12.1 g/dL (14.0-18.0); LYMPHOCYTES # (AUTO) 1.4 10^3/uL (1.5-3.5); MEAN CORPUSCULAR HEMOGLOBIN 32.1 pg (27.0-31.0); MEAN CORPUSCULAR VOLUME 100.3 fL (80.0-94.0); MEAN PLATELET VOLUME 10.1 fL (7.4-11.4); MONOCYTES # (AUTO) 0.7 10^3/uL (0.0-1.0); MONOCYTES % (AUTO) 10.8 %; NEUTROPHILS % (AUTO) 62.1 %; NRBC ABSOLUTE COUNT (AUTO) 0.02 x10^3/uL; NUCLEATED RED BLOOD CELLS AUTO 0.3 /100WBC; PLT - PLATELET COUNT 273 10^3/uL (130-450); RED BLOOD COUNT 3.77 10^6/uL (4.70-6.10); RED CELL DISTRIBUTION WIDTH 20.7 % (12.0-15.0); WHITE BLOOD COUNT 6.5 x10^3/uL (4.8-10.8)
[2024-05-29 06:28] LABS: SLIDE REVIEW? Indicated
[2024-05-29 06:44] LABS: CALCIUM 9.6 mg/dL (8.5-10.3); CREATININE 0.8 mg/dL (0.6-1.3); POTASSIUM 3.6 mmol/L (3.5-4.5)
[2024-05-29 06:45] LABS: PLATELET ESTIMATE, MANUAL NORMAL (130-450,000) (NORMAL); PLATELET MORPHOLOGY NORMAL APPEARANCE (NORMAL); WBC MORPHOLOGY (MULTIPLE) NORMAL APPEARANCE (NORMAL)
--- NOTE | 2024-05-29 07:36 | PROVIDER PROGRESS NOTE ---
Subjective Prog Note Date Prog Note Date: 05/29/24 Prog Note Time: 07:35 Subjective Subjective: continues to feel short of breath. he has gotten lasix, 40mg IV for 4 doses total. He is -2.5 liters since admit, and although his peripheral edema is much improved, he continues to have shortness of breath. Overnight, his oxygen requirement increased and he has complaints of his chest feeling tight when he breathes. he does not have any chest pain. he has had leg cramps since admit until this AM, and now they are better. and he has had 2 runs of V tach (8 and 11 beats) asymptomatic. Current Medications Current Medications Current Medications: Current Medications Generic Name Dose Route Start Last Admin Trade Name Freq PRN Reason Stop Dose Admin Acetaminophen 650 mg 05/28/24 04:10 05/28/24 11:19 Acetaminophen 325 Mg Tablet PO 650 mg Q4HR PRN Administration Pain 1 to 4, or Fever Hydrocodone Bitart/Acetaminophen 1 tab 05/28/24 04:10 05/28/24 21:14 Hydrocod/Acetam 5/325 Mg Tablet PO 1 tab Q4HR PRN Administration Pain 5 to 7 Hydrocodone Bitart/Acetaminophen 1 tab 05/28/24 11:30 Hydrocod/Acetam 5/325 Mg Tablet PO Q4HR PRN Moderate Pain (Level 4-6) Atorvastatin Calcium 40 mg 05/28/24 21:00 05/28/24 20:57 Atorvastatin 40 Mg Tablet PO 40 mg QPM RONDA Administration Budesonide 0.5 mg 05/28/24 07:00 05/28/24 22:20 Budesonide 0.5 Mg/2 Ml Neb INH Not Given RTBID RONDA Carvedilol 3.125 mg 05/28/24 09:00 05/28/24 20:58 Carvedilol 3.125 Mg Tablet PO 3.125 mg BID RONDA Administration Cyclobenzaprine HCl 10 mg 05/28/24 14:01 05/29/24 06:51 Cyclobenzaprine 10 Mg Tablet PO 10 mg TID PRN Administration Spasms Formoterol Fumarate 20 mcg 05/28/24 07:00 05/28/24 22:20 Formoterol Fumarate Neb 20 Mcg/2 Ml INH Not Given RTBID RONDA Furosemide 40 mg 05/28/24 06:00 05/29/24 06:10 Furosemide 40 Mg/4 Ml Vial IVP 40 mg BIDDIURETIC RONDA Administration Ipratropium [place] 0.5 mg 05/28/24 07:00 05/28/24 22:21 Ipratropium 0.2 Mg/Ml Neb INH Not Given RTQ6H RONDA Lisinopril 20 mg 05/28/24 09:00 05/28/24 08:33 Lisinopril 20 Mg Tablet PO 20 mg DAILY RONDA Administration Methylprednisolone 40 mg 05/29/24 08:00 Methylprednisolone Succinate 40 Mg/Ml Vial IVP 05/29/24 08:01 ONCE RONDA Midodrine 2.5 mg 05/28/24 08:00 05/28/24 16:30 Midodrine 2.5 Mg Tablet PO Not Given TIDWM RONDA Mirtazapine 7.5 mg 05/28/24 21:00 05/28/24 20:57 Mirtazapine 15 Mg Tablet PO 7.5 mg QPM RONDA Administration Ondansetron HCl 4 mg 05/28/24 04:10 Ondansetron 4 Mg/2 Ml Vial IVP Q6HR PRN Nausea / Vomiting Pantoprazole Sodium 40 mg 05/28/24 07:00 05/29/24 06:10 Pantoprazole 40 Mg Tablet PO 40 mg QDAC RONDA Administration Potassium Chloride 40 meq 05/28/24 09:00 05/28/24 08:33 Potassium Chloride 20 Meq Tablet PO 40 meq DAILY RONDA Administration Sodium Chloride 10 ml 05/28/24 04:10 Sodium Chloride Flush 0.9% 10 Ml Syringe IVP PRN PRN NEEDED PER PROVIDER ORDERS Sodium Chloride 10 ml 05/28/24 09:00 05/29/24 00:03 Sodium Chloride Flush 0.9% 10 Ml Syringe IVP 10 ml 0100,0900,1700 RONDA Administration Objective Vital Signs/Intake & Output Vital Signs: Vital Signs x48h Temp Pulse Resp BP BP Pulse Ox O2 Flow Rate 05/29/24 05:12 36.4 C L 57 L 18 115/60 96 2.5 05/29/24 01:42 54 L 20 127/65 91 L 2 05/29/24 00:01 36.3 C L 59 L 20 131/76 H 93 2 Intake & Output: Intake & Output 05/27/24 05/28/24 05/29/24 05/30/24 05:59 05:59 05:59 05:59 Intake Total 925 / 925 Output Total 100 / 100 3175 / 3175 175 / 175 Balance -100 / -100 -2250 / -2250 -175 / -175 Weight (kg) 55.5 kg Objective General Appearance: positive No acute distress and Alert Eyes Bilateral: positive Normal inspection ENT: positive ENT inspection nml Neck: positive Nml inspection Respiratory: positive Chest non-tender, No respiratory distress and Rhonchi (throughout. upper and lower lung wallace.) Cardiovascular: positive Regular rate & rhythm, No murmur and Other (tele review- 2 episodes V tach) Abdomen: positive Non-tender and No distention Back: positive Nml inspection Skin: positive Color nml and No rash Extremities: positive Non-tender and No pedal edema Neurologic/Psychiatric: positive Oriented x3 Lab Results 05/29/24 06:07 05/29/24 06:07 Other Labs: Lab Results x24hrs 05/29/24 05/29/24 05/29/24 Range/Units 06:07 06:07 06:07 WBC 6.5 (4.8-10.8) x10^3/uL RBC 3.77 L (4.70-6.10) 10^6/uL Hgb 12.1 L (14.0-18.0) g/dL Hct 37.8 L (42.0-52.0) % MCV 100.3 H (80.0-94.0) fL MCH 32.1 H (27.0-31.0) pg MCHC 32.0 (32.0-36.0) g/dL RDW 20.7 H (12.0-15.0) % Plt Count 273 (130-450) 10^3/uL MPV 10.1 (7.4-11.4) fL Neut # (Auto) 4.0 (1.5-6.6) 10^3/uL Lymph # (Auto) 1.4 L (1.5-3.5) 10^3/uL [place] # (Auto) 0.7 (0.0-1.0) 10^3/uL Eos # (Auto) 0.2 (0.0-0.7) 10^3/uL Baso # (Auto) 0.1 (0.0-0.1) 10^3/uL Absolute Nucleated RBC 0.02 x10^3/uL Nucleated RBC % 0.3 /100WBC Manual Slide Review Indicated WBC Morphology NORMAL APPEARANCE (NORMAL) Platelet Estimate NORMAL (130-450,000) (NORMAL) Platelet Morphology NORMAL APPEARANCE (NORMAL) RBC Morph Micro Appear 1+ MACROCYTOSIS 1+ OVALOCYTES 2+ ANISOCYTOSIS (NORMAL) Sodium 142 (135-145) mmol/L Potassium 3.6 (3.5-4.5) mmol/L Chloride 99 L (101-111) mmol/L Carbon Dioxide 37 H (21-32) mmol/L Anion Gap 6.0 (6-13) BUN 20 (6-20) mg/dL Creatinine 0.8 (0.6-1.3) mg/dL Estimated GFR (MDRD) 93 (>89) Glucose 111 H (74-104) mg/dL Calcium 9.6 (8.5-10.3) mg/dL Vitamin B12 (180-914) pg/mL Folate (5.90 - >24.8) ng/mL 05/28/24 Range/Units 03:31 WBC (4.8-10.8) x10^3/uL RBC (4.70-6.10) 10^6/uL Hgb (14.0-18.0) g/dL Hct (42.0-52.0) % MCV (80.0-94.0) fL MCH (27.0-31.0) pg MCHC (32.0-36.0) g/dL RDW (12.0-15.0) % Plt Count (130-450) 10^3/uL MPV (7.4-11.4) fL Neut # (Auto) (1.5-6.6) 10^3/uL Lymph # (Auto) (1.5-3.5) 10^3/uL [place] # (Auto) (0.0-1.0) 10^3/uL Eos # (Auto) (0.0-0.7) 10^3/uL Baso # (Auto) (0.0-0.1) 10^3/uL Absolute Nucleated RBC x10^3/uL Nucleated RBC % /100WBC Manual Slide Review WBC Morphology (NORMAL) Platelet Estimate (NORMAL) Platelet Morphology (NORMAL) RBC Morph Micro Appear (NORMAL) Sodium (135-145) mmol/L Potassium (3.5-4.5) mmol/L Chloride (101-111) mmol/L Carbon Dioxide (21-32) mmol/L Anion Gap (6-13) BUN (6-20) mg/dL Creatinine (0.6-1.3) mg/dL Estimated GFR (MDRD) (>89) Glucose (74-104) mg/dL Calcium (8.5-10.3) mg/dL Vitamin B12 291 (180-914) pg/mL Folate 7.0 (5.90 - >24.8) ng/mL Sepsis Event Note (H) Evaluation Current Stage of Sepsis: Ruled out Assessment/Plan Problem List (1) Acute exacerbation of CHF (congestive heart failure): Impression: I am decreasing lasix to 20mg oral daily from 40mg IV BID. he was on no lasix prior to admission. I think he is appropriately diuresed, but his respiratory status is not improved. Qualifiers: Heart failure type: unspecified Qualified Code(s): I50.9 - Heart failure, unspecified (2) COPD (chronic obstructive pulmonary disease): Impression: At home he uses no oxygen. he continues to smoke cigarettes at home. This AM he is needing 2.5L NC to maintain O2 sat of 90%. As the morning progresses, we are able to decrease this to 1LNC, several hours after steroid. He takes a LABA/steroid inhaler at baseline. Here we have him on budesonide inhaler, ipratropium inhaler. This AM on exam his has no wheezes, but continuous expiratory rhonchi. I have started 40mg solumedrol this AM. If he continues to respone positively, I will give him a total of 5 day steroids. Qualifiers: COPD type: COPD with acute exacerbation Qualified Code(s): J44.1 - Chronic obstructive pulmonary disease with (acute) exacerbation (3) Hypokalemia: Impression: resolved. I have ordered 40mEq KCl daily. I have ordered repeat BMP for the AM. Since I have decreased his lasix, I would like to know what the K level is. May need to decrease the KCl dosage. Laboratory Tests 05/28/24 05/28/24 05/29/24 03:31 05:20 06:07 Potassium 3.5 4.0 3.6 (4) CAD (coronary artery disease): Impression: remains free of chest pain. Qualifiers: Associated angina: without angina Coronary Disease-Associated Artery/Lesion type: [place] artery [place] vs. transplanted heart: [place] heart Qualified Code(s): I25.10 - Atherosclerotic heart disease of [place] coronary artery without angina pectoris (5) Paroxysmal A-fib: Impression: continue ASA. rate has been improving as respiratory status improves. he is now consistently below 100. I am continuing his outpatient Coreg dosing. I have spent 40 min in the evaluation and treatment of this patient today including face to face time at the bedside, ordering of medications, evaluation of response to medications and interpretation of results.
[2024-05-29] MEDS ORDERED: methylPREDNISolone SUCCINATE 40 MG/ML VIAL IVP SCH (08:00)
[2024-05-29] MEDS: FUROSEMIDE 20 MG TABLET PO SCH (08:07)
[2024-05-29] MEDS: ALBUTEROL NEB 2.5 MG/3 ML INH SCH (09:49)
[2024-05-29] MEDS: methylPREDNISolone SUCCINATE 40 MG/ML VIAL IVP SCH (15:10)
[2024-05-29] MEDS: IPRATROPIUM/ALBUTEROL 3 ML NEB INH PRN (19:10)
[2024-05-30 08:31] VITALS: O2SAT 91
--- NOTE | 2024-05-30 10:34 | Discharge Summary ---
Discharge Summary Admit Date: 05/28/24 Discharge Date: 05/30/24 Discharging Provider: Libby Jarquin PA-C Primary Care Provider: Jane Mac MD- changing to someone in that office Code Status: Attempt Resuscitation DIAGNOSES Admission Diagnoses: Acute exacerbation of CHF Hypokalemia COPD Coronary artery disease Paroxysmal A-fib Discharge Diagnoses with Status of Each Condition: 1) Acute exacerbation of CHF (congestive heart failure): He was admitted for exacerbation of CHF. He was given Lasix 40 mg IV twice a day. He was on Lasix prior to admission. He was appropriately diuresed and his symptoms improved. His peripheral edema was greatly decreased. He was transitioned onto Lasix 20 mg orally daily. He will also be given potassium supplementation with this. (2) COPD (chronic obstructive pulmonary disease): Impression: At home he uses no oxygen. he continues to smoke cigarettes at home. He has been on and off oxygen while admitted. Oxygen desaturation test was completed on the morning of discharge and he did well without need for supplemental oxygen. He takes a LABA/steroid inhaler at baseline. On the morning of discharge his lungs are clear. He received 1 dose of Solu-Medrol IV while here, on the morning prior to discharge. His respiratory symptoms resolved with this. I did not continue this medication. I will not discharge him home on oral steroids as he has improved and it has been 24 hours since his last dose. (3) Hypokalemia: Impression: resolved. I have ordered 40mEq KCl daily. His hypokalemia resolved with potassium administration. I have impressed upon him the importance of follow-up in the outpatient setting for repeat BMP. (4) CAD (coronary artery disease): Impression: remains free of chest pain. Qualifiers: Associated angina: without angina Coronary Disease-Associated Artery/Lesion type: [place] artery [place] vs. transplanted heart: [place] heart Qualified Code(s): I25.10 - Atherosclerotic heart disease of [place] coronary artery without angina pectoris (5) Paroxysmal A-fib: Impression: continue ASA. rate has been improving as respiratory status improves. he is now consistently below 100. I am continuing his outpatient Coreg dosing. HPI History of Present Illness: Mr. Clayton is a 76 yo M with a history of COPD , Afib and ischemic cardiomyopathy, heart failure. Patient presented to the Ed for evaluation of worsening shortness of breath. Symptoms started a week prior to presentation. He had nonproductive cough, increase lower extremity edema, exertional dypnea and orthopnea.He denies any fevers or sick contact. he denies any chest pain. Chest xray demonstrated findings of pulmonary edema. He stated he has been compliant with his medicaitons. He has not seen a ore trimmer in about a year. During my evaluation, telemedicine tools were utilized including phone and live video. Patient was resting in no acute distress. Plan of care to admit for diuresis and further cardiac evaluation including ECHO was discussed. Patient agreed to plan of management and provided consent to proceed with this telemedicine visit. CONSULTS | PROCEDURES Consultations: none Procedures: Chest x-ray at admission showed CHF exacerbation. Repeat on hospital day 2 showed interval improvement with also bibasilar atelectasis and pleural fluid. HOSPITAL COURSE Hospital Course: 79-year-old smoker with past history of CHF not o diuretic therapy presented to the emergency department with pedal edema and shortness of breath. He was initially seen and released with spironolactone orally. He took this and it did not help and therefore represented to the emergency department. He was admitted for further workup and diuresis. He has a past medical history of COPD. His medications for this were continued while he was admitted. Upon resolution of his edema and persistent shortness of breath he did receive 1 dose of IV Solu-Medrol which improved his respiratory symptoms greatly. He had occasional hypoxia while sleeping which was treated with 1 to 2 L of supplemental oxygen. He did pass oxygen desaturation test via respiratory therapy on the date of discharge no supplemental oxygen is required. After administration of Lasix his electrolytes were normal,, however he did experience several hours of severe calf cramps. These were treated with pain medication and resolved in about a day. He did not have any swelling of his lower extremities associated with his cramping. He did however have several asymptomatic runs of ventricular tachycardia between 4 and 11 beats during this timeframe. Again his electrolytes were normal. He was discharged to home in stable condition on hospital day 3. He will be discharged home on 20 mg of Lasix orally daily. I have discharged him home on supplemental potassium. I have impressed upon him the importance of primary care follow-up both for results of the echocardiogram which was obtained while he was here and for follow-up regarding his Lasix and potassium therapy. ALLERGIES Allergies Allergy/AdvReac Type Severity Reaction Status Date / Time lactose AdvReac Intermediate Cramps Verified 05/28/24 03:32 MEDICATIONS Ambulatory Orders Medication Instructions Recorded Confirmed fluticasone 250 mcg-salmeterol 50 1 puff inhalation BID 08/18/22 05/28/24 mcg/dose blistr powdr for inhalation mirtazapine 15 mg tablet 7.5 mg PO QPM 08/18/22 05/28/24 tiotropium bromide 2.5 2 puff inhalation DAILY PRN copd 08/18/22 05/28/24 mcg/actuation mist for inhalation (Spiriva Respimat) carvedilol 3.125 mg tablet 3.125 mg PO BID 08/22/22 05/28/24 [id number] 1 tab PO DAILYWM 08/22/22 05/28/24 fumarate 19 mg-folic acid 400 mcg tablet (Therapeutic-M) lidocaine 5 % topical patch 1 patch topical DAILY PRN Pain #30 08/30/22 05/28/24 patches midodrine 2.5 mg tablet 2.5 mg PO TIDWM #90 tabs 08/30/22 05/28/24 lisinopril 20 mg tablet 20 mg PO DAILY 05/27/24 05/28/24 acetaminophen 325 mg tablet 650 mg PO PRN PRN Pain 1-4 or 05/28/24 05/28/24 Fever > 38C atorvastatin 40 mg tablet 80 mg PO QPM 05/28/24 05/28/24 fluticasone 250 mcg-salmeterol 50 1 inh inhalation Q12H 05/28/24 05/28/24 mcg/dose blistr powdr for inhalation (Wixela Inhub) omeprazole 40 mg capsule,delayed mg 05/28/24 release furosemide 20 mg tablet 20 mg PO DAILY #30 tabs 05/30/24 potassium chloride 20 mEq 40 meq (2 x 20 mEq) PO DAILY #30 05/30/24 tablet,extended tabs release(part/cryst) (Klor-Con M) PHYSICAL EXAM AT DISCHARGE General Appearance: positive No acute distress and Alert Eyes Bilateral: positive Normal inspection ENT: positive ENT inspection nml Neck: positive Nml inspection Respiratory: positive Chest non-tender, No respiratory distress and Breath sounds nml Cardiovascular: positive Regular rate & rhythm Abdomen: positive No distention Skin: positive Color nml and No rash Extremities: positive No pedal edema Neurologic/Psychiatric: positive Oriented x3 LABS 05/29/24 06:07 05/29/24 06:07 SEPSIS Current Stage of Sepsis: Ruled out FOLLOW UP Follow Up: PCP- he was a Dr Mac patient, and will be following with someone else in her practice. TIME SPENT Time Spent in Discharge (Minutes): 45 Discharge Plan Discharge Patient Disposition: Home, Self Care Condition: Stable Prescriptions: New furosemide 20 mg Tablet 20 mg PO DAILY Qty: 30 0RF potassium chloride [Klor-Con M20] 20 mEq Tablet,Er Particles/Crystals 40 meq PO DAILY Qty: 30 0RF Continued fluticasone propion-salmeterol 1 EACH blister with device 1 puff inhalation BID mirtazapine 15 MG tablet 7.5 mg PO QPM Spiriva Respimat 4 GM mist 2 puff inhalation DAILY PRN (Reason: copd) carvedilol 3.125 MG tablet 3.125 mg PO BID 0RF Therapeutic-M 1 TAB tablet 1 tab PO DAILYWM 0RF lidocaine 1 PATCH adhesive patch,medicated 1 patch topical DAILY PRN (Reason: Pain) Qty: 30 0RF midodrine 2.5 MG tablet 2.5 mg PO TIDWM Qty: 90 0RF lisinopril 20 mg tablet 20 mg PO DAILY acetaminophen 325 MG tablet 650 mg PO PRN PRN (Reason: Pain 1-4 or Fever > 38C) omeprazole 40 mg capsule,delayed release(DR/EC) fluticasone propion-salmeterol [Wixela Inhub] 250-50 mcg/dose blister with device 1 inh inhalation Q12H atorvastatin 40 MG tablet 80 mg PO QPM Discontinued spironolactone 25 mg tablet 25 mg PO DAILY 4 Days Qty: 4 0RF Patient Comments: patient unsure if he takes. Rx Instructions: Take one pill daily for the next four days starting 05/28/2024 Activity Restrictions: No Restrictions Diet: Cardiac Health Concerns: You came into the hospital because you were having difficulty breathing. You have been having this trouble for a day or 2 and it seems like the diuretic that the emergency department prescribed was not effective. You came in and got a medication called Lasix in the IV and this was very effective for reducing your difficulty breathing and the swelling in your ankles. I have since transitioned you to oral Lasix. The Lasix makes the potassium go out of your body. For this reason you need to take potassium along with the Lasix. It is also important that you follow-up in about a week wiith your primary care provider to have your potassium checked. All of your medication should stay the same most importantly your breathing medications. Care Plan Goals: potassium check in about a week. Call your PCP on Friday morning so that they can set this up for you you need LAsix (furosemide) to control your heart failure. keep taking your breathing medications STOP smoking... it will be good for you! you had an echocardiogram done- this is an ultrasound on your heart. I need you to followup on the result, as I do not have that back yet. your primary care provider should be able to discuss that result with you. your should be able to see someone in Dr Mac's office. you need a type of visit called a "hospital followup" Assessment: congestive heart failure exacerbation. Plan of Treatment: keep taking lasix. Take potassium to keep this high enough in your blood. This is very important as low potassium can cause you to have heart problems. Keep taking all of your breathing meds. followup with primary care on echocardiogram result. Print Language: Swiss Patient Instructions: Heart Failure Stand Alone Forms: PCP List Follow-up Care: Jane Mac MD [Provider Admit Priv/Credential] - (needs hospital followup. )
== END 2024-05-30 12:32 | disposition home or self-care (01) | DRG 292 ==
LOC: ED 03:24 → MS2 03:24
PROVIDERS: ADMIT Hospitalist; ATTEND Hospitalist
DX: E87.6 Hypokalemia; I48.0 Paroxysmal atrial fibrillation; I50.9 Heart failure, unspecified; R00.0 Tachycardia, unspecified; I50.21 Acute systolic (congestive) heart failure; R25.2 Cramp and spasm; I25.10 Atherosclerotic heart disease of native coronary artery without angina pectoris; F17.210 Nicotine dependence, cigarettes, uncomplicated; J44.9 Chronic obstructive pulmonary disease, unspecified; I45.10 Unspecified right bundle-branch block; J44.1 Chronic obstructive pulmonary disease with (acute) exacerbation; R09.02 Hypoxemia

== ENCOUNTER 2024-12-23 21:37 | Inpatient (IN) ==
[2024-12-23 21:58] LABS: BASOPHILS % (AUTO) 0.4 %; EOSINOPHILS % (AUTO) 25.8 %; HCT - HEMATOCRIT 29.4 % (42.0-52.0); HGB - HEMOGLOBIN 9.7 g/dL (14.0-18.0); LYMPHOCYTES % (AUTO) 9.3 %; MEAN CORPUSCULAR HEMOGLOBIN 31.1 pg (27.0-31.0); MEAN CORPUSCULAR VOLUME 94.2 fL (80.0-94.0); MEAN PLATELET VOLUME 10.6 fL (7.4-11.4); MONOCYTES % (AUTO) 8.7 %; NEUTROPHILS % (AUTO) 55.5 %; PLT - PLATELET COUNT 232 10^3/uL (130-450); RED BLOOD COUNT 3.12 10^6/uL (4.70-6.10); RED CELL DISTRIBUTION WIDTH 18.6 % (12.0-15.0); WHITE BLOOD COUNT 7.1 x10^3/uL (4.8-10.8)
[2024-12-23] MEDS: SODIUM CHLORIDE 0.9% 250 ML IV ONE (21:59)
[2024-12-23 22:02] LABS: VBG PCO2 44.8 mmHg (41-51); VBG PH 7.469 (7.31-7.41); VBG PO2 36.3 mmHg (25-47); VBG TOTAL CO2 34.2 mmol/L (24-29)
[2024-12-23] MEDS: ACETAMINOPHEN 325 MG TABLET PO STA (22:04)
[2024-12-23 22:05] LABS: SLIDE REVIEW? Indicated
[2024-12-23 22:06] LABS: ABNORMAL LYMPHS % (MANUAL) 0 %; BAND NEUTROPHILS % (MANUAL) 0 %
[2024-12-23 22:17] LABS: ALBUMIN 3.6 g/dL (3.2-5.5); ALBUMIN/GLOBULIN RATIO 1.1 (1.0-2.2); BILIRUBIN,TOTAL 0.4 mg/dL (0.2-1.0); CALCIUM 9.4 mg/dL (8.5-10.3); CREATININE 1.3 mg/dL (0.6-1.3); POTASSIUM 3.6 mmol/L (3.5-4.5); TOTAL PROTEIN 6.8 g/dL (6.4-8.9)
--- OUTSIDE RECORDS SUMMARY | 2024-12-23 22:23 | EXTERNAL MEDICAL SUMMARY RPT | Continuity of Care Document ---
Author Organization [place] Address [address] [place] [address] Phone Care Team Providers Care Concert Manager Name Role Phone Unavailable Unavailable Unavailable Jane Mac Unavailable Unavailable Allergies and Intolerances date description facility reaction severity 2024-11-01 16:21:51 Merged with [facility] (no reactio n) (no severity) Medications date description facility 2024-11-09 00:00 Magnesium Chloride Formerly [facility] 2024-11-05 00:00 Magnesium Oxide [facility] 2024-11-09 00:00 Atorvastatin [facility] 2024-12-05 00:00 Tamsulosin [facility] Problems date description facility 2024-09-24 13:25 Weakness [facility] 2024-09-27 11:30 [facility] 11:30 Sepsis, unspecified organism Is [facility] 2024-09-27 11:30 Other fluid overload [facility] 2024-09-27 11:30 [facility] 14:07 Weakness [facility] 2024-10-31 00:00 Sepsis [facility] 2024-10-31 00:00 Pyelonephritis [facility] 2024-10-31 00:00 Acute kidney injury [facility] 2024-10-31 15:42 Sepsis, unspecified organism Is [facility] 2024-10-31 15:42 Tubulo-interstitial nephritis, not specified as acute or chronic [facility] 2024-10-31 15:42 Acute kidney failure, [facility] 2024-11-01 07:06 Sepsis, unspecified organism Is [facility] 2024-11-01 07:06 Tubulo-interstitial nephritis, not specified as acute or chronic [facility] 2024-11-01 07:06 Acute kidney failure, [facility] 2024-11-01 07:25 Sepsis, unspecified organism Is [facility] 2024-11-01 07:25 Tubulo-interstitial nephritis, not specified as [facility] 2024-11-01 07:25 Acute kidney failure, [facility] 2024-11-01 16:22 Sepsis, unspecified organism Is [facility] 2024-11-01 16:22 Tubulo-interstitial nephritis, not specified as [facility] 2024-11-01 16:22 Acute kidney failure, [facility] 2024-11-01 20:37 Sepsis, unspecified organism Is [facility] 2024-11-01 20:37 Tubulo-interstitial nephritis, not specified as [facility] 2024-11-01 20:37 Acute kidney failure, [facility] 2024-11-03 11:27 Sepsis, unspecified organism Is [facility] 2024-11-03 11:27 Tubulo-interstitial nephritis, not specified as [facility] 2024-11-03 11:27 Acute kidney failure, [facility] 2024-11-03 11:58 Sepsis, unspecified organism Is [facility] 2024-11-03 11:58 Tubulo-interstitial nephritis, not specified as [facility] 2024-11-03 11:58 Acute kidney failure, [facility] 2024-11-03 12:48 Sepsis, unspecified organism Is [facility] 2024-11-03 12:48 Tubulo-interstitial nephritis, not specified as [facility] 2024-11-03 12:48 Acute kidney failure, [facility] 2024-11-03 13:12 Sepsis, unspecified organism Is [facility] 2024-11-03 13:12 Tubulo-interstitial nephritis, not specified as [facility] 2024-11-03 13:12 Acute kidney failure, [facility] 2024-11-03 14:56 Sepsis, unspecified organism Is [facility] 2024-11-03 14:56 Tubulo-interstitial nephritis, not specified as [facility] 2024-11-03 14:56 Acute kidney failure, [facility] 2024-11-05 00:00 [facility] 2024-11-05 11:32 Nausea with vomiting, [facility] named [facility] 2024-11-09 08[facility] 08:11 Bacte[facility]24-11-09 08[facility] 08[facility]57 [facility] 2024-11-09 10:[facility]24-11-09 10:06 [facility] 2024-11-09 10:07 [facility] 2024-11-09 10:07 [facility] 2024-11-09 10:08 [facility]09 10:08 [facility] 2024-11-09 10:10 [facility] 2024-11-09 10:10 [facility] 2024-12-06 00:00 Septic shock [facility] 2024-12-06 00:00 Acute kidney injury [facility] 2024-12-06 00:00 Urinary tract infection [facility] 2024-12-07 00:19 Sepsis, unspecified organism Is [facility] 2024-12-08 11:32 Sepsis, unspecified organism Is [facility] 2024-12-09 09:36 Sepsis, unspecified organism Is [facility] 2024-12-09 12:46 Sepsis, unspecified organism Is [facility] 2024-12-09 12:51 Sepsis, unspecified organism Is [facility] 2024-12-09 14:06 Sepsis, unspecified organism Is [facility] 2024-12-10 11:35 Nausea with vomiting, unspecifi ed [facility] 2024-12-10 12:56 Sepsis, unspecified organism Is [facility] 2024-12-14 08:22 Sepsis due to Escherichia coli [E. coli] [facility] 2024-12-14 08:22 Hypomagnesemia [facility] 2024-12-14 13:07 Sepsis due to Escherichia coli [E. coli] [facility] 2024-12-14 13:07 Hypomagnesemia [facility] 2024-12-16 [facility] date description facility 2024-10-31 00:00 Insertion of Infusio n Device into Upper Vein, Percutaneous Approach [facility] 2024-12-05 00:00 Computed tomography of abdomen and pelvis without contrast [facility] 2024-10-31 00:00 X-ray of chest, single view [facility] 2024-12-06 00:00 X-ray of chest, [facility] 2024-10-31 00:00 [facility] 2024-10-[facility] 00:00 CT abdomen pelvis [facility] Results/Labs test date facility value unit notes Result panel 1 Eosinophils Absolute Auto 2024-09-27 11:12 [facility] 0 /ul (missing) Eosinophils Percent Auto 2024-09-27 11:12 [facility] 0.7 % (missing) Basophils Percent Auto 2024-09-27 11:12 [facility] 1.5 % (missing) Basophils Absolute Auto 2024-09-27 11:12 [facility] 100 /ul (missing) Lymphocytes Absolute Auto 2024-09-27 11:12 [facility] 10 00 /ul (missing) Lymphocytes Percent Auto 2024-09-27 11:12 [facility] 16. 0 % (missing) Red Cell Distribution Width 2024-09-27 11:12 [facility] 18.7 % (missing) Red Blood Cell Count 2024-09-27 11:12 [facility] 2.68 x10 6/ul (missing) Hematocrit 2024-09-27 11:12 [facility] 25.7 % (missing) Mean Corpuscular Hemoglobin 2024-09-27 11:12 [facility] 32.1 pg (missing) Mean Corpuscular HGB Conc 2024-09-27 11:12 [facility] 33 .5 % (missing) Platelet Count 2024-09-27 11:12 [facility] 468 x10 3/ul (missing) Neutrophils Absolute Auto 2024-09-27 11:12 [facility] 48 00 /ul (missing) Monocytes Absolute Auto 2024-09-27 11:12 [facility] 500 /ul (missing) White Blood Cell Count 2024-09-27 11:12 [facility] 6.5 x10 3/ul (missing) Monocytes Percent Auto 2024-09-27 11:12 [facility] 7.4 % (missing) Neutrophils Percent Auto 2024-09-27 11:12 [facility] 74. 4 % (missing) Hemoglobin 2024-09-27 11:12 [facility] 8.6 g/dl (missing) Mean Corpuscular Volume 2024-09-27 11:12 [facility] 95.9 fl (missing) Result panel 2 Estimated Glomerular Filt Rate 2024-09-27 11:48 [facility] > 60 ml/min Reported eGFR is based the CKD-EPI 2020 equation that does not use a race coefficient. An eGFR below 60 mL/min/1.73m2 suggests that some kidney damage has occurred, and indicative of chronic kidney disease if persisting greater than 3 months. An eGFR less than 15 is indicative of kidney failure. Creatine Kinase 2024-09-27 11:48 [facility] < 20 u/ l (missing) Bilirubin Total 2024-09-27 11:48 [facility] 0.3 mg /dl (missing) Creatinine 2024-09-27 11:48 [facility] 0.92 mg/dl (missing) C-Reactive Protein Quant 2024-09-27 11:48 [facility] 1.1 mg/dl (missing) Albumin Globulin Ratio 2024-09-27 11:48 [facility] 1.2 (missing) (missing) Chloride 2024-09-27 11:48 [facility] 108 mmol/l (missing) Glucose 2024-09-27 11:48 [facility] 123 mg/dl Social History date description facility 2024-10-31 00:00 Smokes tobacco daily (finding) [facility] 2024-11-05 00:00 Smokes tobacco daily (finding) [facility] 2024-12-06 00:00 Smokes tobacco daily (finding) [facility] Vital Signs date measurement value units 2024-09-30 00:00 BP_diastolic 61 mmHg 2024-09-30 00:00 BP_systolic 131 mmHg 2024-09-30 00:00 heart_rate 69 /min 2024-09-30 00:00 o2_saturation 97 % 2024-09-30 00:00 respiration_rate 18 /min 2024-09-30 00:00 temperature_metric 36.22 C 2024-09-30 00:00 temperature_standard 97.2 F 2024-10-31 00:00 BP_diastolic 70 mmHg 2024-10-31 00:00 BP_systolic 137 mmHg 2024-10-31 00:00 heart_rate 100 /min 2024-10-31 00:00 height_metric 172.72 cm 2024-10-31 00:00 height_standard 68 in 2024-10-31 00:00 o2_saturation 98 % 2024-10-31 00:00 respiration_rate 23 /min 2024-10-31 00:00 temperature_metric 36.78 C 2024-10-31 00:00 temperature_standard 98.2 F 2024-10-31 00:00 weight_metric 54.5 kg 2024-10-31 00:00 weight_standard 120.15 lb 2024-11-03 00:00 BP_diastolic 77 mmHg 2024-11-03 00:00 BP_systolic 157 mmHg 2024-11-03 00:00 heart_rate 107 /min 2024-11-03 00:00 o2_saturation 97 % 2024-11-03 00:00 respiration_rate 27 /min 2024-11-03 00:00 temperature_metric 36.44 C 2024-11-03 00:00 temperature_standard 97.6 F 2024-11-03 00:00 weight_metric 60 kg 2024-11-03 00:00 weight_standard 132.28 lb 2024-11-04 00:00 BP_diastolic 75 mmHg 2024-11-04 00:00 BP_systolic 139 mmHg 2024-11-04 00:00 heart_rate 78 /min 2024-11-04 00:00 o2_saturation 97 % 2024-11-04 00:00 respiration_rate 18 /min 2024-11-04 00:00 temperature_metric 36.44 C 2024-11-04 00:00 temperature_standard 97.6 F 2024-11-05 00:00 BP_diastolic 72 mmHg 2024-11-05 00:00 BP_systolic 158 mmHg 2024-11-05 00:00 heart_rate 81 /min 2024-11-05 00:00 o2_saturation 97 % 2024-11-05 00:00 respiration_rate 23 /min 2024-11-05 00:00 temperature_metric 36.67 C 2024-11-05 00:00 temperature_standard 98 F 2024-11-05 00:00 weight_metric 60.32 kg 2024-11-05 00:00 weight_standard 132.98 lb 2024-11-22 00:00 BP_diastolic 77 mmHg 2024-11-22 00:00 BP_systolic 121 mmHg 2024-11-22 00:00 heart_rate 82 /min 2024-11-22 00:00 o2_saturation 97 % 2024-11-22 00:00 respiration_rate 16 /min 2024-11-22 00:00 temperature_metric 36.39 C 2024-11-22 00:00 temperature_standard 97.5 F 2024-12-05 00:00 BMI 18.6 kg/m2 2024-12-06 00:00 BP_diastolic 57 mmHg 2024-12-06 00:00 BP_systolic 102 mmHg 2024-12-06 00:00 heart_rate 71 /min 2024-12-06 00:00 height_metric 172.72 cm 2024-12-06 00:00 height_standard 68 in 2024-12-06 00:00 o2_saturation 98 % 2024-12-06 00:00 respiration_rate 18 /min 2024-12-06 00:00 temperature_metric 37.06 C 2024-12-06 00:00 temperature_standard 98.7 F 2024-12-06 00:00 weight_metric 55.74 kg 2024-12-06 00:00 weight_standard 122.89 lb 2024-12-09 00:00 BP_diastolic 60 mmHg 2024-12-09 00:00 BP_systolic 100 mmHg 2024-12-09 00:00 heart_rate 87 /min 2024-12-09 00:00 o2_saturation 94 % 2024-12-09 00:00 respiration_rate 24 /min 2024-12-09 00:00 temperature_metric 36.94 C 2024-12-09 00:00 temperature_standard 98.5 F 2024-12-09 00:00 weight_metric 57 kg 2024-12-09 00:00 weight_standard 125.66 lb
--- NOTE | 2024-12-23 22:30 | ED Physician Documentation ---
History of Present Illness Stated complaint Stated Complaint: FEVER, CHILLS Chief complaint Chief Complaint: Fever History obtained from History obtained from: Patient Additonal information Additional information: 79yM DNR/DNI with pmh chf, copd, alcohol abuse, AAA with 89% stenosis, MDR e coli uti on meropenem IV antibiotics via [facility]c (recent [facility] stay for this 12/06-12/09) p/w fever and headache from [facility] X 1 day. patient denies n/v/d abdominal pain, shefali pain, urinary sx, upper respiratory symptoms, cough, soa, cp. Meds/Allgy Home Medications Ambulatory Orders Medication Instructions Recorded Confirmed carvedilol 3.125 mg tablet 3.125 mg PO BID 08/22/22 midodrine 2.5 mg tablet 2.5 mg PO TIDWM #90 tabs 12/23/24 lisinopril 20 mg tablet 20 mg PO DAILY 05/27/2412/09 acetaminophen 325 mg tablet 650 mg PO PRN PRN Pain 1-4 or 05/28/24 12/23/24 Fever > 38C omeprazole 40 mg capsule,delayed 40 mg PO ONCE 4 12/23/24 release albuterol sulfate 90 mcg/actuation 2 inh inhalation Q6 H PRN shortness 12/23/24 12/23/24 aerosol inhaler (Ventolin HFA) of breath or wheezing ascorbic acid (vitamin C) 500 mg 500 mg PO BID 5 12/23/24 capsule atorvastatin 80 mg tablet 80 mg PO HS 12/23/24 5 cyanocobalamin (vitamin B-12) 100 100 mcg PO DAILY 12/23/24 mcg tablet furosemide 20 mg tablet 20 mg PO BID 12/23/24 lidocaine 4 % topical patch 1 patch topical Q12H PRN p ain 12/23/24 12/23/24 lutein 25 mg-zeaxanthin 5 mg 1 cap PO DAILY 12/23/24 0 12/23/24 capsule (Ocuvite Lutein) magnesium oxide 400 mg PO TID 12/23/2412/23 meropenem 2 gram intravenous 2 g IV Q8H 12/23/2412/23 solution mirtazapine 7.5 mg tablet 7.5 mg PO HS 12/23/24 potassium chloride 20 mEq 20 meq PO DAILY 12/23/24 tablet,extended release(part/cryst) (Klor-Con M) tamsulosin 0.4 mg capsule 0.4 mg PO HS 12/23/24 Allergies Allergies Allergy/AdvReac Type Severity Reaction Status Date / Time lactose AdvReac Intermediate Cramps Verified 12/23/24 21:51 PFSH Active Problems All Active Problems (Updated 12/23/24 @ 23:26 by Chayo Broussard MD) Sepsis (Acute) Ventricular tachycardia (paroxysmal) (Acute) Acute exacerbation of CHF (congestive heart failure) (Acute) Orthostatic hypotension (Acute) Confusion (Acute) Fall during current hospitalization (Acute) COPD (chronic obstructive pulmonary disease) (Acute) Iron deficiency anemia (Acute) Fracture, clavicle (Acute) Symptomatic anemia (Acute) Pneumonia (Acute) Alcohol abuse (Acute) Hypomagnesemia (Acute) Hepatic steatosis (Acute) Coagulopathy (Acute) Macrocytosis (Acute) Anemia (Acute) Transaminitis (Acute) Hyperlipidemia (Acute) Hypertension (Acute) Pain (Acute) Weakness (Acute) Multiple fractures of ribs (Acute) Severe protein-calorie malnutrition (Acute) Poor appetite (Acute) Hypotension (Acute) Leukocytosis (Acute) History of coronary artery disease (Acute) Chronic HFrEF (heart failure with reduced ejection fraction) (Acute) Dehydration (Acute) Acute kidney injury (Acute) Moderate COPD (chronic obstructive pulmonary disease) (Acute) Dyspnea (Acute) Congestive heart failure (Acute) Wrist fracture, left (Acute) Medical History Medical History (Updated 12/23/24 @ 23:26 by Chayo Broussard MD) 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 (Date/Year): 2017 Number of Years Smoked: 57 How many cigarettes a day do you smoke? (20 cigarettes=1 Pk): 15 Second hand tobacco smoke exposure: No Do you dip or chew tobacco?: No Do you vape?: No Patient requests smoking cessation consult: No Initiate information on smoking cessation: No Living arrangement: At home Marital Status: Living Condition: Alone Support Person: Yes Relationship: Caregiver Physical Activity: Walking Level: Independent Do you feel safe in your home environment?: Yes Suffered physical, verbal, emotional, or financial abuse?: No History of Abuse: No ETOH Use: Beer Frequency: Daily Number of Amount/day: 1 Substance Use: denies use POLST Patient has POLST: No Exam Exam Vital Signs: Vital Signs x48h Temp Pulse Resp BP Pulse Ox 12/23/24 22:47 118 H 20 124/71 94 12/23/24 22:17 128 H 20 140/95 H 97 12/23/24 21:47 131 H 22 111/89 95 12/23/24 21:37 39.3 C H 128 H 20 150/112 H 96 Constitutional normal general appearance, no apparent distress and average body habitus elderly appearing HENMT head/scalp atraumatic and oropharynx normal Eyes PERRL and EOMs intact bilaterally Neck/C-Spine visual inspection normal Chest inspection of chest normal Respiratory breath sounds equal bilaterally, normal respiratory effort and clear to auscultation bilaterally Cardiovascular regular rhythm noted tachycardic rate Gastrointestinal abdomen normal to inspection, abdomen soft to palpation and nontender to palpation Genitourinary no CVA tenderness Extremities normal to inspection Psychiatry oriented x3 Skin skin color normal and no rash Results Vitals Vitals: Vital Signs - 24 hr 12/23/24 21:37 12/23/24 21:47 12/23/24 22:04 Temperature 39.3 C H Temperature Source Oral Pulse Rate 128 H 131 H Respiratory Rate 20 22 Blood Pressure 150/112 H 111/89 O2 Saturation 96 95 O2 Source Room air Room air Pain Intensity 10 8 12/23/24 22:17 12/23/24 22:47 12/23/24 22:56 Temperature Temperature Source Pulse Rate 128 H 118 H Respiratory Rate 20 20 Blood Pressure 140/95 H 124/71 O2 Saturation 97 94 O2 Source Room air Room air Pain Intensity 8 12/23/24 23:05 Temperature Temperature Source Pulse Rate Respiratory Rate Blood Pressure O2 Saturation O2 Source Pain Intensity 8 Oxygen O2 Source [With Activity] Room air O2 Source Room air EKG (time done) 2212: EKG releavant findings:: EKG personally interpreted by author of this note. Relevant findings are: Rate: Rate (enter#) (128) Rhythm: Other (likely sinus tachycardia. severe baseline artifact) Labs Labs: Laboratory Tests 12/23/24 12/23/24 12/23/24 21:51 21:51 21:51 WBC 7.1 RBC 3.12 L Hgb 9.7 L Hct 29.4 L MCV 94.2 H MCH 31.1 H MCHC 33.0 RDW 18.6 H Plt Count 232 MPV 10.6 Neut # (Auto) Not Reportable Lymph # (Auto) Not Reportable [place] # (Auto) Not Reportable Eos # (Auto) Not Reportable Baso # (Auto) Not Reportable Absolute Nucleated RBC Not Reportable Total Counted 100 Band Neuts % (Manual) 0 Abnorm Lymph % (Manual) 0 Nucleated RBC % Not Reportable Neutrophils # (Manual) 4.0 Lymphocytes # (Manual) 0.4 L Monocytes # (Manual) 0.5 Eosinophils # (Manual) 2.1 H Basophils # (Manual) 0.1 Differential Comment MANUAL DIFFERENTIAL Manual Slide Review Indicated Platelet Estimate NORMAL (130-450,000) Platelet Morphology NORMAL APPEARANCE RBC Morph Micro Appear 1+ ANISOCYTOSIS 1+ OVALOCYTES 1+ BASO STIPPLING VBG pH VBG pCO2 VBG pO2 VBG HCO3 VBG Total CO2 VBG O2 Saturation VBG Base Excess Sodium Potassium Chloride Carbon Dioxide Anion Gap BUN Creatinine Estimated GFR (MDRD) Glucose Lactic Acid Calcium Magnesium Total Bilirubin AST ALT Alkaline Phosphatase Total Protein Albumin Globulin Albumin/Globulin Ratio Nasal Adenovirus (PCR) Nasal B. parapertussis DNA (PCR) Nasal Coronavir 229E PCR Nasal Coronavir HKU1 PCR Nasal Coronavir NL63 PCR Nasal Coronavir OC43 PCR Nasal Enterovir/Rhinovir PCR Nasal Influenza B PCR Nasal Influenza A PCR Nasal Parainfluen 1 PCR Nasal Parainfluen 2 PCR Nasal Parainfluen 3 PCR Nasal Parainfluen 4 PCR Nasal RSV (PCR) Nasal B.pertussis DNA PCR Nasal C.pneumoniae (PCR) John Human Metapneumo PCR Nasal M.pneumoniae (PCR) Nasal SARS-CoV-2 (PCR) 12/23/24 12/23/24 21:51 22:15 WBC RBC Hgb Hct MCV MCH MCHC RDW Plt Count MPV Neut # (Auto) Lymph # (Auto) [place] # (Auto) Eos # (Auto) Baso # (Auto) Absolute Nucleated RBC Total Counted Band Neuts % (Manual) Abnorm Lymph % (Manual) Nucleated RBC % Neutrophils # (Manual) Lymphocytes # (Manual) Monocytes # (Manual) Eosinophils # (Manual) Basophils # (Manual) Differential Comment Manual Slide Review Platelet Estimate Platelet Morphology RBC Morph Micro Appear 1+ HYPOCHROMASIA VBG pH 7.469 H VBG pCO2 44.8 VBG pO2 36.3 VBG HCO3 32.9 H VBG Total CO2 34.2 H VBG O2 Saturation 50.0 L VBG Base Excess 9.0 H Sodium 139 Potassium 3.6 Chloride 101 Carbon Dioxide 29 Anion Gap 9.0 BUN 28 H Creatinine 1.3 Estimated GFR (MDRD) 53 L Glucose 117 H Lactic Acid 0.6 Calcium 9.4 Magnesium 1.6 L Total Bilirubin 0.4 AST 44 H ALT 40 Alkaline Phosphatase 85 Total Protein 6.8 Albumin 3.6 Globulin 3.2 Albumin/Globulin Ratio 1.1 Nasal Adenovirus (PCR) NOT DETECTED Nasal B. parapertussis DNA (PCR) NOT DETECTED Nasal Coronavir 229E PCR NOT DETECTED Nasal Coronavir HKU1 PCR NOT DETECTED Nasal Coronavir NL63 PCR NOT DETECTED Nasal Coronavir OC43 PCR NOT DETECTED Nasal Enterovir/Rhinovir PCR NOT DETECTED Nasal Influenza B PCR NOT DETECTED Nasal Influenza A PCR NOT DETECTED Nasal Parainfluen 1 PCR NOT DETECTED Nasal Parainfluen 2 PCR NOT DETECTED Nasal Parainfluen 3 PCR NOT DETECTED Nasal Parainfluen 4 PCR NOT DETECTED Nasal RSV (PCR) NOT DETECTED Nasal B.pertussis DNA PCR NOT DETECTED Nasal C.pneumoniae (PCR) NOT DETECTED John Human Metapneumo PCR NOT DETECTED Nasal M.pneumoniae (PCR) NOT DETECTED Nasal SARS-CoV-2 (PCR) NOT DETECTED PD Medical Decision Making ED course ED course: 79yM with MDR e coli p/w fever from detention with mild diffuse headache, res ponding well to toradol and tylenol. septic vital signs (fever, tachycardia). no leukocytosis. cxr looks better than previous and lungs are clear. Hb 9.7 (baseline 8.6 12/18/24). Lactate 0.6. repleted chronic hypomagnesemia of 1.6 with IV magnesium. labs otherwise unremarkable. Patient with negative RVP. suspect urosepsis as source of infection. picc line infection less likely. Given his previous MDR e coli uti and ongoing meropenem treatment. with infectious disease specialist Dr. Tara Hahn, he would benefit from a higher level of care but patient refuses transfer. plan to consider [facility] to our hospital at this time. d/w Dr. Barraza at 11:38pm for admission Discharge Plan Discharge Patient Disposition: [facility] DC/Xfer Condition: Fair Clinical Impression: Sepsis, Hypomagnesemia Prescriptions: No Action carvedilol 3.125 MG tablet 3.125 mg PO BID 0RF midodrine 2.5 MG tablet 2.5 mg PO TIDWM Qty: 90 0RF lisinopril 20 mg tablet 20 mg PO DAILY acetaminophen 325 MG tablet 650 mg PO PRN PRN (Reason: Pain 1-4 or Fever > 38C) omeprazole 40 mg capsule,delayed release(DR/EC) 40 mg PO ONCE meropenem 2 gram recon soln 2 g IV Q8H magnesium oxide 400 mg magnesium capsule 400 mg PO TID lutein-zeaxanthin [Ocuvite Lutein 25] 25-5 mg capsule 1 cap PO DAILY cyanocobalamin (vitamin B-12) 100 mcg tablet 100 mcg PO DAILY ascorbic acid (vitamin C) 500 mg capsule 500 mg PO BID mirtazapine 7.5 mg tablet 7.5 mg PO HS tamsulosin 0.4 mg capsule 0.4 mg PO HS atorvastatin 80 mg tablet 80 mg PO HS lidocaine 4 % adhesive patch,medicated 1 patch topical Q12H PRN (Reason: pain) albuterol sulfate [Ventolin HFA] 90 mcg/actuation HFA aerosol inhaler 2 inh inhalation Q6H PRN (Reason: shortness of breath or wheezing) potassium chloride [Klor-Con M20] 20 mEq Tablet,Er Particles/Crystals 20 meq PO DAILY furosemide 20 mg Tablet 20 mg PO BID Print Language: Algerian
[2024-12-23 22:49] LABS: BASOPHILS # (MANUAL) 0.1 10^3/uL (0-0.1); BASOPHILS % (MANUAL) 2 %; EOSINOPHILS # (MANUAL) 2.1 10^3/uL (0-0.7); LYMPHOCYTES # (MANUAL) 0.4 10^3/uL (1.5-3.5); LYMPHOCYTES % (MANUAL) 6 %; MONOCYTES # (MANUAL) 0.5 10^3/uL (0.0-1.0)
[2024-12-23 22:51] LABS: DIFFERENTIAL COMMENT MANUAL DIFFERENTIAL; PLATELET ESTIMATE, MANUAL NORMAL (130-450,000) (NORMAL); PLATELET MORPHOLOGY NORMAL APPEARANCE (NORMAL)
[2024-12-23] MEDS: MAGNESIUM SULFATE 2 GRAM 2 GM/50 ML BAG IV ONE (22:55)
[2024-12-23] MEDS: KETOROLAC 15 MG/ML VIAL IVP STA (22:56)
[2024-12-23] MEDS: LORazepam 2 MG/ML VIAL IVP STA (22:56)
[2024-12-23] MEDS: SODIUM CHLORIDE 0.9% 1,500 ML IV ONE (23:05)
[2024-12-23 23:20] LABS: B. PARAPERTUSSIS- RESP PCR PAN NOT DETECTED; B. PERTUSSIS- RESP PCR PANEL NOT DETECTED; C. PNEUMONIAE- RESP PCR PANEL NOT DETECTED; CORONAVIRUS 229E-RESP PCR NOT DETECTED; CORONAVIRUS HKU1-RESP PCR NOT DETECTED; CORONAVIRUS NL63-RESP PCR NOT DETECTED; CORONAVIRUS OC43-RESP PCR NOT DETECTED; HUMAN METAPNEUMOVIRUS NOT DETECTED; INFLUENZA A- RESP PCR PANEL NOT DETECTED; INFLUENZA B - RESP PCR PANEL NOT DETECTED; M. PNEUMONIAE- RESP PCR PANEL NOT DETECTED; PARAINFLUENZA VIRUS 1 NOT DETECTED; PARAINFLUENZA VIRUS 2 NOT DETECTED; PARAINFLUENZA VIRUS 4 NOT DETECTED; RHINOVIRUS/ENTEROVIRUS NOT DETECTED; RSV- RESP PCR PANEL NOT DETECTED; SARS-CoV-2 -RESP PCR PANEL NOT DETECTED
[2024-12-23] MEDS ORDERED: HYDROcod/ACETAM 10 MG/325 MG TABLET PO PRN (23:38)
[2024-12-23] MEDS ORDERED: ACETAMINOPHEN 325 MG TABLET PO PRN (23:38)
[2024-12-23] MEDS ORDERED: ONDANSETRON 4 MG/2 ML VIAL IVP PRN (23:38)
[2024-12-23] MEDS ORDERED: ALBUTEROL NEB 2.5 MG/3 ML INH PRN (23:38)
[2024-12-23] MEDS ORDERED: SODIUM CHLORIDE FLUSH 0.9% 10 ML SYRINGE IVP PRN (23:38)
[2024-12-23] MEDS ORDERED: LIDOCAINE PATCH 4% TOP PRN (23:44)
[2024-12-23] MEDS ORDERED: MEROPENEM 1 GM VIAL ONE (23:54)
[2024-12-23] MEDS: MEROPENEM 1 GM in SODIUM CHLORIDE 0.9% MINIBAG 100 ML IV STA (23:58)
--- NOTE | 2024-12-23 23:58 | XRAY Report ---
PROCEDURE: XR Chest 1V INDICATIONS: Sepsis TECHNIQUE: One view of the chest was acquired. COMPARISON: 05/28/2024. FINDINGS: Surgical changes and devices: Left-sided PICC line tip is in SVC. Lungs and pleura: No pleural effusions or pneumothorax. No consolidation. Mediastinum: Mediastinal contours appear normal. Heart size is normal. Bones and chest wall: No suspicious bony lesions. Overlying soft tissues appear unremarkable. IMPRESSION: No acute cardiopulmonary process. Reviewed by: Isaiah Negrete MD on 12/23/2024 11:57 PM PDT Approved by: Isaiah Negrete MD on 12/23/2024 11:57 PM PDT Station ID: [id number]
--- NOTE | 2024-12-23 23:59 | HISTORY & PHYSICAL EXAMINATION ---
Chief Complaint Chief Complaint Chief Complaint: fevers and chills History of Present Illness Admitted From Admitted From:: home History Obtained From Records Reviewed: reviewed History of Present Illness HPI Comment/Other: This is a 79 yo gentleman with pmhx of htn, hld, cad, chf and recently dx with uti requiring meropenem due to MDR E. coli who presents to ER with fevers and chills. Pt noted with labs significant for kinesiology internship 1.3, mag 1.6. given symptoms and presentation pt requiring further workup. Pt denied chest pain, sob or cough, no n/v/abd pain, no LH Or dizziness. Review of Systems per hpi PFSH Active Problems All Active Problems (Updated 12/23/24 @ 23:26 by Chayo Broussard MD) Sepsis (Acute) Ventricular tachycardia (paroxysmal) (Acute) Acute exacerbation of CHF (congestive heart failure) (Acute) Orthostatic hypotension (Acute) Confusion (Acute) Fall during current hospitalization (Acute) COPD (chronic obstructive pulmonary disease) (Acute) Iron deficiency anemia (Acute) Fracture, clavicle (Acute) Symptomatic anemia (Acute) Pneumonia (Acute) Alcohol abuse (Acute) Hypomagnesemia (Acute) Hepatic steatosis (Acute) Coagulopathy (Acute) Macrocytosis (Acute) Anemia (Acute) Transaminitis (Acute) Hyperlipidemia (Acute) Hypertension (Acute) Pain (Acute) Weakness (Acute) Multiple fractures of ribs (Acute) Severe protein-calorie malnutrition (Acute) Poor appetite (Acute) Hypotension (Acute) Leukocytosis (Acute) History of coronary artery disease (Acute) Chronic HFrEF (heart failure with reduced ejection fraction) (Acute) Dehydration (Acute) Acute kidney injury (Acute) Moderate COPD (chronic obstructive pulmonary disease) (Acute) Dyspnea (Acute) Congestive heart failure (Acute) Wrist fracture, left (Acute) Medical History Medical History (Updated 12/23/24 @ 23:26 by Chayo Broussard MD) Extended spectrum beta lactamase (ESBL) resistance Atherosclerotic heart disease Acute gastroenteropathy due to [place] agent UTI (urinary tract infection) Essential hypertension Acute kidney failure AAA (abdominal aortic aneurysm) without rupture BPH (benign prostatic hyperplasia) Sepsis Paroxysmal A-fib CAD (coronary artery disease) Social History Social History Smoking Status: Current every day smoker If you are a former smoker, when did you quit? (Date/Year): 2017 Number of Years Smoked: 57 How many cigarettes a day do you smoke? (20 cigarettes=1 Pk): 15 Second hand tobacco smoke exposure: No Do you dip or chew tobacco?: No Do you vape?: No Patient requests smoking cessation consult: No Initiate information on smoking cessation: No Living arrangement: At home Marital Status: Living Condition: Alone Support Person: Yes Relationship: Caregiver Physical Activity: Walking Level: Independent Do you feel safe in your home environment?: Yes Suffered physical, verbal, emotional, or financial abuse?: No History of Abuse: No ETOH Use: Beer Frequency: Daily Number of Amount/day: 1 Substance Use: denies use POLST Patient has POLST: No Meds/Allgy Home Medications Ambulatory Orders Medication Instructions Recorded Confirmed carvedilol 3.125 mg tablet 3.125 mg PO BID 08/22/22 midodrine 2.5 mg tablet 2.5 mg PO TIDWM #90 tabs 12/23/24 lisinopril 20 mg tablet 20 mg PO DAILY 05/27/2412/09 acetaminophen 325 mg tablet 650 mg PO PRN PRN Pain 1-4 or 05/28/24 12/23/24 Fever > 38C omeprazole 40 mg capsule,delayed 40 mg PO ONCE 4 12/23/24 release albuterol sulfate 90 mcg/actuation 2 inh inhalation Q6 H PRN shortness 12/23/24 12/23/24 aerosol inhaler (Ventolin HFA) of breath or wheezing ascorbic acid (vitamin C) 500 mg 500 mg PO BID 5 12/23/24 capsule atorvastatin 80 mg tablet 80 mg PO HS 12/23/24 5 cyanocobalamin (vitamin B-12) 100 100 mcg PO DAILY 12/23/24 mcg tablet furosemide 20 mg tablet 20 mg PO BID 12/23/24 lidocaine 4 % topical patch 1 patch topical Q12H PRN p ain 12/23/24 12/23/24 lutein 25 mg-zeaxanthin 5 mg 1 cap PO DAILY 12/23/24 0 12/23/24 capsule (Ocuvite Lutein) magnesium oxide 400 mg PO TID 12/23/2412/23 meropenem 2 gram intravenous 2 g IV Q8H 12/23/2412/23 solution mirtazapine 7.5 mg tablet 7.5 mg PO HS 12/23/24 potassium chloride 20 mEq 20 meq PO DAILY 12/23/24 tablet,extended release(part/cryst) (Klor-Con M) tamsulosin 0.4 mg capsule 0.4 mg PO HS 12/23/24 Allergies Allergies Allergy/AdvReac Type Severity Reaction Status Date / Time lactose AdvReac Intermediate Cramps Verified 12/23/24 21:51 Exam Exam Vital Signs: Vital Signs x48h Temp Pulse Resp BP Pulse Ox 12/23/24 22:47 118 H 20 124/71 94 12/23/24 22:17 128 H 20 140/95 H 97 12/23/24 21:47 131 H 22 111/89 95 12/23/24 21:37 39.3 C H 128 H 20 150/112 H 96 GEN: Alert and cooperative, no distress HEENT: atraumatic, normocephalic, MMM PULM: CTABL, reg rate and pattern, no distress CV: RRR, no edema GI: soft, nontender, nondistended, normoactive bowel sounds MSK: no edema, MAEW SKIN: c/d/I NEURO: AOx4, no focal deficits Conclusion/Plan Lab Results 12/23/24 21:51 12/23/24 21:51
[2024-12-24] MEDS ORDERED: MEROPENEM 1 GM in SODIUM CHLORIDE 0.9% MINIBAG 100 ML IV SCH
[2024-12-24] MEDS: SODIUM CHLORIDE FLUSH 0.9% 10 ML SYRINGE IVP SCH (00:58)
[2024-12-24] MEDS: PANTOPRAZOLE 40 MG TABLET PO ONE (01:53)
[2024-12-24] MEDS: SODIUM CHLORIDE 0.9% 1,000 ML IV SCH (04:26)
[2024-12-24] MEDS: MEROPENEM 1 GM in SODIUM CHLORIDE 0.9% MINIBAG 100 ML IV SCH (05:15)
[2024-12-24 05:51] LABS: BASOPHILS # (AUTO) 0.1 10^3/uL (0.0-0.1); BASOPHILS % (AUTO) 0.9 %; EOSINOPHILS # (AUTO) 2.8 10^3/uL (0.0-0.7); HCT - HEMATOCRIT 26.8 % (42.0-52.0); HGB - HEMOGLOBIN 8.8 g/dL (14.0-18.0); LYMPHOCYTES # (AUTO) 0.5 10^3/uL (1.5-3.5); MEAN CORPUSCULAR HEMOGLOBIN 31.2 pg (27.0-31.0); MEAN CORPUSCULAR HGB CONC 32.8 g/dL (32.0-36.0); MEAN PLATELET VOLUME 10.4 fL (7.4-11.4); MONOCYTES # (AUTO) 0.5 10^3/uL (0.0-1.0); MONOCYTES % (AUTO) 7.7 %; NEUTROPHILS # (AUTO) 2.9 10^3/uL (1.5-6.6); PLT - PLATELET COUNT 224 10^3/uL (130-450); RED BLOOD COUNT 2.82 10^6/uL (4.70-6.10); RED CELL DISTRIBUTION WIDTH 18.4 % (12.0-15.0); WHITE BLOOD COUNT 6.8 x10^3/uL (4.8-10.8)
[2024-12-24 06:06] LABS: CALCIUM 8.8 mg/dL (8.5-10.3); CREATININE 1.2 mg/dL (0.6-1.3); POTASSIUM 3.6 mmol/L (3.5-4.5)
[2024-12-24 06:21] LABS: DIFFERENTIAL COMMENT MANUAL=AUTO DIFF
[2024-12-24 06:25] LABS: BILIRUBIN,URINE NEGATIVE (NEGATIVE); GLUCOSE, URINE (UA) NEGATIVE (NEGATIVE); KETONES,URINE (UA) TRACE mg/dL (NEGATIVE); LEUKOCYTE ESTERASE, URINE NEGATIVE (NEGATIVE); NITRITE,URINE NEGATIVE (NEGATIVE); OCCULT BLOOD,URINE NEGATIVE (NEGATIVE); PROTEIN,URINE 100 mg/dL (NEGATIVE); UROBILINOGEN,URINE 0.2 (NORMAL) E.U./dL (NORMAL)
[2024-12-24 06:29] LABS: CLARITY,URINE HAZY (CLEAR)
[2024-12-24 06:37] LABS: RBC,URINE 0-5 /HPF (0-5); SQUAMOUS EPITHELIAL CELL,UR FEW Squamous (<= Few); WBC CLUMPS,URINE PRESENT
[2024-12-24 06:38] LABS: BACTERIA,URINE Many /HPF (None Seen)
[2024-12-24] MEDS: MIDODRINE 2.5 MG TABLET PO SCH (08:07)
[2024-12-24] MEDS: carvediloL 3.125 MG TABLET PO SCH (08:07)
[2024-12-24] MEDS: lisinopriL 20 MG TABLET PO SCH (08:07)
[2024-12-24] MEDS: HYDROcod/ACETAM 5/325 MG TABLET PO PRN (08:17)
--- NOTE | 2024-12-24 12:00 | PHARMACY PROGRESS NOTE ---
Best Possible Medication History Admit Date and Time: 12/23/24 2339 Home Medications Medication Instructions Recorded Confirmed Type carvedilol 3.125 mg tablet 3.125 mg PO BID 08/22/22 Rx midodrine 2.5 mg tablet 2.5 mg PO TIDWM #90 tabs 12/23/24 Rx lisinopril 20 mg tablet 20 mg PO DAILY 05/27/2412/09 History acetaminophen 325 mg tablet 650 mg PO PRN PRN Pain 1-4 or 05/28/24 12/23/24 History Fever > 38C omeprazole 40 mg capsule,delayed 40 mg PO ONCE 4 12/23/24 History release albuterol sulfate 90 mcg/actuation 2 inh inhalation Q6 H PRN shortness 12/23/24 12/23/24 History aerosol inhaler (Ventolin HFA) of breath or wheezing ascorbic acid (vitamin C) 500 mg 500 mg PO BID 5 12/23/24 History capsule atorvastatin 80 mg tablet 80 mg PO HS 12/23/24 5 History furosemide 20 mg tablet 20 mg PO BID 12/23/24 History lidocaine 4 % topical patch 1 patch topical Q12H PRN p ain 12/23/24 12/23/24 History lutein 25 mg-zeaxanthin 5 mg 1 cap PO DAILY 12/23/24 0 12/23/24 History capsule (Ocuvite Lutein) magnesium oxide 400 mg PO TID 12/23/2412/23 History meropenem 2 gram intravenous 2 g IV Q8H 12/23/2412/23 History solution mirtazapine 7.5 mg tablet 7.5 mg PO HS 12/23/24 History potassium chloride 20 mEq 20 meq PO DAILY 12/23/24 History tablet,extended release(part/cryst) (Klor-Con M) tamsulosin 0.4 mg capsule 0.4 mg PO HS 12/23/24 History Processed by: Pharmacy Medications reviewed in ED?: No Medication History completed: Yes Patient Interview: Completed Secondary Source(s): Insurance records [facility] Statement: Per area attendant interview and review of [facility] insurance records. As the person ultimately responsible for medication therapy, providers are able to order a medication from an existing home medication list in [facility] via the "Reconcile Routine" prior to Confirmation of that medication by program support assistant. Such practice is discouraged except when the physician, in their clinical judgment, deems that a medical need exists for a medication without regard to previous use.
--- NOTE | 2024-12-24 16:34 | HISTORY & PHYSICAL EXAMINATION ---
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 Patient was initially admitted by another provider but due to a technical problem, documentation was not able to be entered therefore evaluation of history is taken several hours after admission.To the best of the patient's knowledge, he is [facility] where he is therefore assistance with IV antibiotics including meropenem for ESBL, and he was noted to have the shakes and subjective chills. He was taken to an outpatient clinic where he was documented to have a fever but he does not remember the exact temperature and therefore sent to the ED for further evaluation. Patient denies any other symptoms and otherwise states he feels fine and is still not entirely sure why he is here. Per ER chart review, the patient wasMildly febrile with a Tmax of 39.3 Degree Celsius in the ED, with a heart rate of 128,But normal WBC and normal lactic acid. He was deemed to be septic with a presumption of a possible urinary source and he was admitted for further evaluation and management. Blood cultures and urine cultures taken from the ED are pending at the time of admission.Chest x-ray was clear and no other imaging was obtained in the ED. Meds/Allgy Home Medications Ambulatory Orders Medication Instructions Recorded Confirmed carvedilol 3.125 mg tablet 3.125 mg PO BID 08/22/22 midodrine 2.5 mg tablet 2.5 mg PO TIDWM #90 tabs 12/23/24 lisinopril 20 mg tablet 20 mg PO DAILY 05/27/2412/09 acetaminophen 325 mg tablet 650 mg PO PRN PRN Pain 1-4 or 05/28/24 12/23/24 Fever > 38C omeprazole 40 mg capsule,delayed 40 mg PO ONCE 4 12/23/24 release albuterol sulfate 90 mcg/actuation 2 inh inhalation Q6 H PRN shortness 12/23/24 12/23/24 aerosol inhaler (Ventolin HFA) of breath or wheezing ascorbic acid (vitamin C) 500 mg 500 mg PO BID 5 12/23/24 capsule atorvastatin 80 mg tablet 80 mg PO HS 12/23/24 5 furosemide 20 mg tablet 20 mg PO BID 12/23/24 lidocaine 4 % topical patch 1 patch topical Q12H PRN p ain 12/23/24 12/23/24 lutein 25 mg-zeaxanthin 5 mg 1 cap PO DAILY 12/23/24 0 12/23/24 capsule (Ocuvite Lutein) magnesium oxide 400 mg PO TID 12/23/2412/23 meropenem 2 gram intravenous 2 g IV Q8H 12/23/2412/23 solution mirtazapine 7.5 mg tablet 7.5 mg PO HS 12/23/24 potassium chloride 20 mEq 20 meq PO DAILY 12/23/24 tablet,extended release(part/cryst) (Klor-Con M) tamsulosin 0.4 mg capsule 0.4 mg PO HS 12/23/24 Allergies Allergies Allergy/AdvReac Type Severity Reaction Status Date / Time lactose AdvReac Intermediate Cramps Verified 12/23/24 21:51 PFSH Active Problems All Active Problems (Updated 12/24/24 @ 16:52 by Gokul Ray MD) ESBL E. coli carrier (Acute) CKD (chronic kidney disease) (Acute) Sepsis (Acute) Ventricular tachycardia (paroxysmal) (Acute) Acute exacerbation of CHF (congestive heart failure) (Acute) Orthostatic hypotension (Acute) Confusion (Acute) Fall during current hospitalization (Acute) COPD (chronic obstructive pulmonary disease) (Acute) Iron deficiency anemia (Acute) Fracture, clavicle (Acute) Symptomatic anemia (Acute) Pneumonia (Acute) Alcohol abuse (Acute) Hypomagnesemia (Acute) Hepatic steatosis (Acute) Coagulopathy (Acute) Macrocytosis (Acute) Anemia (Acute) Transaminitis (Acute) Hyperlipidemia (Acute) Hypertension (Acute) Pain (Acute) Weakness (Acute) Multiple fractures of ribs (Acute) Severe protein-calorie malnutrition (Acute) Poor appetite (Acute) Hypotension (Acute) Leukocytosis (Acute) History of coronary artery disease (Acute) Chronic HFrEF (heart failure with reduced ejection fraction) (Acute) Dehydration (Acute) Acute kidney injury (Acute) Moderate COPD (chronic obstructive pulmonary disease) (Acute) Dyspnea (Acute) Congestive heart failure (Acute) Wrist fracture, left (Acute) Medical History Medical History (Updated 12/24/24 @ 16:52 by Gokul Ray MD) Extended spectrum beta lactamase (ESBL) resistance Atherosclerotic heart disease Acute gastroenteropathy due to [place] agent UTI (urinary tract infection) Essential hypertension Acute kidney failure AAA (abdominal aortic aneurysm) without rupture BPH (benign prostatic hyperplasia) Sepsis Paroxysmal A-fib CAD (coronary artery disease) Social History Social History Smoking Status: Current every day smoker If you are a former smoker, when did you quit? (Date/Year): 2017 Number of Years Smoked: 50 How many cigarettes a day do you smoke? (20 cigarettes=1 Pk): 20 Second hand tobacco smoke exposure: No Do you dip or chew tobacco?: No Do you vape?: No Patient requests smoking cessation consult: No Initiate information on smoking cessation: No Living arrangement: At home Marital Status: Living Condition: Alone Support Person: Yes Relationship: Caregiver Physical Activity: Walking Level: Independent Do you feel safe in your home environment?: Yes Suffered physical, verbal, emotional, or financial abuse?: No History of Abuse: No ETOH Use: Beer Frequency: Daily Number of Amount/day: 1 Substance Use: denies use POLST Patient has POLST: No Review of Systems Status of ROS: 10 or more systems reviewed and unremarkable except as noted in history and below Exam Exam Vital Signs: Vital Signs x48h Temp Pulse Resp BP Pulse Ox 12/24/24 16:00 36.6 C 83 18 110/58 L 93 12/24/24 12:36 36.8 C 86 20 93/51 L 96 Constitutional normal general appearance, no apparent distress and average body habitus elderly appearing HENMT head/scalp atraumatic and oropharynx normal Eyes PERRL and EOMs intact bilaterally Neck/C-Spine visual inspection normal Chest inspection of chest normal Respiratory breath sounds equal bilaterally, normal respiratory effort and clear to auscultation bilaterally Cardiovascular regular rhythm noted tachycardic rate Gastrointestinal abdomen normal to inspection, abdomen soft to palpation and nontender to palpation Genitourinary no CVA tenderness Indwelling Yip catheter in place Extremities normal to inspection Psychiatry oriented x3 Skin skin color normal and no rash Sepsis Event Note (H) Evaluation Current Stage of Sepsis: Sepsis Possible source of Sepsis: positive Genitourinary Sepsis Criteria Sepsis Criteria: Recorded Temperature greater than 38.3C or Less than 36C and Recorded Heart Rate greater than 90 bpm Conclusion/Plan Problem List (1) Sepsis: Plan: * Patient initially met sepsis criteria with tachycardia and fever but has been afebrile and without tachycardia since admission * Lactic acid was normal, WBC was normal, chest x-ray was normal * Urinalysis may be difficult to rely on given patient's recent ESBL diagnosis and current treatment with meropenem * Will follow urine cultures and blood cultures * For now, continue empiric meropenem without additional antibiotics pending clinical course and further culture results (2) ESBL E. coli carrier: Plan: * Continue IV meropenem * He is followed by Dr. Wilcox of infectious disease as well as urology with an ongoing outpatient management plan for this, and per patient to possible outpatient cystoscopy (3) Ventricular tachycardia (paroxysmal): Plan: * Patient had short run of V. tach without symptoms * Has since had brief episodes of bigeminy * Likely related to his CAD in the setting of hypomagnesemia * Will repeat electrolytes and continue patient's home meds * Continue telemetry monitoring (4) Orthostatic hypotension: Plan: * BP relatively normal, will maintain home midodrine dosing (5) COPD (chronic obstructive pulmonary disease): Plan: * No evidence of acute exacerbation * Monitor and provide nebs if needed Qualifiers: COPD type: COPD with acute exacerbation Qualified Code(s): J44.1 - Chronic obstructive pulmonary disease with (acute) exacerbation (6) Iron deficiency anemia: Plan: * Per chart review, history of iron deficiency anemia * Current hemoglobin is within historical baseline * Will check iron panel in the a.m. * Add p.o. iron supplements Qualifiers: Iron deficiency anemia type: unspecified iron deficiency Qualified Code(s): D50.9 - Iron deficiency anemia, unspecified (7) CKD (chronic kidney disease): Plan: * Creatinine and GFR within baseline * Underlying etiology may be related to chronic infections * Monitor renal function and avoid nephrotoxic agents Qualifiers: Chronic kidney disease stage: stage 3 (moderate) Chronic kidney disease stage 3 subtype: stage 3a (GFR 45-59) Qualified Code(s): N18.31 - Chronic kidney disease, stage 3a (8) Hypomagnesemia: Plan: * Patient with recurrent low magnesium level, 1.6 on arrival * Patient received 2 g of magnesium in the ED * Will resume p.o. twice daily dosing and check magnesium in the a.m. Lab Results Lab results reviewed: Yes 12/24/24 05:11 12/24/24 05:11 Diagnostic Imaging Results Diagnostic Imaging Results: positive Final report reviewed EKG Results EKG Interpreted Independently: Yes Core Measures Anticipated LOS I expect patient to be DC'd or transferred within 96 hours.: Yes DVT/VTE - Prophylaxis VTE/DVT Device ordered at admit?: Yes VTE/DVT Prophylaxis med ordered at admit?: Yes
[2024-12-24] MEDS: TAMSULOSIN 0.4 MG CAPSULE PO SCH (21:00)
[2024-12-24] MEDS: traZODone 50 MG TABLET PO PRN (21:00)
[2024-12-24] MEDS: APIXABAN 2.5 MG TABLET PO SCH (21:00)
[2024-12-24] MEDS: MIRTAZAPINE 15 MG TABLET PO SCH (21:01)
[2024-12-24] MEDS: ATORVASTATIN 40 MG TABLET PO SCH (21:03)
--- NOTE | 2024-12-25 11:49 | PROVIDER PROGRESS NOTE ---
Subjective Prog Note Date Prog Note Date: 12/25/24 Prog Note Time: 11:33 Subjective Pt reports feeling: Improved Subjective: Patient denies any complaints. He feels like he is at his baseline. He denies any chills or subjective fever. He denies any pain. He is tolerating p.o. well. He is seen enjoying a cup of coffee in the hospital bed. Current Medications Current Medications Current Medications: Current Medications Generic Name Dose Route Start Last Admin Trade Name Freq PRN Reason Stop Dose Admin Acetaminophen 650 mg 12/23/24 23:38 Acetaminophen 325 Mg Tablet PO Q4HR PRN Pain 1 to 4, or Fever Hydrocodone Bitart/Acetaminophen 1 tab 12/23/24 23:38 12/25/24 08:40 Hydrocod/Acetam 5/325 Mg Tablet PO 1 tab Q4HR PRN Administration Pain 5 to 7 Hydrocodone Bitart/Acetaminophen 1 tab 12/23/24 23:38 Hydrocod/Acetam 10 Mg/325 Mg Tablet PO Q4HR PRN Pain 8 to 10 Albuterol 2.5 mg 12/23/24 23:38 Albuterol Neb 2.5 Mg/3 Ml INH RTQ4H PRN Shortness of Air/Wheezing Apixaban 2.5 mg 12/24/24 21:00 12/25/24 08:40 Apixaban 2.5 Mg Tablet PO 2.5 mg BID RONDA Administration Atorvastatin Calcium 80 mg 12/24/24 21:00 12/24/24 21:03 Atorvastatin 40 Mg Tablet PO 80 mg HS RONDA Administration Carvedilol 3.125 mg 12/24/24 09:00 12/25/24 08:40 Carvedilol 3.125 Mg Tablet PO 3.125 mg BID RONDA Administration Sodium Chloride 1,000 mls @ 75 mls/hr 12/23/24 23:45 12/25/24 08:39 Normal Saline 0.9% IV 75 mls/hr .[id number] RODNA Administration Meropenem 1 gm/ Sodium 100 mls @ 100 mls/hr 12/24/24 06:00 12/25/24 05:53 Chloride IV 100 mls/hr Q6H RONDA Administration Lidocaine 1 patch 12/23/24 23:44 Lidocaine Patch 4% TOP Q12H PRN pain Lisinopril 20 mg 12/24/24 09:00 12/25/24 08:40 Lisinopril 20 Mg Tablet PO 20 mg DAILY RNODA Administration Midodrine 2.5 mg 12/24/24 08:00 12/25/24 08:40 Midodrine 2.5 Mg Tablet PO 2.5 mg TIDWM RONDA Administration Mirtazapine 7.5 mg 12/24/24 21:00 12/24/24 21:01 Mirtazapine 15 Mg Tablet PO 7.5 mg HS RONDA Administration Ondansetron HCl 4 mg 12/23/24 23:38 Ondansetron 4 Mg/2 Ml Vial IVP Q6HR PRN Nausea / Vomiting Sodium Chloride 10 ml 12/23/24 23:38 Sodium Chloride Flush 0.9% 10 Ml Syringe IVP PRN PRN NEEDED PER PROVIDER ORDERS Sodium Chloride 10 ml 12/24/24 01:00 12/25/24 08:41 Sodium Chloride Flush 0.9% 10 Ml Syringe IVP 10 ml 0100,0900,1700 RONDA Administration Tamsulosin HCl 0.4 mg 12/24/24 21:00 12/24/24 21:00 Tamsulosin 0.4 Mg Capsule PO 0.4 mg HS RONDA Administration Trazodone HCl 50 mg 12/24/24 16:34 12/24/24 21:00 Trazodone 50 Mg Tablet PO 50 mg QPM PRN Administration Insomnia Objective Vital Signs/Intake & Output Vital Signs: Vital Signs x48h Temp Pulse Resp BP Pulse Ox 12/25/24 08:36 36.5 C 79 18 114/57 L 94 12/25/24 04:35 36.6 C 92 20 119/61 91 L Intake & Output: Intake & Output 12/22/24 12/23/24 12/24/24 12/25/24 23:59 23:59 23:59 23:59 Intake Total 300 / 300 4138 / 4138 1470 / 1470 Output Total 925 / 925 550 / 550 Balance 300 / 300 3213 / 3213 920 / 920 Weight (kg) 57.7 kg 55 kg Objective General Appearance: positive No acute distress and Alert Eyes Bilateral: positive Normal inspection ENT: positive ENT inspection nml Neck: positive Nml inspection Respiratory: positive Chest non-tender, No respiratory distress and Rhonchi (throughout. upper and lower lung wallace.) Cardiovascular: positive Regular rate & rhythm, No murmur and Other (tele review- 2 episodes V tach) Abdomen: positive Non-tender and No distention Back: positive Nml inspection Skin: positive Color nml and No rash Extremities: positive Non-tender and No pedal edema Neurologic/Psychiatric: positive Oriented x3 Lab Results 12/24/24 05:11 12/24/24 05:11 Diagnostic Imaging Diagnostic Imaging Results: positive Final report reviewed Sepsis Event Note (H) Evaluation Current Stage of Sepsis: Sepsis Possible source of Sepsis: positive Genitourinary Sepsis Criteria Sepsis Criteria: Recorded Temperature greater than 38.3C or Less than 36C and Recorded Heart Rate greater than 90 bpm Assessment/Plan Problem List (1) Sepsis: Impression: * Patient initially met sepsis criteria with tachycardia and fever but has been afebrile and without tachycardia since admission * Lactic acid was normal, WBC was normal, chest x-ray was normal * Urinalysis may be difficult to rely on given patient's recent ESBL diagnosis and current treatment with meropenem * Will follow urine cultures and blood cultures * For now, continue empiric meropenem without additional antibiotics pending clinical course and further culture results Qualifiers: Sepsis acute organ dysfunction status: unspecified Sepsis type: sepsis due to unspecified organism Qualified Code(s): A41.9 - Sepsis, unspecified organism (2) ESBL E. coli carrier: Impression: * Continue IV meropenem * He is followed by Dr. Wilcox of infectious disease as well as urology with an ongoing outpatient management plan for this, and per patient to possible outpatient cystoscopy (3) Ventricular tachycardia (paroxysmal): Impression: * Patient had short run of V. tach without symptoms * Has since had brief episodes of bigeminy * Likely related to his CAD in the setting of hypomagnesemia * Will repeat electrolytes and continue patient's home meds * Continue telemetry monitoring (4) Orthostatic hypotension: Impression: * BP relatively normal, will maintain home midodrine dosing (5) COPD (chronic obstructive pulmonary disease): Impression: * Per chart review, history of iron deficiency anemia * Current hemoglobin is within historical baseline * Will check iron panel in the a.m. * Add p.o. iron supplements Qualifiers: COPD type: COPD with acute exacerbation Qualified Code(s): J44.1 - Chronic obstructive pulmonary disease with (acute) exacerbation (6) Iron deficiency anemia: Impression: * Creatinine and GFR within baseline * Underlying etiology may be related to chronic infections * Monitor renal function and avoid nephrotoxic agents Qualifiers: Iron deficiency anemia type: unspecified iron deficiency Qualified Code(s): D50.9 - Iron deficiency anemia, unspecified (7) CKD (chronic kidney disease): Impression: * Creatinine and GFR within baseline * Underlying etiology may be related to chronic infections * Monitor renal function and avoid nephrotoxic agents Qualifiers: Chronic kidney disease stage: stage 3 (moderate) Chronic kidney disease stage 3 subtype: stage 3a (GFR 45-59) Qualified Code(s): N18.31 - Chronic kidney disease, stage 3a (8) Hypomagnesemia: Impression: * Patient with recurrent low magnesium level, 1.6 on arrival * Patient received 2 g of magnesium in the ED * Will resume p.o. twice daily dosing and check magnesium in the a.m
--- NOTE | 2024-12-25 12:03 | Discharge Summary ---
Discharge Summary Admit Date: 12/23/24 Discharge Date: 12/25/24 Discharging Provider: Dr Gokul Ray MD Primary Care Provider: Dr Zachary Rico MD Code Status: Do Not Attempt Resuscitation DIAGNOSES Admission Diagnoses: Sepsis ESBL E. coli carrier Ventricular tachycardia paroxysmal Orthostatic hypotension COPD Iron deficiency anemia Discharge Diagnoses with Status of Each Condition: Sepsis - POA, resolved ESBL E. coli carrier - Stable Ventricular tachycardia paroxysmal - Stable Orthostatic hypotension - Stable COPD - Stable Iron deficiency anemia - Stable HPI History of Present Illness: Patient is a 79-year-old man with a PMH of ESBL currently on a outpatient regimen of meropenem with an indwelling PICC line as well as a chronic indwelling Yip catheter,History of A-fib, CAD status post PCI x 3, CHF, presenting to the ED due to fever.History is somewhat limited by patient recall. Patient was initially admitted by another provider but due to a technical problem, documentation was not able to be entered therefore evaluation of history is taken several hours after admission.To the best of the patient's knowledge, he is currently residing at [facility]term [facility] where he is therefore assistance with IV antibiotics including meropenem for ESBL, and he was noted to have the shakes and subjective chills. He was taken to an outpatient clinic where he was documented to have a fever but he does not remember the exact temperature and therefore sent to the ED for further evaluation. Patient denies any other symptoms and otherwise states he feels fine and is still not entirely sure why he is here. Per ER chart review, the patient wasMildly febrile with a Tmax of 39.3 Degree Celsius in the ED, with a heart rate of 128,But normal WBC and normal lactic acid. He was deemed to be septic with a presumption of a possible urinary source and he was admitted for further evaluation and management. Blood cultures and urine cultures taken from the ED are pending at the time of admission.Chest x-ray was clear and no other imaging was obtained in the ED. HOSPITAL COURSE Hospital Course: The patient was admitted on a presumptive diagnosis of sepsis secondary to urinary tract infection. He was placed in the medical [facility]. Overnight after his first midnight stay, he did well and had stable vital signs with no recurrence of fever. He did have a brief run of paroxysmal V. tach as well as some bigeminy neither of which were sustained and maintained sinus rhythm for most of the duration of his stay. By the second midnight, the patient continued to be afebrile with otherwise normal vital signs and reassuring labs with no leukocytosis. At this point, the plan of care was discussed in detail with the patient and it appears that the patient is well-connected with infectious disease and urology on this ongoing plan to treat ESBL infection. Urine cultures were sent and at the time of discharge are pending, and it was discussed with the patient that we could approach this in 1 of 2 ways. Either we could keep the patient inpatient while we await urine culture results, although the value of these may be compromised given his history of ESBL. On the other hand, given that the patient is doing very Well and is asymptomatic and has been for most of his hospital stayThat it would be reasonable to discharge the patient back to [facility] where he was already receiving IV meropenem and will continue to do so through the PICC line, and in the meantime I can continue to monitor the urine culture results and in the unlikely event that another infection would be found that needed to be addressed with a different antibiotic we could arrange for this while he is at [facility]. Otherwise, he will follow-up with Dr. Santiago at [facility] and with his outpatient neurologist. Of note, the patient was also hypomagnesemic and this is likely the cause of his bigeminy and possibly his brief run of paroxysmal V. tach. None of which has been symptomatic. His initial magnesium was replaced by IV in the ED, but he will be discharged on a 3 times daily dosing of p.o. magnesium. ALLERGIES Allergies Allergy/AdvReac Type Severity Reaction Status Date / Time lactose AdvReac Intermediate Cramps Verified 12/23/24 21:51 MEDICATIONS Ambulatory Orders Medication Instructions Recorded Confirmed carvedilol 3.125 mg tablet 3.125 mg PO BID 08/22/22 midodrine 2.5 mg tablet 2.5 mg PO TIDWM #90 tabs 12/23/24 lisinopril 20 mg tablet 20 mg PO DAILY 05/27/2412/09 acetaminophen 325 mg tablet 650 mg PO PRN PRN Pain 1-4 or 05/28/24 12/23/24 Fever > 38C omeprazole 40 mg capsule,delayed 40 mg PO ONCE 4 12/23/24 release albuterol sulfate 90 mcg/actuation 2 inh inhalation Q6 H PRN shortness 12/23/24 12/23/24 aerosol inhaler (Ventolin HFA) of breath or wheezing ascorbic acid (vitamin C) 500 mg 500 mg PO BID 5 12/23/24 capsule atorvastatin 80 mg tablet 80 mg PO HS 12/23/24 5 furosemide 20 mg tablet 20 mg PO BID 12/23/24 lidocaine 4 % topical patch 1 patch topical Q12H PRN p ain 12/23/24 12/23/24 lutein 25 mg-zeaxanthin 5 mg 1 cap PO DAILY 12/23/24 0 12/23/24 capsule (Ocuvite Lutein) magnesium oxide 400 mg PO TID 12/23/2412/23 meropenem 2 gram intravenous 2 g IV Q8H 12/23/2412/23 solution mirtazapine 7.5 mg tablet 7.5 mg PO HS 12/23/24 potassium chloride 20 mEq 20 meq PO DAILY 12/23/24 tablet,extended release(part/cryst) (Klor-Con M) tamsulosin 0.4 mg capsule 0.4 mg PO HS 12/23/24 PHYSICAL EXAM AT DISCHARGE Vital Signs: Vital Signs x48h Temp Pulse Resp BP Pulse Ox 12/25/24 08:36 36.5 C 79 18 114/57 L 94 12/25/24 04:35 36.6 C 92 20 119/61 91 L General Appearance: positive No acute distress and Alert Eyes Bilateral: positive Normal inspection ENT: positive ENT inspection nml Neck: positive Nml inspection Respiratory: positive Chest non-tender, No respiratory distress and Breath sounds nml Cardiovascular: positive Regular rate & rhythm Abdomen: positive No distention Skin: positive Color nml and No rash Extremities: positive No pedal edema Neurologic/Psychiatric: positive Oriented x3 LABS 12/24/24 05:11 12/24/24 05:11 DIAGNOSTIC IMAGING Diagnostic Imaging Results: Final report reviewed SEPSIS Current Stage of Sepsis: Sepsis Possible source of Sepsis: Genitourinary Sepsis Criteria: Recorded Temperature greater than 38.3C or Less than 36C and Recorded Heart Rate greater than 90 bpm FOLLOW UP Follow Up: Follow-up with Dr. Hahn infectious disease, PCP, and urologist at [facility] TIME SPENT Time Spent in Discharge (Minutes): 42 Discharge Plan Discharge Patient Disposition: [facility] DC/Xfer Condition: Fair Medically Cleared Date:: 12/25/24 Prescriptions: Continued carvedilol 3.125 MG tablet 3.125 mg PO BID 0RF midodrine 2.5 MG tablet 2.5 mg PO TIDWM Qty: 90 0RF lisinopril 20 mg tablet 20 mg PO DAILY acetaminophen 325 MG tablet 650 mg PO PRN PRN (Reason: Pain 1-4 or Fever > 38C) omeprazole 40 mg capsule,delayed release(DR/EC) 40 mg PO ONCE meropenem 2 gram recon soln 2 g IV Q8H magnesium oxide 400 mg magnesium capsule 400 mg PO TID lutein-zeaxanthin [Ocuvite Lutein 25] 25-5 mg capsule 1 cap PO DAILY ascorbic acid (vitamin C) 500 mg capsule 500 mg PO BID mirtazapine 7.5 mg tablet 7.5 mg PO HS tamsulosin 0.4 mg capsule 0.4 mg PO HS atorvastatin 80 mg tablet 80 mg PO HS lidocaine 4 % adhesive patch,medicated 1 patch topical Q12H PRN (Reason: pain) albuterol sulfate [Ventolin HFA] 90 mcg/actuation HFA aerosol inhaler 2 inh inhalation Q6H PRN (Reason: shortness of breath or wheezing) potassium chloride [Klor-Con M20] 20 mEq Tablet,Er Particles/Crystals 20 meq PO DAILY furosemide 20 mg Tablet 20 mg PO BID Health Concerns: Mr. Clayton, you were admitted to the hospital because of fever and increased heart rate, and based on these 2 factors you did meet the criteria for sepsis. However, the good news is that other indicators of infection were reassuring when you came to the hospital. For example your chest x-ray showed no evidence of pneumonia. A respiratory panel showed no evidence of flu COVID or other respiratory diseases. Your WBC, or white blood cell count, was normal, which is not something we typically find in patients with serious infections. Your increased heart rate may been more related to your heart disease as well as low magnesium levels. We did observe periods of fast heart rate at times, but it dot last very long. I suspect this is more related to your history of heart disese, couped with the fact that your magnesium levels were low when you came to the ER. This can cause increased heart rates. So you were given magnesium by IV in the ER. I have kept you under observation for almost 48 hours to ensure that you did not have recurrence of fever and you have not. Also, your morning labs today continue to show no elevation of white blood cell count which is reassuring when evaluating for infection. In addition, we have sent urine culture to microbiology to see if there is any other infection that is not already covered by your IV meropenem. I do not have the final results of this yet, but I do not suspect that they will demonstrate such an infection and therefore I think it is reasonable to send you back to [facility] as you preferred. On the off chance that an new infection were to show up in the results I can call [facility] to help give them recommendations or worst-case scenario you may have to come back to the hospital. Again, I do not expect this, but it is a possibility. Print Language: Upper Sorbian Stand Alone Forms: SNF Discharge, PCP List Follow-up Care: Zachary Rico MD [Primary Care Provider] -
[2024-12-25 13:10] VITALS: BP 100/59; TEMP 97.2; O2SAT 97
== END 2024-12-25 15:43 | DRG 872 ==
LOC: MS2 21:37 → ED 21:37 → MS2 12-24 00:42
PROVIDERS: ADMIT Internal Medicine; ATTEND Internal Medicine
DX: N39.0 Urinary tract infection, site not specified; A41.9 Sepsis, unspecified organism; I13.0 Hypertensive heart and chronic kidney disease with heart failure and stage 1 through stage 4 chronic kidney disease, or unspecified chronic kidney disease; J44.1 Chronic obstructive pulmonary disease with (acute) exacerbation; F17.210 Nicotine dependence, cigarettes, uncomplicated; R00.8 Other abnormalities of heart beat; E83.42 Hypomagnesemia; I95.1 Orthostatic hypotension; I50.22 Chronic systolic (congestive) heart failure; D50.9 Iron deficiency anemia, unspecified; I48.91 Unspecified atrial fibrillation; J44.9 Chronic obstructive pulmonary disease, unspecified; Z22.358 Carrier of other Enterobacterales; I47.20 Ventricular tachycardia, unspecified; Z16.12 Extended spectrum beta lactamase (ESBL) resistance; Z95.5 Presence of coronary angioplasty implant and graft; I25.10 Atherosclerotic heart disease of native coronary artery without angina pectoris; N18.31 Chronic kidney disease, stage 3a